=== PATIENT | male | born 1970 | race Caucasian/White ===

== ENCOUNTER 2018-03-24 13:45 | Inpatient (IN) ==
[2018-03-24] MEDS ORDERED: cefTRIAXone 2,000 MG in 0.9 % Sodium Chloride Mini Bag 100 ML IVPB ONE (14:08)
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
--- NOTE | 2018-03-24 14:20 | Emergency Department Note ---
Disposition Clinical Impression: Hyperkalemia Altered mental status Qualifiers: Altered mental status type: unspecified Qualified Code(s): R41.82 - Altered mental status, unspecified Kidney failure, acute Qualifiers: Acute renal failure type: unspecified Qualified Code(s): N17.9 - Acute kidney failure, unspecified UTI (urinary tract infection) Qualifiers: Urinary tract infection type: site unspecified Hematuria presence: without hematuria Qualified Code(s): N39.0 - Urinary tract infection, site not specified Anemia Qualifiers: Anemia type: due to chronic kidney disease Chronic kidney disease stage: unspecified stage Qualified Code(s): N18.9 - Chronic kidney disease, unspecified ; D63.1 - Anemia in chronic kidney disease Disposition: Admitted As Inpatient Condition: Fair Referrals: Isatu Zaman MD [Primary Care Provider] - Forms: ED Satisfaction Letter General Adult HPI - General Chief complaint: ED Altered Mental Status Stated complaint: Altered Time Seen by Provider: 03/24/18 13:51 Source: EMS Mode of arrival: EMS Limitations: altered mental status, physical limitation Nursing Notes Reviewed: Yes Vital Signs Reviewed: Yes - History of Present Illness HPI Narrative: 47-year-old male with significant past medical history of paraplegia from an unknown trauma presenting to the point of altered mental status. According to EMS patient was brought in by a [facility]. Patient is currently being treated with amoxicillin for urinary tract infection. Patient does not have an indwelling Aguilera catheter. According to EMS [facility] facility stated that patient is normally alert and able to respond to questions. Patient unable to provide any of history of present illness at this time. Patient's caregiver has arrived to the emergency department. She states this weekend he has decreased his oral intake. Now he is not eating or drinking. Denies any fevers at home. Denies any vomiting. Does state he has been constipated for the past 4 days. Has gone to the point where he cannot take his medications at home. She also discloses a fall that occurred on Friday. She states patient fell out of his wheelchair and wanted states. Denies loss of consciousness. Pain Scale: 0 - Related Data Home Medications Medication Instructions Recorded Confirmed Acetaminophen [Tylenol] 1,000 mg PO Q4HR 03/24/18 03/24/18 Baclofen [Lioresal] 10 mg PO BID 03/24/18 03/24/18 Cholecalciferol (D-3) [Vitamin D] 1,000 unit PO DAILY 03/24/18 03/24/18 EPINEPHrine [Epipen] 0.3 mg IM ONCE PRN 03/24/18 03/24/18 Epinastine HCl [Elestat] 1 drop OP BID 03/24/18 03/24/18 Losartan Potassium [Cozaar] 100 mg PO DAILY 03/24/18 03/24/18 Mirtazapine [Remeron] 15 mg PO HS 03/24/18 03/24/18 NIFEdipine [Nifedipine ER] 30 mg PO DAILY 03/24/18 03/24/18 Ranitidine HCl [Acid Patient Advocate] 150 mg PO BID 03/24/18 03/24/18 Sertraline [Zoloft] 200 mg PO DAILY 03/24/18 03/24/18 Tamsulosin [Flomax] 0.4 mg PO DAILY 03/24/18 03/24/18 Travoprost [Travatan Z] 1 drop OP QPM 03/24/18 03/24/18 traZODone [TraZODone] 50 mg PO HS 03/24/18 03/24/18 Allergies Allergy/AdvReac Type Severity Reaction Status Date / Time No Known Allergies Allergy Verified 03/24/18 15:33 Limitations: ROS unobtainable due to patients medical condition Past Medical History - Past Medical History Source: old records reviewed Medical history: Reports: other Psychiatric history: Reports: no psych history - Social History Smoking Status: Unknown if ever smoked Smokeless Tobacco Status: No Alcohol use: Reports: none Drug use: Reports: none Physical Exam - General Limitations: altered mental status, physical limitation General appearance: cachectic - Head Head exam: atraumatic - Eye Eye exam: Absent: scleral icterus, conjunctival injection - ENT ENT exam: mucous membranes dry - Neck Neck exam: Present: normal inspection - Chest Chest inspection: Absent: tenderness, rash - Respiratory Respiratory exam: Present: other (Decreased breath sounds bilaterally) - Cardiovascular Cardiovascular exam: Present: regular rate, normal rhythm, normal heart sounds - Abdominal Exam Abdominal exam: Present: soft. Absent: guarding, rebound - Extremities Exam Extremities exam: Present: normal capillary refill - Skin Skin exam: Present: warm Course Course Narrative: 47-year-old male presenting for altered mental status. Caregiver at bedside. States the past few days he has not been acting like himself at home. Unable to take his medications. Has stopped eating and drinking. Denies fevers at home. On exam patient has dry mucous membranes. Patient unable to provide any history. Coarse breath sounds throughout. Patient's vital signs stable. Patient currently being treated with amoxicillin urinary tract infection. Sepsis at this time. We will perform sepsis workup including blood cultures, basic laboratory analysis, chest x-ray, CT of the head and a urine analysis. Disposition pending results. - Reevaluation(s) Reevaluation #1: Patient's initial laboratory analysis shows elevated potassium of 6.0 and creatinine of 7.28. We will provide the patient with calcium, albuterol, insulin and glucose. I spoke with the car and yard supervisor on-call Dr. Courtney who agrees the patient needs to be admitted and have dialysis performed. Awaiting CT of the abdomen and pelvis along with CT of the head. Also awaiting remainder of the labs. Due to patient's anemia we will order 2 units of packed red blood cells as well. Patient remains hemodynamically stable at this time. Reevaluation #2: Patient's urine analysis shows urinary tract infection. Patient given 1 dose of Rocephin. Patient's CT of abdomen and pelvis shows worsening right renal cystic changes but no acute findings otherwise. CT of the head within normal limits. At this time will plan to admit the patient for further evaluation and dialysis. I spoke with the hospitalist gem stone cutter Dr. Ewing who agrees to accept the patient at this time. Patient remains hemodynamically stable in the room. Vital Signs Temperature 97.1 F L 03/24/18 13:52 Pulse Rate 97 03/24/18 13:52 Respiratory Rate 20 03/24/18 13:52 Blood Pressure 100/61 03/24/18 13:52 O2 Sat by Pulse Oximetry 100 03/24/18 13:52 Temperature 97.1 F L 03/24/18 13:52 Pulse Rate 97 03/24/18 13:52 Respiratory Rate 20 03/24/18 15:25 Blood Pressure 100/61 03/24/18 13:52 O2 Sat by Pulse Oximetry 100 03/24/18 15:25 Oxygen Delivery Oxygen Delivery Room Air Medical Decision Making - Lab Data Result diagrams: 03/24/18 14:20 03/24/18 14:20 Lab Results 03/24/18 03/24/18 03/24/18 Range/Units 14:10 14:20 14:20 WBC 10.6 (4.3-11.1) K/mcL RBC 2.42 L (4.19-5.50) M/mcL Hgb 7.1 L (12.9-16.9) g/dL Hct 23.3 L (37.5-50.1) % MCV 96.3 (83.0-100.0) fL MCH 29.3 (28.0-33.3) pg MCHC 30.5 L (31.6-35.5) g/dL RDW 15.0 H (11.5-14.5) % Plt Count 417 H (140-400) K/mcL MPV 8.2 L (9.4-12.4) fL Immature Gran % 0.7 (0-4) % Seg Neutrophils % 91.0 % Lymphocytes % 4.4 % Monocytes % 3.9 % Eosinophils % 0.0 % Basophils % 0.0 % Neutrophils # 9.6 H (1.6-8.9) K/mcL Lymphocytes # 0.5 L (0.6-4.6) K/mcL Monocytes # 0.4 (0.0-1.3) K/mcL Eosinophils # 0.0 (0.0-0.6) K/mcL Basophils # 0.0 (0.0-0.2) K/mcL PT 13.4 H (9.4-12.1) Seconds INR 1.2 APTT 28.8 (26.0-36.0) Seconds Sodium (136-145) mEq/L Potassium (3.5-5.1) mEq/L Chloride (98-107) mEq/L Carbon Dioxide (23-29) mEq/L BUN (6-20) mg/dL Creatinine (0.70-1.30) mg/dL Est GFR ( Amer) (> 60) Est GFR (Non-Af Amer) (> 60) BUN/Creatinine Ratio (6-26) Glucose (70-105) mg/dL Calculated Osmolality (280-300) Lactic Acid (0.5-2.2) mmol/L Calcium (8.6-10.3) mg/dL Magnesium (1.6-2.6) mg/dL Total Bilirubin (0.3-1.0) mg/dL Direct Bilirubin (0.0-0.2) mg/dL Indirect Bilirubin (0.0-1.2) mg/dL AST (13-39) Units/L ALT (7-52) Units/L Alkaline Phosphatase (34-104) Units/L Troponin I (< 0.04) ng/mL Serum Total Protein (6.4-8.9) g/dL Albumin (3.5-5.7) g/dL Globulin (2.4-3.5) g/dL Albumin/Globulin Ratio (1.1-2.2) Urine Color (Yellow) Urine Clarity (Clear) Urine pH (5.0-8.0) pH Units Ur Specific [place] (1.010-1.025) Urine Protein (Neg-Trace) mg/dL Urine Glucose (UA) (Normal) mg/dL Urine Ketones (Negative) mg/dL Urine Blood (Negative) Urine Nitrite (Negative) Urine Bilirubin (Negative) Urine Urobilinogen (Normal) mg/dL Ur Leukocyte Esterase (Negative) Urine Microscopic RBC (0-3) per hpf Urine Microscopic WBC (0-3) per hpf Ur Squamous Epith Cells (None-Few) per lpf Urine Bacteria (None-Few) per hpf Hyaline Casts (None-Few) per lpf Ur Culture Indicated? (NO) Urine Creatinine mg/dL Protein/Creatinin Ratio (0.00-0.20) mg/mg Urine Sodium mEq/L Urine Total Protein (1-14) mg/dL Urine Opiates Screen (Xrvaph=431) ng/mL Ur Barbiturates Screen (Nhyppg=965) ng/mL Ur Phencyclidine Scrn (Cutoff=25) ng/mL Ur Amphetamines Screen (Phraxl=9383) ng/mL U Benzodiazepines Scrn (Imzslp=657) ng/mL Urine Cocaine Screen (Cutoff= 300) ng/mL U Marijuana (THC) Screen (Cutoff = 50) ng/mL Ur Drug Screen Interp Hepatitis A IgM Ab Nonreactive (Nonreactive) Hep Bs Antigen Nonreactive (Nonreactive) Hep B Core IgM Ab Nonreactive (Nonreactive) Hepatitis C Ab Screen Nonreactive (Nonreactive) HIV Ag/Ab Combo Qual Nonreactive (Nonreactive) Blood Type Antibody Screen Crossmatch 03/24/18 03/24/18 03/24/18 Range/Units 14:20 14:20 15:26 WBC (4.3-11.1) K/mcL RBC (4.19-5.50) M/mcL Hgb (12.9-16.9) g/dL Hct (37.5-50.1) % MCV (83.0-100.0) fL MCH (28.0-33.3) pg MCHC (31.6-35.5) g/dL RDW (11.5-14.5) % Plt Count (140-400) K/mcL MPV (9.4-12.4) fL Immature Gran % (0-4) % Seg Neutrophils % % Lymphocytes % % Monocytes % % Eosinophils % % Basophils % % Neutrophils # (1.6-8.9) K/mcL Lymphocytes # (0.6-4.6) K/mcL Monocytes # (0.0-1.3) K/mcL Eosinophils # (0.0-0.6) K/mcL Basophils # (0.0-0.2) K/mcL PT (9.4-12.1) Seconds INR APTT (26.0-36.0) Seconds Sodium 141 (136-145) mEq/L Potassium 6.0 H (3.5-5.1) mEq/L Chloride 112 H (98-107) mEq/L Carbon Dioxide 15 L (23-29) mEq/L BUN 125 H (6-20) mg/dL Creatinine 7.28 H (0.70-1.30) mg/dL Est GFR ( Amer) 10 L (> 60) Est GFR (Non-Af Amer) 8 L (> 60) BUN/Creatinine Ratio 17 (6-26) Glucose 85 (70-105) mg/dL Calculated Osmolality 331 H (280-300) Lactic Acid 0.6 (0.5-2.2) mmol/L Calcium 9.2 (8.6-10.3) mg/dL Magnesium 2.4 (1.6-2.6) mg/dL Total Bilirubin 0.3 (0.3-1.0) mg/dL Direct Bilirubin 0.1 (0.0-0.2) mg/dL Indirect Bilirubin 0.2 (0.0-1.2) mg/dL AST 6 L (13-39) Units/L ALT 10 (7-52) Units/L Alkaline Phosphatase 80 (34-104) Units/L Troponin I < 0.03 (< 0.04) ng/mL Serum Total Protein 6.8 (6.4-8.9) g/dL Albumin 2.7 L (3.5-5.7) g/dL Globulin 4.1 H (2.4-3.5) g/dL Albumin/Globulin Ratio 0.7 L (1.1-2.2) Urine Color (Yellow) Urine Clarity (Clear) Urine pH (5.0-8.0) pH Units Ur Specific [place] (1.010-1.025) Urine Protein (Neg-Trace) mg/dL Urine Glucose (UA) (Normal) mg/dL Urine Ketones (Negative) mg/dL Urine Blood (Negative) Urine Nitrite (Negative) Urine Bilirubin (Negative) Urine Urobilinogen (Normal) mg/dL Ur Leukocyte Esterase (Negative) Urine Microscopic RBC (0-3) per hpf Urine Microscopic WBC (0-3) per hpf Ur Squamous Epith Cells (None-Few) per lpf Urine Bacteria (None-Few) per hpf Hyaline Casts (None-Few) per lpf Ur Culture Indicated? (NO) Urine Creatinine mg/dL Protein/Creatinin Ratio (0.00-0.20) mg/mg Urine Sodium mEq/L Urine Total Protein (1-14) mg/dL Urine Opiates Screen (Xauaay=334) ng/mL Ur Barbiturates Screen (Xgtvkb=209) ng/mL Ur Phencyclidine Scrn (Cutoff=25) ng/mL Ur Amphetamines Screen (Sshocv=5840) ng/mL U Benzodiazepines Scrn (Abqany=803) ng/mL Urine Cocaine Screen (Cutoff= 300) ng/mL U Marijuana (THC) Screen (Cutoff = 50) ng/mL Ur Drug Screen Interp Hepatitis A IgM Ab (Nonreactive) Hep Bs Antigen (Nonreactive) Hep B Core IgM Ab (Nonreactive) Hepatitis C Ab Screen (Nonreactive) HIV Ag/Ab Combo Qual (Nonreactive) Blood Type A POSITIVE Antibody Screen NEGATIVE Crossmatch See Detail 03/24/18 03/24/18 03/24/18 Range/Units 16:19 16:19 16:19 WBC (4.3-11.1) K/mcL RBC (4.19-5.50) M/mcL Hgb (12.9-16.9) g/dL Hct (37.5-50.1) % MCV (83.0-100.0) fL MCH (28.0-33.3) pg MCHC (31.6-35.5) g/dL RDW (11.5-14.5) % Plt Count (140-400) K/mcL MPV (9.4-12.4) fL Immature Gran % (0-4) % Seg Neutrophils % % Lymphocytes % % Monocytes % % Eosinophils % % Basophils % % Neutrophils # (1.6-8.9) K/mcL Lymphocytes # (0.6-4.6) K/mcL Monocytes # (0.0-1.3) K/mcL Eosinophils # (0.0-0.6) K/mcL Basophils # (0.0-0.2) K/mcL PT (9.4-12.1) Seconds INR APTT (26.0-36.0) Seconds Sodium (136-145) mEq/L Potassium (3.5-5.1) mEq/L Chloride (98-107) mEq/L Carbon Dioxide (23-29) mEq/L BUN (6-20) mg/dL Creatinine (0.70-1.30) mg/dL Est GFR ( Amer) (> 60) Est GFR (Non-Af Amer) (> 60) BUN/Creatinine Ratio (6-26) Glucose (70-105) mg/dL Calculated Osmolality (280-300) Lactic Acid (0.5-2.2) mmol/L Calcium (8.6-10.3) mg/dL Magnesium (1.6-2.6) mg/dL Total Bilirubin (0.3-1.0) mg/dL Direct Bilirubin (0.0-0.2) mg/dL Indirect Bilirubin (0.0-1.2) mg/dL AST (13-39) Units/L ALT (7-52) Units/L Alkaline Phosphatase (34-104) Units/L Troponin I (< 0.04) ng/mL Serum Total Protein (6.4-8.9) g/dL Albumin (3.5-5.7) g/dL Globulin (2.4-3.5) g/dL Albumin/Globulin Ratio (1.1-2.2) Urine Color Yellow (Yellow) Urine Clarity Turbid A (Clear) Urine pH 5.5 (5.0-8.0) pH Units Ur Specific [place] 1.021 (1.010-1.025) Urine Protein 100 H (Neg-Trace) mg/dL Urine Glucose (UA) Normal (Normal) mg/dL Urine Ketones Trace H (Negative) mg/dL Urine Blood Large H (Negative) Urine Nitrite Negative (Negative) Urine Bilirubin Negative (Negative) Urine Urobilinogen Normal (Normal) mg/dL Ur Leukocyte Esterase Large H (Negative) Urine Microscopic RBC 5-15 H (0-3) per hpf Urine Microscopic WBC TNTC H (0-3) per hpf Ur Squamous Epith Cells None Seen (None-Few) per lpf Urine Bacteria Many H (None-Few) per hpf Hyaline Casts None Seen (None-Few) per lpf Ur Culture Indicated? YES A (NO) Urine Creatinine 59 mg/dL Protein/Creatinin Ratio 3.78 H (0.00-0.20) mg/mg Urine Sodium 46.0 mEq/L Urine Total Protein 223 H (1-14) mg/dL Urine Opiates Screen Negative (Nlrvsz=937) ng/mL Ur Barbiturates Screen Negative (Sraxsf=165) ng/mL Ur Phencyclidine Scrn Negative (Cutoff=25) ng/mL Ur Amphetamines Screen Negative (Plcicp=4789) ng/mL U Benzodiazepines Scrn Negative (Ymppnw=164) ng/mL Urine Cocaine Screen Negative (Cutoff= 300) ng/mL U Marijuana (THC) Screen Negative (Cutoff = 50) ng/mL Ur Drug Screen Interp See Below Hepatitis A IgM Ab (Nonreactive) Hep Bs Antigen (Nonreactive) Hep B Core IgM Ab (Nonreactive) Hepatitis C Ab Screen (Nonreactive) HIV Ag/Ab Combo Qual (Nonreactive) Blood Type Antibody Screen Crossmatch - EKG Data EKG #1 EKG attestation: Yes I reviewed and interpreted this EKG. EKG results narrative: Sinus rhythm. 96 bpm. DE interval 125, QRS 99, QTC 454. Peaked T waves noted in V3, V4, V5. Compared to previous EKG completed on 12/18/2013 no significant changes noted Attestation Statement - Attestation Attestation: I, Dewey Gonsalez DO, examined this patient [id number] and my medical decision-making was reviewed with Dr. Francoise Parra, Resident Physician. I agree with the documented findings, disposition and treatment plan as described except to the extent set forth below. Please see my progress notes for details.
[2018-03-24] MEDS ORDERED: Hydrocortisone Sodium Succ 100 MG/2 ML VIAL IVP ONE (14:26)
[2018-03-24] MEDS ORDERED: 0.9 % Sodium Chloride 1,000 ML IVC ONE ×2 (14:26→15:08)
[2018-03-24 14:38] LABS: Hematocrit 23.3 % (37.5-50.1); Hemoglobin 7.1 g/dL (12.9-16.9); Immature Granulocytes % 0.7 % (0-4); Lymphocytes # 0.5 K/mcL (0.6-4.6); Lymphocytes % 4.4 %; Mean Corpuscular HGB Conc 30.5 g/dL (31.6-35.5); Mean Corpuscular Hemoglobin 29.3 pg (28.0-33.3); Mean Corpuscular Volume 96.3 fL (83.0-100.0); Mean Platelet Volume 8.2 fL (9.4-12.4); Monocytes # 0.4 K/mcL (0.0-1.3); Monocytes % 3.9 %; Neutrophils # 9.6 K/mcL (1.6-8.9); Platelet Count 417 K/mcL (140-400); Red Blood Count 2.42 M/mcL (4.19-5.50)
[2018-03-24 14:47] LABS: INR 1.2; Prothrombin Time 13.4 Seconds (9.4-12.1)
[2018-03-24 14:50] LABS: Activated Partial Thrombo Time 28.8 Seconds (26.0-36.0)
[2018-03-24 15:01] LABS: Troponin I < 0.03 ng/mL (< 0.04)
[2018-03-24 15:02] LABS: Alanine Aminotransferase 10 Units/L (7-52); Albumin 2.7 g/dL (3.5-5.7); Albumin/Globulin Ratio 0.7 (1.1-2.2); Alkaline Phosphatase 80 Units/L (34-104); Aspartate Amino Transferase 6 Units/L (13-39); BUN/Creatinine Ratio 17 (6-26); Bilirubin,Direct 0.1 mg/dL (0.0-0.2); Bilirubin,Indirect 0.2 mg/dL (0.0-1.2); Bilirubin,Total 0.3 mg/dL (0.3-1.0); Blood Urea Nitrogen 125 mg/dL (6-20); Calcium 9.2 mg/dL (8.6-10.3); Carbon Dioxide 15 mEq/L (23-29); Chloride 112 mEq/L (98-107); Globulin 4.1 g/dL (2.4-3.5); Glucose 85 mg/dL (70-105); Magnesium 2.4 mg/dL (1.6-2.6); Osmolality,Calculated 331 (280-300); Sodium 141 mEq/L (136-145); Total Protein 6.8 g/dL (6.4-8.9); eGFR For Non-African Americans 8 (> 60)
[2018-03-24] MEDS ORDERED: *HR* Dextrose 50 % in Water (Syg) 50 ML SYRINGE IVP ONE (15:04)
[2018-03-24] MEDS ORDERED: Insulin Human Regular 10 UNIT in 0.9 % Sodium Chloride 10 ML IV ONE (15:04)
[2018-03-24] MEDS ORDERED: Albuterol 2.5 MG/3 ML NEBULIZER IH ONE (15:05)
--- NOTE | 2018-03-24 15:54 | Nephrology Consult Note ---
Date of Encounter: 03/24/18 Time of Encounter: 15:46 Assessment and Plan (1) Acute kidney injury superimposed on chronic kidney disease Current Visit: Yes Status: Acute Acute kidney injury on chronic kidney disease stage IV, GFR typically in the 20s Patient presents with a serum creatinine 7.28, and it was apparently elevated earlier in the week at PCP as well In addition of this, the patient does present with hyperkalemia (K+ 6.0) and a BUN of 125 Etiology is unknown at this time, however may be multifactorial. He has been on antibiotic and takes losartan Additionally the patient has had issues with BPH in the past as well as prostate enlargement Finally the patient has known polycystic kidney disease with ruptured cysts in the past Plan -Patient is biochemically unstable at this time and will require acute hemodialysis -Suspect that this may be reversible at this time, consult IR for temporary hemodialysis catheter -Plan for hemodialysis tonight or in the morning -Withhold nephrotoxic agents including losartan -Recommend IV fluids for hydration purposes -I will check urine sodium, creatinine, CT of the abdomen and pelvis for potential obstructive uropathy -Insert Aguilera catheter -Monitor strict I's and O's (2) Hyperkalemia Current Visit: Yes Status: Acute Hyperkalemia secondary to acute kidney injury Patient will require hemodialysis for potassum regulation, however this cannot be done tonight recommend Kayexalate (3) Encephalopathy Current Visit: Yes Status: Acute Encephalopathy, likely secondary to uremia Metabolic in nature, however head CT pending Patient to start hemodialysis tonight or in the morning (4) Cerebral palsy Current Visit: Yes Status: Acute Chronic Qualifiers: Cerebral palsy type: unspecified type Qualified Code(s): G80.9 - Cerebral palsy, unspecified History of Present Illness - Reason for Consult Consult date: 03/24/18 Acute Kidney Injury Requesting physician: Francoise Parra - Chief Complaint Altered mental status - History of Present Illness Mr. Pierce is a 47-year-old gentleman with past surgical history of cerebral palsy, polycystic kidney disease with C daily stage IV, baseline GFR in the 20s who presented to the ED with altered mental status alongside an aide who takes care of him. The patient is apparently functionally paraplegic at baseline, however he is able to get around relatively independently at baseline. Apparently the patient had a urinary tract infection approximately 2 half weeks ago which she was treated with oral antibiotics for. In addition this the patient was started on an SSRI approximately a week before that but his rubber press operator says that he became lethargic on this medication so was stopped approximately a week after starting. Combination of the antibiotic as well as the cessation of the new anti-depressant, the patient was apparently getting better, however approximately 3-4 days ago the patient started to get worse. She says that he started to get more and more altered, became weaker and stopped making urine. She says that he has only been urinating approximately once per day over the past week. Additionally, he has not been able to have a bowel movement over the past 4-5 days, and he has been increasingly more confused. She says that up until today he seems to have had difficulty remembering his name or evidence going on around him, and then today he did not seem to be able to talk or really interact with her at all. This is new in comparison to previous. She denies any fevers, chills, sweats, however does mention that there is no significant blood in the urine over the past couple of weeks which she associates with a rupture of a kidney cyst. In addition of this he is apparently had some cough for the past 1-2 days and she describes a rattle in his chest when he breathes. Finally he has had some constipation and fecal and urinary incontinence in the past week. He does follow with nephrology and sees Dr. Harris as an outpatient. Past Med Surg Social Fam HX - Past Medical History Medical history: other Additional medical history: parapalegic Psychiatric history: no psych history - Past Surgical History Additional surgical history: unknown - Social History Smoking Status: Unknown if ever smoked Smokeless Tobacco Status: No Alcohol use: none Drug use: none Medications and Allergies Acetaminophen [Tylenol] 1,000 mg PO Q4HR 03/24/18 [History] Baclofen [Lioresal] 10 mg PO BID 03/24/18 [History] Cholecalciferol (D-3) [Vitamin D] 1,000 unit PO DAILY 03/24/18 [History] EPINEPHrine [Epipen] 0.3 mg IM ONCE PRN 03/24/18 [History] Epinastine HCl [Elestat] 1 drop OP BID 03/24/18 [History] Losartan Potassium [Cozaar] 100 mg PO DAILY 03/24/18 [History] Mirtazapine [Remeron] 15 mg PO HS 03/24/18 [History] NIFEdipine [Nifedipine ER] 30 mg PO DAILY 03/24/18 [History] Ranitidine HCl [Acid Commercial Green Retrofit Architect] 150 mg PO BID 03/24/18 [History] Sertraline [Zoloft] 200 mg PO DAILY 03/24/18 [History] Tamsulosin [Flomax] 0.4 mg PO DAILY 03/24/18 [History] Travoprost [Travatan Z] 1 drop OP QPM 03/24/18 [History] traZODone [TraZODone] 50 mg PO HS 03/24/18 [History] 3 Allergy/AdvReac Type Severity Reaction Status Date / Time No Known Allergies Allergy Verified 03/24/18 15:33 Review of Systems ROS unobtainable: due to mental status Exam - Vital Signs Vital signs: Initial Vital Signs Temp Pulse Resp BP Pulse Ox 97.1 F L 97 20 100/61 100 03/24/18 13:52 03/24/18 13:52 03/24/18 13:52 03/24/18 13:52 03/24/18 13:52 Vital Signs - Last 8 Hours Temp Pulse Resp BP Pulse Ox 03/24/18 15:25 20 100 03/24/18 13:52 97.1 F L 97 20 100/61 100 Intake and Output 03/23/18 03/24/18 03/24/18 23:59 07:59 15:59 Other: Weight 55.792 kg Blood Glucose* 89 Patient Weight 03/24/18 23:59 Weight 55.792 kg - General Appearance Exam: Gen: Vitals noted. Patient appears catatonic in nature, does not interact or follow commands. He does track with eyes. HEENT: Normocephalic, atraumatic Neck: Supple. No adenopathy. Cardiac: RRR, no murmur, +S1/S2 Pulmonary: There are some rales on auscultation anteriorly, primarily at the apices of the lungs which are not present in the bases. No wheezes. Abdomen: soft, nontender, no guarding MSK: Muscle wasting is noted in the lower extremities, patient does not lift his legs. Extremities: no BLE edema, nontender calf, no cyanosis or clubbing Neuro: Patient does withdraw to pain, otherwise does not respond to commands Psych: Patient is catatonic Results - Lab Results 03/24/18 14:20 03/24/18 14:20 Most recent lab results Calcium 9.2 mg/dL (8.6-10.3) 03/24/18 14:20 Magnesium 2.4 mg/dL (1.6-2.6) 03/24/18 14:20 Consult Discharge Plan - Plan Referrals: Isatu Zaman MD [Primary Care Provider] -
[2018-03-24] MEDS ORDERED: 0.9 % Sodium Chloride 1,000 ML IVC SCH (16:00)
[2018-03-24 16:41] LABS: Bilirubin,Urine Negative (Negative); Blood,Urine Large (Negative); Clarity,Urine Turbid (Clear); Color,Urine Yellow (Yellow); Glucose,Urine (UA) Normal (Normal); Ketones,Urine Trace mg/dL (Negative); Leukocyte Esterase,Urine Large (Negative); Nitrite,Urine Negative (Negative); PH,Urine 5.5 pH Units (5.0-8.0); Protein,Urine 100 mg/dL (Neg-Trace); Specific Gravity,Urine 1.021 (1.010-1.025); Urobilinogen,Urine Normal (Normal)
[2018-03-24 16:44] LABS: Hyaline Casts,Urine None Seen per lpf (None-Few); Squamous Epithelial Cell,Urine None Seen per lpf (None-Few); WBC,Urine TNTC per hpf (0-3)
[2018-03-24 16:53] LABS: HIV-1&2 Antibody & p24 Ag Nonreactive (Nonreactive); Hepatitis A Antibody IgM Nonreactive (Nonreactive); Hepatitis B Core IgM Nonreactive (Nonreactive); Hepatitis B Surface Antigen Nonreactive (Nonreactive); Hepatitis C Virus Antibody Nonreactive (Nonreactive)
[2018-03-24 16:54] LABS: Amphetamine Screen,Urine Negative ng/mL (Cutoff=1000); Barbiturate Screen,Urine Negative ng/mL (Cutoff=200); Benzodiazepines Screen,Urine Negative ng/mL (Cutoff=200); Cannabinoid Screen,Urine Negative ng/mL (Cutoff = 50); Cocaine Screen,Urine Negative ng/mL (Cutoff= 300); Opiate Screen,Urine Negative ng/mL (Cutoff=300); Phencyclidine Screen,Urine Negative ng/mL (Cutoff=25)
[2018-03-24 16:59] LABS: Bacteria,Urine Many per hpf (None-Few)
[2018-03-24 17:19] LABS: Protein/Creatinine Ratio,Urine 3.78 mg/mg (0.00-0.20)
--- NOTE | 2018-03-24 18:01 | Internal Med History&Physical ---
Date of Encounter: 03/24/18 Time of Encounter: 18:00 Internal Medicine - H&P: HPI Chief complaint: altered mental status History of present illness: Mr. Watters is a 47 year old male who resented with altered mentation. Patient is chronically disabled secondary traumatic injury. He was diagnosed with urinary tract infection earlier this week. In last day progressive confusion to now point of being lethargic and unresponsive. On arrival had stable vital signs and a normal Accu-Chek. He responds to pain but he is nonverbal. ED course with labs revealed potassium is 6.0. Creatinine is 7.28. GFR is 8. Patient has a significantly elevated BUNs concerning for uremia. EKG reviewed aand hyperacute T wavesappear to be chronic based on an EKG from 2014. Symptoms and presentation are most consistent with uremic-like presentation. Nephrology was consult and they will set the patient up for dialysis either tonight or in am. ED treatment with IV calcium, dextrose and insulin, albuterol, Kayexalate. CT imaging of the abdomen was added to rule out any obstructive related pathology and a Fowler catheter was placed with little urine output. Patient has known polycystic kidney disease and visualized on CT a/p with increased cystic lesions of the right kidney, areas of hyperdensity that could represent complex contents vs hemorrhage, malignancy not excluded. Antibiotic started in ED. PRBC in ED will be provided secondary to what appears to be hemoconcentration with a hemoglobin of 7.1. No blood is noted in the patient's stool. He has had no hematochezia. No hematemesis. CT head stable with no acute findings no further hpi or ros given pt mentation care transitions manager at bedside notes baseline mentation is AAOx3, joking and pleasant. Has not been communicative all day Nephro at bedside. Pt is [facility] of the [facility]. d/w care transitions manager and nephro. Pt full code, no contact number at this time for legal guardian. Will attempt to confirm. Past Med Surg Social Fam HX - Past Medical History Medical history: other Additional medical history: parapalegic Psychiatric history: no psych history - Past Surgical History Additional surgical history: unknown - Social History Smoking Status: Unknown if ever smoked Smokeless Tobacco Status: No Alcohol use: none Drug use: none Internal Medicine - H&P: Meds Acetaminophen [Tylenol] 1,000 mg PO Q4HR 09/18/18 [History] Baclofen [Lioresal] 10 mg PO BID 03/24/18 [History] Cholecalciferol (D-3) [Vitamin D] 1,000 unit PO DAILY 03/24/18 [History] EPINEPHrine [Epipen] 0.3 mg IM ONCE PRN 03/24/18 [History] Epinastine HCl [Elestat] 1 drop OP BID 03/24/18 [History] Losartan Potassium [Cozaar] 100 mg PO DAILY 03/24/18 [History] Mirtazapine [Remeron] 15 mg PO HS 03/24/18 [History] NIFEdipine [Nifedipine ER] 30 mg PO DAILY 03/24/18 [History] Ranitidine HCl [[employer]] 150 mg PO BID 03/24/18 [History] Sertraline [Zoloft] 200 mg PO DAILY 03/24/18 [History] Tamsulosin [Flomax] 0.4 mg PO DAILY 03/24/18 [History] Travoprost [Travatan Z] 1 drop OP QPM 03/24/18 [History] traZODone [TraZODone] 50 mg PO HS 03/24/18 [History] 3 Allergy/AdvReac Type Severity Reaction Status Date / Time No Known Allergies Allergy Verified 03/24/18 15:33 ROS unobtainable: due to mental status All Systems PM: A 10-system review of systems was performed and is negative for pertinent findings except as documented above in the HPI. - Constitutional Vitals: Temp Pulse Resp BP Pulse Ox 97.1 F L 97 20 100/61 100 03/24/18 13:52 03/24/18 13:52 03/24/18 15:25 03/24/18 13:52 03/24/18 15:25 Exam: General: awake, alert with eyes open, non verbal,appears stated age HEENT:EOM appear intact, pupils equal, round, moist mucus membranes Neck: supple, trachea midline Cardiovascular:regular rate and rhythm, normal S1 & S2, no rubs, murmurs or gallops. No JVD. radial pulses 2+, no lower extremity edema Lungs:Normal breath sounds, no wheezes, or crackles. Normal respiratory effort on RA Abdomen:Soft, no apparent tenderness, no guarding, non-distended, no rigidity, + bowel sounds Extremities:decreased tone throughout extremities, bed bound at baseline, does not follow commands to assess rom Neurological: eyes open, alert, makes eye contact but non verbal and follows no commands, CN appear grossly intact, no facial assymetry, no focal deficits can be appreciated, limited exam due to mental status Skin:Normal color, no rash, + pallor MSK: no apparent cva tenderness : fowler cath with cloudy yellow turbid urine Internal Med - H&P Results - Labs CBC & Chem 7: 03/24/18 14:20 03/24/18 14:20 Labs: Short CBC 03/24/18 Range/Units 14:20 WBC 10.6 (4.3-11.1) K/mcL Hgb 7.1 L (12.9-16.9) g/dL Hct 23.3 L (37.5-50.1) % Plt Count 417 H (140-400) K/mcL Neutrophils # 9.6 H (1.6-8.9) K/mcL BMP 03/24/18 14:20 Sodium 141 Potassium 6.0 H Chloride 112 H Carbon Dioxide 15 L BUN 125 H Creatinine 7.28 H Glucose 85 Calcium 9.2 Cardiac Enzymes 03/24/18 Range/Units 14:20 Troponin I < 0.03 (< 0.04) ng/mL Liver Function 03/24/18 Range/Units 14:20 Total Bilirubin 0.3 (0.3-1.0) mg/dL Direct Bilirubin 0.1 (0.0-0.2) mg/dL AST 6 L (13-39) Units/L ALT 10 (7-52) Units/L Alkaline Phosphatase 80 (34-104) Units/L Albumin 2.7 L (3.5-5.7) g/dL Urine 03/24/18 Range/Units 16:19 Urine Color Yellow (Yellow) Urine Clarity Turbid A (Clear) Urine pH 5.5 (5.0-8.0) pH Units Ur Specific [place] 1.021 (1.010-1.025) Urine Protein 100 H (Neg-Trace) mg/dL Urine Glucose (UA) Normal (Normal) mg/dL - Impressions ITS Impressions Chest X-Ray 03/24/18 13:53 IMPRESSION: No acute cardiopulmonary disease. D/ / Mariann Graham MD / Mariann Graham MD Interpreting Provider: Mariann Graham MD Head CT 03/24/18 13:53 IMPRESSION: Stable CT brain with no acute intracranial abnormality. D/ / Juve Pretty MD / Juve Pretty MD Interpreting Provider: Juve Pretty MD Abdomen/Pelvis CT 03/24/18 15:08 IMPRESSION: Significant increase in the number of cystic lesions involving the right kidney and within the size of the right kidney. Multiple lesions demonstrate areas of hyperdensity which could represent complex contents versus hemorrhage. Malignant transformation is not excluded. Additional postcontrast imaging with CT or MRI would be helpful for further characterization. No small bowel obstruction. Large amount of stool within the rectosigmoid region may be causing mild partial fecal impaction. D/ / 03/24/2018 17:16:34 Lamberto Gagnon MD / omero Interpreting Provider: Lamberto Gagnon MD - Assessment and plan (1) Acute kidney injury superimposed on chronic kidney disease Current Visit: Yes Status: Acute Assessment and plan: Acute kidney injury on chronic kidney disease stage IV, GFR typically in the 20s Patient presents with a serum creatinine 7.28, hyperkalemia (K+ 6.0) and a BUN of 125 Etiology is unknown at this time, however may be multifactorial. He has been on antibiotic and takes losartan Additionally the patient has had issues with BPH in the past as well as prostate enlargement known polycystic kidney disease with ruptured cysts in the past and worsening cystic disease on CT in ED -seen by nephro in ED and at bedside at time of my exam--plan for HD in AM, Temp dialysis line by IR in am per d/w with Nephro--if repeat K+ tonight is higher and he needs emergent HD tonight, nephro attending will come in and place line overnight -Withhold nephrotoxic agents including losartan -Recommend IV fluids for hydration purposes- NS 125 cc/hr -urine sodium, creatinine -CT of the abdomen and pelvis no potential obstructive uropathy but + worsened right polycystic kidney disease with possible complex cysts vs hemaorrhagic cysts, cannot rule out malignancy -Fowler catheter -Monitor strict I's and O's -suspected UTI, ucx, bl cx pending, cont IV rocephin (2) Anemia Current Visit: Yes Status: Acute Assessment and plan: hgb 7.1, chronic component given CKD, monitor for cahanges given concern for hemorrhage on CT as farideh -receiving prbcs in ED, hgb check one hour after transfusion -tele -given transfusing tonight with prbc--hold pharm vte ppx--place scds, hold pharm vte ppx also in setting of temp dialysis cath to be placed, coags and cbc in am as well Qualifiers: Anemia type: due to chronic kidney disease Chronic kidney disease stage: stage 4 (severe) Qualified Code(s): N18.4 - Chronic kidney disease, stage 4 ( severe); D63.1 - Anemia in chronic kidney disease (3) Cerebral palsy Current Visit: Yes Status: Acute Assessment and plan: has state appointed legal guardian -SW consult to confirm and obtain contact info as will need to have available for procedures and to confirm code status Qualifiers: Cerebral palsy type: unspecified type Qualified Code(s): G80.9 - Cerebral palsy, unspecified (4) Dehydration Current Visit: Yes Status: Acute Assessment and plan: ivf as above keep npo otherwise given mentation (5) Encephalopathy Current Visit: Yes Status: Acute Assessment and plan: likely 2/2 Uremia and suspected UTI CT head no acute findings -HD as above -cont to monitor -neuro checks -ruling out other sources of infection (6) Hyperkalemia Current Visit: Yes Status: Acute Assessment and plan: K+ 6.0 -s/p albuterol, ca gluconate, dextrose + insulin and kayexalate in ED -repeat K level 9pm--if increases contact Nephro as will need emergent overnight dialysis -tele, trend trops -ekg in AM -EKG T wave changes in ED appear to be old and stable - Time Spent With Patient Total time spent is greater than 50% in coordination of care (as documented) at patient's floor/unit and/or counseling patient: 25 - 35 minutes
[2018-03-24] MEDS ORDERED: Naloxone 0.4 MG/ML INJ IVP PRN (18:13)
[2018-03-24] MEDS ORDERED: 0.9 % Sodium Chloride 250 ML ONE (23:32)
[2018-03-24] MEDS: 0.9 % Sodium Chloride 1,000 ML IVC SCH (23:45)
[2018-03-25 03:56] LABS: Basophils % 0.1 %; Hematocrit 25.9 % (37.5-50.1); Hemoglobin 8.1 g/dL (12.9-16.9); Immature Granulocytes % 0.5 % (0-4); Mean Corpuscular HGB Conc 31.3 g/dL (31.6-35.5); Mean Corpuscular Hemoglobin 28.5 pg (28.0-33.3); Mean Corpuscular Volume 91.2 fL (83.0-100.0); Mean Platelet Volume 8.2 fL (9.4-12.4); Monocytes # 0.5 K/mcL (0.0-1.3); Monocytes % 5.4 %; Neutrophils # 7.7 K/mcL (1.6-8.9); Platelet Count 371 K/mcL (140-400); Red Blood Count 2.84 M/mcL (4.19-5.50); Red Cell Distribution Width 16.1 % (11.5-14.5)
[2018-03-25 04:02] LABS: INR 1.1; Prothrombin Time 12.4 Seconds (9.4-12.1)
[2018-03-25 04:28] LABS: Calcium 8.6 mg/dL (8.6-10.3); Potassium 5.7 mEq/L (3.5-5.1)
[2018-03-25] MEDS ORDERED: Ringers Solution, Lactated 1,000 ML IVC SCH (04:45)
[2018-03-25] MEDS: 0.9 % Sodium Chloride 1,000 ML IVC SCH (07:26)
--- NOTE | 2018-03-25 07:35 | Internal Med Progress Note ---
Hospitalist Progress Note - Encounter Date of Encounter: 03/25/18 Time of Encounter: 09:00 - Subjective Interval History: awake, alert but non verbal. no family present. follows simple commands. hpi and ros limited by mentation - Exam Vitals: Temp Pulse Resp BP Pulse Ox 97.9 F 96 16 124/76 98 03/25/18 04:34 03/25/18 04:34 03/25/18 04:34 03/25/18 04:34 03/25/18 04:34 Exam: General: awake, alert with eyes open, non verbal,appears stated age HEENT:EOM appear intact, pupils equal, round, moist mucus membranes Cardiovascular:regular rate and rhythm, normal S1 & S2, no rubs, murmurs or gallops. No JVD. radial pulses 2+, no lower extremity edema Lungs:Normal breath sounds, no wheezes, or crackles. Normal respiratory effort on RA Abdomen:Soft, no apparent tenderness, no guarding, non-distended, no rigidity, + bowel sounds Neurological: eyes open, alert, makes eye contact but non verbal, follows command to blink, CN appear grossly intact, no facial assymetry, no focal deficits can be appreciated, limited exam due to mental status Skin:Normal color, no rash, + pallor : fowler cath with cloudy yellow turbid urine - Assessment and Plan (1) Acute kidney injury superimposed on chronic kidney disease Current Visit: Yes Status: Acute Assessment and Plan: Acute kidney injury on chronic kidney disease stage IV, GFR typically in the 20s Anion Gap Metabolic Acidosis Patient presents with a serum creatinine 7.28, hyperkalemia (K+ 6.0) and a BUN of 125, Bicarb 15 Etiology is unknown at this time, however may be multifactorial. He has been on antibiotic and takes losartan Additionally the patient has had issues with BPH in the past as well as prostate enlargement known polycystic kidney disease with ruptured cysts in the past and worsening cystic disease on CT in ED -seen by nephro in ED --plan for HD in AM, Temp dialysis line by IR in am per d/ w with Nephro -Withhold nephrotoxic agents including losartan -IV fluids for hydration purposes- NS 125 cc/hr -CT of the abdomen and pelvis no potential obstructive uropathy but + worsened right polycystic kidney disease with possible complex cysts vs hemaorrhagic cysts, cannot rule out malignancy -Fowler catheter -Monitor strict I's and O's -suspected UTI, ucx, bl cx pending, cont IV rocephin -fu nephro recs with HD and further treatment AGMA (2) Anemia Current Visit: Yes Status: Acute Assessment and Plan: hgb 7.1, chronic component given CKD, monitor for cahanges given concern for hemorrhage on CT as above -receiving prbcs in ED, hgb recheck now 8.1 -tele -given transfusing with prbc--hold pharm vte ppx--place scds, hold pharm vte ppx also in setting of temp dialysis cath to be placed 03/25 -cont to monitor (3) Cerebral palsy Current Visit: Yes Status: Acute Assessment and Plan: has state appointed legal guardian -SW consult to confirm and obtain contact info as will need to have available for procedures and to confirm code status (4) Dehydration Current Visit: Yes Status: Acute Assessment and Plan: ivf as above keep npo otherwise given mentation (5) Encephalopathy Current Visit: Yes Status: Acute Assessment and Plan: likely 2/2 Uremia and suspected UTI CT head no acute findings -HD as above -cont to monitor -neuro checks -ruling out other sources of infection--no fever, leukocytosis, bl cxs pending, ucx pending, CXR no acute disease (6) Hyperkalemia Current Visit: Yes Status: Acute Assessment and Plan: K+ 6.0, now down trending -s/p albuterol, ca gluconate, dextrose + insulin and kayexalate in ED -repeat K level this morning 5.7 -tele -EKG T wave changes in ED appear to be old and stable, EKG monitoring -trops negative -03/25 now mild hyperkalemia, addl Kayexalate and ca gluconateordered, HD today DVT Prophylaxis: scds awaiting IR CVC placement and with anemia requiring transfusion - Time Spent with Patient Total time spent is greater than 50% in coordination of care (as documented) at patient's floor/unit and/or counseling patient: 25 - 35 minutes Internal Medicine: Result - Labs CBC & Chem 7: 03/25/18 03:19 03/25/18 03:19 Labs: Short CBC 03/25/18 Range/Units 03:19 WBC 9.3 (4.3-11.1) K/mcL Hgb 8.1 L (12.9-16.9) g/dL Hct 25.9 L (37.5-50.1) % Plt Count 371 (140-400) K/mcL Neutrophils # 7.7 (1.6-8.9) K/mcL BMP 03/24/18 03/25/18 21:35 03:19 Sodium 143 Potassium 5.9 H 5.7 H Chloride 118 H Carbon Dioxide 10 L* BUN 115 H Creatinine 6.56 H Glucose 76 Calcium 8.6 Cardiac Enzymes 03/24/18 03/25/18 Range/Units 21:35 03:19 Troponin I < 0.03 < 0.03 (< 0.04) ng/mL - ABG Interpretation ABG results: PT/INR, D-dimer PT 12.4 Seconds (9.4-12.1) H 03/25/18 03:19 Consult Discharge Plan - Plan Referrals: Isatu Zaman MD [Primary Care Provider] - (2) Anemia Qualifiers: Qualified Code(s): N18.4 - Chronic kidney disease, stage 4 (severe); D63.1 - Anemia in chronic kidney disease (3) Cerebral palsy Qualifiers: Qualified Code(s): G80.9 - Cerebral palsy, unspecified
[2018-03-25] MEDS ORDERED: 0.9 % Sodium Chloride 250 ML IVC PRN (07:52)
[2018-03-25] MEDS ORDERED: *HR* Heparin 5,000 UNIT/ML VIAL ONE (11:28)
--- NOTE | 2018-03-25 11:39 | IR Procedure Note ---
Date of procedure: 03/25/18 Consent Obtained: Verbal consent, Written consent Timeout: Correct patient and procedure verified, Correct site verified, Time out performed, Skin prep completed Local anesthetic: Lidocaine 1% Indications: dialysis Procedure Performed: right IJ tempcath Was there an contract assistant present: No Site/Technique: right IJ Results/Findings: patent vein Estimated blood loss (cc): 0 Complications: None; Tolerated procedure well Post Procedure Treatment Plan: catheter ok to use Specimen: NA
--- NOTE | 2018-03-25 13:29 | Nephrology Progress Note ---
Date of Encounter: 03/25/18 Time of Encounter: 09:00 - Assessment and Plan (1) Acute kidney injury superimposed on chronic kidney disease Current Visit: Yes Status: Acute Acute kidney injury on chronic kidney disease stage IV, GFR typically in the 20s Serum creatinine has improved some today with fluids, down to 6.59. Potassium has also improved and is down to 5.7. This is also true nightly which is down to 115 Along with his labs, the patient's mental status seems to have improved somewhat. Retroperitoneal ultrasound did demonstrate significant growth of cyst in the right kidney which could represent malignant transformation Additionally was noted that the patient has a protein creatinine ratio of 3.78 suggesting nephrotic range proteinuria The patient is scheduled for placement of temporary hemodialysis catheter by IR today followed by hemodialysis Plan -Hemodialysis today following temp catheter placement -24 hour urine protein collection -Patient will require follow-up CT with contrast to evaluate for cystic changes in the right kidney -Continue to monitor I's and O's -Continue to withhold nephrotoxic agents as possible (2) Hyperkalemia Current Visit: Yes Status: Acute Hyperkalemia secondary to acute kidney injury Improved compared to yesterday, will improve with acute dialysis as well Continue to monitor (3) Encephalopathy Current Visit: Yes Status: Acute Encephalopathy, likely secondary to uremia Metabolic in nature, head CT is negative Patient to start hemodialysis today (4) Cerebral palsy Current Visit: Yes Status: Acute Chronic and unchanged Qualifiers: Cerebral palsy type: unspecified type Qualified Code(s): G80.9 - Cerebral palsy, unspecified (5) Anemia Current Visit: Yes Status: Chronic Anemia, appears to be chronic The patient has had issues with gross hematuria following cystic rupture We will continue to monitor, transfusion parameters per primary team Qualifiers: Anemia type: due to chronic kidney disease Chronic kidney disease stage: stage 4 (severe) Qualified Code(s): N18.4 - Chronic kidney disease, stage 4 ( severe); D63.1 - Anemia in chronic kidney disease Subjective Principal diagnosis: KAMARI Interval history: The patient is resting in bed. He does not appear to be significantly improved compared to yesterday, however he does appear to have increased cognition in comparison. He is scheduled for temporary hemodialysis catheter today. Plan for hemodialysis after. Objective - Vital Signs Vital signs: Vital Signs Temp Pulse Resp BP Pulse Ox 03/25/18 12:35 98.1 F 105 18 102/63 95 03/25/18 09:02 97 F L 98 18 115/67 97 03/25/18 04:34 97.9 F 96 16 124/76 98 03/25/18 01:54 97.5 F L 87 14 95/50 03/25/18 00:31 97.9 F 88 17 97/53 97 03/24/18 23:39 97.4 F L 87 15 96/52 97 03/24/18 23:27 97.4 F L 87 15 96/52 97 03/24/18 21:45 97.6 F 90 17 92/51 96 03/24/18 20:11 97.5 F L 97 20 101/62 100 03/24/18 19:56 97.6 F 98 20 112/61 98 03/24/18 19:54 97.6 F 98 15 114/71 Intake and Output 03/24/18 03/25/18 03/25/18 23:59 07:59 15:59 Intake Total 700 / 2920.1 1350 / 1350 0 / 0 Output Total 1200 / 1200 Balance 700 / 2920.1 150 / 150 0 / 0 Intake: IV Fluids 1000 / 1000 0.9 % Sodium Chloride 1,000 ML 1000 / 1000 @ 125 mls/hr IVC .Q8H [facility] Rx#: [id number] Oral 0 / 0 0 / 0 Blood Product 700 / 700 350 / 350 Rbcs Leuko Poor As-1 Unit 350 / 350 [id number] Rbcs Leuko Poor As-1 Unit 350 / 350 350 / 350 [id number] Output: Catheter 1200 / 1200 Other: Weight 53.5 kg - General Appearance Exam: Gen: Vitals noted. Patient appears to be more responsive but he has been previously follows some commands. Tracks with his eyes. HEENT: Normocephalic, atraumatic Neck: Supple. No adenopathy. Cardiac: RRR, no murmur, +S1/S2 Pulmonary: Clear to auscultation bilaterally Abdomen: soft, nontender, no guarding MSK: Muscle wasting is noted in the lower extremities, patient does not lift his legs. Extremities: no BLE edema, nontender calf, no cyanosis or clubbing Neuro: Patient does withdraw to pain, otherwise does not respond to commands Psych: Patient is minimally more responsive than he has been previously - Lab 03/25/18 03:19 03/25/18 03:19 Most recent lab results Calcium 8.6 mg/dL (8.6-10.3) 03/25/18 03:19 Magnesium 2.2 mg/dL (1.6-2.6) 03/25/18 03:19 Urine Creatinine 59 mg/dL 03/24/18 16:19 Urine Sodium 46.0 mEq/L 03/24/18 16:19 Urine Total Protein 223 mg/dL (1-14) H 03/24/18 16:19 Consult Discharge Plan - Plan Referrals: Isatu Zaman MD [Primary Care Provider] -
[2018-03-25] MEDS ORDERED: *HR* Heparin 10,000 UNIT/10 ML VIAL IV PRN (13:45)
[2018-03-25] MEDS ORDERED: 0.9 % Sodium Chloride 1,000 ML PRIME SCH (13:45)
[2018-03-25] MEDS: cefTRIAXone 2,000 MG in Water for inj. (sterile) 20 ML 20 ML IVP SCH (16:13)
--- NOTE | 2018-03-25 17:47 | Electrocardiograph Report ---
[place] [id number] Test Date: 2018-03-24 Pat Name: Adrian Watters Department: [id number] Room: 2A Gender: M Warp Placer: : 1970 Requested By: Francoise Parra Order Number: [id number] Reading MD: Kenny Harris Measurements Intervals [place] Rate: 96 P: 82 TX: 125 QRS: 89 QRSD: 99 T: 59 QT: 359 QTc: 454 Interpretive Statements Sinus rhythm ST changes consistent with early repolarization Electronically Signed On 03-25-2018 17:45:41 EDT by Kenny Harris
[2018-03-25] MEDS ORDERED: cefTRIAXone 2,000 MG in Water for inj. (sterile) 20 ML 20 ML IVP SCH (19:00)
[2018-03-25] MEDS ORDERED: 0.9 % Sodium Chloride 500 ML IVC ONE (20:56)
[2018-03-26] MEDS: 0.9 % Sodium Chloride 1,000 ML IVC SCH ×3 (00:21→11:54)
[2018-03-26 05:31] LABS: Basophils % 0.1 %; Hematocrit 26.9 % (37.5-50.1); Hemoglobin 8.5 g/dL (12.9-16.9); Immature Granulocytes % 1.2 % (0-4); Lymphocytes # 0.4 K/mcL (0.6-4.6); Mean Corpuscular HGB Conc 31.6 g/dL (31.6-35.5); Mean Corpuscular Volume 91.8 fL (83.0-100.0); Mean Platelet Volume 8.4 fL (9.4-12.4); Monocytes # 0.4 K/mcL (0.0-1.3); Monocytes % 3.7 %; Neutrophils # 10.1 K/mcL (1.6-8.9); Platelet Count 388 K/mcL (140-400); Red Blood Count 2.93 M/mcL (4.19-5.50); Red Cell Distribution Width 16.1 % (11.5-14.5)
[2018-03-26 05:54] LABS: Calcium 8.2 mg/dL (8.6-10.3); Potassium 4.7 mEq/L (3.5-5.1)
[2018-03-26] MEDS ORDERED: *HR* Heparin 10,000 UNIT/10 ML VIAL IV PRN (07:21)
[2018-03-26] MEDS ORDERED: 0.9 % Sodium Chloride 250 ML IVC PRN (07:21)
[2018-03-26] MEDS ORDERED: 0.9 % Sodium Chloride 1,000 ML PRIME SCH (07:30)
--- NOTE | 2018-03-26 08:11 | Internal Med Progress Note ---
Hospitalist Progress Note - Encounter Date of Encounter: 03/26/18 Time of Encounter: 13:00 - Subjective Interval History: pt seen after hd. awake, alert but remains non verbal. not in distress. comfortable on room air. no family/plant health care technician present. hpi and ros limited by mentation - Exam Vitals: Temp Pulse Resp BP Pulse Ox 99.8 F H 101 16 186/64 96 03/26/18 07:35 03/26/18 07:35 03/26/18 07:35 03/26/18 07:35 03/26/18 07:35 Exam: General: awake, alert with eyes open, non verbal,appears stated age HEENT:EOM appear intact, pupils equal, round, dry mucus membranes Cardiovascular:regular rate and rhythm, normal S1 & S2, no murmurs . No JVD. radial pulses 2+, no lower extremity edema Lungs:Normal breath sounds, no wheezes, or crackles. Normal respiratory effort on RA Abdomen:Soft, no apparent tenderness, no guarding, non-distended, no rigidity, + bowel sounds Neurological: eyes open, alert, makes eye contact but non verbal, attempts to speak but weakly, CN appear grossly intact, no facial asymmetry, no focal deficits from his baseline paraplegia can be identified, limited exam due to mental status Skin:Normal color, no rash, no pallor : fowler cath - Assessment and Plan (1) Acute kidney injury superimposed on chronic kidney disease Current Visit: Yes Status: Acute Assessment and Plan: Acute kidney injury on chronic kidney disease stage IV, GFR typically in the 20s Anion Gap Metabolic Acidosis Patient presents with a serum creatinine 7.28, hyperkalemia (K+ 6.0) and a BUN of 125, Bicarb 15 Etiology is unknown at this time, however may be multifactorial. He has been on antibiotic and takes losartan Additionally the patient has had issues with BPH in the past as well as prostate enlargement known polycystic kidney disease with ruptured cysts in the past and worsening cystic disease on CT in ED -CT of the abdomen and pelvis no potential obstructive uropathy but + worsened right polycystic kidney disease with possible complex cysts vs hemaorrhagic cysts, cannot rule out malignancy -Nephro actively following -IR temp vasc cath 03/25 -HD 03/25 -Withhold nephrotoxic agents including losartan -IV fluids for hydration purposes- NS 125 cc/hr -Fowler catheter -Monitor strict I's and O's, making very little urine -suspected UTI, ucx no sig growth, bl cx ngtd, cont IV rocephin at this time -creat slowly improving, AGMA slowly improving -nephro assessing 24 h urine protein -Patient will require follow-up CT with contrast to evaluate for cystic changes in the right kidney, pending (2) Anemia Current Visit: Yes Status: Chronic Assessment and Plan: hgb 7.1, chronic component given CKD, monitor for changes given concern for hemorrhage on CT as above -received prbcs in ED, hgb now uptrending -given transfused with prbc and the patient has had issues with gross hematuria following cystic rupture--holding pharm vte ppx -cont to monitor (3) Cerebral palsy Current Visit: Yes Status: Chronic Assessment and Plan: has state appointed legal guardian -Sanjuanita Wylie [phone] (received from 03/26) message left to confirm code status, awaiting call back 03/26 (4) Dehydration Current Visit: Yes Status: Acute Assessment and Plan: ivf as above keep npo otherwise given mentation, will advance diet with improved mentation ur coordinator eval ordered (5) Encephalopathy Current Visit: Yes Status: Acute Assessment and Plan: likely 2/2 Uremia and suspected UTI CT head no acute findings -HD as above -cont to monitor -neuro checks -ruling out other sources of infection--no fever, leukocytosis, bl cxs, ucx as above, CXR no acute disease (6) Hyperkalemia Current Visit: Yes Status: Resolved Assessment and Plan: K+ 6.0, now resolved with kayexalate and HD -EKG T wave changes in ED appear to be old and stable -trops negative -s/p albuterol, ca gluconate, dextrose + insulin and kayexalate in ED -tele monitoring -03/26 now resolved with HD, cont to monitor DVT Prophylaxis: scds - Time Spent with Patient Total time spent is greater than 50% in coordination of care (as documented) at patient's floor/unit and/or counseling patient: 25 - 35 minutes Plan of Care Discussed with: patient Internal Medicine: Result - Labs CBC & Chem 7: 03/26/18 04:57 03/26/18 04:57 Labs: Short CBC 03/26/18 Range/Units 04:57 WBC 11.1 (4.3-11.1) K/mcL Hgb 8.5 L (12.9-16.9) g/dL Hct 26.9 L (37.5-50.1) % Plt Count 388 (140-400) K/mcL Neutrophils # 10.1 H (1.6-8.9) K/mcL BMP 03/26/18 04:57 Sodium 142 Potassium 4.7 Chloride 112 H Carbon Dioxide 14 L BUN 72 H Creatinine 4.53 H Glucose 75 Calcium 8.2 L Cardiac Enzymes 03/25/18 Range/Units 08:41 Troponin I < 0.03 (< 0.04) ng/mL - ABG Interpretation ABG results: PT/INR, D-dimer PT 12.4 Seconds (9.4-12.1) H 03/25/18 03:19 - Impressions Impressions Guidance Ultrasound 03/25/18 00:00 IMPRESSION: Successful ultrasound guided non tunneled dialysis catheter placement. Postprocedure chest x-ray will be ordered to confirm adequate positioning of the catheter tip. D/ / Jamshid Romero / Jamshid Romero Interpreting Provider: Jamshid Romero Insertion Non-Tunneled Catheter 03/25/18 00:00 IMPRESSION: Successful ultrasound guided non tunneled dialysis catheter placement. Postprocedure chest x-ray will be ordered to confirm adequate positioning of the catheter tip. D/ / Jamshid Romero / Jamshid Romero Interpreting Provider: Jamshid Romero Chest X-Ray 03/25/18 11:38 IMPRESSION: No acute process. New right IJ catheter with the tip in the right atrium. No pneumothorax is evident. D/ / Marcel Cross MD / Marcel Cross MD Interpreting Provider: Marcel Cross MD Consult Discharge Plan - Plan Referrals: Isatu Zaman MD [Primary Care Provider] - (2) Anemia Qualifiers: Anemia type: due to chronic kidney disease Chronic kidney disease stage: stage 4 (severe) Qualified Code(s): N18.4 - Chronic kidney disease, stage 4 ( severe); D63.1 - Anemia in chronic kidney disease (3) Cerebral palsy Qualifiers: Cerebral palsy type: unspecified type Qualified Code(s): G80.9 - Cerebral palsy, unspecified
--- NOTE | 2018-03-26 14:28 | Nephrology Progress Note ---
Date of Encounter: 03/26/18 Time of Encounter: 08:45 - Assessment and Plan (1) Acute kidney injury superimposed on chronic kidney disease Current Visit: Yes Status: Acute Acute kidney injury on chronic kidney disease stage IV, GFR typically in the 20s Serum creatinine has improved some today following acute hemodialysis yesterday , serum creatinine 4.53. There is also been improvement in potassium 4.7, bicarbonate 14, BUN 72. Continues to have good urine output Retroperitoneal ultrasound did demonstrate significant growth of cyst in the right kidney which could represent malignant transformation The patient did have nephrotic range proteinuria on spot urine protein yesterday , 24-hour urine protein pending Patient hemodialysis yesterday, will have hemodialysis today as well Plan -Hemodialysis today -24 hour urine protein collection -Patient will require follow-up CT with contrast to evaluate for cystic changes in the right kidney -Continue to monitor I's and O's -Continue to withhold nephrotoxic agents as possible (2) Hyperkalemia Current Visit: Yes Status: Resolved Resolved with acute hemodialysis (3) Encephalopathy Current Visit: Yes Status: Acute Encephalopathy, likely secondary to uremia. Baseline encephalopathy as well Metabolic in nature, head CT is negative Patient to start hemodialysis today (4) Cerebral palsy Current Visit: Yes Status: Chronic Chronic and unchanged Qualifiers: Cerebral palsy type: unspecified type Qualified Code(s): G80.9 - Cerebral palsy, unspecified (5) Anemia Current Visit: Yes Status: Chronic Anemia, appears to be chronic The patient has had issues with gross hematuria following cystic rupture We will continue to monitor, transfusion parameters per primary team Qualifiers: Anemia type: due to chronic kidney disease Chronic kidney disease stage: stage 4 (severe) Qualified Code(s): N18.4 - Chronic kidney disease, stage 4 ( severe); D63.1 - Anemia in chronic kidney disease Subjective Principal diagnosis: KAMARI Interval history: The patient is seen and examined at hemodialysis at time of examination. He appears uncomfortable, and he has hot to the touch. He apparently did have issues with encephalopathy overnight. Objective - Vital Signs Vital signs: Vital Signs Temp Pulse Resp BP Pulse Ox 03/26/18 11:52 98.6 F 100 18 155/91 96 03/26/18 11:31 99.4 F 16 148/89 03/26/18 11:20 126/87 03/26/18 11:15 96 09/20/18 11:05 132/83 03/26/18 10:50 134/83 03/26/18 10:35 132/89 03/26/18 10:20 130/86 03/26/18 10:05 144/89 03/26/18 09:50 143/96 03/26/18 09:35 149/99 03/26/18 09:20 147/98 03/26/18 09:05 155/98 03/26/18 08:50 98.9 F 16 153/98 03/26/18 07:35 99.8 F H 101 16 186/64 96 03/26/18 03:55 99.2 F 120 18 162/95 95 03/25/18 23:39 98.1 F 104 17 123/70 97 03/25/18 21:45 97 03/25/18 21:43 98.4 F 111 11 119/77 96 03/25/18 20:02 99.1 F 122 18 130/75 96 03/25/18 17:38 97.6 F 111 18 115/70 97 03/25/18 15:45 98.5 F 18 139/78 03/25/18 15:30 133/77 03/25/18 15:15 133/82 03/25/18 15:00 134/78 03/25/18 14:45 132/80 03/25/18 14:30 135/80 Intake and Output 03/25/18 03/26/18 03/26/18 23:59 07:59 15:59 Intake Total 2100 / 2100 Output Total 400 / 400 600 / 600 Balance -380 / -380 1500 / 1500 Intake: IV Fluids 1500 / 1500 0.9 % Sodium Chloride 1,000 ML 1000 / 1000 @ 125 mls/hr IVC .Q8H [facility] Rx#: [id number] Rocephin 2,000 MG In Water for inj. (sterile) 20 ML @ 600 mls/ hr IVP Q24H [facility] Rx#:[id number] Intake, Rinseback and Flushes 600 / 600 Output: Urine 400 / 400 Total Dialysis (HD) Output 600 / 600 Other: Stool Size Moderate Stool Consistency soft Stool Characteristics Normal for Patient Stool Color Brown # Bowel Movement Diapers 1 Hemodialysis Net Fluid Removed 600 (mL) - General Appearance Exam: Gen: Vitals noted. Tracks with his eyes. Patient is warm to the touch HEENT: Normocephalic, atraumatic Neck: Supple. No adenopathy. Cardiac: RRR and tachycardic, no murmur, +S1/S2 Pulmonary: Clear to auscultation bilaterally Abdomen: soft, nontender, no guarding MSK: Muscle wasting is noted in the lower extremities, patient does not lift his legs. Extremities: no BLE edema, nontender calf, no cyanosis or clubbing Neuro: Patient does withdraw to pain, otherwise does not respond to commands Psych: Patient is minimally more responsive than he has been previously - Lab 03/26/18 04:57 03/26/18 04:57 Most recent lab results Calcium 8.2 mg/dL (8.6-10.3) L 03/26/18 04:57 Magnesium 2.0 mg/dL (1.6-2.6) 03/26/18 04:57 Urine Creatinine 59 mg/dL 03/24/18 16:19 Urine Sodium 46.0 mEq/L 03/24/18 16:19 Urine Total Protein 223 mg/dL (1-14) H 03/24/18 16:19 Consult Discharge Plan - Plan Referrals: Isatu Zaman MD [Primary Care Provider] -
[2018-03-26] MEDS ORDERED: Isovue-370 500 ML INFUS..BTL IV ONE (15:28)
[2018-03-26] MEDS: cefTRIAXone 2,000 MG in Water for inj. (sterile) 20 ML 20 ML IVP SCH (15:47)
[2018-03-26] MEDS: Latanoprost 2.5 ML BOTTLE BOTH EYES SCH ×2 (18:01→19:47)
[2018-03-26] MEDS: Pantoprazole 40 MG VIAL IVP SCH (18:07)
[2018-03-26] MEDS: EPINASTINE HCL OP SCH (19:48)
[2018-03-27] MEDS: 0.9 % Sodium Chloride 1,000 ML IVC SCH (02:11)
[2018-03-27 05:44] LABS: Hemoglobin 8.4 g/dL (12.9-16.9); Immature Granulocytes % 0.5 % (0-4); Lymphocytes # 0.6 K/mcL (0.6-4.6); Lymphocytes % 5.7 %; Mean Corpuscular HGB Conc 32.3 g/dL (31.6-35.5); Mean Corpuscular Hemoglobin 29.2 pg (28.0-33.3); Mean Corpuscular Volume 90.3 fL (83.0-100.0); Mean Platelet Volume 8.2 fL (9.4-12.4); Monocytes # 0.5 K/mcL (0.0-1.3); Monocytes % 4.3 %; Neutrophils # 9.8 K/mcL (1.6-8.9); Platelet Count 324 K/mcL (140-400); Red Blood Count 2.88 M/mcL (4.19-5.50); Red Cell Distribution Width 15.5 % (11.5-14.5); Segmented Neutrophils % 89.5 %
[2018-03-27 06:45] LABS: Calcium 8.2 mg/dL (8.6-10.3); Magnesium 2.1 mg/dL (1.6-2.6)
[2018-03-27] MEDS ORDERED: 0.9 % Sodium Chloride 250 ML IVC PRN (08:08)
[2018-03-27] MEDS ORDERED: 0.9 % Sodium Chloride 1,000 ML ONE (08:22)
--- NOTE | 2018-03-27 08:43 | Internal Med Progress Note ---
Hospitalist Progress Note - Encounter Date of Encounter: 03/27/18 Time of Encounter: 01:20 - Subjective Interval History: back from HD. RN at bedside. No events in HD. He is alert, awake, follows commands to turn his head and look at this physician, shakes head no when asked if any pain. Comfortable appearing. remains non verbal but more interactive today phone conversation with his guardian today and pt is full code and baseline mentation and physical acitivty discussed. Recent worsening of depression with of a caregiver with whom he was close. In weeks prior to admit had depression meds adjusted due to becoming withdrawn - Exam Vitals: Temp Pulse Resp BP Pulse Ox 100.1 F H 98 18 174/102 94 03/27/18 07:07 03/27/18 07:07 03/27/18 07:07 03/27/18 07:07 03/27/18 07:07 Exam: General: awake, alert with eyes open, non verbal,appears stated age HEENT:EOM appear intact, pupils equal, round, moist mucus membranes Cardiovascular:regular rate and rhythm, normal S1 & S2, no murmurs . radial pulses 2+, no lower extremity edema Lungs:Normal breath sounds, no wheezes, or crackles. Normal respiratory effort on RA Abdomen:Soft, no apparent tenderness, no guarding, non-distended, no rigidity, + bowel sounds, very soft brown stool in depends Neurological: eyes open, alert, makes eye contact but non verbal, shakes head no when asked about pain, follows command to turn head and look at this physician, CN appear grossly intact, no facial asymmetry, no le movement at baseline, no spontaneous movement of BL UE, limited exam due to mental status Skin:Normal color, no rash, no pallor, no open wounds : fowler cath , no skin changes in the groin region - Assessment and Plan (1) Acute kidney injury superimposed on chronic kidney disease Current Visit: Yes Status: Acute Assessment and Plan: Acute kidney injury on chronic kidney disease stage IV, GFR typically in the 20s Anion Gap Metabolic Acidosis Patient presents with a serum creatinine 7.28, hyperkalemia (K+ 6.0) and a BUN of 125, Bicarb 15 Etiology is unknown at this time, however may be multifactorial. He has been on antibiotic and takes losartan Additionally the patient has had issues with BPH in the past as well as prostate enlargement known polycystic kidney disease with ruptured cysts in the past and worsening cystic disease on CT in ED -CT of the abdomen and pelvis no potential obstructive uropathy but + worsened right polycystic kidney disease with possible complex cysts vs hemaorrhagic cysts, cannot rule out malignancy -Nephro actively following -IR temp vasc cath 03/25 -HD 03/25 -Withhold nephrotoxic agents including losartan -IV fluids for hydration purposes- NS 125 cc/hr -Fowler catheter -Monitor strict I's and O's, making very little urine -suspected UTI, ucx no sig growth, bl cx ngtd, cont IV rocephin at this time -creat slowly improving, AGMA slowly improving -nephro assessing 24 h urine protein -follow-up CT 03/26 with multiple hemorrhagic and complex cysts, incidental findings a 15 mm right adrenal nodule. Follow-up CT or MRI recommended in 1 year. (2) Anemia Current Visit: Yes Status: Chronic Assessment and Plan: hgb 7.1, chronic component given CKD, monitor for changes given concern for hemorrhage on CT as above, has remained stable in 8s -received prbcs in ED -given transfused with prbc and the patient has had issues with gross hematuria following cystic rupture--holding pharm vte ppx -cont to monitor (3) Cerebral palsy Current Visit: Yes Status: Chronic Assessment and Plan: has state appointed legal guardian -Sanjuanita Wylie [phone] (received from 03/26) message left to confirm code status 03/26 -03/27 received call back from guardian- confirmed full code status, baseline mental status is AAOx3, likes to joke and laugh, has full use of UE and can assist in transferring from wheelchair, no use of LE at baseline (4) Dehydration Current Visit: Yes Status: Acute Assessment and Plan: ivf as above keep npo otherwise given mentation, will advance diet with improved mentation side puller eval ordered, pending eval when mentation improves (5) Encephalopathy Current Visit: Yes Status: Acute Assessment and Plan: likely 2/2 Uremia and suspected UTI CT head no acute findings -HD as above -cont to monitor -neuro checks -ruling out other sources of infection--fever as above, no leukocytosis, work up as above (6) Fever Current Visit: Yes Status: Acute Assessment and Plan: 03/27 Febrile to 100.4 no tachycardia or hypotension --admit 03/24 bl cxs and ucx ngtd -given fever repeat cxr : neg, ua and bl cxs: pending, no diarrhea and cT a/p preformed last night to assess kidenys without acute changes/infectious changes , skin exam preformed and no wounds/cellulitis identified, lactate 0.5 -on rocephin, will broaden abx with renal dosing to rocpehin + clinda (7) Hyperkalemia Current Visit: Yes Status: Resolved Assessment and Plan: K+ 6.0, now resolved with kayexalate and HD -EKG T wave changes in ED appear to be old and stable -s/p albuterol, ca gluconate, dextrose + insulin and kayexalate in ED -trops negative -tele monitoring (8) Hypertension Current Visit: Yes Status: Acute Assessment and Plan: History of HTN on multiple meds Have been held bc cannot take oral right now with mentation New 03/27 Bp elevating, up to 174/102, 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 -home meds include losartan 100 mg daily, nifedipine 30 mg daily -begin IV scheduled lopressor (9) Depression Current Visit: No Status: Chronic Assessment and Plan: New information 03/27 from guardian- Hx depression with recent depressive episode with withdrawn behavior after of care program director in recent weeks -had recently been tried on remeron and made him lethargic, med discontinued one week ago -started on wellbutrin one week ago and continued on long standing zoloft -meds currently held as not yet cleared for pills -cont to monitor DVT Prophylaxis: scd - Time Spent with Patient Total time spent is greater than 50% in coordination of care (as documented) at patient's floor/unit and/or counseling patient: 25 - 35 minutes Plan of Care Discussed with: patient Internal Medicine: Result - Labs CBC & Chem 7: 03/27/18 05:30 03/27/18 05:30 Labs: Short CBC 03/27/18 Range/Units 05:30 WBC 11.0 (4.3-11.1) K/mcL Hgb 8.4 L (12.9-16.9) g/dL Hct 26.0 L (37.5-50.1) % Plt Count 324 (140-400) K/mcL Neutrophils # 9.8 H (1.6-8.9) K/mcL BMP 03/27/18 05:30 Sodium 143 Potassium 4.0 Chloride 108 H Carbon Dioxide 19 L BUN 45 H Creatinine 3.20 H Glucose 92 Calcium 8.2 L - ABG Interpretation ABG results: PT/INR, D-dimer PT 12.4 Seconds (9.4-12.1) H 03/25/18 03:19 - Impressions Impressions Abdomen/Pelvis CT 03/26/18 15:28 IMPRESSION: Polycystic kidney disease with multiple hemorrhagic and complex cysts. Other incidental findings as noted above including a 15 mm right adrenal nodule. Follow-up CT or MRI recommended in 1 year. D/ / Hosea Zheng MD / Hosea Zheng MD Interpreting Provider: Hosea Zheng MD Consult Discharge Plan - Plan Referrals: Isatu Zaman MD [Primary Care Provider] - (2) Anemia Qualifiers: Anemia type: due to chronic kidney disease Chronic kidney disease stage: stage 4 (severe) Qualified Code(s): N18.4 - Chronic kidney disease, stage 4 ( severe); D63.1 - Anemia in chronic kidney disease (3) Cerebral palsy Qualifiers: Cerebral palsy type: unspecified type Qualified Code(s): G80.9 - Cerebral palsy, unspecified (6) Fever Qualifiers: Fever type: unspecified Qualified Code(s): R50.9 - Fever, unspecified
[2018-03-27] MEDS ORDERED: *HR* Heparin 10,000 UNIT/10 ML VIAL IV PRN (09:55)
[2018-03-27 12:27] LABS: Total Volume 24 Hour,Urine 0.77 Liters (0.80-1.80)
[2018-03-27] MEDS: Clindamycin 600 MG/50 ML 600 MG/50 ML IV.SOLN IVPB SCH ×2 (13:40→18:07)
[2018-03-27] MEDS: *HR* Metoprolol 5 MG/5 ML VIAL IVP SCH ×3 (13:46→17:42)
[2018-03-27] MEDS: Pantoprazole 40 MG VIAL IVP SCH (14:03)
--- NOTE | 2018-03-27 15:37 | Nephrology Progress Note ---
Date of Encounter: 03/27/18 Time of Encounter: 08:45 - Assessment and Plan (1) Acute kidney injury superimposed on chronic kidney disease Current Visit: Yes Status: Acute Acute kidney injury on chronic kidney disease stage IV, GFR typically in the 20s Serum creatinine has improved some today following acute hemodialysis yesterday , serum creatinine 3.20. Clinically, the patient has seen significant improvement today. His potassium is 4.0, bicarbonate 19, and BUN 45 Transformation was not described on the reading of CT abdomen, however right adrenal nodule was found in 20 24-hour rate urine protein 2.4 g and total, sub-nephrotic range Patient hemodialysis yesterday, will have hemodialysis today as well Plan -Hemodialysis today, plan for no fluid removal today -We will stop IV fluids today -Continue to monitor I's and O's -Continue to withhold nephrotoxic agents as possible (2) Hypertension Current Visit: Yes Status: Acute Severe hypertension, likely secondary to polycystic kidney disease There is some concern that there could be adrenal involvement as well secondary to adrenal nodule Preferably the patient will be restarted on nifedipine, however he cannot take by mouth meds He was started on IV Lopressor by his primary team This is acceptable for now, however he may be changed to IV hydralazine later if needed Qualifiers: Hypertension type: secondary to other renal disorders Qualified Code(s): I15.1 - Hypertension secondary to other renal disorders; N28.89 - Other specified disorders of kidney and ureter (3) Encephalopathy Current Visit: Yes Status: Acute Encephalopathy, likely secondary to uremia. Baseline encephalopathy as well Metabolic in nature, head CT is negative Patient to start hemodialysis today (4) Cerebral palsy Current Visit: Yes Status: Chronic Chronic and unchanged Qualifiers: Cerebral palsy type: unspecified type Qualified Code(s): G80.9 - Cerebral palsy, unspecified (5) Adrenal nodule Current Visit: Yes Status: Acute Incidental right adrenal nodule, 15 mm Although more likely the patient's hypertension is a result of PCKD, consider adrenal causes as well We will check aldosterone, renin, plasma metanephrines Repeat imaging in 6-12 months (6) Anemia Current Visit: Yes Status: Chronic Anemia, appears to be chronic The patient has had issues with gross hematuria following cystic rupture We will continue to monitor, transfusion parameters per primary team Qualifiers: Anemia type: due to chronic kidney disease Chronic kidney disease stage: stage 4 (severe) Qualified Code(s): N18.4 - Chronic kidney disease, stage 4 ( severe); D63.1 - Anemia in chronic kidney disease Subjective Principal diagnosis: KAAMRI Interval history: The patient is seen and examined at bedside. She has no acute changes in clinical status this morning. Objective - Vital Signs Vital signs: Vital Signs Temp Pulse Resp BP Pulse Ox 03/27/18 13:11 98.2 F 18 161/90 03/27/18 13:00 148/94 03/27/18 12:45 158/74 03/27/18 12:30 170/75 03/27/18 12:15 176/75 03/27/18 12:00 163/100 03/27/18 11:45 155/95 03/27/18 11:30 160/93 03/27/18 11:15 151/101 03/27/18 11:00 158/99 03/27/18 10:45 163/95 03/27/18 10:30 167/95 03/27/18 10:15 157/95 03/27/18 10:14 163/97 03/27/18 10:00 98.9 F 20 163/97 03/27/18 07:07 100.1 F H 98 18 174/102 94 03/27/18 05:46 97.8 F 03/27/18 05:30 100.4 F H 98 16 169/92 95 03/27/18 01:44 99 F 91 16 167/99 95 03/26/18 19:49 96 03/26/18 16:26 99.0 F 99 16 142/87 96 Intake and Output 03/26/18 03/27/18 03/27/18 23:59 07:59 15:59 Intake Total 1000 / 1000 600 / 600 Output Total 250 / 250 600 / 600 Balance 750 / 750 0 / 0 Intake: IV Fluids 1000 / 1000 0.9 % Sodium Chloride 1,000 ML 1000 / 1000 @ 75 mls/hr IVC .[id number] [facility] Rx #:[id number] Oral 0 / 0 Intake, Rinseback and Flushes 600 / 600 Output: Urine 0 / 0 Total Dialysis (HD) Output 600 / 600 Catheter 250 / 250 Other: Stool Size Moderate Large Large Stool Consistency soft soft soft Stool Characteristics Normal for Patient Seedy Stool Color Brown Brown Brown # Bowel Movement Diapers 1 1 1 Weight 55.8 kg Hemodialysis Net Fluid Removed 0 (mL) Patient Weight 03/27/18 23:59 Weight 55.8 kg - General Appearance Exam: Gen: Vitals noted. Tracks with his eyes. HEENT: Normocephalic, atraumatic Neck: Supple. No adenopathy. Cardiac: RRR and tachycardic, no murmur, +S1/S2 Pulmonary: Clear to auscultation bilaterally Abdomen: soft, nontender, no guarding MSK: Muscle wasting is noted in the lower extremities, patient does not lift his legs. Extremities: no BLE edema, nontender calf, no cyanosis or clubbing Neuro: Patient is significantly more responsive today than it was previously, follows some commands - Lab 03/27/18 05:30 03/27/18 05:30 Most recent lab results Calcium 8.2 mg/dL (8.6-10.3) L 03/27/18 05:30 Magnesium 2.1 mg/dL (1.6-2.6) 03/27/18 05:30 Urine Creatinine 62 mg/dL 03/26/18 16:43 Ur Total Protein 24 Hr 2164 mg/day (50-80) H 03/26/18 16:43 Urine Sodium 46.0 mEq/L 03/24/18 16:19 Urine Total Protein 281 mg/dL (1-14) H 03/26/18 16:43 Consult Discharge Plan - Plan Referrals: Isatu Zaman MD [Primary Care Provider] -
[2018-03-27] MEDS: NIFEdipine XL (24 HR) 30 MG TAB.ER.24 PO SCH (17:35)
[2018-03-27] MEDS: cefTRIAXone 2,000 MG in Water for inj. (sterile) 20 ML 20 ML IVP SCH (17:43)
[2018-03-28] MEDS: Latanoprost 2.5 ML BOTTLE BOTH EYES SCH ×2 (00:51→20:13)
[2018-03-28] MEDS: Clindamycin 600 MG/50 ML 600 MG/50 ML IV.SOLN IVPB SCH ×3 (01:23→18:32)
[2018-03-28] MEDS: *HR* Metoprolol 5 MG/5 ML VIAL IVP SCH ×4 (01:23→18:32)
[2018-03-28 05:09] LABS: Basophils % 0.1 %; Eosinophils % 0.1 %; Hematocrit 26.8 % (37.5-50.1); Hemoglobin 8.5 g/dL (12.9-16.9); Immature Granulocytes % 0.6 % (0-4); Lymphocytes % 7.6 %; Mean Corpuscular HGB Conc 31.7 g/dL (31.6-35.5); Mean Corpuscular Hemoglobin 28.7 pg (28.0-33.3); Mean Corpuscular Volume 90.5 fL (83.0-100.0); Mean Platelet Volume 8.6 fL (9.4-12.4); Monocytes # 0.8 K/mcL (0.0-1.3); Monocytes % 6.5 %; Neutrophils # 10.7 K/mcL (1.6-8.9); Platelet Count 305 K/mcL (140-400); Red Blood Count 2.96 M/mcL (4.19-5.50); Red Cell Distribution Width 15.1 % (11.5-14.5); Segmented Neutrophils % 85.1 %
[2018-03-28 05:30] LABS: Albumin 2.4 g/dL (3.5-5.7); Albumin/Globulin Ratio 0.7 (1.1-2.2); Bilirubin,Total 0.3 mg/dL (0.3-1.0); Calcium 8.4 mg/dL (8.6-10.3); Globulin 3.5 g/dL (2.4-3.5); Potassium 3.5 mEq/L (3.5-5.1); Total Protein 5.9 g/dL (6.4-8.9)
[2018-03-28] MEDS: Pantoprazole 40 MG VIAL IVP SCH (08:50)
[2018-03-28] MEDS: NIFEdipine XL (24 HR) 30 MG TAB.ER.24 PO SCH (08:51)
--- NOTE | 2018-03-28 09:23 | Internal Med Progress Note ---
Hospitalist Progress Note - Encounter Date of Encounter: 03/28/18 Time of Encounter: 09:50 - Subjective Interval History: awake, more alert, attempts to start to talk to answer questions then stopped. shakes head yes to pain but when asked where pain, gave no answer and on review of body systems for pain shakes head yes to everything. He is comfortable appearing. He follows commands to lift his arms today. RN report of loose bms this morning. - Exam Vitals: Temp Pulse Resp BP Pulse Ox 97.9 F 67 16 166/106 95 03/28/18 07:03 03/28/18 07:03 03/28/18 07:03 03/28/18 07:03 03/28/18 07:03 Exam: General: awake, alert with eyes open, non verbal,appears stated age HEENT:EOM intact, pupils equal, round, moist mucus membranes, clear oropharynx Cardiovascular:regular rate and rhythm, normal S1 & S2, no murmurs . radial pulses 2+, no lower extremity edema Lungs:Normal breath sounds, no wheezes, or crackles. Normal respiratory effort on RA Abdomen:Soft, no apparent tenderness, no guarding, non-distended, + bowel sounds Neurological: eyes open, alert, makes eye contact but non verbal, follows command to raise arms, test vp securities strength and stick out tongue. CN appear grossly intact, no facial asymmetry, no le movement at baseline, BL UE strength intact and equal Skin:Normal color, no rash, no pallor : fowler cath with muddy brown urine - Assessment and Plan (1) Acute kidney injury superimposed on chronic kidney disease Current Visit: Yes Status: Acute Assessment and Plan: Acute kidney injury on chronic kidney disease stage IV, GFR typically in the 20s Anion Gap Metabolic Acidosis Patient presents with a serum creatinine 7.28, hyperkalemia (K+ 6.0) and a BUN of 125, Bicarb 15 Etiology is unknown at this time, however may be multifactorial. He has been on antibiotic and takes losartan Additionally the patient has had issues with BPH in the past as well as prostate enlargement known polycystic kidney disease with ruptured cysts in the past and worsening cystic disease on CT in ED -CT of the abdomen and pelvis no potential obstructive uropathy but + worsened right polycystic kidney disease with possible complex cysts vs hemaorrhagic cysts, cannot rule out malignancy -Nephro actively following -IR temp vasc cath 03/25 -HD 03/25 -Withhold nephrotoxic agents including losartan -IV fluids for hydration purposes- NS 125 cc/hr -Fowler catheter -Monitor strict I's and O's, making very little urine -suspected UTI, ucx no sig growth, bl cx ngtd, cont IV rocephin at this time -creat slowly improving, AGMA slowly improving -nephro assessing 24 h urine protein -follow-up CT 03/26 with multiple hemorrhagic and complex cysts, incidental findings a 15 mm right adrenal nodule. Follow-up CT or MRI recommended in 1 year. (2) Anemia Current Visit: Yes Status: Chronic Assessment and Plan: hgb 7.1, chronic component given CKD, monitor for changes given concern for hemorrhage on CT as above, has remained stable in 8s -received prbcs in ED -given transfused with prbc and the patient has had issues with gross hematuria following cystic rupture--holding pharm vte ppx -cont to monitor (3) Cerebral palsy Current Visit: Yes Status: Chronic Assessment and Plan: has state appointed legal guardian -Sanjuanita Wylie [id number] (received from 03/26) message left to confirm code status 03/26 -03/27 received call back from guardian- confirmed full code status, baseline mental status is AAOx3, likes to joke and laugh, has full use of UE and can assist in transferring from wheelchair, no use of LE at baseline (4) Dehydration Current Visit: Yes Status: Acute Assessment and Plan: ivf as above keep npo otherwise given mentation, will advance diet with improved mentation coin counter and wrapper eval and cleared for full liquid diet at this time, will cont to follow (5) Encephalopathy Current Visit: Yes Status: Acute Assessment and Plan: likely 2/2 Uremia and suspected UTI, improving slowly CT head no acute findings -HD as above -cont to monitor -neuro checks -ruling out other sources of infection--fever as above, work up as above (6) Fever Current Visit: Yes Status: Acute Assessment and Plan: 03/27 Febrile to 100.4, single incident no tachycardia or hypotension --admit 03/24 bl cxs and ucx ngtd -given fever repeat cxr : neg, and bl cxs ngtd, ua ordered and not yet sent, no diarrhea and cT a/p preformed last night to assess kidneys without acute changes/infectious changes, skin exam preformed stage 1 ulcer on buttock/sacrum identified with wound care consult placed, lactate 0.5 -on rocephin, will broaden abx with renal dosing to rocpehin + clinda to cover anearobes and any potential skin involvement -03/28 given loose bms check cdiff (7) Hyperkalemia Current Visit: Yes Status: Resolved Assessment and Plan: K+ 6.0, now resolved with kayexalate and HD -EKG T wave changes in ED appear to be old and stable -s/p albuterol, ca gluconate, dextrose + insulin and kayexalate in ED -trops negative -tele monitoring (8) Hypertension Current Visit: Yes Status: Acute Assessment and Plan: History of HTN on multiple meds Have been held bc cannot take oral right now with mentation Severe hypertension, likely secondary to polycystic kidney disease There is some concern that there could be adrenal involvement as well secondary to adrenal nodule Preferably the patient will be restarted on nifedipine, however he cannot take by mouth meds New 03/27 Bp elevating, up to 174/102, slow uptrend in eyeglass frame truer hours -home meds include losartan 100 mg daily, nifedipine 30 mg daily -begin IV scheduled lopressor, prn IV hydralazine (9) Depression Current Visit: No Status: Chronic Assessment and Plan: New information 03/27 from guardian- Hx depression with recent depressive episode with withdrawn behavior after of janitor caretaker in recent weeks -had recently been tried on remeron and made him lethargic, med discontinued one week ago -started on wellbutrin one week ago and continued on long standing zoloft -meds currently held as not yet cleared for pills -cont to monitor DVT Prophylaxis: scd - Time Spent with Patient Total time spent is greater than 50% in coordination of care (as documented) at patient's floor/unit and/or counseling patient: Internal Medicine: Result - Labs CBC & Chem 7: 03/28/18 04:55 03/28/18 04:55 Labs: Short CBC 03/28/18 Range/Units 04:55 WBC 12.5 H (4.3-11.1) K/mcL Hgb 8.5 L (12.9-16.9) g/dL Hct 26.8 L (37.5-50.1) % Plt Count 305 (140-400) K/mcL Neutrophils # 10.7 H (1.6-8.9) K/mcL BMP 03/28/18 04:55 Sodium 141 Potassium 3.5 Chloride 102 Carbon Dioxide 25 BUN 32 H Creatinine 2.64 H Glucose 90 Calcium 8.4 L Liver Function 03/28/18 Range/Units 04:55 Total Bilirubin 0.3 (0.3-1.0) mg/dL AST 11 L (13-39) Units/L ALT 8 (7-52) Units/L Alkaline Phosphatase 62 (34-104) Units/L Albumin 2.4 L (3.5-5.7) g/dL - ABG Interpretation ABG results: PT/INR, D-dimer PT 12.4 Seconds (9.4-12.1) H 03/25/18 03:19 Consult Discharge Plan - Plan Referrals: Isatu Zaman MD [Primary Care Provider] - (2) Anemia Qualifiers: Anemia type: due to chronic kidney disease Chronic kidney disease stage: stage 4 (severe) Qualified Code(s): N18.4 - Chronic kidney disease, stage 4 ( severe); D63.1 - Anemia in chronic kidney disease (3) Cerebral palsy Qualifiers: Cerebral palsy type: unspecified type Qualified Code(s): G80.9 - Cerebral palsy, unspecified (6) Fever Qualifiers: Fever type: unspecified Qualified Code(s): R50.9 - Fever, unspecified (8) Hypertension Qualifiers: Hypertension type: secondary to other renal disorders Qualified Code(s): I15.1 - Hypertension secondary to other renal disorders; N28.89 - Other specified disorders of kidney and ureter
--- NOTE | 2018-03-28 11:45 | Nephrology Progress Note ---
Date of Encounter: 03/28/18 Time of Encounter: 10:00 - Assessment and Plan (1) Acute kidney injury superimposed on chronic kidney disease Current Visit: Yes Status: Acute s/p HD x3 and will hold on dialysis today. More alert/less uremic and hyperkalemia has resolved. (2) Uremia Current Visit: Yes Status: Acute Improved with dialysis. Though he has been non-verbal, he appears closer to his baseline as I recall and as compared to when I've seen him during prior office visits with me in my Nephrology clinic. (3) PKD (polycystic kidney disease) Current Visit: Yes Status: Chronic Hx of CKD from PKD. (4) Adrenal nodule Current Visit: Yes Status: Acute (5) Encephalopathy Current Visit: Yes Status: Acute Improving and likely multifactorial but at least was in part from uremia. (6) Hypertension Current Visit: Yes Status: Chronic Holding CARLYLE or ARB d/t KAMARI on CKD 4 Qualifiers: Hypertension type: secondary to other renal disorders Qualified Code(s): I15.1 - Hypertension secondary to other renal disorders; N28.89 - Other specified disorders of kidney and ureter (7) Cerebral palsy Current Visit: Yes Status: Chronic Chronic/congenital Qualifiers: Cerebral palsy type: unspecified type Qualified Code(s): G80.9 - Cerebral palsy, unspecified (8) Hyperkalemia Current Visit: Yes Status: Resolved Improved with dialysis. Subjective Principal diagnosis: KAMARI Interval history: Pt was s/e. He was by himself in the 2A room, and was nonverbal (thus limiting the subjective history). Objective - Vital Signs Vital signs: Vital Signs Temp Pulse Resp BP Pulse Ox 03/28/18 10:28 98.7 F 78 16 150/85 95 03/28/18 07:03 97.9 F 67 16 166/106 95 03/28/18 04:09 98.7 F 79 17 145/88 94 03/27/18 23:36 98.9 F 83 16 162/80 96 03/27/18 19:06 98.5 F 86 17 167/88 95 03/27/18 16:15 99.2 F 81 20 163/91 94 03/27/18 13:11 98.2 F 18 161/90 03/27/18 13:00 148/94 03/27/18 12:45 158/74 03/27/18 12:30 170/75 03/27/18 12:15 176/75 03/27/18 12:00 163/100 03/27/18 11:45 155/95 Intake and Output 03/27/18 03/28/18 03/28/18 23:59 07:59 15:59 Intake Total 120 / 120 50 / 50 Output Total 400 / 400 Balance 120 / 120 -350 / -350 Intake: IV Fluids 120 / 120 50 / 50 Rocephin 2,000 MG In Water for inj. (sterile) 20 ML @ 600 mls/ hr IVP Q24H [facility] Rx#:[id number] Cleocin Premix 600 MG/50 ML 600 100 / 100 50 / 50 mg In 50 ml @ 50 mls/hr IVPB Q8H [facility] Rx#:[id number] Output: Catheter 400 / 400 Other: Meal NPO Stool Size Copious Stool Consistency liquid Stool Characteristics Normal for Patient Stool Color Brown # Bowel Movements 1 # Bowel Movement Diapers 1 Weight 54.6 kg Blood Glucose* 81 - General Appearance General appearance: Present: well-developed, well-nourished, appears started age , chronically ill, frail EENT: Present: ATNC, mucous membranes moist Neck: Present: supple Respiratory: Present: clear Cardiology: Present: edema (only trace pedal dependent edema in his atrophic feet b/l), regular rate, normal S1, normal S2 Dialysis Vascular Access: Venous Catheter (temporary HD catheter was C/D/I) Gastrointestinal: Present: normoactive bowel sounds, no tenderness, no guarding Integumentary: Present: no rash, warm and dry Neurologic: Present: no focal deficit, no asterixis Musculoskeletal: Present: no erythema, no cyanosis, clubbing Psychiatric: Present: cooperative - Lab 03/31/18 04:00 03/31/18 04:00 Most recent lab results Calcium 8.4 mg/dL (8.6-10.3) L 03/28/18 04:55 Magnesium 2.0 mg/dL (1.6-2.6) 03/28/18 04:55 Urine Creatinine 62 mg/dL 03/26/18 16:43 Ur Total Protein 24 Hr 2164 mg/day (50-80) H 03/26/18 16:43 Urine Sodium 46.0 mEq/L 03/24/18 16:19 Urine Total Protein 281 mg/dL (1-14) H 03/26/18 16:43 - Imaging Kidney/bladder ultrasound: report reviewed Consult Discharge Plan - Plan Referrals: Isatu Zaman MD [Primary Care Provider] -
[2018-03-28 12:48] LABS: Color,Urine Red (Yellow)
[2018-03-28 12:49] LABS: Bilirubin,Urine Large (Negative); Blood,Urine Large (Negative); Clarity,Urine Turbid (Clear); Glucose,Urine (UA) Normal (Normal); Ketones,Urine 40 mg/dL (Negative); Specific Gravity,Urine 1.014 (1.010-1.025)
[2018-03-28 12:50] LABS: Leukocyte Esterase,Urine Large (Negative); Nitrite,Urine Positive (Negative); Protein,Urine >=300 mg/dL (Neg-Trace); Urobilinogen,Urine Normal (Normal)
[2018-03-28] MEDS: cefTRIAXone 2,000 MG in Water for inj. (sterile) 20 ML 20 ML IVP SCH (15:28)
[2018-03-29] MEDS: *HR* Metoprolol 5 MG/5 ML VIAL IVP SCH ×4 (00:31→18:21)
[2018-03-29] MEDS: Clindamycin 600 MG/50 ML 600 MG/50 ML IV.SOLN IVPB SCH ×3 (01:36→18:20)
[2018-03-29 03:27] LABS: Basophils % 0.1 %; Eosinophils # 0.1 K/mcL (0.0-0.6); Eosinophils % 0.4 %; Hematocrit 26.5 % (37.5-50.1); Hemoglobin 8.6 g/dL (12.9-16.9); Immature Granulocytes % 0.5 % (0-4); Immature Platelets 1.2 % (1.1-6.1); Lymphocytes # 0.8 K/mcL (0.6-4.6); Mean Corpuscular HGB Conc 32.5 g/dL (31.6-35.5); Mean Corpuscular Hemoglobin 29.5 pg (28.0-33.3); Mean Corpuscular Volume 90.8 fL (83.0-100.0); Mean Platelet Volume 8.5 fL (9.4-12.4); Monocytes # 0.8 K/mcL (0.0-1.3); Monocytes % 6.5 %; Neutrophils # 11.2 K/mcL (1.6-8.9); Platelet Count 326 K/mcL (140-400); Red Blood Count 2.92 M/mcL (4.19-5.50); Red Cell Distribution Width 14.9 % (11.5-14.5); Segmented Neutrophils % 86.5 %
[2018-03-29 03:47] LABS: Calcium 8.4 mg/dL (8.6-10.3); Potassium 3.2 mEq/L (3.5-5.1)
[2018-03-29] MEDS ORDERED: Potassium Chloride Elixir 20 MEQ/15 ML UDC PO ONE (07:19)
--- NOTE | 2018-03-29 07:22 | Internal Med Progress Note ---
Hospitalist Progress Note - Encounter Date of Encounter: 03/29/18 Time of Encounter: 09:20 - Subjective Interval History: awake, more alert, remains non verbal but follows commands. comfortable and non toxic appearing, no family present. ros and hpi limited by non verbal status - Exam Vitals: Temp Pulse Resp BP Pulse Ox 98.7 F 79 15 154/86 95 03/29/18 04:12 03/29/18 04:12 03/29/18 04:12 03/29/18 04:12 03/29/18 04:12 Exam: General: awake, alert with eyes open, non verbal,appears stated age HEENT:EOM intact, pupils equal, round, moist mucus membranes, clear oropharynx Cardiovascular:regular rate and rhythm, normal S1 & S2, no murmurs . no lower extremity edema Lungs:Normal breath sounds, no wheezes, or crackles. Normal respiratory effort on RA Abdomen:Soft, no apparent tenderness, no guarding, non-distended, + bowel sounds Neurological: eyes open, alert, makes eye contact but non verbal, follows command to raise arms, test metal turner strength and stick out tongue. CN appear grossly intact, no facial asymmetry, no le movement at baseline, BL UE strength intact and equal Skin:Normal color, no rash, no pallor : fowler cath with clear yellow urine now - Assessment and Plan (1) Acute kidney injury superimposed on chronic kidney disease Current Visit: Yes Status: Acute Assessment and Plan: Acute kidney injury on chronic kidney disease stage IV, GFR typically in the 20s Anion Gap Metabolic Acidosis Patient presents with a serum creatinine 7.28, hyperkalemia (K+ 6.0) and a BUN of 125, Bicarb 15 Etiology is unknown at this time, however may be multifactorial. He has been on antibiotic and takes losartan Additionally the patient has had issues with BPH in the past as well as prostate enlargement known polycystic kidney disease with ruptured cysts in the past and worsening cystic disease on CT in ED -CT of the abdomen and pelvis no potential obstructive uropathy but + worsened right polycystic kidney disease with possible complex cysts vs hemaorrhagic cysts, cannot rule out malignancy -Nephro actively following -IR temp vasc cath 03/25 -HD 03/25 -Withhold nephrotoxic agents including losartan -IV fluids for hydration purposes- NS 125 cc/hr -Fowler catheter -Monitor strict I's and O's, making very little urine -suspected UTI, ucx no sig growth, bl cx ngtd, cont IV rocephin at this time -creat slowly improving, AGMA slowly improving -nephro assessing 24 h urine protein -follow-up CT 03/26 with multiple hemorrhagic and complex cysts, incidental findings a 15 mm right adrenal nodule. Follow-up CT or MRI recommended in 1 year. 03/28 UA with large blood as had anticipated No HD over weekned, creat rising and likely will need friday -if this is the case and HD friday likely permanent dialysis needed and he would need perm cath for HD Friday (2) Anemia Current Visit: Yes Status: Chronic Assessment and Plan: hgb 7.1, chronic component given CKD, monitor for changes given concern for hemorrhage on CT as above, has remained stable in 8s -received prbcs in ED -given transfused with prbc and the patient has had issues with gross hematuria following cystic rupture-03/28 urine now with blood -cont holding pharm vte ppx -cont to monitor -hgb has remained stable (3) Cerebral palsy Current Visit: Yes Status: Chronic Assessment and Plan: has state appointed legal guardian -Sanjuanita Wylie [phone] (received from 03/26) message left to confirm code status 03/26 -03/27 received call back from guardian- confirmed full code status, baseline mental status is AAOx3, likes to joke and laugh, has full use of UE and can assist in transferring from wheelchair, no use of LE at baseline (4) Dehydration Current Visit: Yes Status: Acute Assessment and Plan: ivf as above keep npo otherwise given mentation, will advance diet with improved mentation laboratory equipment installer eval and cleared for full liquid diet at this time, will cont to follow (5) Encephalopathy Current Visit: Yes Status: Acute Assessment and Plan: likely 2/2 Uremia and suspected UTI, improving slowly CT head no acute findings neuro exam has not demonstrated any focal deficits to suggest CVA and given significant uremia on presentation, concern for UTI/infectious process, at this time these are more likely etiology of mental status changes -HD as above -cont to monitor -neuro checks -broad abx and infectious work up as noted -if after completion of treatment mental status has still not improved will have to investigate neurologic etiology further, as well as component of what guardian is reporting to be recent significant depression (6) Fever Current Visit: Yes Status: Acute Assessment and Plan: 03/27 Febrile to 100.4, single incident no tachycardia or hypotension --admit 03/24 bl cxs and ucx ngtd -given fever repeat cxr : neg, and bl cxs ngtd, ua ordered and not yet sent, no diarrhea and cT a/p preformed last night to assess kidneys without acute changes/infectious changes, skin exam preformed stage 1 ulcer on buttock/sacrum identified with wound care consult placed, lactate 0.5 -on rocephin, will broaden abx with renal dosing to rocpehin + clinda to cover anearobes and any potential skin involvement -03/28 given loose bms check cdiff--pending collection of stool -03/28 UA + for blood and infection, Ucx pending, bl cxs remain ngtd (7) Hyperkalemia Current Visit: Yes Status: Resolved Assessment and Plan: K+ 6.0, now resolved with kayexalate and HD -EKG T wave changes in ED appear to be old and stable -s/p albuterol, ca gluconate, dextrose + insulin and kayexalate in ED -trops negative -tele monitoring (8) Hypertension Current Visit: Yes Status: Acute Assessment and Plan: History of HTN on multiple meds Have been held bc cannot take oral right now with mentation Severe hypertension, likely secondary to polycystic kidney disease There is some concern that there could be adrenal involvement as well secondary to adrenal nodule Preferably the patient will be restarted on nifedipine, however he cannot take by mouth meds New 03/27 Bp elevating, up to 174/102, slow uptrend in magnetic resonance imaging director hours -home meds include losartan 100 mg daily, nifedipine 30 mg daily -begin IV scheduled lopressor, prn IV hydralazine (9) Depression Current Visit: No Status: Chronic Assessment and Plan: New information 03/27 from guardian- Hx depression with recent depressive episode with withdrawn behavior after of medical care manager in recent weeks -had recently been tried on remeron and made him lethargic, med discontinued one week ago -started on wellbutrin one week ago and continued on long standing zoloft -meds currently held as not yet cleared for pills -cont to monitor DVT Prophylaxis: scd - Time Spent with Patient Total time spent is greater than 50% in coordination of care (as documented) at patient's floor/unit and/or counseling patient: 25 - 35 minutes Plan of Care Discussed with: patient Internal Medicine: Result - Labs CBC & Chem 7: 03/29/18 03:16 03/29/18 03:16 Labs: Short CBC 03/29/18 Range/Units 03:16 WBC 13.0 H (4.3-11.1) K/mcL Hgb 8.6 L (12.9-16.9) g/dL Hct 26.5 L (37.5-50.1) % Plt Count 326 (140-400) K/mcL Neutrophils # 11.2 H (1.6-8.9) K/mcL BMP 03/29/18 03:16 Sodium 141 Potassium 3.2 L Chloride 102 Carbon Dioxide 24 BUN 44 H Creatinine 3.56 H Glucose 104 Calcium 8.4 L Urine 03/28/18 Range/Units 12:15 Urine Color Red A (Yellow) Urine Clarity Turbid A (Clear) Urine pH 6.0 (5.0-8.0) pH Units Ur Specific [place] 1.014 (1.010-1.025) Urine Protein >=300 H (Neg-Trace) mg/dL Urine Glucose (UA) Normal (Normal) mg/dL - ABG Interpretation ABG results: PT/INR, D-dimer PT 12.4 Seconds (9.4-12.1) H 03/25/18 03:19 Consult Discharge Plan - Plan Referrals: Isatu Zaman MD [Primary Care Provider] - (2) Anemia Qualifiers: Anemia type: due to chronic kidney disease Chronic kidney disease stage: stage 4 (severe) Qualified Code(s): N18.4 - Chronic kidney disease, stage 4 ( severe); D63.1 - Anemia in chronic kidney disease (3) Cerebral palsy Qualifiers: Cerebral palsy type: unspecified type Qualified Code(s): G80.9 - Cerebral palsy, unspecified (6) Fever Qualifiers: Fever type: unspecified Qualified Code(s): R50.9 - Fever, unspecified (8) Hypertension Qualifiers: Hypertension type: secondary to other renal disorders Qualified Code(s): I15.1 - Hypertension secondary to other renal disorders; N28.89 - Other specified disorders of kidney and ureter
[2018-03-29] MEDS: NIFEdipine XL (24 HR) 30 MG TAB.ER.24 PO SCH (10:07)
--- NOTE | 2018-03-29 10:18 | Nephrology Progress Note ---
Date of Encounter: 03/29/18 Time of Encounter: 10:48 - Assessment and Plan (1) Acute kidney injury superimposed on chronic kidney disease Current Visit: Yes Status: Acute Holding on dialysis today (Friday), but with his SCr rising, I suspect he may need dialysis on Friday, and if so then he may be dialysis dependent and should have a Permacath arranged on Friday without outpt HD chair arrangements. My colleague Dr. Ness will start covering the inpt service on Friday. (2) Uremia Current Visit: Yes Status: Acute Improved with dialysis. Though he has been non-verbal, he appears closer to his baseline as I recall and as compared to when I've seen him during prior office visits with me in my Nephrology clinic. (3) PKD (polycystic kidney disease) Current Visit: Yes Status: Chronic Hx of CKD from PKD. (4) Adrenal nodule Current Visit: Yes Status: Acute Noted on imaging and I recommend outpt serial imaging. I've ordered Bennett and Renin. (5) Encephalopathy Current Visit: Yes Status: Acute Improving and likely multifactorial but at least was in part from uremia. (6) Hypertension Current Visit: Yes Status: Chronic Holding CARLYLE or ARB d/t KAMARI on CKD 4 Qualifiers: Hypertension type: secondary to other renal disorders Qualified Code(s): I15.1 - Hypertension secondary to other renal disorders; N28.89 - Other specified disorders of kidney and ureter (7) Cerebral palsy Current Visit: Yes Status: Chronic Chronic/congenital Qualifiers: Cerebral palsy type: unspecified type Qualified Code(s): G80.9 - Cerebral palsy, unspecified (8) Hyperkalemia Current Visit: Yes Status: Resolved Improved with dialysis. Subjective Principal diagnosis: KAMARI Interval history: Pt was seen/examined and he did not verbalize any new complaints, but with his hx of CP, he generally does not talk much. He was by himself during my interview /examine in his 2A room. Objective - Vital Signs Vital signs: Vital Signs Temp Pulse Resp BP Pulse Ox 03/29/18 08:41 99.7 F H 80 16 161/87 96 03/29/18 04:12 98.7 F 79 15 154/86 95 03/28/18 23:20 97.4 F L 77 16 153/89 95 03/28/18 19:07 97.7 F 73 15 159/91 96 09/22/18 15:18 97.3 F L 83 16 149/88 95 03/28/18 10:28 98.7 F 78 16 150/85 95 Intake and Output 03/28/18 03/29/18 03/29/18 23:59 07:59 15:59 Intake Total 50 / 50 100 / 100 Output Total 250 / 250 150 / 150 Balance -200 / -200 -50 / -50 Intake: IV Fluids 50 / 50 Cleocin Premix 600 MG/50 ML 600 50 / 50 mg In 50 ml @ 50 mls/hr IVPB Q8H [facility] Rx#:[id number] Oral 0 / 0 100 / 100 Output: Catheter 250 / 250 150 / 150 Other: Stool Size Moderate Small Stool Consistency liquid loose soft Stool Characteristics Tarry Stool Color Brown Brown Green # Bowel Movement Diapers 1 1 Weight 54.7 kg Patient Weight 03/29/18 23:59 Weight 54.7 kg - General Appearance Exam: General appearance: Present: well-developed, well-nourished, appears started age , chronically ill, frail EENT: Present: ATNC, mucous membranes moist Neck: Present: supple Respiratory: Present: clear Cardiology: Present: edema (only trace pedal dependent edema in his atrophic feet b/l), regular rate, normal S1, normal S2 Dialysis Vascular Access: Venous Catheter (temporary HD catheter was C/D/I) Gastrointestinal: Present: normoactive bowel sounds, no tenderness, no guarding Integumentary: Present: no rash, warm and dry Neurologic: Present: no focal deficit, no asterixis Musculoskeletal: Present: no erythema, no cyanosis, clubbing Psychiatric: Present: cooperative - Lab 03/31/18 04:00 03/31/18 04:00 Most recent lab results Calcium 8.4 mg/dL (8.6-10.3) L 03/29/18 03:16 Magnesium 2.0 mg/dL (1.6-2.6) 03/28/18 04:55 Urine Creatinine 62 mg/dL 03/26/18 16:43 Ur Total Protein 24 Hr 2164 mg/day (50-80) H 03/26/18 16:43 Urine Sodium 46.0 mEq/L 03/24/18 16:19 Urine Total Protein 281 mg/dL (1-14) H 03/26/18 16:43 Consult Discharge Plan - Plan Referrals: Isatu Zaman MD [Primary Care Provider] -
[2018-03-29] MEDS: Pantoprazole 40 MG VIAL IVP SCH (10:19)
[2018-03-29] MEDS: EPINASTINE HCL OP SCH (13:40)
[2018-03-29] MEDS: cefTRIAXone 2,000 MG in Water for inj. (sterile) 20 ML 20 ML IVP SCH (16:55)
[2018-03-29] MEDS: Latanoprost 2.5 ML BOTTLE BOTH EYES SCH (20:12)
[2018-03-30] MEDS: *HR* Metoprolol 5 MG/5 ML VIAL IVP SCH ×3 (01:06→11:48)
[2018-03-30] MEDS: Clindamycin 600 MG/50 ML 600 MG/50 ML IV.SOLN IVPB SCH ×3 (01:07→16:56)
[2018-03-30 04:45] LABS: Basophils % 0.2 %; Eosinophils # 0.1 K/mcL (0.0-0.6); Eosinophils % 0.5 %; Hemoglobin 8.6 g/dL (12.9-16.9); Immature Granulocytes % 0.5 % (0-4); Lymphocytes # 0.9 K/mcL (0.6-4.6); Lymphocytes % 7.1 %; Mean Corpuscular HGB Conc 31.9 g/dL (31.6-35.5); Mean Corpuscular Hemoglobin 28.9 pg (28.0-33.3); Mean Corpuscular Volume 90.6 fL (83.0-100.0); Mean Platelet Volume 9.3 fL (9.4-12.4); Monocytes # 0.9 K/mcL (0.0-1.3); Neutrophils # 10.3 K/mcL (1.6-8.9); Platelet Count 245 K/mcL (140-400); Red Blood Count 2.98 M/mcL (4.19-5.50); Red Cell Distribution Width 15.1 % (11.5-14.5); Segmented Neutrophils % 84.7 %
[2018-03-30 04:58] LABS: Potassium 3.5 mEq/L (3.5-5.1)
--- NOTE | 2018-03-30 08:06 | Internal Med Progress Note ---
Hospitalist Progress Note - Encounter Date of Encounter: 03/30/18 Time of Encounter: 07:20 - Subjective Interval History: awake, alert, more interactive. Follows commands. Spoke today asking when he was going home. Some mumbling speech that is incomprehensible. Denies pain. States he is hungry. Further ros and hpi limited by mentation no family present - Exam Vitals: Temp Pulse Resp BP Pulse Ox 98.8 F 83 18 172/98 94 03/30/18 07:43 03/30/18 07:43 03/30/18 07:43 03/30/18 07:43 03/30/18 07:43 Exam: General: awake, alert with eyes open, spoke today,appears stated age, comofrtable appearing HEENT:EOM intact, pupils equal, round, moist mucus membranes, clear oropharynx Cardiovascular:regular rate and rhythm, normal S1 & S2, no murmurs . no lower extremity edema Lungs:Normal breath sounds, no wheezes, or crackles. Normal respiratory effort on RA Abdomen:Soft, no apparent tenderness, no guarding, non-distended, + bowel sounds Neurological: eyes open, alert, makes eye contact, asked when he is going home today, then mumbling incomprehensible speech, follows command to raise arms, test career resource specialist strength and stick out tongue. CN appear grossly intact, no facial asymmetry, no le movement at baseline, BL UE strength intact and equal, difficult to assess is speech clarity Skin:Normal color, no rash, no pallor : fowler cath - Assessment and Plan (1) Acute kidney injury superimposed on chronic kidney disease Current Visit: Yes Status: Acute Assessment and Plan: Acute kidney injury on chronic kidney disease stage IV, GFR typically in the 20s Anion Gap Metabolic Acidosis Patient presents with a serum creatinine 7.28, hyperkalemia (K+ 6.0) and a BUN of 125, Bicarb 15 Etiology is unknown at this time, however may be multifactorial. He has been on antibiotic and takes losartan Additionally the patient has had issues with BPH in the past as well as prostate enlargement known polycystic kidney disease with ruptured cysts in the past and worsening cystic disease on CT in ED -CT of the abdomen and pelvis no potential obstructive uropathy but + worsened right polycystic kidney disease with possible complex cysts vs hemaorrhagic cysts, cannot rule out malignancy -Nephro actively following -IR temp vasc cath 03/25 -HD 03/25 -Withhold nephrotoxic agents including losartan -IV fluids for hydration purposes- NS 125 cc/hr -Fowler catheter -Monitor strict I's and O's, making very little urine -suspected UTI, ucx no sig growth, bl cx ngtd, cont IV rocephin at this time -creat slowly improving, AGMA slowly improving -nephro assessing 24 h urine protein -follow-up CT 03/26 with multiple hemorrhagic and complex cysts, incidental findings a 15 mm right adrenal nodule. Follow-up CT or MRI recommended in 1 year. 03/28 UA with large blood as had anticipated No HD over , creat rising and likely will need friday-awaitng nephro recs -if this is the case and HD friday likely permanent dialysis needed and he would need perm cath for HD Friday (2) Anemia Current Visit: Yes Status: Chronic Assessment and Plan: hgb 7.1, chronic component given CKD, monitor for changes given concern for hemorrhage on CT as above, has remained stable in 8s -received prbcs in ED -given transfused with prbc and the patient has had issues with gross hematuria following cystic rupture-03/28 urine now with blood -cont holding pharm vte ppx -cont to monitor -hgb has remained stable (3) Cerebral palsy Current Visit: Yes Status: Chronic Assessment and Plan: has state appointed legal guardian -Sanjuanita Wylie [phone] (received from 03/26) message left to confirm code status 03/26 -03/27 received call back from guardian- confirmed full code status, baseline mental status is AAOx3, likes to joke and laugh, has full use of UE and can assist in transferring from wheelchair, no use of LE at baseline (4) Dehydration Current Visit: Yes Status: Acute Assessment and Plan: ivf as above per nephro able to advance diet with improved mentation per TELEVISION HOST to liquids thus far they will cont to follow (5) Encephalopathy Current Visit: Yes Status: Acute Assessment and Plan: likely 2/2 Uremia and suspected UTI, improving very slowly CT head no acute findings neuro exam has not demonstrated any focal deficits to suggest CVA and given significant uremia on presentation, concern for UTI/infectious process, at this time these are more likely etiology of mental status changes -HD as above -cont to monitor -neuro checks -broad abx and infectious work up as noted has been negative to date -if after completion of treatment mental status has still not improved will have to investigate neurologic etiology further, as well as component of what guardian is reporting to be recent significant depression -03/30 given he spoke for the first time today and speech is mumbling and incomprehensible at times but not always, will check MRI head wo contrast, his neuro exam remains without any new focal deficits besides speech which first became evident today, overall improved to date--if MRI shows CVA will need to begin complete stroke work up, remains unable to take po meds at this time (6) Fever Current Visit: Yes Status: Acute Assessment and Plan: 03/27 Febrile to 100.4, single incident, leukocytosis 11-13 no tachycardia or hypotension --admit 03/24 bl cxs and ucx ngtd -given fever repeat cxr : neg, and bl cxs ngtd, ua ordered and not yet sent, no diarrhea and cT a/p preformed last night to assess kidneys without acute changes/infectious changes, skin exam preformed stage 1 ulcer on buttock/sacrum identified with wound care consult placed, lactate 0.5 -on rocephin, will broaden abx with renal dosing to rocpehin + clinda to cover anearobes and any potential skin involvement -03/28 given loose bms check cdiff-neg -03/28 UA + for blood and infection, Ucx neg, bl cxs remain ngtd (7) Hyperkalemia Current Visit: Yes Status: Resolved Assessment and Plan: K+ 6.0, now resolved with kayexalate and HD -EKG T wave changes in ED appear to be old and stable -s/p albuterol, ca gluconate, dextrose + insulin and kayexalate in ED -trops negative -tele monitoring (8) Hypertension Current Visit: Yes Status: Acute Assessment and Plan: History of HTN on multiple meds Have been held bc cannot take oral right now with mentation Severe hypertension, likely secondary to polycystic kidney disease There is some concern that there could be adrenal involvement as well secondary to adrenal nodule Preferably the patient will be restarted on nifedipine, however he cannot take by mouth meds New 03/27 Bp elevating, up to 174/102 -home meds include losartan 100 mg daily, nifedipine 30 mg daily -begin IV scheduled lopressor, prn IV hydralazine (9) Depression Current Visit: No Status: Chronic Assessment and Plan: New information 03/27 from guardian- Hx depression with recent depressive episode with withdrawn behavior after of [facility] in recent weeks -had recently been tried on remeron and made him lethargic, med discontinued one week ago -started on wellbutrin one week ago and continued on long standing zoloft -meds currently held as not yet cleared for pills -cont to monitor DVT Prophylaxis: scd - Time Spent with Patient Total time spent is greater than 50% in coordination of care (as documented) at patient's floor/unit and/or counseling patient: 25 - 35 minutes Plan of Care Discussed with: patient Internal Medicine: Result - Labs CBC & Chem 7: 03/30/18 04:20 03/30/18 04:20 Labs: Short CBC 03/30/18 Range/Units 04:20 WBC 12.2 H (4.3-11.1) K/mcL Hgb 8.6 L (12.9-16.9) g/dL Hct 27.0 L (37.5-50.1) % Plt Count 245 (140-400) K/mcL Neutrophils # 10.3 H (1.6-8.9) K/mcL BMP 03/30/18 04:20 Sodium 141 Potassium 3.5 Chloride 102 Carbon Dioxide 24 BUN 47 H Creatinine 4.02 H Glucose 86 Calcium 8.0 L - ABG Interpretation ABG results: PT/INR, D-dimer PT 12.4 Seconds (9.4-12.1) H 03/25/18 03:19 Consult Discharge Plan - Plan Referrals: Isatu Zaman MD [Primary Care Provider] - (2) Anemia Qualifiers: Anemia type: due to chronic kidney disease Chronic kidney disease stage: stage 4 (severe) Qualified Code(s): N18.4 - Chronic kidney disease, stage 4 ( severe); D63.1 - Anemia in chronic kidney disease (3) Cerebral palsy Qualifiers: Cerebral palsy type: unspecified type Qualified Code(s): G80.9 - Cerebral palsy, unspecified (6) Fever Qualifiers: Fever type: unspecified Qualified Code(s): R50.9 - Fever, unspecified (8) Hypertension Qualifiers: Hypertension type: secondary to other renal disorders Qualified Code(s): I15.1 - Hypertension secondary to other renal disorders; N28.89 - Other specified disorders of kidney and ureter
[2018-03-30] MEDS: NIFEdipine XL (24 HR) 30 MG TAB.ER.24 PO SCH ×2 (09:49→09:57)
[2018-03-30] MEDS: Pantoprazole 40 MG VIAL IVP SCH (09:49)
[2018-03-30] MEDS ORDERED: NON-FORMULARY MEDICATION 1 EACH EACH (Nifedipine [Nifedipine Er] 30 MG) PO SCH (14:15)
[2018-03-30] MEDS: cefTRIAXone 2,000 MG in Water for inj. (sterile) 20 ML 20 ML IVP SCH (16:56)
--- NOTE | 2018-03-30 17:07 | Nephrology Progress Note ---
Date of Encounter: 03/30/18 Time of Encounter: 12:00 - Assessment and Plan (1) Acute kidney injury superimposed on chronic kidney disease Status: Acute SCr noted worse at 4.02, no HD today but might need tomorrow. Will reassess in am UOP yesterday at 300cc in the past 24hrs and 800cc today so far Continue to avoid nephrotxins if possible (2) Encephalopathy Status: Resolved Likely related to uremia but not clear, will reassess daily with HD prn (3) Cerebral palsy Status: Chronic Chronic/congenital Qualifiers: Cerebral palsy type: unspecified type Qualified Code(s): G80.9 - Cerebral palsy, unspecified (4) Hyperkalemia Status: Resolved (5) Uremia Status: Acute (6) Hypertension Status: Chronic Qualifiers: Hypertension type: secondary to other renal disorders Qualified Code(s): I15.1 - Hypertension secondary to other renal disorders; N28.89 - Other specified disorders of kidney and ureter (7) Adrenal nodule Status: Acute (8) PKD (polycystic kidney disease) Status: Chronic Hx of CKD from PKD. Subjective Principal diagnosis: KAMARI Interval history: Pt seen and examined mostly non verbal. Interim events noted. No family or guardian at bedside Objective - Vital Signs Vital signs: Vital Signs Temp Pulse Resp BP Pulse Ox 03/30/18 16:19 100.4 F H 116 16 187/100 89 03/30/18 11:48 98.3 F 85 16 166/92 97 03/30/18 07:43 98.8 F 83 18 172/98 94 03/30/18 03:58 98.3 F 86 16 164/94 95 03/29/18 23:42 98.4 F 82 16 169/97 95 03/29/18 19:52 98.8 F 85 17 160/87 96 03/29/18 17:39 98.3 F 82 16 163/84 97 Intake and Output 03/30/18 03/30/18 03/30/18 07:59 15:59 23:59 Intake Total 50 / 50 50 / 50 Output Total 800 / 800 Balance -750 / -750 50 / 50 Intake: IV Fluids 50 / 50 50 / 50 Cleocin Premix 600 MG/50 ML 600 50 / 50 50 / 50 mg In 50 ml @ 50 mls/hr IVPB Q8H [facility] Rx#:[id number] Output: Catheter 800 / 800 Other: Blood Glucose* 107 - General Appearance General appearance: Present: chronically ill EENT: Present: ATNC, mucous membranes dry Neck: Present: no JVD, supple Respiratory: Present: course breath sounds Cardiology: Present: no edema, normal S1, normal S2 Dialysis Vascular Access: Venous Catheter (temp HD catheter) Gastrointestinal: Present: no tenderness, no guarding Integumentary: Present: warm and dry Neurologic: Present: disoriented Additional Comments: nonverbal Musculoskeletal: Present: deformities (contracted LE bilat) Psychiatric: Present: cooperative - Lab 04/15/18 04:38 04/17/18 04:49 Most recent lab results Calcium 8.0 mg/dL (8.6-10.3) L 03/30/18 04:20 Magnesium 2.0 mg/dL (1.6-2.6) 03/28/18 04:55 Urine Creatinine 62 mg/dL 03/26/18 16:43 Ur Total Protein 24 Hr 2164 mg/day (50-80) H 03/26/18 16:43 Urine Sodium 46.0 mEq/L 03/24/18 16:19 Urine Total Protein 281 mg/dL (1-14) H 03/26/18 16:43 Consult Discharge Plan - Plan Instructions: Acute Kidney Injury (DC), Urinary Tract Infection in Men (DC), Depression (DC), Chronic Hypertension (DC), Anemia (GEN) Additional Instructions: HEMODIALYSIS -- 3 TIMES A WEEK.. Referrals: Isatu Zaman MD [Primary Care Provider] -
[2018-03-30] MEDS: Acetaminophen 325 MG TABLET PO PRN (18:56)
[2018-03-30 19:24] LABS: Bilirubin,Urine Negative (Negative); Blood,Urine Large (Negative); Clarity,Urine Turbid (Clear); Color,Urine Red (Yellow); Glucose,Urine (UA) Normal (Normal); Ketones,Urine Trace mg/dL (Negative); Leukocyte Esterase,Urine Large (Negative); Nitrite,Urine Negative (Negative); Protein,Urine >=300 mg/dL (Neg-Trace); Specific Gravity,Urine 1.009 (1.010-1.025); Urobilinogen,Urine Normal (Normal)
[2018-03-30] MEDS: Silvasorb 44.4 ML TUBE TP SCH (20:14)
[2018-03-30] MEDS: Baclofen 10 MG TABLET PO SCH (22:26)
[2018-03-30] MEDS: Latanoprost 2.5 ML BOTTLE BOTH EYES SCH (22:27)
[2018-03-31] MEDS: Clindamycin 600 MG/50 ML 600 MG/50 ML IV.SOLN IVPB SCH ×2 (01:16→14:00)
[2018-03-31 04:30] LABS: Hematocrit 26.6 % (37.5-50.1); Hemoglobin 8.4 g/dL (12.9-16.9); Mean Corpuscular HGB Conc 31.6 g/dL (31.6-35.5); Mean Corpuscular Volume 88.7 fL (83.0-100.0); Mean Platelet Volume 9.3 fL (9.4-12.4); Platelet Count 258 K/mcL (140-400); Red Cell Distribution Width 15.1 % (11.5-14.5)
[2018-03-31 04:36] LABS: INR 1.3; Prothrombin Time 14.3 Seconds (9.4-12.1)
[2018-03-31 04:53] LABS: Albumin 2.4 g/dL (3.5-5.7); Albumin/Globulin Ratio 0.7 (1.1-2.2); Bilirubin,Total 0.2 mg/dL (0.3-1.0); Calcium 7.9 mg/dL (8.6-10.3); Globulin 3.3 g/dL (2.4-3.5); Potassium 3.3 mEq/L (3.5-5.1); Total Protein 5.7 g/dL (6.4-8.9)
[2018-03-31] MEDS ORDERED: *HR* Heparin 10,000 UNIT/10 ML VIAL IV PRN (07:36)
[2018-03-31] MEDS ORDERED: 0.9 % Sodium Chloride 250 ML IVC PRN (07:36)
[2018-03-31] MEDS ORDERED: 0.9 % Sodium Chloride 1,000 ML PRIME SCH (07:45)
[2018-03-31] MEDS ORDERED: BuPROPion SR (12 HR) 150 MG TABLET PO SCH (09:00)
[2018-03-31] MEDS: Baclofen 10 MG TABLET PO SCH ×3 (12:00→21:00)
[2018-03-31] MEDS: NIFEdipine XL (24 HR) 60 MG TAB.ER.24 PO SCH ×2 (12:00→12:46)
[2018-03-31] MEDS ORDERED: Pantoprazole 40 MG VIAL IVP ONE (12:45)
[2018-03-31] MEDS: Cefepime HCl 1,000 MG in Water for inj. (sterile) 20 ML 10 ML IVP SCH ×2 (12:46→18:12)
[2018-03-31] MEDS: Pantoprazole 40 MG VIAL IVP SCH (12:49)
[2018-03-31] MEDS: Silvasorb 44.4 ML TUBE TP SCH (12:51)
[2018-03-31] MEDS: *HR* Metoprolol 5 MG/5 ML VIAL IVP SCH ×2 (13:49→18:13)
[2018-03-31] MEDS ORDERED: Potassium Chloride 20 MEQ, Lidocaine 1% 2 ML in D5% in Water 250 ML IVPB ONE (14:10)
--- NOTE | 2018-03-31 14:14 | Internal Med Progress Note ---
Hospitalist Progress Note - Encounter Date of Encounter: 03/31/18 Time of Encounter: 12:00 - Subjective Interval History: Patient seen postdialysis. Nonverbal but able to track with eyes. Appears to be comfortable. - Exam Vitals: Temp Pulse Resp BP Pulse Ox 99.1 F 88 18 151/98 94 03/31/18 11:50 03/31/18 06:18 03/31/18 11:50 03/31/18 11:50 03/31/18 06:18 Exam: General: awake, alert with eyes open and tracks with eyes. Appears comfortable HEENT: clear oropharynx Cardiovascular: Tachycardic but normal rhythm, normal S1 & S2, no murmurs Lungs:Normal breath sounds, no wheezes, or crackles. Abdomen:Soft, no apparent tenderness, no guarding, non-distended, + bowel sounds Neurological: eyes open, alert, makes eye contact, no verbal output today. No obvious facial asymmetry, no LE movement at baseline. Difficult to assess speech or upper extremity strength. Skin:Normal color, no rash, no pallor. : fowler cath in situ - Assessment and Plan (1) Acute kidney injury superimposed on chronic kidney disease Current Visit: Yes Status: Acute Assessment and Plan: Acute kidney injury on chronic kidney disease stage IV, GFR typically in the 20s Patient presents with a serum creatinine 7.28, hyperkalemia (K+ 6.0) and a BUN of 125, Bicarb 15 Etiology is unknown at this time, however may be multifactorial. Known polycystic kidney disease with ruptured cysts in the past and worsening cystic disease on CT in ED He has been on antibiotic and takes losartan. Additionally the patient has had issues with BPH -CT of the abdomen and pelvis no potential obstructive uropathy but + worsened right polycystic kidney disease with possible complex cysts vs hemaorrhagic cysts, cannot rule out malignancy -Nephro actively following -IR temp vasc cath 03/25 and started HD -Withhold nephrotoxic agents including losartan -Fowler catheter, ~900ml UOP -suspected UTI and had been on IV rocephine and clindamycin (D7 and D10 respectively). Urine culture no sig growth x 2, bl cx ngtd. -follow-up CT 03/26 with multiple hemorrhagic and complex cysts, incidental findings a 15 mm right adrenal nodule. Follow-up CT or MRI recommended in 1 year. - HD per nephro, need for tunneled HD catheter to be determined by nephro (2) Encephalopathy Current Visit: Yes Status: Acute Assessment and Plan: likely 2/2 Uremia and suspected septic encephalopathy from UTI CT head no acute findings MRI no acute ischemia HD as above had been on prolonged course of abx but spiked temp of 101 at 630 pm yesterday with slightly increasing WBC repeat blood culture taken yesterday, unsure whether both sets were from peripheral will get another set from temp HD catheter repeat CXR given his encephalopathy, may consider LP (3) Cerebral palsy Current Visit: Yes Status: Chronic Assessment and Plan: has state appointed legal guardian, Sanjuanita Wylie baseline mental status is AAOx3, likes to joke and laugh, has full use of UE and can assist in transferring from wheelchair, no use of LE at baseline (4) Anemia Current Visit: Yes Status: Chronic Assessment and Plan: hgb 7.1, chronic component given CKD, monitor for changes given concern for hemorrhage on CT as above, has remained stable in 8s (5) Fever Current Visit: Yes Status: Acute Assessment and Plan: 03/27 Febrile to 100.4, leukocytosis 11-13 Another episode of 101 last night with slightly increasing WBC and intermittent tachycardia --admit 03/24 bl cxs and ucx ngtd -was on rocephin and abx broadened with renal dosing to rocephin + clinda to cover anearobes and any potential skin involvement -03/28 given loose bms check cdiff-neg -03/28 UA + for blood and infection, Ucx neg, bl cxs remain ngtd - blood cultures from HD catheter as above - broaden abx coverage to cefepime and 1 time dose of vanc - repeat CXR (6) Hypertension Current Visit: Yes Status: Chronic Assessment and Plan: History of HTN on losartan and nifedipine Resume all meds when clear for oral intake by speech, increase nifedipine to 60mg QD IA Lopressor and labetalol for tachycardia and severe hypertension respectively (7) Depression Current Visit: No Status: Chronic Assessment and Plan: Resume Wellbutrin and Zoloft DVT Prophylaxis: SCD - Time Spent with Patient Total time spent is greater than 50% in coordination of care (as documented) at patient's floor/unit and/or counseling patient: Plan of Care Discussed with: nurse Internal Medicine: Result - Labs CBC & Chem 7: 03/31/18 04:00 03/31/18 04:00 Labs: Short CBC 03/31/18 Range/Units 04:00 WBC 13.8 H (4.3-11.1) K/mcL Hgb 8.4 L (12.9-16.9) g/dL Hct 26.6 L (37.5-50.1) % Plt Count 258 (140-400) K/mcL BMP 03/31/18 04:00 Sodium 136 Potassium 3.3 L Chloride 101 Carbon Dioxide 23 BUN 50 H Creatinine 4.16 H Glucose 112 H Calcium 7.9 L Liver Function 03/31/18 Range/Units 04:00 Total Bilirubin 0.2 L (0.3-1.0) mg/dL AST 7 L (13-39) Units/L ALT 6 L (7-52) Units/L Alkaline Phosphatase 67 (34-104) Units/L Albumin 2.4 L (3.5-5.7) g/dL Urine 03/30/18 Range/Units 18:30 Urine Color Red A (Yellow) Urine Clarity Turbid A (Clear) Urine pH 6.0 (5.0-8.0) pH Units Ur Specific [place] 1.009 L (1.010-1.025) Urine Protein >=300 H (Neg-Trace) mg/dL Urine Glucose (UA) Normal (Normal) mg/dL - ABG Interpretation ABG results: PT/INR, D-dimer PT 14.3 Seconds (9.4-12.1) H 03/31/18 04:00 - Impressions Impressions Brain MRI 03/30/18 08:11 IMPRESSION: No evidence acute ischemia. Moderate cerebral atrophy with associated mild diffuse chronic small vessel ischemic disease within the periventricular white matter. D/ / Marcel Cross MD / Marcel Cross MD Interpreting Provider: Marcel Cross MD Consult Discharge Plan - Plan Referrals: Isatu Zaman MD [Primary Care Provider] - (3) Cerebral palsy Qualifiers: Cerebral palsy type: unspecified type Qualified Code(s): G80.9 - Cerebral palsy, unspecified (4) Anemia Qualifiers: Anemia type: due to chronic kidney disease Chronic kidney disease stage: stage 4 (severe) Qualified Code(s): N18.4 - Chronic kidney disease, stage 4 ( severe); D63.1 - Anemia in chronic kidney disease (5) Fever Qualifiers: Fever type: unspecified Qualified Code(s): R50.9 - Fever, unspecified (6) Hypertension Qualifiers: Hypertension type: secondary to other renal disorders Qualified Code(s): I15.1 - Hypertension secondary to other renal disorders; N28.89 - Other specified disorders of kidney and ureter
[2018-03-31] MEDS ORDERED: *HR* Labetalol 20 MG/4 ML SYRINGE IVP PRN (14:24)
--- NOTE | 2018-03-31 14:49 | Nephrology Progress Note ---
Date of Encounter: 03/31/18 Time of Encounter: 12:00 - Assessment and Plan (1) Acute kidney injury superimposed on chronic kidney disease Status: Acute Continue dialysis with minimal UF, will assess need daily UOP noted at 800cc in the past 24hrs Continue to avoid nephrotoxins if possible Will need to discuss goals of care with guardian if no renal recovery soon (2) Encephalopathy Status: Resolved Likely related to uremia but not clear, will reassess daily with HD prn (3) Cerebral palsy Status: Chronic Chronic/congenital Qualifiers: Cerebral palsy type: unspecified type Qualified Code(s): G80.9 - Cerebral palsy, unspecified (4) Hyperkalemia Status: Resolved Resolved, continue renal diet (5) Uremia Status: Acute (6) Hypertension Status: Chronic Qualifiers: Hypertension type: secondary to other renal disorders Qualified Code(s): I15.1 - Hypertension secondary to other renal disorders; N28.89 - Other specified disorders of kidney and ureter (7) Adrenal nodule Status: Acute (8) PKD (polycystic kidney disease) Status: Chronic Hx of CKD from PKD. Subjective Principal diagnosis: KAMARI Interval history: Pt seen and examined on HD and remains mostly non verbal. No overnight issues per nurse. Objective - Vital Signs Vital signs: Vital Signs Temp Pulse Resp BP Pulse Ox 03/31/18 11:50 99.1 F 18 151/98 03/31/18 11:35 137/102 03/31/18 11:20 143/107 03/31/18 11:05 157/107 03/31/18 10:50 162/109 03/31/18 10:35 151/106 03/31/18 10:20 169/89 03/31/18 10:05 153/105 03/31/18 09:50 148/95 03/31/18 09:35 156/107 03/31/18 09:20 153/106 03/31/18 09:05 155/99 03/31/18 08:50 153/101 03/31/18 08:35 98.6 F 18 159/90 03/31/18 06:18 98.8 F 88 16 163/98 94 03/31/18 03:22 97.7 F 98 17 167/93 95 03/31/18 00:06 98.5 F 99 17 166/86 95 03/30/18 18:58 98.5 F 130 17 135/88 95 03/30/18 18:24 101.0 F H 134 20 141/81 95 03/30/18 16:19 100.4 F H 116 16 187/100 89 Intake and Output 03/30/18 03/31/18 03/31/18 23:59 07:59 15:59 Intake Total 50 / 50 920 / 920 Output Total 900 / 900 1150 / 1150 Balance -850 / -850 -230 / -230 Intake: IV Fluids 50 / 50 80 / 80 Maxipime 1,000 MG In Water for inj. (sterile) 10 ML @ 300 mls/ hr IVP Q8H [facility] Rx#:[id number] Rocephin 2,000 MG In Water for inj. (sterile) 20 ML @ 600 mls/ hr IVP Q24H [facility] Rx#:[id number] Cleocin Premix 600 MG/50 ML 600 50 / 50 50 / 50 mg In 50 ml @ 50 mls/hr IVPB Q8H [facility] Rx#:[id number] Oral 240 / 240 Intake, Rinseback and Flushes 600 / 600 Output: Total Dialysis (HD) Output 1150 / 1150 Catheter 900 / 900 Other: Meal Breakfast Percent of Meal Consumed 40% Stool Size Large Stool Consistency loose Stool Characteristics Mucoid Stool Color Green Weight 56 kg Blood Glucose* 145 113 121 Hemodialysis Net Fluid Removed 550 (mL) Patient Weight 03/31/18 23:59 Weight 56 kg - General Appearance General appearance: Present: chronically ill EENT: Present: ATNC, mucous membranes dry Neck: Present: no JVD, supple Respiratory: Present: clear Cardiology: Present: no edema, normal S1, normal S2 Dialysis Vascular Access: Venous Catheter ([facility] HD cathter) Gastrointestinal: Present: no tenderness, no guarding Integumentary: Present: warm and dry Neurologic: Present: disoriented Musculoskeletal: Present: deformities (contracted LE bilat) Psychiatric: Present: cooperative - Lab 04/15/18 04:38 04/17/18 04:49 Most recent lab results Calcium 7.9 mg/dL (8.6-10.3) L 03/31/18 04:00 Magnesium 2.0 mg/dL (1.6-2.6) 03/28/18 04:55 Urine Creatinine 62 mg/dL 03/26/18 16:43 Ur Total Protein 24 Hr 2164 mg/day (50-80) H 03/26/18 16:43 Urine Sodium 46.0 mEq/L 03/24/18 16:19 Urine Total Protein 281 mg/dL (1-14) H 03/26/18 16:43 Consult Discharge Plan - Plan Instructions: Acute Kidney Injury (DC), Urinary Tract Infection in Men (DC), Depression (DC), Chronic Hypertension (DC), Anemia (GEN) Additional Instructions: HEMODIALYSIS -- 3 TIMES A WEEK.. Referrals: Isatu Zaman MD [Primary Care Provider] -
[2018-03-31] MEDS: Latanoprost 2.5 ML BOTTLE BOTH EYES SCH (20:56)
[2018-04-01] MEDS: *HR* Metoprolol 5 MG/5 ML VIAL IVP SCH ×5 (00:11→23:14)
[2018-04-01] MEDS: Cefepime HCl 1,000 MG in Water for inj. (sterile) 20 ML 10 ML IVP SCH ×3 (02:00→20:20)
[2018-04-01 02:28] LABS: Hematocrit 25.6 % (37.5-50.1); Hemoglobin 7.9 g/dL (12.9-16.9); Mean Corpuscular HGB Conc 30.9 g/dL (31.6-35.5); Mean Corpuscular Hemoglobin 27.9 pg (28.0-33.3); Mean Corpuscular Volume 90.5 fL (83.0-100.0); Mean Platelet Volume 9.5 fL (9.4-12.4); Platelet Count 283 K/mcL (140-400); Red Blood Count 2.83 M/mcL (4.19-5.50); Red Cell Distribution Width 15.1 % (11.5-14.5)
[2018-04-01 02:41] LABS: Calcium 7.8 mg/dL (8.6-10.3); Potassium 3.8 mEq/L (3.5-5.1)
[2018-04-01] MEDS: Baclofen 10 MG TABLET PO SCH ×2 (07:55→20:22)
[2018-04-01] MEDS: NIFEdipine XL (24 HR) 60 MG TAB.ER.24 PO SCH (08:05)
--- NOTE | 2018-04-01 10:54 | Internal Med Progress Note ---
Hospitalist Progress Note - Encounter Date of Encounter: 04/01/18 Time of Encounter: 09:10 - Subjective Interval History: Patient seen postdialysis. Nonverbal but able to track with eyes. Appears to be comfortable. - Exam Vitals: Temp Pulse Resp BP Pulse Ox 98.2 F 92 19 155/95 96 04/01/18 08:23 04/01/18 08:23 04/01/18 08:23 04/01/18 08:23 04/01/18 08:23 Exam: General: awake, alert with eyes open and tracks with eyes. More verbal output today but incomprehensible. Appears comfortable HEENT: clear oropharynx Cardiovascular: normal rate and rhythm, normal S1 & S2, no murmurs Lungs:Normal breath sounds, no wheezes, or crackles. Abdomen:Soft, no apparent tenderness, no guarding, non-distended, + bowel sounds Neurological: eyes open, alert, makes eye contact, slightly more verbal output today. Follows commands appropriately. No obvious facial asymmetry, no LE movement at baseline. Skin:Normal color, no rash, no pallor. : fowler cath in situ - Assessment and Plan (1) Acute kidney injury superimposed on chronic kidney disease Current Visit: Yes Status: Acute Assessment and Plan: Acute kidney injury on chronic kidney disease stage IV, GFR typically in the 20s Patient presents with a serum creatinine 7.28, hyperkalemia (K+ 6.0) and a BUN of 125, Bicarb 15 Etiology is unknown at this time, however may be multifactorial. Known polycystic kidney disease with ruptured cysts in the past and worsening cystic disease on CT in ED He has been on antibiotic and takes losartan. Additionally the patient has had issues with BPH -CT of the abdomen and pelvis no potential obstructive uropathy but + worsened right polycystic kidney disease with possible complex cysts vs hemaorrhagic cysts, cannot rule out malignancy -Nephro actively following -IR temp vasc cath 03/25 and started HD -Withhold nephrotoxic agents including losartan -Fowler catheter, ~300ml UOP -suspected UTI and had been on IV rocephine and clindamycin (D7 and D10 respectively). Urine culture no sig growth x 2, bl cx ngtd. -> switched to cefepime given intermittent fever, tachycardia, and persistent leukocytosis -follow-up CT 03/26 with multiple hemorrhagic and complex cysts, incidental findings a 15 mm right adrenal nodule. Follow-up CT or MRI recommended in 1 year. - HD per nephro, need for tunneled HD catheter to be determined by nephro (2) Encephalopathy Current Visit: Yes Status: Acute Assessment and Plan: likely 2/2 Uremia and suspected septic encephalopathy from UTI CT head no acute findings MRI no acute ischemia HD as above had been on prolonged course of abx but spiked temp of 101 on 03/30 with slightly increasing WBC repeat blood cultures from peripheral and HD catheter 03/30 and 03/31 pending repeat CXR 03/31 WNL fluctuating mental status, slightly more interactive with increasing verbal output today after abx upgraded to cefepime and vanc, will continue if pt has another spike of fever or significant worsening mental status, may have to consider LP (3) Cerebral palsy Current Visit: Yes Status: Chronic Assessment and Plan: has state appointed legal guardian, Sanjuanita Wylie baseline mental status is AAOx3, likes to joke and laugh, has full use of UE and can assist in transferring from wheelchair, no use of LE at baseline (4) Anemia Current Visit: Yes Status: Chronic Assessment and Plan: chronic component given CKD, monitor for changes given concern for hemorrhage on CT as above, has remained stable in 8s (5) Fever Current Visit: Yes Status: Acute Assessment and Plan: 03/27 Febrile to 100.4, leukocytosis 11-13 03/30 Another episode of 101 with slightly increasing WBC and intermittent tachycardia --admit 03/24 bl cxs and ucx ngtd -was on rocephin and abx broadened with renal dosing to rocephin + clinda to cover anearobes and any potential skin involvement -03/28 given loose bms check cdiff-neg -03/28 UA + for blood and infection, Ucx neg, bl cxs remain ngtd -03/30- blood cultures from peripheral and HD catheter as above, CXR unremarkable source remains unclear but clinically improved after broadening abx coverage to cefepime and vanc, will continue for now (6) Hypertension Current Visit: Yes Status: Chronic Assessment and Plan: History of HTN on losartan and nifedipine Resume all meds when clear for oral intake by speech, increase nifedipine to 60mg QD TX Lopressor and labetalol for tachycardia and severe hypertension respectively (7) Depression Current Visit: No Status: Chronic DVT Prophylaxis: since Hb is stable, will start SQ heparin - Time Spent with Patient Total time spent is greater than 50% in coordination of care (as documented) at patient's floor/unit and/or counseling patient: Plan of Care Discussed with: nurse Internal Medicine: Result - Labs CBC & Chem 7: 04/01/18 02:02 04/01/18 02:02 Labs: Short CBC 04/01/18 Range/Units 02:02 WBC 12.9 H (4.3-11.1) K/mcL Hgb 7.9 L (12.9-16.9) g/dL Hct 25.6 L (37.5-50.1) % Plt Count 283 (140-400) K/mcL BMP 04/01/18 02:02 Sodium 137 Potassium 3.8 Chloride 101 Carbon Dioxide 28 BUN 28 H Creatinine 2.80 H Glucose 107 H Calcium 7.8 L - ABG Interpretation ABG results: PT/INR, D-dimer PT 14.3 Seconds (9.4-12.1) H 03/31/18 04:00 - Impressions Impressions Chest X-Ray 03/31/18 07:47 IMPRESSION: No acute cardiopulmonary disease. D/ / Reuben Veloz MD / Reuben Veloz MD Interpreting Provider: Reuben Veloz MD Videofluoroscopic Swallow 03/31/18 10:38 IMPRESSION: Delayed initiation of swallow with no evidence of penetration or aspiration. Please see separate speech pathology report for full discussion of findings and recommendations. D/ / Reuben Veloz MD / Reuben Veloz MD Interpreting Provider: Reuben Veloz MD Consult Discharge Plan - Plan Referrals: Isatu Zaman MD [Primary Care Provider] - (3) Cerebral palsy Qualifiers: Cerebral palsy type: unspecified type Qualified Code(s): G80.9 - Cerebral palsy, unspecified (4) Anemia Qualifiers: Anemia type: due to chronic kidney disease Chronic kidney disease stage: stage 4 (severe) Qualified Code(s): N18.4 - Chronic kidney disease, stage 4 ( severe); D63.1 - Anemia in chronic kidney disease (5) Fever Qualifiers: Fever type: unspecified Qualified Code(s): R50.9 - Fever, unspecified (6) Hypertension Qualifiers: Hypertension type: secondary to other renal disorders Qualified Code(s): I15.1 - Hypertension secondary to other renal disorders; N28.89 - Other specified disorders of kidney and ureter
[2018-04-01] MEDS: Silvasorb 44.4 ML TUBE TP SCH (11:02)
[2018-04-01] MEDS: BuPROPion SR (12 HR) 150 MG TABLET PO SCH (15:49)
[2018-04-01] MEDS: *HR* Heparin 5,000 UNIT/ML VIAL SQ SCH (17:41)
--- NOTE | 2018-04-01 18:05 | Nephrology Progress Note ---
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 on permcath, placement etc (2) Encephalopathy Current Visit: Yes Status: Resolved (3) Cerebral palsy Current Visit: Yes Status: Chronic Qualifiers: Cerebral palsy type: unspecified type Qualified Code(s): G80.9 - Cerebral palsy, unspecified (4) Hyperkalemia Current Visit: Yes Status: Resolved (5) Uremia Current Visit: Yes Status: Acute (6) Hypertension Current Visit: Yes Status: Chronic Qualifiers: Hypertension type: secondary to other renal disorders Qualified Code(s): I15.1 - Hypertension secondary to other renal disorders; N28.89 - Other specified disorders of kidney and ureter (7) Adrenal nodule Current Visit: Yes Status: Acute (8) PKD (polycystic kidney disease) Current Visit: Yes Status: Chronic Subjective Principal diagnosis: KAMARI Interval history: Pt seen and examined more awake and interactive. Per nurse, appetite better. long term director present at bedside, discussed goals of care Objective - Vital Signs Vital signs: Vital Signs Temp Pulse Resp BP Pulse Ox 04/01/18 16:24 98.7 F 123 20 115/75 96 04/01/18 11:43 97.9 F 122 19 115/73 96 04/01/18 08:23 98.2 F 92 19 155/95 96 04/01/18 03:56 98.8 F 92 17 148/84 96 04/01/18 00:12 98.2 F 105 18 134/88 97 03/31/18 19:21 98.6 F 106 18 122/76 96 Intake and Output 04/01/18 04/01/18 04/01/18 07:59 15:59 23:59 Intake Total 730 / 730 240 / 240 Output Total 300 / 300 300 / 300 Balance -290 / -290 730 / 730 -60 / -60 Intake: IV Fluids Maxipime 1,000 MG In Water for inj. (sterile) 10 ML @ 300 mls/ hr IVP Q8H [facility] Rx#:[id number] Oral 720 / 720 240 / 240 Output: Catheter 300 / 300 300 / 300 Other: Meal Lunch Percent of Meal Consumed 85% Stool Size Large Stool Consistency loose soft Stool Color Brown Green # Bowel Movement Diapers 1 Weight 55.9 kg Blood Glucose* 127 137 Patient Weight 04/01/18 23:59 Weight 55.9 kg - General Appearance General appearance: Present: chronically ill, frail EENT: Present: ATNC, mucous membranes moist Neck: Present: no JVD, supple Respiratory: Present: clear (ant bilat) Cardiology: Present: no edema, normal S1, normal S2 Dialysis Vascular Access: Venous Catheter (temp IJ) Gastrointestinal: Present: no tenderness, no guarding Integumentary: Present: warm and dry Additional Comments: interactive Musculoskeletal: Present: deformities (contractures LE) Psychiatric: Present: mood/affect appropriate - Lab 04/03/18 03:10 04/03/18 03:10 Most recent lab results Calcium 7.8 mg/dL (8.6-10.3) L 04/01/18 02:02 Magnesium 2.0 mg/dL (1.6-2.6) 03/28/18 04:55 Urine Creatinine 62 mg/dL 03/26/18 16:43 Ur Total Protein 24 Hr 2164 mg/day (50-80) H 03/26/18 16:43 Urine Sodium 46.0 mEq/L 03/24/18 16:19 Urine Total Protein 281 mg/dL (1-14) H 03/26/18 16:43 Consult Discharge Plan - Plan Referrals: Isatu Zaman MD [Primary Care Provider] -
[2018-04-01] MEDS: Latanoprost 2.5 ML BOTTLE BOTH EYES SCH (20:22)
[2018-04-02] MEDS: Cefepime HCl 1,000 MG in Water for inj. (sterile) 20 ML 10 ML IVP SCH (02:47)
[2018-04-02] MEDS: *HR* Metoprolol 5 MG/5 ML VIAL IVP SCH ×2 (05:00→12:03)
[2018-04-02] MEDS: *HR* Heparin 5,000 UNIT/ML VIAL SQ SCH ×2 (05:00→16:26)
[2018-04-02 05:25] LABS: Hematocrit 23.6 % (37.5-50.1); Hemoglobin 7.4 g/dL (12.9-16.9); Mean Corpuscular HGB Conc 31.4 g/dL (31.6-35.5); Mean Corpuscular Hemoglobin 28.9 pg (28.0-33.3); Mean Corpuscular Volume 92.2 fL (83.0-100.0); Mean Platelet Volume 9.3 fL (9.4-12.4); Platelet Count 304 K/mcL (140-400); Red Blood Count 2.56 M/mcL (4.19-5.50); Red Cell Distribution Width 15.1 % (11.5-14.5)
[2018-04-02 05:44] LABS: Calcium 7.6 mg/dL (8.6-10.3); Potassium 4.5 mEq/L (3.5-5.1)
[2018-04-02] MEDS ORDERED: 0.9 % Sodium Chloride 250 ML IVC PRN (07:31)
[2018-04-02] MEDS ORDERED: *HR* Heparin 10,000 UNIT/10 ML VIAL IV PRN (07:31)
[2018-04-02] MEDS ORDERED: 0.9 % Sodium Chloride 2,000 ML ONE (07:42)
[2018-04-02] MEDS ORDERED: 0.9 % Sodium Chloride 1,000 ML PRIME SCH (07:45)
[2018-04-02] MEDS: NIFEdipine XL (24 HR) 60 MG TAB.ER.24 PO SCH (08:25)
[2018-04-02] MEDS: Baclofen 10 MG TABLET PO SCH ×2 (08:25→20:32)
[2018-04-02] MEDS: BuPROPion SR (12 HR) 150 MG TABLET PO SCH (08:25)
[2018-04-02] MEDS: Silvasorb 44.4 ML TUBE TP SCH (08:26)
--- NOTE | 2018-04-02 11:48 | Internal Med Progress Note ---
Hospitalist Progress Note - Encounter Date of Encounter: 04/02/18 Time of Encounter: 09:40 - Subjective Interval History: Continues to have more verbal interaction although it is not comprehensible. No fever overnight. No new events. - Exam Vitals: Temp Pulse Resp BP Pulse Ox 98.5 F 89 18 107/70 95 04/02/18 11:40 04/02/18 11:40 04/02/18 11:40 04/02/18 11:40 04/02/18 11:40 Exam: General: awake, alert with eyes open and tracks with eyes. More verbal output today but incomprehensible. Appears comfortable HEENT: clear oropharynx Cardiovascular: normal rate and rhythm, normal S1 & S2, no murmurs Lungs:Normal breath sounds, no wheezes, or crackles. Abdomen:Soft, no apparent tenderness, no guarding, non-distended, + bowel sounds Neurological: eyes open, alert, makes eye contact, slightly more verbal output today. Follows commands appropriately. No obvious facial asymmetry, no LE movement at baseline. Skin:Normal color, no rash, no pallor. : fowler cath in situ - Assessment and Plan (1) Acute kidney injury superimposed on chronic kidney disease Current Visit: Yes Status: Acute Assessment and Plan: Acute kidney injury on chronic kidney disease stage IV, GFR typically in the 20s Patient presents with a serum creatinine 7.28, hyperkalemia (K+ 6.0) and a BUN of 125, Bicarb 15 Etiology is unknown at this time, however may be multifactorial. Known polycystic kidney disease with ruptured cysts in the past and worsening cystic disease on CT in ED He has been on antibiotic and takes losartan. Additionally the patient has had issues with BPH -CT of the abdomen and pelvis no potential obstructive uropathy but + worsened right polycystic kidney disease with possible complex cysts vs hemaorrhagic cysts, cannot rule out malignancy -Nephro actively following -IR temp vasc cath 03/25 and started HD -Withhold nephrotoxic agents including losartan -follow-up CT 03/26 with multiple hemorrhagic and complex cysts, incidental findings a 15 mm right adrenal nodule. Follow-up CT or MRI recommended in 1 year. -Fowler catheter, ~600ml UOP -suspected UTI and had been on IV rocephine and clindamycin (D7 and D10 respectively). Urine culture no sig growth x 2, bl cx ngtd - switched to cefepime/vanc (now D3) given intermittent fever, tachycardia, and persistent leukocytosis -> fever and tachycardia had improved since then - HD per nephro, need for tunneled HD catheter to be determined by nephro in the next few days (2) Encephalopathy Current Visit: Yes Status: Acute Assessment and Plan: likely 2/2 Uremia and suspected septic encephalopathy from UTI vs. ?other source CT head no acute findings MRI no acute ischemia HD as above had been on prolonged course of abx but spiked temp of 101 on 03/30 with slightly increasing WBC repeat blood cultures from peripheral and HD catheter 03/30 and 03/31 NGTD repeat CXR 03/31 WNL fluctuating mental status but had been improving for the last 2 days with more interaction and verbal output since the initiation of vanc/cefepime will continue to current abx if pt has another spike of fever or significant worsening mental status, may have to consider LP (3) Fever Current Visit: Yes Status: Acute Assessment and Plan: 03/27 Febrile to 100.4, leukocytosis 11-13, initially attributed to UTI and had been on Buddy/Clinda for 7 and 10 days respectively 03/30 Another episode of 101 with slightly increasing WBC and intermittent tachycardia -03/28 given loose bms check cdiff-neg -03/28 UA + for blood and infection, Ucx neg, bl cxs remain ngtd -03/30- blood cultures from peripheral and HD catheter as above, CXR unremarkable source remains unclear but clinically improved after broadening abx coverage to cefepime and vanc (day 3), will continue for now (4) Cerebral palsy Current Visit: Yes Status: Chronic Assessment and Plan: has state appointed legal guardian, Sanjuanita Wylie baseline mental status is AAOx3, likes to joke and laugh, has full use of UE and can assist in transferring from wheelchair, no use of LE at baseline (5) Anemia Current Visit: Yes Status: Chronic Assessment and Plan: chronic component given CKD, monitor for changes given concern for hemorrhage on CT as above, has remained stable in 8s (6) Hypertension Current Visit: Yes Status: Chronic Assessment and Plan: History of HTN on losartan and nifedipine, resume PRN labetalol (7) Depression Current Visit: No Status: Chronic Assessment and Plan: Resume Wellbutrin and Zoloft DVT Prophylaxis: Sq heparin - Time Spent with Patient Total time spent is greater than 50% in coordination of care (as documented) at patient's floor/unit and/or counseling patient: Plan of Care Discussed with: nurse Internal Medicine: Result - Labs CBC & Chem 7: 04/02/18 05:00 04/02/18 05:00 Labs: Short CBC 04/02/18 Range/Units 05:00 WBC 13.4 H (4.3-11.1) K/mcL Hgb 7.4 L (12.9-16.9) g/dL Hct 23.6 L (37.5-50.1) % Plt Count 304 (140-400) K/mcL BMP 04/02/18 05:00 Sodium 139 Potassium 4.5 Chloride 105 Carbon Dioxide 27 BUN 48 H Creatinine 3.60 H Glucose 129 H Calcium 7.6 L - ABG Interpretation ABG results: PT/INR, D-dimer PT 14.3 Seconds (9.4-12.1) H 03/31/18 04:00 Consult Discharge Plan - Plan Referrals: Isatu Zaman MD [Primary Care Provider] - (3) Fever Qualifiers: Fever type: unspecified Qualified Code(s): R50.9 - Fever, unspecified (4) Cerebral palsy Qualifiers: Cerebral palsy type: unspecified type Qualified Code(s): G80.9 - Cerebral palsy, unspecified (5) Anemia Qualifiers: Anemia type: due to chronic kidney disease Chronic kidney disease stage: stage 4 (severe) Qualified Code(s): N18.4 - Chronic kidney disease, stage 4 ( severe); D63.1 - Anemia in chronic kidney disease (6) Hypertension Qualifiers: Hypertension type: secondary to other renal disorders Qualified Code(s): I15.1 - Hypertension secondary to other renal disorders; N28.89 - Other specified disorders of kidney and ureter
--- NOTE | 2018-04-02 15:41 | Nephrology Progress Note ---
Date of Encounter: 04/02/18 Time of Encounter: 12:00 - Assessment and Plan (1) Acute kidney injury superimposed on chronic kidney disease Current Visit: Yes Status: Acute SCr noted at 3.6 today, will proceed with HD today with minimal UF. No signs of renal recovery, will plan for permcath tomorrow UOP good at 600cc in the past 24hrs Will also plan outside HD placement, will discuss with social service worker (2) Encephalopathy Current Visit: Yes Status: Resolved Improving, not clear his baseline (3) Cerebral palsy Current Visit: Yes Status: Chronic Chronic/congenital Qualifiers: Cerebral palsy type: unspecified type Qualified Code(s): G80.9 - Cerebral palsy, unspecified (4) Hyperkalemia Current Visit: Yes Status: Resolved Resolved, continue renal diet (5) Uremia Current Visit: Yes Status: Acute Back to baseline with HD (6) Adrenal nodule Current Visit: Yes Status: Chronic (7) PKD (polycystic kidney disease) Current Visit: Yes Status: Chronic (8) Anemia Current Visit: Yes Status: Chronic Hgb noted at 7.4, will transfuse a unit pRBCs today with HD Qualifiers: Anemia type: due to chronic kidney disease Chronic kidney disease stage: stage 4 (severe) Qualified Code(s): N18.4 - Chronic kidney disease, stage 4 ( severe); D63.1 - Anemia in chronic kidney disease Subjective Principal diagnosis: KAMARI Interval history: Pt seen and examined on HD still more interactive overall. Objective - Vital Signs Vital signs: Vital Signs Temp Pulse Resp BP Pulse Ox 04/02/18 15:00 107/63 04/02/18 14:45 114/74 04/02/18 14:30 107/71 04/02/18 14:15 103/67 04/02/18 14:05 97.7 F 87 18 04/02/18 14:00 108/69 04/02/18 13:50 98.0 F 89 18 102/66 04/02/18 13:45 106/67 04/02/18 13:35 97 F L 91 18 102/73 04/02/18 13:30 113/70 04/02/18 13:15 116/66 04/02/18 13:00 107/65 04/02/18 12:45 103/66 04/02/18 12:30 97.6 F 16 103/67 04/02/18 11:40 98.5 F 89 18 107/70 95 04/02/18 08:38 96 04/02/18 07:57 97.6 F 90 17 115/74 96 04/02/18 03:53 98.9 F 98 16 115/68 95 04/02/18 00:04 98.9 F 98 16 114/75 96 04/01/18 20:09 98.3 F 108 16 109/68 97 04/01/18 16:24 98.7 F 123 20 115/75 96 Intake and Output 04/01/18 04/02/18 04/02/18 23:59 07:59 15:59 Intake Total 610 / 610 1230 / 1230 Output Total 300 / 300 Balance 310 / 310 1230 / 1230 Intake: IV Fluids Maxipime 1,000 MG In Water for inj. (sterile) 10 ML @ 300 mls/ hr IVP Q8H [facility] Rx#:[id number] Oral 600 / 600 280 / 280 Blood Product 350 / 350 Rbcs Leuko Poor As-1 Unit 350 / 350 [id number] Intake, Rinseback and Flushes 600 / 600 Output: Catheter 300 / 300 Other: Meal Dinner Breakfast Percent of Meal Consumed 100% 100% # Urine Diapers 1 Weight 60.1 kg Blood Glucose* 120 138 Hemodialysis Net Fluid Removed 1630 (mL) Patient Weight 04/02/18 23:59 Weight 60.1 kg - General Appearance General appearance: Present: chronically ill, frail EENT: Present: ATNC, mucous membranes moist Neck: Present: no JVD, supple Respiratory: Present: clear (ant bilat) Cardiology: Present: no edema, normal S1, normal S2 Dialysis Vascular Access: Venous Catheter (temp IJ HD) Gastrointestinal: Present: no tenderness, no guarding Integumentary: Present: warm and dry Additional Comments: Interactive, speaks but not always clear Musculoskeletal: Present: deformities (contractures bilat LE) Psychiatric: Present: mood/affect appropriate - Lab 04/03/18 03:10 04/03/18 03:10 Most recent lab results Calcium 7.6 mg/dL (8.6-10.3) L 04/02/18 05:00 Magnesium 2.0 mg/dL (1.6-2.6) 03/28/18 04:55 Urine Creatinine 62 mg/dL 03/26/18 16:43 Ur Total Protein 24 Hr 2164 mg/day (50-80) H 03/26/18 16:43 Urine Sodium 46.0 mEq/L 03/24/18 16:19 Urine Total Protein 281 mg/dL (1-14) H 03/26/18 16:43 Consult Discharge Plan - Plan Referrals: Isatu Zaman MD [Primary Care Provider] -
[2018-04-02] MEDS: Cefepime HCl 2,000 MG in Water for inj. (sterile) 20 ML 20 ML IVP SCH (16:26)
[2018-04-02] MEDS: Latanoprost 2.5 ML BOTTLE BOTH EYES SCH (20:32)
[2018-04-03 03:24] LABS: Hematocrit 26.4 % (37.5-50.1); Mean Corpuscular HGB Conc 30.3 g/dL (31.6-35.5); Mean Corpuscular Hemoglobin 27.4 pg (28.0-33.3); Mean Corpuscular Volume 90.4 fL (83.0-100.0); Mean Platelet Volume 8.9 fL (9.4-12.4); Platelet Count 313 K/mcL (140-400); Red Blood Count 2.92 M/mcL (4.19-5.50)
[2018-04-03 03:43] LABS: Calcium 7.8 mg/dL (8.6-10.3); Potassium 4.1 mEq/L (3.5-5.1)
[2018-04-03] MEDS: *HR* Heparin 5,000 UNIT/ML VIAL SQ SCH ×2 (05:36→16:16)
--- NOTE | 2018-04-03 10:44 | Internal Med Progress Note ---
Hospitalist Progress Note - Encounter Date of Encounter: 04/03/18 Time of Encounter: 10:44 - Subjective Interval History: 47 year old male with cerebral palsy, paraplegia, polycystic kidney disease, was admitted for encephalopathy and acute on chronic renal failure and UTI. He had already been on prolonged course of abx with Rocephin and Clindamycin but was still having fever, tachycardia, and leukocytosis. All the culture results had been negative till date. Repeat blood cultures 03/30 from peripheral and HD catheter negative till date. Repeat CXR also negative. Prior managing hospitalist had escalated antibiotics of vancomycin and cefepime which due to patient's improvement, patient has been afebrile, mental status is improving and speech is more comprehensible at this morning. Seen and evaluated at the bedside this a.m, requesting for a drink and reporting no pain or discomfort Nephrology is following, patient has had no signs of renal recovery with temporary hemodialysis therefore, plan for permacath placement by nephrology a.m - Exam Vitals: Temp Pulse Resp BP Pulse Ox 97.6 F 102 18 133/85 97 04/03/18 07:58 04/03/18 07:58 04/03/18 07:58 04/03/18 07:58 04/03/18 07:58 Exam: General: awake, alert with eyes open and tracks with eyes. Speech is comprehensible, patient is asking when he will be going home HEENT: clear oropharynx Cardiovascular: normal rate and rhythm, normal S1 & S2, no murmurs Lungs:Normal breath sounds, no wheezes, or crackles. Abdomen:Soft, no apparent tenderness, no guarding, non-distended, + bowel sounds Neurological: awake, alert, speech is comprehensive, he is oriented to place and person but not to time, paraplegic. Follows commands appropriately. No obvious facial asymmetry, no LE movement at baseline. Skin:Normal color, no rash, no pallor. Extremities: Disuse atrophy with bilateral pitting pedal edema : fowler cath in situ with dark urine - Assessment and Plan (1) Acute kidney injury superimposed on chronic kidney disease Current Visit: Yes Status: Acute Assessment and Plan: Acute kidney injury on chronic kidney disease stage IV, GFR typically in the 20s Patient presented with a serum creatinine 7.28, hyperkalemia (K+ 6.0) and a BUN of 125, Bicarb 15 Etiology is unknown at this time, however may be multifactorial. Known polycystic kidney disease with ruptured cysts in the past and worsening cystic disease on CT in ED He has been on antibiotic and takes losartan. Additionally the patient has had issues with BPH CT of the abdomen and pelvis no potential obstructive uropathy but + worsened right polycystic kidney disease with possible complex cysts vs hemaorrhagic cysts, cannot rule out malignancy Nephrology actively following IR temp vasc cath 03/25 and started HD suspected UTI and was on IV rocephine and clindamycin (D7 and D10 respectively) . Urine culture no sig growth x 2, bl cx ngtd switched to cefepime/vanc (now D4) Afebrile now, tachy improving, leukocytosis improving, continue same Plan is for permacath placement SW on board for placement and or return to half-way when medically optimized (2) Encephalopathy Current Visit: Yes Status: Resolved Assessment and Plan: Improving Patient with known cerebral palsy with unknown baseline. Is not admitted with uremia and septic encephalopathy Brain CT and MRI with no acute intracranial findings Patient is alert, oriented to place and person this a.m, speech is comprehensible Continue to monitor (3) Cerebral palsy Current Visit: Yes Status: Chronic Assessment and Plan: has state appointed legal guardian, Sanjuanita Wylie baseline mental status is AAOx3, likes to joke and laugh, has full use of UE and can assist in transferring from wheelchair, no use of LE at baseline (4) Anemia Current Visit: Yes Status: Chronic Assessment and Plan: chronic component given CKD, monitor for changes given concern for hemorrhage on CT as above, has remained stable in 8s (5) Fever Current Visit: Yes Status: Resolved Assessment and Plan: No obvious source CXR , urine and blood cultures negative 2, however patient improved promptly with escalation of antibiotics to vancomycin and cefepime We will recommend continuation for at least a total of 7 days. (6) Hypertension Current Visit: Yes Status: Chronic Assessment and Plan: History of HTN on losartan and nifedipine, resume PRN labetalol (7) Depression Current Visit: Yes Status: Chronic Assessment and Plan: continue home meds - Time Spent with Patient Total time spent is greater than 50% in coordination of care (as documented) at patient's floor/unit and/or counseling patient: Plan of Care Discussed with: patient Internal Medicine: Result - Labs CBC & Chem 7: 04/03/18 03:10 04/03/18 03:10 Labs: Short CBC 04/03/18 Range/Units 03:10 WBC 13.2 H (4.3-11.1) K/mcL Hgb 8.0 L (12.9-16.9) g/dL Hct 26.4 L (37.5-50.1) % Plt Count 313 (140-400) K/mcL BMP 04/03/18 03:10 Sodium 138 Potassium 4.1 Chloride 102 Carbon Dioxide 30 H BUN 30 H Creatinine 2.59 H Glucose 101 Calcium 7.8 L - ABG Interpretation ABG results: PT/INR, D-dimer PT 14.3 Seconds (9.4-12.1) H 03/31/18 04:00 Consult Discharge Plan - Plan Referrals: Isatu Zaman MD [Primary Care Provider] - (3) Cerebral palsy Qualifiers: Cerebral palsy type: unspecified type Qualified Code(s): G80.9 - Cerebral palsy, unspecified (4) Anemia Qualifiers: Anemia type: due to chronic kidney disease Chronic kidney disease stage: stage 4 (severe) Qualified Code(s): N18.4 - Chronic kidney disease, stage 4 ( severe); D63.1 - Anemia in chronic kidney disease (5) Fever Qualifiers: Fever type: unspecified Qualified Code(s): R50.9 - Fever, unspecified (6) Hypertension Qualifiers: Hypertension type: secondary to other renal disorders Qualified Code(s): I15.1 - Hypertension secondary to other renal disorders; N28.89 - Other specified disorders of kidney and ureter
[2018-04-03] MEDS ORDERED: Vancomycin 500 MG in 0.9 % Sodium Chloride Mini Bag 100 ML IVPB ONE (12:00)
[2018-04-03] MEDS: Baclofen 10 MG TABLET PO SCH ×2 (13:09→22:38)
[2018-04-03] MEDS: NIFEdipine XL (24 HR) 60 MG TAB.ER.24 PO SCH (14:10)
[2018-04-03] MEDS: Silvasorb 44.4 ML TUBE TP SCH (14:11)
[2018-04-03] MEDS: BuPROPion SR (12 HR) 150 MG TABLET PO SCH (14:11)
[2018-04-03] MEDS: Cefepime HCl 2,000 MG in Water for inj. (sterile) 20 ML 20 ML IVP SCH (16:16)
--- NOTE | 2018-04-03 16:28 | Nephrology Progress Note ---
Date of Encounter: 04/03/18 Time of Encounter: 12:00 - Assessment and Plan (1) Acute kidney injury superimposed on chronic kidney disease Current Visit: Yes Status: Acute SCr improved after HD yesterday at 2.69, will plan to permcath on friday and in the meantime monitor for any signs of renal recovery over the weekend Continue to avoid nephrotoxins if possible Lytes WNL (2) Encephalopathy Current Visit: Yes Status: Resolved appears resolved (3) Cerebral palsy Current Visit: Yes Status: Chronic Chronic/congenital Qualifiers: Cerebral palsy type: unspecified type Qualified Code(s): G80.9 - Cerebral palsy, unspecified (4) Hyperkalemia Current Visit: Yes Status: Resolved Resolved, continue renal diet (5) Uremia Current Visit: Yes Status: Acute Back to baseline with HD (6) Adrenal nodule Current Visit: Yes Status: Chronic (7) PKD (polycystic kidney disease) Current Visit: Yes Status: Chronic Hx of CKD from PKD. (8) Anemia Current Visit: Yes Status: Chronic Hgb noted at 8.0 s/p transfusion a unit pRBCs yesterday with HD, will monitor Qualifiers: Anemia type: due to chronic kidney disease Chronic kidney disease stage: stage 4 (severe) Qualified Code(s): N18.4 - Chronic kidney disease, stage 4 ( severe); D63.1 - Anemia in chronic kidney disease Subjective Principal diagnosis: KAMARI Interval history: Pt seen and examined answering questions appropriately. was NPO for permcath today but unable to reach guardian this am, discussed with her this pm and she consents to this and outpatient HD placement as well. Objective - Vital Signs Vital signs: Vital Signs Temp Pulse Resp BP Pulse Ox 04/03/18 14:08 98 109/65 04/03/18 11:31 98.4 F 96 18 116/73 96 04/03/18 07:58 97.6 F 102 18 133/85 97 04/03/18 04:39 97.3 F L 87 16 105/67 96 04/03/18 00:39 99.1 F 113 15 97/63 97 04/02/18 21:13 99.2 F 101 15 94/55 97 Intake and Output 04/03/18 04/03/18 04/03/18 07:59 15:59 23:59 Output Total 400 / 400 Balance -400 / -400 Output: Catheter 400 / 400 Other: Meal applesauce Percent of Meal Consumed 100% Stool Size Large Stool Consistency loose liquid Stool Color Brown Yellow # Bowel Movement Diapers 1 Weight 59.8 kg Blood Glucose* 106 93 Patient Weight 04/03/18 23:59 Weight 59.8 kg - General Appearance General appearance: Present: chronically ill, frail EENT: Present: ATNC, mucous membranes dry Neck: Present: no JVD, supple Respiratory: Present: clear (ant bilat) Cardiology: Present: no edema, normal S1, normal S2 Dialysis Vascular Access: Venous Catheter (temp IJ) Gastrointestinal: Present: no tenderness, no guarding Integumentary: Present: warm and dry Additional Comments: Interactive Musculoskeletal: Present: deformities (contractures LE bialt) Psychiatric: Present: mood/affect appropriate, cooperative - Lab 04/03/18 03:10 04/03/18 03:10 Most recent lab results Calcium 7.8 mg/dL (8.6-10.3) L 04/03/18 03:10 Magnesium 2.0 mg/dL (1.6-2.6) 03/28/18 04:55 Urine Creatinine 62 mg/dL 03/26/18 16:43 Ur Total Protein 24 Hr 2164 mg/day (50-80) H 03/26/18 16:43 Urine Sodium 46.0 mEq/L 03/24/18 16:19 Urine Total Protein 281 mg/dL (1-14) H 03/26/18 16:43 Consult Discharge Plan - Plan Referrals: Isatu Zaman MD [Primary Care Provider] -
[2018-04-03 17:36] LABS: Metanephrine, Plasma 0.36 nmol/L (0.00-0.49)
[2018-04-03] MEDS ORDERED: 0.9 % Sodium Chloride 500 ML IVC ONE (22:10)
[2018-04-03] MEDS: Latanoprost 2.5 ML BOTTLE BOTH EYES SCH (22:34)
[2018-04-04 04:56] LABS: Basophils % 0.2 %; Eosinophils # 0.1 K/mcL (0.0-0.6); Eosinophils % 0.7 %; Hematocrit 23.4 % (37.5-50.1); Hemoglobin 7.2 g/dL (12.9-16.9); Immature Granulocytes % 0.4 % (0-4); Lymphocytes # 1.1 K/mcL (0.6-4.6); Mean Corpuscular HGB Conc 30.8 g/dL (31.6-35.5); Mean Corpuscular Volume 91.1 fL (83.0-100.0); Mean Platelet Volume 8.9 fL (9.4-12.4); Monocytes # 1.2 K/mcL (0.0-1.3); Monocytes % 12.3 %; Neutrophils # 7.3 K/mcL (1.6-8.9); Platelet Count 307 K/mcL (140-400); Red Blood Count 2.57 M/mcL (4.19-5.50); Red Cell Distribution Width 15.9 % (11.5-14.5); Segmented Neutrophils % 75.4 %
[2018-04-04 04:57] LABS: Hematocrit 24.2 % (37.5-50.1); Hemoglobin 7.2 g/dL (12.9-16.9); Mean Corpuscular HGB Conc 29.8 g/dL (31.6-35.5); Mean Corpuscular Hemoglobin 27.4 pg (28.0-33.3); Mean Platelet Volume 8.9 fL (9.4-12.4); Platelet Count 311 K/mcL (140-400); Red Blood Count 2.63 M/mcL (4.19-5.50); Red Cell Distribution Width 15.7 % (11.5-14.5)
[2018-04-04 05:16] LABS: Calcium 7.9 mg/dL (8.6-10.3); Potassium 4.4 mEq/L (3.5-5.1)
[2018-04-04] MEDS: *HR* Heparin 5,000 UNIT/ML VIAL SQ SCH ×2 (06:00→16:54)
--- NOTE | 2018-04-04 07:45 | Internal Med Progress Note ---
Hospitalist Progress Note - Encounter Date of Encounter: 04/04/18 Time of Encounter: 09:19 - Subjective Interval History: right ear pain, mild no chest pain, dyspnea, abdominal pain, n, v or other symptoms - Exam Vitals: Temp Pulse Resp BP Pulse Ox 98.7 F 88 18 114/74 97 04/04/18 07:35 04/04/18 07:35 04/04/18 07:35 04/04/18 07:35 04/04/18 07:35 Exam: General: awake, alert with eyes open and tracks with eyes. Speech is comprehensible, states that he is feeling ok HEENT: moist oral mucosa. Right ear with some wax and tympanic membrane partially viewed due to wax,pearly, no discharge. No meningismus. Right neck HD line site without erythema. Cardiovascular: normal rate and rhythm, normal S1 & S2, no murmurs Lungs:Normal breath sounds, no wheezes, or crackles. Abdomen:Soft, no apparent tenderness, no guarding, non-distended Neurological: awake, alert, speech is comprehensive, he is oriented to place and person but not to time, paraplegic. Follows commands appropriately. No obvious facial asymmetry, no LE movement at baseline. Bilateral upper extremity strength 4/5 Skin:Normal color, no rash, no pallor. Extremities: Disuse atrophy with bilateral pitting pedal edema : fowler cath in situ with dark urine - Assessment and Plan (1) Acute kidney injury superimposed on chronic kidney disease Current Visit: Yes Status: Acute (2) Encephalopathy Current Visit: Yes Status: Resolved (3) Cerebral palsy Current Visit: Yes Status: Chronic (4) Fever Current Visit: Yes Status: Resolved (5) Hypertension Current Visit: Yes Status: Chronic (6) PKD (polycystic kidney disease) Current Visit: Yes Status: Chronic - Summary of Assessment and Plan Summary of Assessment and Plan: 47M with cerebral palsy, paraplegia, polycystic kidney disease, was admitted for encephalopathy, acute on chronic renal failure and UTI. He had already been on prolonged course of abx with Rocephin and Clindamycin but was still having fever, tachycardia, and leukocytosis. All the culture results had been negative. Repeat blood cultures 03/30 from peripheral and HD catheter negative till date. Repeat CXR also negative. My colleague had previously escalated antibiotics to vancomycin and cefepime with subsequent improvement in syptoms and mental status; patient has been afebrile, mental status is improving and speech is more comprehensible. # KAMARI with hyperkalemia on CKD4, likely HD dependent from now onwards # PCKD - IR temp vasc cath 03/25 and started HD - Nephrology appreciated: will plan permacath on Friday # Encephalopathy, improved - could be uremic vs septic, infection source is unclear - suspected UTI and was on IV rocephin and clindamycin (D7 and D10 respectively) . Urine culture no sig growth x 2, bl cx ngtd - switched to cefepime/vanc on 03/31 with resolution of fever, tachycardia and leukocytosis - Cont Abx, noted plan for 7 days total # Cerebral palsy, currently oriented to place/person and speaks slowly but comprehensible - state appointed legal guardian, Sanjuanita Wylie - baseline mental status is AAOx3, likes to joke and laugh, has full use of UE and can assist in transferring from wheelchair, no use of LE at baseline # AOCKD, stable # HTN: Cont losartan, nifedipine # VTE prophy: heparin SubQ - Time Spent with Patient Total time spent is greater than 50% in coordination of care (as documented) at patient's floor/unit and/or counseling patient: Internal Medicine: Result - Labs CBC & Chem 7: 04/04/18 04:36 04/04/18 04:36 Labs: Short CBC 04/04/18 04/04/18 Range/Units 04:36 04:36 WBC 9.8 9.6 (4.3-11.1) K/mcL Hgb 7.2 L 7.2 L (12.9-16.9) g/dL Hct 24.2 L 23.4 L (37.5-50.1) % Plt Count 311 307 (140-400) K/mcL Neutrophils # 7.3 (1.6-8.9) K/mcL BMP 04/04/18 04:36 Sodium 140 Potassium 4.4 Chloride 106 Carbon Dioxide 28 BUN 42 H Creatinine 3.80 H Glucose 112 H Calcium 7.9 L - ABG Interpretation ABG results: PT/INR, D-dimer PT 14.3 Seconds (9.4-12.1) H 03/31/18 04:00 Consult Discharge Plan - Plan Referrals: Isatu Zaman MD [Primary Care Provider] - (3) Cerebral palsy Qualifiers: Cerebral palsy type: unspecified type Qualified Code(s): G80.9 - Cerebral palsy, unspecified (4) Fever Qualifiers: Fever type: unspecified Qualified Code(s): R50.9 - Fever, unspecified (5) Hypertension Qualifiers: Hypertension type: secondary to other renal disorders Qualified Code(s): I15.1 - Hypertension secondary to other renal disorders; N28.89 - Other specified disorders of kidney and ureter
[2018-04-04] MEDS: BuPROPion SR (12 HR) 150 MG TABLET PO SCH (08:42)
[2018-04-04] MEDS: NIFEdipine XL (24 HR) 60 MG TAB.ER.24 PO SCH (08:42)
[2018-04-04] MEDS: Baclofen 10 MG TABLET PO SCH ×2 (08:42→21:08)
[2018-04-04] MEDS ORDERED: 0.9 % Sodium Chloride 1,000 ML ONE (09:09)
[2018-04-04] MEDS ORDERED: *HR* Heparin 10,000 UNIT/10 ML VIAL IV PRN (09:33)
[2018-04-04] MEDS ORDERED: 0.9 % Sodium Chloride 250 ML IVC PRN (09:33)
--- NOTE | 2018-04-04 10:40 | Nephrology Progress Note ---
Date of Encounter: 04/04/18 Time of Encounter: 10:35 - Assessment and Plan (1) Acute kidney injury superimposed on chronic kidney disease Status: Acute SCr noted at 3.8, GFR 17 hence still no signs of renal recovery, will continue HD with UF as tolerated UOP noted at 700cc in the past 24hrs Continue to avoid nephrotoxins if possible Will plan for permcath on friday and placement o outside HD unit as well (2) Encephalopathy Status: Resolved Mostly resolved. Likely was related to uremia now resolved with ongoing HD sessions (3) Cerebral palsy Status: Chronic Chronic/congenital Qualifiers: Cerebral palsy type: unspecified type Qualified Code(s): G80.9 - Cerebral palsy, unspecified (4) Hyperkalemia Status: Resolved Resolved, continue renal diet (5) Uremia Status: Acute Back to baseline with HD (6) Hypertension Status: Chronic Qualifiers: Hypertension type: secondary to other renal disorders Qualified Code(s): I15.1 - Hypertension secondary to other renal disorders; N28.89 - Other specified disorders of kidney and ureter (7) Adrenal nodule Status: Acute (8) PKD (polycystic kidney disease) Status: Chronic Hx of CKD from PKD. Subjective Principal diagnosis: KAMARI Interval history: Pt seen and examined on HD with no issues. Continues to be interactive though hard to understand which is baseline Objective - Vital Signs Vital signs: Vital Signs Temp Pulse Resp BP Pulse Ox 04/04/18 07:35 98.7 F 88 18 114/74 97 04/04/18 04:15 97.8 F 90 17 93/64 98 04/04/18 03:00 101/62 04/04/18 01:00 98.3 F 97 16 98/55 96 04/04/18 00:08 97 93/52 04/03/18 23:15 90/50 04/03/18 22:41 90/52 04/03/18 22:13 98.2 F 82/52 04/03/18 22:00 78 04/03/18 21:52 80/50 04/03/18 21:21 96.4 F L 58 18 77/52 97 04/03/18 20:56 99.1 F 106 19 67/37 96 04/03/18 16:22 98.6 F 102 18 97/54 92 04/03/18 14:08 98 109/65 04/03/18 11:31 98.4 F 96 18 116/73 96 Intake and Output 04/03/18 04/04/18 04/04/18 23:59 07:59 15:59 Intake Total 480 / 480 500 / 500 360 / 360 Output Total 300 / 300 200 / 200 Balance 180 / 180 300 / 300 360 / 360 Intake: IV Fluids 500 / 500 0.9 % Sodium Chloride 500 ML @ 500 / 500 200 mls/hr IVC .Q2H30M ONE Rx#: [id number] Oral 480 / 480 360 / 360 Output: Catheter 300 / 300 200 / 200 Other: Meal Dinner Breakfast Percent of Meal Consumed 90% 15% Stool Size Moderate Stool Consistency loose Stool Color Brown # Bowel Movements 2 Blood Glucose* 162 114 - General Appearance General appearance: Present: chronically ill, frail EENT: Present: ATNC, mucous membranes moist Neck: Present: no JVD, supple Respiratory: Present: clear Cardiology: Present: no edema, normal S1, normal S2 Dialysis Vascular Access: Venous Catheter Gastrointestinal: Present: no tenderness, no guarding Integumentary: Present: warm and dry Neurologic: Present: no focal deficit Musculoskeletal: Present: deformities (contracted LE bilat) Psychiatric: Present: mood/affect appropriate, cooperative - Lab 04/15/18 04:38 04/17/18 04:49 Most recent lab results Calcium 7.9 mg/dL (8.6-10.3) L 04/04/18 04:36 Magnesium 2.0 mg/dL (1.6-2.6) 03/28/18 04:55 Urine Creatinine 62 mg/dL 03/26/18 16:43 Ur Total Protein 24 Hr 2164 mg/day (50-80) H 03/26/18 16:43 Urine Sodium 46.0 mEq/L 03/24/18 16:19 Urine Total Protein 281 mg/dL (1-14) H 03/26/18 16:43 Consult Discharge Plan - Plan Instructions: Acute Kidney Injury (DC), Urinary Tract Infection in Men (DC), De pression (DC), Chronic Hypertension (DC), Anemia (GEN) Additional Instructions: HEMODIALYSIS -- 3 TIMES A WEEK.. Referrals: Isatu Zaman MD [Primary Care Provider] -
[2018-04-04] MEDS: Silvasorb 44.4 ML TUBE TP SCH (15:19)
[2018-04-04] MEDS: Cefepime HCl 2,000 MG in Water for inj. (sterile) 20 ML 20 ML IVP SCH (16:54)
[2018-04-04] MEDS: Latanoprost 2.5 ML BOTTLE BOTH EYES SCH (21:08)
[2018-04-05] MEDS: *HR* Heparin 5,000 UNIT/ML VIAL SQ SCH ×2 (05:30→16:48)
[2018-04-05 06:24] LABS: Hematocrit 23.5 % (37.5-50.1); Mean Corpuscular HGB Conc 29.8 g/dL (31.6-35.5); Mean Corpuscular Hemoglobin 27.6 pg (28.0-33.3); Mean Corpuscular Volume 92.5 fL (83.0-100.0); Mean Platelet Volume 8.8 fL (9.4-12.4); Platelet Count 309 K/mcL (140-400); Red Blood Count 2.54 M/mcL (4.19-5.50); Red Cell Distribution Width 15.3 % (11.5-14.5)
[2018-04-05 06:58] LABS: Calcium 7.7 mg/dL (8.6-10.3); Potassium 4.6 mEq/L (3.5-5.1)
[2018-04-05] MEDS: NIFEdipine XL (24 HR) 60 MG TAB.ER.24 PO SCH (08:00)
[2018-04-05] MEDS: BuPROPion SR (12 HR) 150 MG TABLET PO SCH (08:00)
[2018-04-05] MEDS: Baclofen 10 MG TABLET PO SCH ×2 (08:00→20:35)
[2018-04-05] MEDS: Silvasorb 44.4 ML TUBE TP SCH (08:01)
--- NOTE | 2018-04-05 13:18 | Internal Med Progress Note ---
Hospitalist Progress Note - Encounter Date of Encounter: 04/05/18 Time of Encounter: 13:18 - Subjective Interval History: no chest pain, dyspnea, abdominal pain, n, v or other symptoms - Exam Vitals: Temp Pulse Resp BP Pulse Ox 98.0 F 95 18 101/59 97 04/05/18 12:20 04/05/18 12:20 04/05/18 12:20 04/05/18 12:20 04/05/18 12:20 Exam: General: awake, alert with eyes open and tracks with eyes. Speech is comprehensible, states that he is feeling ok HEENT: moist oral mucosa. No meningismus. Right neck HD line site without erythema. Cardiovascular: normal rate and rhythm, normal S1 & S2, no murmurs Lungs:Normal breath sounds, no wheezes, or crackles. Abdomen:Soft, no apparent tenderness, no guarding, non-distended Neurological: awake, alert, speech is comprehensive, he is oriented to place and person but not to time, paraplegic. Follows commands appropriately. No obvious facial asymmetry, no LE movement at baseline. Bilateral upper extremity strength 4/5 Skin:Normal color, no rash, no pallor. Extremities: Disuse atrophy with bilateral pitting pedal edema : fowler cath in situ with dark urine - Assessment and Plan (1) Acute kidney injury superimposed on chronic kidney disease Current Visit: Yes Status: Acute (2) Encephalopathy Current Visit: Yes Status: Resolved (3) Cerebral palsy Current Visit: Yes Status: Chronic (4) Fever Current Visit: Yes Status: Resolved (5) Hypertension Current Visit: Yes Status: Chronic (6) PKD (polycystic kidney disease) Current Visit: Yes Status: Chronic - Summary of Assessment and Plan Summary of Assessment and Plan: 47M with cerebral palsy, paraplegia, polycystic kidney disease, was admitted for encephalopathy, acute on chronic renal failure and UTI. He had already been on prolonged course of abx with Rocephin and Clindamycin but was still having fever, tachycardia, and leukocytosis. All the culture results had been negative. Repeat blood cultures 03/30 from peripheral and HD catheter negative till date. Repeat CXR also negative. My colleague had previously escalated antibiotics to vancomycin and cefepime with subsequent improvement in symptoms and mental status; patient has been afebrile, mental status is improving and speech is more comprehensible. # KAMARI with hyperkalemia on CKD4, likely HD dependent from now onwards # PCKD - IR temp vasc cath 03/25 and started HD - Nephrology appreciated: will plan permacath on Friday # Encephalopathy, improved - could be uremic vs septic, infection source is unclear - suspected UTI and was on IV rocephin and clindamycin (D7 and D10 respectively) . Urine culture no sig growth x 2, bl cx ngtd - switched to cefepime/vanc on 03/31 with resolution of fever, tachycardia and leukocytosis from 13k to 8k - Cont Abx, noted plan for 7 days total (03/31-04/06/18) # Cerebral palsy, currently oriented to place/person and speaks slowly but comprehensible - state appointed legal guardian, Sanjuanita Wylie - baseline mental status is AAOx3, likes to joke and laugh, has full use of UE and can assist in transferring from wheelchair, no use of LE at baseline # AOCKD, stable # HTN: Cont losartan, nifedipine # VTE prophy: heparin SubQ - Time Spent with Patient Total time spent is greater than 50% in coordination of care (as documented) at patient's floor/unit and/or counseling patient: Internal Medicine: Result - Labs CBC & Chem 7: 04/05/18 06:05 04/05/18 06:05 Labs: Short CBC 04/05/18 Range/Units 06:05 WBC 8.9 (4.3-11.1) K/mcL Hgb 7.0 L (12.9-16.9) g/dL Hct 23.5 L (37.5-50.1) % Plt Count 309 (140-400) K/mcL BMP 04/05/18 06:05 Sodium 138 Potassium 4.6 Chloride 104 Carbon Dioxide 30 H BUN 23 H Creatinine 2.68 H Glucose 111 H Calcium 7.7 L - ABG Interpretation ABG results: PT/INR, D-dimer PT 14.3 Seconds (9.4-12.1) H 03/31/18 04:00 Consult Discharge Plan - Plan Referrals: Isatu Zaman MD [Primary Care Provider] - (3) Cerebral palsy Qualifiers: Cerebral palsy type: unspecified type Qualified Code(s): G80.9 - Cerebral palsy, unspecified (4) Fever Qualifiers: Fever type: unspecified Qualified Code(s): R50.9 - Fever, unspecified (5) Hypertension Qualifiers: Hypertension type: secondary to other renal disorders Qualified Code(s): I15.1 - Hypertension secondary to other renal disorders; N28.89 - Other specified disorders of kidney and ureter
--- NOTE | 2018-04-05 16:20 | Nephrology Progress Note ---
Date of Encounter: 04/05/18 Time of Encounter: 13:00 - Assessment and Plan (1) Acute kidney injury superimposed on chronic kidney disease Status: Acute SCr improved after HD yesterday at 2.68, plan to place permcath tomorrow if no signs of renal recovery Continue to avoid nephrotxins if possible UOP noted at 200cc in the past 24hrs (2) Encephalopathy Status: Resolved Mostly resolved. Likely was related to uremia now resolved with ongoing HD sessions (3) Cerebral palsy Status: Chronic Chronic/congenital Qualifiers: Cerebral palsy type: unspecified type Qualified Code(s): G80.9 - Cerebral palsy, unspecified (4) Hyperkalemia Status: Resolved (5) Uremia Status: Acute Back to baseline with HD (6) Hypertension Status: Chronic Qualifiers: Hypertension type: secondary to other renal disorders Qualified Code(s): I15.1 - Hypertension secondary to other renal disorders; N28.89 - Other specified disorders of kidney and ureter (7) Adrenal nodule Status: Acute (8) PKD (polycystic kidney disease) Status: Chronic Hx of CKD from PKD. Subjective Principal diagnosis: KAMARI Interval history: Pt seen and examined still interactive with no new complaints. s/p HD yesterday Objective - Vital Signs Vital signs: Vital Signs Temp Pulse Resp BP Pulse Ox 04/05/18 12:20 98.0 F 95 18 101/59 97 04/05/18 07:40 98.7 F 91 18 118/71 91 04/05/18 04:35 98.9 F 85 18 102/62 90 04/04/18 23:55 99.1 F 97 19 95/58 99 04/04/18 19:18 98 F 99 16 100/58 97 04/04/18 16:43 98.6 F 97 16 102/57 97 Intake and Output 04/05/18 04/05/18 04/05/18 07:59 15:59 23:59 Intake Total 620 / 620 Output Total 580 / 580 450 / 450 Balance -580 / -580 170 / 170 Intake: Oral 620 / 620 Output: Catheter 580 / 580 450 / 450 Other: Meal Lunch Percent of Meal Consumed 100% Stool Size Moderate Moderate Stool Consistency soft soft Stool Characteristics Normal for Patient Stool Color Brown Brown # Bowel Movements 1 Blood Glucose* 116 135 - General Appearance General appearance: Present: chronically ill EENT: Present: ATNC, mucous membranes moist Neck: Present: no JVD, supple Respiratory: Present: clear Cardiology: Present: no edema, normal S1, normal S2 Dialysis Vascular Access: Venous Catheter (temp HD catheter) Gastrointestinal: Present: no tenderness, no guarding Integumentary: Present: warm and dry Neurologic: Present: no focal deficit Musculoskeletal: Present: deformities (contracted LE bilat) Psychiatric: Present: mood/affect appropriate, cooperative - Lab 04/15/18 04:38 04/17/18 04:49 Most recent lab results Calcium 7.7 mg/dL (8.6-10.3) L 04/05/18 06:05 Magnesium 2.0 mg/dL (1.6-2.6) 03/28/18 04:55 Urine Creatinine 62 mg/dL 03/26/18 16:43 Ur Total Protein 24 Hr 2164 mg/day (50-80) H 03/26/18 16:43 Urine Sodium 46.0 mEq/L 03/24/18 16:19 Urine Total Protein 281 mg/dL (1-14) H 03/26/18 16:43 Consult Discharge Plan - Plan Instructions: Acute Kidney Injury (DC), Urinary Tract Infection in Men (DC), Depression (DC), Chronic Hypertension (DC), Anemia (GEN) Additional Instructions: HEMODIALYSIS -- 3 TIMES A WEEK.. Referrals: Isatu Zaman MD [Primary Care Provider] -
[2018-04-05] MEDS: Cefepime HCl 2,000 MG in Water for inj. (sterile) 20 ML 20 ML IVP SCH (16:48)
[2018-04-05] MEDS: Latanoprost 2.5 ML BOTTLE BOTH EYES SCH (20:35)
[2018-04-06] MEDS: *HR* Heparin 5,000 UNIT/ML VIAL SQ SCH ×2 (06:03→16:05)
[2018-04-06 06:43] LABS: Hematocrit 23.2 % (37.5-50.1); Hemoglobin 6.9 g/dL (12.9-16.9); Mean Corpuscular HGB Conc 29.7 g/dL (31.6-35.5); Mean Corpuscular Hemoglobin 27.7 pg (28.0-33.3); Mean Corpuscular Volume 93.2 fL (83.0-100.0); Mean Platelet Volume 8.9 fL (9.4-12.4); Platelet Count 321 K/mcL (140-400); Red Blood Count 2.49 M/mcL (4.19-5.50); Red Cell Distribution Width 15.2 % (11.5-14.5)
[2018-04-06 07:08] LABS: Calcium 7.9 mg/dL (8.6-10.3); Potassium 5.3 mEq/L (3.5-5.1)
[2018-04-06] MEDS: NIFEdipine XL (24 HR) 60 MG TAB.ER.24 PO SCH (08:04)
[2018-04-06] MEDS: Silvasorb 44.4 ML TUBE TP SCH (08:04)
[2018-04-06] MEDS: BuPROPion SR (12 HR) 150 MG TABLET PO SCH (08:04)
[2018-04-06] MEDS: Baclofen 10 MG TABLET PO SCH ×2 (08:04→21:33)
[2018-04-06] MEDS ORDERED: Aminoglycoside Consult 1 EACH MC ONE (12:26)
[2018-04-06] MEDS ORDERED: Heparin 1,000 UNITS/500 mL 500 ML ONE (13:34)
[2018-04-06] MEDS ORDERED: ceFAZolin 2,000 MG in Water for inj. (sterile) 20 ML 10 ML IVP ONE (14:00)
[2018-04-06] MEDS ORDERED: *HR* FentaNYL (PF) 100 MCG/2 ML VIAL IVP ONE (14:00)
[2018-04-06] MEDS ORDERED: *HR* Midazolam HCl 2 MG/2 ML VIAL IVP ONE (14:00)
--- NOTE | 2018-04-06 14:03 | Pre-Sedation Evaluation ---
Pre-sedation evaluation - Pre-sedation checklist Date of procedure: 03/25/18 Procedure: permacath placement Recent Vitals: Last Vital Signs Temp 98.8 F 04/06/18 11:02 Pulse 105 04/06/18 11:02 Resp 16 04/06/18 11:02 BP 110/65 04/06/18 11:02 Pulse Ox 98 04/06/18 11:02 Dietary Status: NPO 6 hours prior to procedure ASA Classification *see protocol: CLASS III-Severe systemic disease Plan of Care: Pt appropriate candidate for procedure/moderate/conscious sedation , Risks/benefits of procedure/sedation discussed w/ patient/family Cardiac Registry (Cardio Only) - Functional Capacity - Clincal Frailty Scale
[2018-04-06] MEDS ORDERED: 0.9 % Sodium Chloride 500 ML ONE (14:09)
[2018-04-06] MEDS ORDERED: *HR* Midazolam HCl 2 MG/2 ML VIAL ONE (14:16)
[2018-04-06] MEDS ORDERED: *HR* FentaNYL (PF) 100 MCG/2 ML VIAL ONE (14:16)
[2018-04-06] MEDS ORDERED: *HR* Heparin 5,000 UNIT/ML VIAL ONE (14:35)
--- NOTE | 2018-04-06 14:37 | IR Procedure Note ---
Date of procedure: 04/06/18 Consent Obtained: Verbal consent Timeout: Correct patient and procedure verified, Time out performed, Skin prep completed Local anesthetic: Lidocaine 1% Indications: CRF Procedure Performed: Tunneled dialysis catheter placement Was there an events and promotions assistant present: No Results/Findings: RIJ 14F 28cm Shamar-Split TDC placement Estimated blood loss (cc): 0 Complications: None; Tolerated procedure well Post Procedure Treatment Plan: Monitor on floor Specimen: None
[2018-04-06] MEDS ORDERED: CeFAZolin Premix DUPLEX 2,000 MG/50 ML BAG IVPB ONE (15:00)
[2018-04-06] MEDS: Cefepime HCl 2,000 MG in Water for inj. (sterile) 20 ML 20 ML IVP SCH (16:05)
--- NOTE | 2018-04-06 17:41 | Internal Med Progress Note ---
Hospitalist Progress Note - Encounter Date of Encounter: 04/06/18 Time of Encounter: 17:35 - Exam Vitals: Temp Pulse Resp BP Pulse Ox 98.5 F 100 14 100/62 98 04/06/18 16:17 04/06/18 16:17 04/06/18 16:17 04/06/18 16:17 04/06/18 16:17 Exam: General: awake, alert with eyes open and tracks with eyes. Speech is comprehensible, states that he is feeling ok HEENT: moist oral mucosa. No meningismus. Right neck HD line site without erythema. Cardiovascular: normal rate and rhythm, normal S1 & S2, no murmurs Lungs:Normal breath sounds, no wheezes, or crackles. Abdomen:Soft, no apparent tenderness, no guarding, non-distended Neurological: awake, alert, speech is comprehensive, he is oriented to place and person but not to time, paraplegic. Follows commands appropriately. No obvious facial asymmetry, no LE movement at baseline. Bilateral upper extremity strength 4/5 Skin:Normal color, no rash, no pallor. Extremities: Disuse atrophy with bilateral pitting pedal edema : fowler cath in situ with dark urine - Assessment and Plan (1) Acute kidney injury superimposed on chronic kidney disease Current Visit: Yes Status: Acute Assessment and Plan: with underlying CKD stage IV. Discussed with Nephrology and will be HD dependent. IR placed temp vasc cath 03/25/2018 and HD strated. Plan is to place perma-cath today. Per nephro will like to use perma cath and make sure it is functioning prior to discharge. (2) Encephalopathy Current Visit: Yes Status: Resolved Assessment and Plan: Improved, likely due to uremia but also suspected to UTI. Suspected UTI treated with Rocephin and clindamnycin. Urine culture no sig growth x 2, bl cx ngtd. switched to cefepime/vanc on 03/31 with resolution of fever, tachycardia and leukocytosis from 13k to 8k. Cont Abx, noted plan for 7 days total (03/31-04/06/18) (3) Cerebral palsy Current Visit: Yes Status: Chronic Assessment and Plan: currently oriented to place/person and speaks slowly but comprehensible. state appointed legal guardian, Sanjuanita Wylie. baseline mental status is AOx3, has full use of UE and can assist in transferring from wheelchair, no use of LE at baseline (4) Fever Current Visit: Yes Status: Resolved Assessment and Plan: Afebrile and WBC 8.3. Antibiotic course completed. Will DC IV antibiotic. (5) Hypertension Current Visit: Yes Status: Chronic Assessment and Plan: PO Cozaar and Nifedipine. PRN Labetalol (6) PKD (polycystic kidney disease) Current Visit: Yes Status: Chronic DVT Prophylaxis: Sq heparin - Summary of Assessment and Plan Summary of Assessment and Plan: 47M with cerebral palsy, paraplegia, polycystic kidney disease, was admitted for encephalopathy, acute on chronic renal failure and UTI. He had already been on prolonged course of abx with Rocephin and Clindamycin but was still having fever, tachycardia, and leukocytosis. All the culture results had been negative. Repeat blood cultures 03/30 from peripheral and HD catheter negative till date. Repeat CXR also negative. My colleague had previously escalated antibiotics to vancomycin and cefepime with subsequent improvement in symptoms and mental status; patient has been afebrile, mental status is improving and speech is more comprehensible. # KAMARI with hyperkalemia on CKD4, likely HD dependent from now onwards # PCKD - IR temp vasc cath 03/25 and started HD - Nephrology appreciated: will plan permacath on Friday # Encephalopathy, improved - could be uremic vs septic, infection source is unclear - suspected UTI and was on IV rocephin and clindamycin (D7 and D10 respectively) . Urine culture no sig growth x 2, bl cx ngtd - switched to cefepime/vanc on 03/31 with resolution of fever, tachycardia and leukocytosis from 13k to 8k - Cont Abx, noted plan for 7 days total (03/31-04/06/18) # Cerebral palsy, currently oriented to place/person and speaks slowly but comprehensible - state appointed legal guardian, Sanjuanita Wylie - baseline mental status is AAOx3, likes to joke and laugh, has full use of UE and can assist in transferring from wheelchair, no use of LE at baseline # AOCKD, stable # HTN: Cont losartan, nifedipine # VTE prophy: heparin SubQ - Time Spent with Patient Total time spent is greater than 50% in coordination of care (as documented) at patient's floor/unit and/or counseling patient: less than 15 minutes Plan of Care Discussed with: patient Internal Medicine: Result - Labs CBC & Chem 7: 04/06/18 06:30 04/06/18 06:30 Labs: Short CBC 04/06/18 Range/Units 06:30 WBC 8.3 (4.3-11.1) K/mcL Hgb 6.9 L (12.9-16.9) g/dL Hct 23.2 L (37.5-50.1) % Plt Count 321 (140-400) K/mcL BMP 04/06/18 06:30 Sodium 136 Potassium 5.3 H Chloride 105 Carbon Dioxide 26 BUN 37 H Creatinine 3.67 H Glucose 100 Calcium 7.9 L - ABG Interpretation ABG results: PT/INR, D-dimer PT 14.3 Seconds (9.4-12.1) H 03/31/18 04:00 - Impressions Impressions Guidance Ultrasound 04/06/18 00:00 IMPRESSION: 1. Right internal jugular vein tunneled dialysis catheter placement as discussed above. D/ / Didier Castellanos MD / Didier Castellanos MD Interpreting Provider: Didier Castellanos MD Insertion Tunneled Catheter 04/06/18 00:00 IMPRESSION: 1. Right internal jugular vein tunneled dialysis catheter placement as discussed above. D/ / Didier Castellanos MD / Didier Castellanos MD Interpreting Provider: Didier Castellanos MD Consult Discharge Plan - Plan Referrals: Isatu Zaman MD [Primary Care Provider] - (3) Cerebral palsy Qualifiers: Cerebral palsy type: unspecified type Qualified Code(s): G80.9 - Cerebral palsy, unspecified (4) Fever Qualifiers: Fever type: unspecified Qualified Code(s): R50.9 - Fever, unspecified (5) Hypertension Qualifiers: Hypertension type: secondary to other renal disorders Qualified Code(s): I15.1 - Hypertension secondary to other renal disorders; N28.89 - Other specified disorders of kidney and ureter
[2018-04-06] MEDS: Latanoprost 2.5 ML BOTTLE BOTH EYES SCH (21:34)
[2018-04-07] MEDS: *HR* Heparin 5,000 UNIT/ML VIAL SQ SCH ×2 (05:31→18:29)
--- NOTE | 2018-04-07 06:34 | Nephrology Progress Note ---
Date of Encounter: 04/06/18 Time of Encounter: 12:00 - Assessment and Plan (1) Acute kidney injury superimposed on chronic kidney disease Status: Acute SCr worse at 3.67, hence no signs of renal recovery and will proceed with permcath today Continue to avoid nephrotxins if possible UOP still decent but not amazing daily Next HD panned tomorrow (2) Encephalopathy Status: Resolved Mostly resolved. Likely was related to uremia now resolved with ongoing HD sessions (3) Cerebral palsy Status: Chronic Chronic/congenital Qualifiers: Cerebral palsy type: unspecified type Qualified Code(s): G80.9 - Cerebral palsy, unspecified (4) Hyperkalemia Status: Resolved (5) Uremia Status: Acute (6) Hypertension Status: Chronic Qualifiers: Hypertension type: secondary to other renal disorders Qualified Code(s): I15.1 - Hypertension secondary to other renal disorders; N28.89 - Other specified disorders of kidney and ureter (7) Adrenal nodule Status: Acute (8) PKD (polycystic kidney disease) Status: Chronic Hx of CKD from PKD. Subjective Principal diagnosis: KAMARI Interval history: Pt seen and examined and apparently ate breakfast with permcath delayed. Spoke with IR, will have done this pm hopefully Objective - Vital Signs Vital signs: Vital Signs Temp Pulse Resp BP Pulse Ox 04/07/18 03:38 97.8 F 88 16 123/78 97 04/06/18 23:49 98.3 F 94 16 119/79 99 04/06/18 19:37 99.0 F 96 16 168/96 98 04/06/18 16:17 98.5 F 100 14 100/62 98 04/06/18 14:30 101 12 106/54 100 04/06/18 14:25 97 15 98/65 100 04/06/18 14:24 94 15 97/60 99 04/06/18 11:02 98.8 F 105 16 110/65 98 04/06/18 07:18 98.9 F 98 16 109/66 98 Intake and Output 04/06/18 04/06/18 04/07/18 15:59 23:59 07:59 Intake Total 480 / 480 Output Total 800 / 800 800 / 800 Balance -320 / -320 -800 / -800 Intake: Oral 480 / 480 Output: Catheter 800 / 800 800 / 800 Other: Meal Breakfast Percent of Meal Consumed 25% Weight 61.1 kg Blood Glucose* 144 121 - General Appearance General appearance: Present: chronically ill EENT: Present: ATNC, mucous membranes moist Neck: Present: no JVD, supple Respiratory: Present: clear Cardiology: Present: no edema, normal S1, normal S2 Dialysis Vascular Access: Venous Catheter (temp HD catheter) Gastrointestinal: Present: no tenderness, no guarding Integumentary: Present: warm and dry Neurologic: Present: no focal deficit Musculoskeletal: Present: deformities (contracted LE bilat) Psychiatric: Present: mood/affect appropriate, cooperative - Lab 04/15/18 04:38 04/17/18 04:49 Most recent lab results Calcium 7.9 mg/dL (8.6-10.3) L 04/06/18 06:30 Phosphorus 2.7 mg/dL (2.7-4.5) 04/06/18 06:30 Magnesium 2.0 mg/dL (1.6-2.6) 03/28/18 04:55 Urine Creatinine 62 mg/dL 03/26/18 16:43 Ur Total Protein 24 Hr 2164 mg/day (50-80) H 03/26/18 16:43 Urine Sodium 46.0 mEq/L 03/24/18 16:19 Urine Total Protein 281 mg/dL (1-14) H 03/26/18 16:43 Consult Discharge Plan - Plan Instructions: Acute Kidney Injury (DC), Urinary Tract Infection in Men (DC), Depression (DC), Chronic Hypertension (DC), Anemia (GEN) Additional Instructions: HEMODIALYSIS -- 3 TIMES A WEEK.. Referrals: Isatu Zaman MD [Primary Care Provider] -
[2018-04-07 07:08] LABS: Hemoglobin 7.2 g/dL (12.9-16.9)
[2018-04-07 07:09] LABS: Hematocrit 23.7 % (37.5-50.1); Mean Corpuscular HGB Conc 30.4 g/dL (31.6-35.5); Mean Corpuscular Volume 92.2 fL (83.0-100.0); Mean Platelet Volume 8.9 fL (9.4-12.4); Platelet Count 308 K/mcL (140-400); Red Blood Count 2.57 M/mcL (4.19-5.50); Red Cell Distribution Width 15.3 % (11.5-14.5)
[2018-04-07 07:25] LABS: Calcium 8.5 mg/dL (8.6-10.3); Potassium 5.5 mEq/L (3.5-5.1)
[2018-04-07] MEDS ORDERED: 0.9 % Sodium Chloride 1,000 ML PRIME SCH (08:15)
[2018-04-07] MEDS ORDERED: *HR* Heparin 10,000 UNIT/10 ML VIAL IV PRN (08:15)
[2018-04-07] MEDS ORDERED: 0.9 % Sodium Chloride 250 ML IVC PRN (08:15)
[2018-04-07] MEDS: BuPROPion SR (12 HR) 150 MG TABLET PO SCH (09:10)
[2018-04-07] MEDS: Baclofen 10 MG TABLET PO SCH ×2 (09:11→21:01)
[2018-04-07] MEDS: NIFEdipine XL (24 HR) 60 MG TAB.ER.24 PO SCH (09:12)
[2018-04-07] MEDS: Silvasorb 44.4 ML TUBE TP SCH (09:14)
--- NOTE | 2018-04-07 15:39 | Internal Med Progress Note ---
Hospitalist Progress Note - Encounter Date of Encounter: 04/07/18 Time of Encounter: 15:35 - Subjective Interval History: Pt without complaint. Afebrile. No SOB. Per nurse no acute changes during the night. - Exam Vitals: Temp Pulse Resp BP Pulse Ox 97.6 F 97 18 96/67 99 04/07/18 13:15 04/07/18 10:56 04/07/18 13:15 04/07/18 14:45 04/07/18 10:56 Exam: General: awake, alert with eyes open and tracks with eyes. Speech is comprehensible, states that he is feeling ok HEENT: moist oral mucosa. No meningismus. Right neck HD line site without erythema. Cardiovascular: normal rate and rhythm, normal S1 & S2, no murmurs Lungs:Normal breath sounds, no wheezes, or crackles. Abdomen:Soft, no apparent tenderness, no guarding, non-distended Neurological: awake, alert, speech is comprehensive, he is oriented to place and person but not to time, paraplegic. Follows commands appropriately. No obvious facial asymmetry, no LE movement at baseline. Bilateral upper extremity strength 4/5 Skin:Normal color, no rash, no pallor. Extremities: Disuse atrophy with bilateral pitting pedal edema : fowler cath in situ with dark urine - Assessment and Plan (1) Acute kidney injury superimposed on chronic kidney disease Current Visit: Yes Status: Acute Assessment and Plan: with underlying CKD stage IV. Discussed with Nephrology and will be HD dependent. IR placed temp vascular cath 03/25/2018 and HD started. Plan is to place perma-cath today. Per nephrology will like to use perma-cath and make sure it is functioning prior to discharge. (2) Encephalopathy Current Visit: Yes Status: Resolved Assessment and Plan: Improved, likely due to uremia but also suspected to be due to UTI. Suspected UTI treated with Rocephin and clindamnycin. Urine culture no sig growth x 2, bl cx ngtd. switched to cefepime/vanc on 03/31 with resolution of fever, tachycardia and leukocytosis from 13k to 8k. Cont Abx, noted plan for 7 days total (03/31-04/06/18). Antibiotics course completed (3) Cerebral palsy Current Visit: Yes Status: Chronic Assessment and Plan: currently oriented to place/person and speaks slowly but comprehensible. state appointed legal guardian, Sanjuanita Wylie. baseline mental status is AOx3, has full use of UE and can assist in transferring from wheelchair, no use of LE at baseline (4) Fever Current Visit: Yes Status: Resolved Assessment and Plan: Afebrile and WBC 8.3. Antibiotic course completed. (5) Hypertension Current Visit: Yes Status: Chronic Assessment and Plan: PO Cozaar and Nifedipine. PRN Labetalol (6) PKD (polycystic kidney disease) Current Visit: Yes Status: Chronic DVT Prophylaxis: Sq heparin - Summary of Assessment and Plan Summary of Assessment and Plan: 47M with cerebral palsy, paraplegia, polycystic kidney disease, was admitted for encephalopathy, acute on chronic renal failure and UTI. He had already been on prolonged course of abx with Rocephin and Clindamycin but was still having fever, tachycardia, and leukocytosis. All the culture results had been negative. Repeat blood cultures 03/30 from peripheral and HD catheter negative till date. Repeat CXR also negative. My colleague had previously escalated antibiotics to vancomycin and cefepime with subsequent improvement in symptoms and mental status; patient has been afebrile, mental status is improving and speech is more comprehensible. - Time Spent with Patient Total time spent is greater than 50% in coordination of care (as documented) at patient's floor/unit and/or counseling patient: less than 15 minutes Plan of Care Discussed with: patient Internal Medicine: Result - Labs CBC & Chem 7: 04/07/18 06:30 04/07/18 06:30 Labs: Short CBC 04/07/18 Range/Units 06:30 WBC 7.3 (4.3-11.1) K/mcL Hgb 7.2 L (12.9-16.9) g/dL Hct 23.7 L (37.5-50.1) % Plt Count 308 (140-400) K/mcL BMP 04/07/18 06:30 Sodium 138 Potassium 5.5 H Chloride 106 Carbon Dioxide 26 BUN 46 H Creatinine 4.43 H Glucose 93 Calcium 8.5 L - ABG Interpretation ABG results: PT/INR, D-dimer PT 14.3 Seconds (9.4-12.1) H 03/31/18 04:00 Consult Discharge Plan - Plan Referrals: Isatu Zaman MD [Primary Care Provider] - (3) Cerebral palsy Qualifiers: Cerebral palsy type: unspecified type Qualified Code(s): G80.9 - Cerebral palsy, unspecified (4) Fever Qualifiers: Fever type: unspecified Qualified Code(s): R50.9 - Fever, unspecified (5) Hypertension Qualifiers: Hypertension type: secondary to other renal disorders Qualified Code(s): I15.1 - Hypertension secondary to other renal disorders; N28.89 - Other specified disorders of kidney and ureter
[2018-04-07] MEDS ORDERED: 0.9 % Sodium Chloride 2,000 ML ONE (16:15)
--- NOTE | 2018-04-07 18:20 | Nephrology Progress Note ---
Date of Encounter: 04/07/18 Time of Encounter: 12:00 - Assessment and Plan (1) Acute kidney injury superimposed on chronic kidney disease Status: Acute Continue HD with minimal UF as tolerated Now with permcath, will arrange outpatient HD and the plan is [facility] (2) Encephalopathy Status: Resolved Mostly resolved. Likely was related to uremia now resolved with ongoing HD sessions (3) Cerebral palsy Status: Chronic Chronic/congenital Qualifiers: Cerebral palsy type: unspecified type Qualified Code(s): G80.9 - Cerebral palsy, unspecified (4) Hyperkalemia Status: Resolved (5) Uremia Status: Acute (6) Hypertension Status: Chronic Qualifiers: Hypertension type: secondary to other renal disorders Qualified Code(s): I 15.1 - Hypertension secondary to other renal disorders; N28.89 - Other specified disorders of kidney and ureter (7) Adrenal nodule Status: Acute (8) PKD (polycystic kidney disease) Status: Chronic Hx of CKD from PKD. Subjective Principal diagnosis: KAMARI Interval history: Pt seen and examined on HD today s/p permcath yesterday with no complications Objective - Vital Signs Vital signs: Vital Signs Temp Pulse Resp BP Pulse Ox 04/07/18 16:45 97.7 F 18 106/55 04/07/18 16:30 74/58 04/07/18 16:15 92/46 04/07/18 16:00 97/66 04/07/18 15:45 99/66 04/07/18 15:30 105/69 04/07/18 15:15 106/74 04/07/18 15:00 101/67 04/07/18 14:45 96/67 04/07/18 14:30 101/71 04/07/18 14:15 98/67 04/07/18 14:00 93/58 04/07/18 13:45 101/68 04/07/18 13:30 102/70 04/07/18 13:15 97.6 F 18 93/67 04/07/18 10:56 97.9 F 97 18 139/61 99 04/07/18 07:38 98.5 F 95 16 113/62 97 04/07/18 03:38 97.8 F 88 16 123/78 97 04/06/18 23:49 98.3 F 94 16 119/79 99 04/06/18 19:37 99.0 F 96 16 168/96 98 Intake and Output 04/07/18 04/07/18 04/07/18 07:59 15:59 23:59 Intake Total 980 / 980 Output Total 800 / 800 1400 / 1400 Balance 180 / 180 -1400 / -1400 Intake: Oral 380 / 380 Intake, Rinseback and Flushes 600 / 600 Output: Total Dialysis (HD) Output 1400 / 1400 Catheter 800 / 800 Other: Meal Breakfast Percent of Meal Consumed 50% Blood Glucose* 124 Hemodialysis Net Fluid Removed 1151 850 (mL) - General Appearance General appearance: Present: chronically ill EENT: Present: ATNC, mucous membranes moist Neck: Present: no JVD, supple Respiratory: Present: clear Cardiology: Present: no edema, normal S1, normal S2 Dialysis Vascular Access: Venous Catheter (permcath) Gastrointestinal: Present: no tenderness, no guarding Integumentary: Present: warm and dry Neurologic: Present: no focal deficit Musculoskeletal: Present: deformities (contracted LE bilat) Psychiatric: Present: mood/affect appropriate, cooperative - Lab 04/15/18 04:38 04/17/18 04:49 Most recent lab results Calcium 8.5 mg/dL (8.6-10.3) L 04/07/18 06:30 Phosphorus 2.7 mg/dL (2.7-4.5) 04/06/18 06:30 Magnesium 2.0 mg/dL (1.6-2.6) 03/28/18 04:55 Urine Creatinine 62 mg/dL 03/26/18 16:43 Ur Total Protein 24 Hr 2164 mg/day (50-80) H 03/26/18 16:43 Urine Sodium 46.0 mEq/L 03/24/18 16:19 Urine Total Protein 281 mg/dL (1-14) H 03/26/18 16:43 Consult Discharge Plan - Plan Instructions: Acute Kidney Injury (DC), Urinary Tract Infection in Men (DC), Depression (DC), Chronic Hypertension (DC), Anemia (GEN) Additional Instructions: HEMODIALYSIS -- 3 TIMES A WEEK.. Referrals: Isatu Zaman MD [Primary Care Provider] -
[2018-04-07] MEDS: Latanoprost 2.5 ML BOTTLE BOTH EYES SCH (21:02)
[2018-04-08] MEDS: *HR* Heparin 5,000 UNIT/ML VIAL SQ SCH ×2 (04:51→18:27)
[2018-04-08 07:36] LABS: Hematocrit 23.8 % (37.5-50.1); Hemoglobin 6.9 g/dL (12.9-16.9); Mean Corpuscular Hemoglobin 27.3 pg (28.0-33.3); Mean Corpuscular Volume 94.1 fL (83.0-100.0); Platelet Count 293 K/mcL (140-400); Red Blood Count 2.53 M/mcL (4.19-5.50); Red Cell Distribution Width 15.1 % (11.5-14.5)
[2018-04-08 07:53] LABS: Calcium 8.3 mg/dL (8.6-10.3); Potassium 4.7 mEq/L (3.5-5.1)
[2018-04-08] MEDS: NIFEdipine XL (24 HR) 60 MG TAB.ER.24 PO SCH (09:06)
[2018-04-08] MEDS: BuPROPion SR (12 HR) 150 MG TABLET PO SCH (09:06)
[2018-04-08] MEDS: Baclofen 10 MG TABLET PO SCH ×2 (09:06→21:06)
[2018-04-08] MEDS: Silvasorb 44.4 ML TUBE TP SCH (09:06)
--- NOTE | 2018-04-08 13:02 | Nephrology Progress Note ---
Date of Encounter: 04/08/18 Time of Encounter: 12:00 - Assessment and Plan (1) Acute kidney injury superimposed on chronic kidney disease Status: Acute s/p Hd yesterday, next HD planned today Placement in outpatient HD done, awaiting discharge once long-term ready (2) Encephalopathy Status: Resolved Mostly resolved. Likely was related to uremia now resolved with ongoing HD sessions (3) Cerebral palsy Status: Chronic Chronic/congenital Qualifiers: Cerebral palsy type: unspecified type Qualified Code(s): G80.9 - Cerebral palsy, unspecified (4) Hyperkalemia Status: Resolved (5) Uremia Status: Acute (6) Hypertension Status: Chronic Qualifiers: Hypertension type: secondary to other renal disorders Qualified Code(s): I15.1 - Hypertension secondary to other renal disorders; N28.89 - Other specified disorders of kidney and ureter (7) Adrenal nodule Status: Acute (8) PKD (polycystic kidney disease) Status: Chronic Hx of CKD from PKD. Subjective Principal diagnosis: KAMARI Interval history: Pt seen and examined on s/p HD yesterday, discharge delayed due to staffing with long-term. Objective - Vital Signs Vital signs: Vital Signs Temp Pulse Resp BP Pulse Ox 04/08/18 11:16 99.2 F 101 18 103/66 98 04/08/18 07:44 97.9 F 95 20 104/64 92 04/08/18 04:11 99.0 F 110 16 116/70 99 04/07/18 23:11 98.9 F 102 16 90/53 97 04/07/18 19:35 98.4 F 93 16 91/54 98 04/07/18 16:45 97.7 F 18 106/55 04/07/18 16:30 74/58 04/07/18 16:15 92/46 04/07/18 16:00 97/66 04/07/18 15:45 99/66 04/07/18 15:30 105/69 04/07/18 15:15 106/74 04/07/18 15:00 101/67 04/07/18 14:45 96/67 04/07/18 14:30 101/71 04/07/18 14:15 98/67 04/07/18 14:00 93/58 04/07/18 13:45 101/68 04/07/18 13:30 102/70 04/07/18 13:15 97.6 F 18 93/67 Intake and Output 04/07/18 04/08/18 04/08/18 23:59 07:59 15:59 Intake Total 480 / 480 Output Total 1400 / 1400 Balance -1400 / -1400 480 / 480 Intake: Oral 480 / 480 Output: Total Dialysis (HD) Output 1400 / 1400 Other: Meal Breakfast Percent of Meal Consumed 25% Stool Size Large Stool Consistency loose soft Stool Color Brown Weight 60.4 kg Blood Glucose* 104 Hemodialysis Net Fluid Removed 850 (mL) - General Appearance General appearance: Present: chronically ill EENT: Present: ATNC, mucous membranes moist Neck: Present: no JVD, supple Respiratory: Present: clear Cardiology: Present: no edema, normal S1, normal S2 Dialysis Vascular Access: Venous Catheter (permcath) Gastrointestinal: Present: no tenderness, no guarding Integumentary: Present: warm and dry Neurologic: Present: no focal deficit Musculoskeletal: Present: deformities (contracted LE bilat) Psychiatric: Present: mood/affect appropriate - Lab 04/15/18 04:38 04/17/18 04:49 Most recent lab results Calcium 8.3 mg/dL (8.6-10.3) L 04/08/18 06:30 Phosphorus 2.7 mg/dL (2.7-4.5) 04/06/18 06:30 Magnesium 2.0 mg/dL (1.6-2.6) 03/28/18 04:55 Urine Creatinine 62 mg/dL 03/26/18 16:43 Ur Total Protein 24 Hr 2164 mg/day (50-80) H 03/26/18 16:43 Urine Sodium 46.0 mEq/L 03/24/18 16:19 Urine Total Protein 281 mg/dL (1-14) H 03/26/18 16:43 Consult Discharge Plan - Plan Instructions: Acute Kidney Injury (DC), Urinary Tract Infection in Men (DC), Depression (DC), Chronic Hypertension (DC), Anemia (GEN) Additional Instructions: HEMODIALYSIS -- 3 TIMES A WEEK.. Referrals: Isatu Zaman MD [Primary Care Provider] -
--- NOTE | 2018-04-08 19:44 | Internal Med Progress Note ---
Hospitalist Progress Note - Encounter Date of Encounter: 04/08/18 Time of Encounter: 19:43 - Subjective Interval History: Pt without complaint. Afebrile. No SOB. Per nurse no acute changes during the night. - Exam Vitals: Temp Pulse Resp BP Pulse Ox 99.5 F 121 20 92/53 98 04/08/18 16:13 04/08/18 16:13 04/08/18 16:13 04/08/18 16:13 04/08/18 16:13 Exam: General: awake, alert with eyes open and tracks with eyes. Speech is comprehensible, states that he is feeling ok HEENT: moist oral mucosa. No meningismus. Right neck HD line site without erythema. Cardiovascular: normal rate and rhythm, normal S1 & S2, no murmurs Lungs:Normal breath sounds, no wheezes, or crackles. Abdomen:Soft, no apparent tenderness, no guarding, non-distended Neurological: awake, alert, speech is comprehensive, he is oriented to place and person but not to time, paraplegic. Follows commands appropriately. No obvious facial asymmetry, no LE movement at baseline. Bilateral upper extremity strength 4/5 Skin:Normal color, no rash, no pallor. Extremities: Disuse atrophy with bilateral pitting pedal edema : fowler cath in situ with dark urine - Assessment and Plan (1) Acute kidney injury superimposed on chronic kidney disease Current Visit: Yes Status: Acute Assessment and Plan: with underlying CKD stage IV. Discussed with Nephrology and will be HD dependent. IR placed temp vascular cath 03/25/2018 and HD started. Perma-cath placed and functioning. Discharge on hold till Fri due to pt's caregiver not being available at assisted living (2) Encephalopathy Current Visit: Yes Status: Resolved Assessment and Plan: Improved, likely due to uremia but also suspected to be due to UTI. Suspected UTI treated with Rocephin and clindamnycin. Urine culture no sig growth x 2, bl cx ngtd. switched to cefepime/vanc on 03/31 with resolution of fever, tachycardia and leukocytosis from 13k to 8k. Cont Abx, noted plan for 7 days total (03/31-04/06/18). Antibiotics course completed (3) Cerebral palsy Current Visit: Yes Status: Chronic Assessment and Plan: currently oriented to place/person and speaks slowly but comprehensible. state appointed legal guardian, Sanjuanita Wylie. baseline mental status is AOx3, has full use of UE and can assist in transferring from wheelchair, no use of LE at baseline (4) Fever Current Visit: Yes Status: Resolved Assessment and Plan: Afebrile and WBC wl. Antibiotic course completed. (5) Hypertension Current Visit: Yes Status: Chronic Assessment and Plan: PO Cozaar and Nifedipine. PRN Labet (6) PKD (polycystic kidney disease) Current Visit: Yes Status: Chronic DVT Prophylaxis: Sq heparin - Summary of Assessment and Plan Summary of Assessment and Plan: 47M with cerebral palsy, paraplegia, polycystic kidney disease, was admitted for encephalopathy, acute on chronic renal failure and UTI. He had already been on prolonged course of abx with Rocephin and Clindamycin but was still having fever, tachycardia, and leukocytosis. All the culture results had been negative. Repeat blood cultures 03/30 from peripheral and HD catheter negative till date. Repeat CXR also negative. My colleague had previously escalated antibiotics to vancomycin and cefepime with subsequent improvement in symptoms and mental status; patient has been afebrile, mental status is improving and speech is more comprehensible. - Time Spent with Patient Total time spent is greater than 50% in coordination of care (as documented) at patient's floor/unit and/or counseling patient: less than 15 minutes Plan of Care Discussed with: patient Internal Medicine: Result - Labs CBC & Chem 7: 04/08/18 06:30 04/08/18 06:30 Labs: Short CBC 04/08/18 Range/Units 06:30 WBC 7.4 (4.3-11.1) K/mcL Hgb 6.9 L (12.9-16.9) g/dL Hct 23.8 L (37.5-50.1) % Plt Count 293 (140-400) K/mcL BMP 04/08/18 06:30 Sodium 138 Potassium 4.7 Chloride 103 Carbon Dioxide 30 H BUN 30 H Creatinine 3.07 H Glucose 101 Calcium 8.3 L - ABG Interpretation ABG results: PT/INR, D-dimer PT 14.3 Seconds (9.4-12.1) H 03/31/18 04:00 Consult Discharge Plan - Plan Referrals: Isatu Zaman MD [Primary Care Provider] - (3) Cerebral palsy Qualifiers: Cerebral palsy type: unspecified type Qualified Code(s): G80.9 - Cerebral palsy, unspecified (4) Fever Qualifiers: Fever type: unspecified Qualified Code(s): R50.9 - Fever, unspecified (5) Hypertension Qualifiers: Hypertension type: secondary to other renal disorders Qualified Code(s): I15.1 - Hypertension secondary to other renal disorders; N28.89 - Other specified disorders of kidney and ureter
[2018-04-08] MEDS: Latanoprost 2.5 ML BOTTLE BOTH EYES SCH (21:07)
[2018-04-09] MEDS: *HR* Heparin 5,000 UNIT/ML VIAL SQ SCH ×2 (05:03→17:06)
[2018-04-09 05:27] LABS: Hematocrit 21.1 % (37.5-50.1); Hemoglobin 6.4 g/dL (12.9-16.9); Mean Corpuscular HGB Conc 30.3 g/dL (31.6-35.5); Mean Corpuscular Hemoglobin 27.7 pg (28.0-33.3); Mean Corpuscular Volume 91.3 fL (83.0-100.0); Mean Platelet Volume 8.8 fL (9.4-12.4); Platelet Count 260 K/mcL (140-400); Red Blood Count 2.31 M/mcL (4.19-5.50); Red Cell Distribution Width 15.1 % (11.5-14.5)
[2018-04-09 05:37] LABS: Calcium 8.2 mg/dL (8.6-10.3); Potassium 5.1 mEq/L (3.5-5.1)
[2018-04-09] MEDS ORDERED: 0.9 % Sodium Chloride 250 ML IVC PRN (07:54)
[2018-04-09] MEDS ORDERED: *HR* Heparin 10,000 UNIT/10 ML VIAL IV PRN (07:54)
[2018-04-09] MEDS ORDERED: 0.9 % Sodium Chloride 1,000 ML PRIME SCH (08:00)
[2018-04-09] MEDS ORDERED: 0.9 % Sodium Chloride 2,000 ML ONE (08:15)
[2018-04-09] MEDS ORDERED: *HR* Heparin 5,000 UNIT/ML VIAL ONE (08:15)
[2018-04-09] MEDS: NIFEdipine XL (24 HR) 60 MG TAB.ER.24 PO SCH (12:32)
[2018-04-09] MEDS: BuPROPion SR (12 HR) 150 MG TABLET PO SCH (12:32)
[2018-04-09] MEDS: Baclofen 10 MG TABLET PO SCH ×2 (12:32→21:55)
[2018-04-09] MEDS: Silvasorb 44.4 ML TUBE TP SCH (12:32)
--- NOTE | 2018-04-09 17:10 | Internal Med Progress Note ---
Hospitalist Progress Note - Encounter Date of Encounter: 04/09/18 Time of Encounter: 17:06 - Subjective Interval History: Pt without complaint. Afebrile. No SOB. Per nurse no acute changes during the night. - Exam Vitals: Temp Pulse Resp BP Pulse Ox 98.4 F 104 16 91/45 96 04/09/18 16:25 04/09/18 16:25 04/09/18 16:25 04/09/18 16:25 04/09/18 16:25 Exam: General: awake, alert with eyes open and tracks with eyes. Speech is comprehensible, states that he is feeling ok HEENT: moist oral mucosa. No meningismus. Right neck HD line site without erythema. Cardiovascular: normal rate and rhythm, normal S1 & S2, no murmurs Lungs:Normal breath sounds, no wheezes, or crackles. Abdomen:Soft, no apparent tenderness, no guarding, non-distended Neurological: awake, alert, speech is comprehensive, he is oriented to place and person but not to time, paraplegic. Follows commands appropriately. No obvious facial asymmetry, no LE movement at baseline. Bilateral upper extremity strength 4/5 Skin:Normal color, no rash, no pallor. Extremities: Disuse atrophy with bilateral pitting pedal edema : fowler cath in situ with dark urine - Assessment and Plan (1) Acute kidney injury superimposed on chronic kidney disease Current Visit: Yes Status: Acute Assessment and Plan: with underlying CKD stage IV. Discussed with Nephrology and will be HD dependent. IR placed temp vascular cath 03/25/2018 and HD started. Perma-cath placed 04/06/2018 and functioning. Discharge on hold till for now due to placement being in progress. (2) Encephalopathy Current Visit: Yes Status: Resolved Assessment and Plan: Improved, likely due to uremia but also suspected to be due to UTI. Suspected UTI treated with Rocephin and Clindamycin. Urine culture no significant growth x 2, bl cx ngtd. switched to Cefepime/Vanc on 03/31 with resolution of fever, tachycardia and leukocytosis from 13k to 8k. Cont Abx, noted plan for 7 days total (03/31-04/06/18). Antibiotics course completed (3) Cerebral palsy Current Visit: Yes Status: Chronic (4) Fever Current Visit: Yes Status: Resolved Assessment and Plan: Afebrile and WBC wl. Antibiotic course completed. (5) Hypertension Current Visit: Yes Status: Chronic Assessment and Plan: PO Cozaar and Nifedipine. PRN Labetolol (6) PKD (polycystic kidney disease) Current Visit: Yes Status: Chronic DVT Prophylaxis: Sq heparin - Summary of Assessment and Plan Summary of Assessment and Plan: 47M with cerebral palsy, paraplegia, polycystic kidney disease, was admitted for encephalopathy, acute on chronic renal failure and UTI. He had already been on prolonged course of abx with Rocephin and Clindamycin but was still having fever, tachycardia, and leukocytosis. All the culture results had been negative. Repeat blood cultures 03/30 from peripheral and HD catheter negative till date. Repeat CXR also negative. My colleague had previously escalated antibiotics to vancomycin and cefepime with subsequent improvement in symptoms and mental status; patient has been afebrile, mental status is improving and speech is more comprehensible. - Time Spent with Patient Total time spent is greater than 50% in coordination of care (as documented) at patient's floor/unit and/or counseling patient: less than 15 minutes Plan of Care Discussed with: patient Internal Medicine: Result - Labs CBC & Chem 7: 04/09/18 05:02 04/09/18 05:02 Labs: Short CBC 04/09/18 Range/Units 05:02 WBC 7.2 (4.3-11.1) K/mcL Hgb 6.4 L (12.9-16.9) g/dL Hct 21.1 L (37.5-50.1) % Plt Count 260 (140-400) K/mcL BMP 04/09/18 05:02 Sodium 137 Potassium 5.1 Chloride 104 Carbon Dioxide 24 BUN 46 H Creatinine 3.93 H Glucose 120 H Calcium 8.2 L - ABG Interpretation ABG results: PT/INR, D-dimer PT 14.3 Seconds (9.4-12.1) H 03/31/18 04:00 Consult Discharge Plan - Plan Referrals: Isatu Zaman MD [Primary Care Provider] - (3) Cerebral palsy Qualifiers: Cerebral palsy type: unspecified type Qualified Code(s): G80.9 - Cerebral palsy, unspecified (4) Fever Qualifiers: Fever type: unspecified Qualified Code(s): R50.9 - Fever, unspecified (5) Hypertension Qualifiers: Hypertension type: secondary to other renal disorders Qualified Code(s): I15.1 - Hypertension secondary to other renal disorders; N28.89 - Other specified disorders of kidney and ureter
--- NOTE | 2018-04-09 23:39 | Nephrology Progress Note ---
Date of Encounter: 04/09/18 Time of Encounter: 12:00 - Assessment and Plan (1) Acute kidney injury superimposed on chronic kidney disease Status: Acute Will continue HD today given no signs of renal recovery with continued worsening SCr in between treatment Minimal UF planned with HD today along with transfusion 2 units pRBCs. Continue to avoid nephrotoxins if possible UOP noted at 250cc in the past 24hrs (2) Encephalopathy Status: Resolved Mostly resolved. Likely was related to uremia now resolved with ongoing HD sessions (3) Cerebral palsy Status: Chronic Chronic/congenital Qualifiers: Cerebral palsy type: unspecified type Qualified Code(s): G80.9 - Cerebral palsy, unspecified (4) Hyperkalemia Status: Resolved (5) Uremia Status: Acute (6) Hypertension Status: Chronic Qualifiers: Hypertension type: secondary to other renal disorders Qualified Code(s): I15.1 - Hypertension secondary to other renal disorders; N28.89 - Other specified disorders of kidney and ureter (7) Adrenal nodule Status: Acute (8) PKD (polycystic kidney disease) Status: Chronic Subjective Principal diagnosis: KAMARI Interval history: Pt seen and examined on HD doing well. Unable to be dischrged yesterday due to staffing issues at the [facility]. Objective - Vital Signs Vital signs: Vital Signs Temp Pulse Resp BP Pulse Ox 04/09/18 19:51 99.4 F 100 16 91/51 97 04/09/18 16:25 98.4 F 104 16 91/45 96 04/09/18 12:27 97.6 F 18 112/70 04/09/18 12:15 111/78 04/09/18 12:00 107/63 04/09/18 11:45 116/68 04/09/18 11:33 97.5 F L 84 18 104/74 04/09/18 11:30 108/66 04/09/18 11:15 104/66 04/09/18 11:00 122/71 04/09/18 10:59 97.5 F L 90 18 119/77 04/09/18 10:45 119/74 04/09/18 10:44 97.6 F 88 17 111/71 04/09/18 10:30 97.7 F 84 18 103/69 04/09/18 10:16 97.4 F L 88 16 117/69 10/04/18 10:15 110/70 04/09/18 10:01 97.7 F 80 18 112/71 04/09/18 10:00 115/71 04/09/18 09:45 94/83 04/09/18 09:30 110/65 04/09/18 09:15 108/74 04/09/18 09:00 111/81 04/09/18 08:45 97.7 F 17 94/56 04/09/18 07:20 97.9 F 94 18 114/76 99 04/09/18 05:43 98.2 F 91 14 110/70 97 04/09/18 01:51 98.9 F 103 18 100/62 96 Intake and Output 04/09/18 04/09/18 04/09/18 07:59 15:59 23:59 Intake Total 1300 / 1300 Output Total 2300 / 2300 Balance -1000 / -1000 Intake: Oral 0 / 0 Blood Product 700 / 700 Rbcs Leuko Poor As-1 Unit 350 / 350 [id number] Rbcs Leuko Poor As-1 Unit 350 / 350 [id number] Intake, Rinseback and Flushes 600 / 600 Output: Urine 0 / 0 Total Dialysis (HD) Output 2300 / 2300 Other: Stool Size Large Moderate Stool Consistency loose soft Stool Color Brown Brown # Voids 1 # Urine Diapers 1 # Bowel Movement Diapers 1 Weight 58.8 kg Blood Glucose* 101 129 Hemodialysis Net Fluid Removed 1000 (mL) Patient Weight 04/09/18 23:59 Weight 58.8 kg - General Appearance General appearance: Present: chronically ill, frail EENT: Present: ATNC, mucous membranes moist Neck: Present: no JVD, supple Respiratory: Present: clear Cardiology: Present: no edema, normal S1, normal S2 Dialysis Vascular Access: Venous Catheter (permcath) Gastrointestinal: Present: no tenderness, no guarding Integumentary: Present: warm and dry Neurologic: Present: no focal deficit Musculoskeletal: Present: deformities (contractures LE bilat) Psychiatric: Present: mood/affect appropriate, cooperative - Lab 04/15/18 04:38 04/17/18 04:49 Most recent lab results Calcium 8.2 mg/dL (8.6-10.3) L 04/09/18 05:02 Phosphorus 2.7 mg/dL (2.7-4.5) 04/06/18 06:30 Magnesium 2.0 mg/dL (1.6-2.6) 03/28/18 04:55 Urine Creatinine 62 mg/dL 03/26/18 16:43 Ur Total Protein 24 Hr 2164 mg/day (50-80) H 03/26/18 16:43 Urine Sodium 46.0 mEq/L 03/24/18 16:19 Urine Total Protein 281 mg/dL (1-14) H 03/26/18 16:43 Consult Discharge Plan - Plan Instructions: Acute Kidney Injury (DC), Urinary Tract Infection in Men (DC), Depression (DC), Chronic Hypertension (DC), Anemia (GEN) Additional Instructions: HEMODIALYSIS -- 3 TIMES A WEEK.. Referrals: Isatu Zaman MD [Primary Care Provider] -
[2018-04-10] MEDS: *HR* Heparin 5,000 UNIT/ML VIAL SQ SCH ×2 (06:38→18:18)
[2018-04-10] MEDS: NIFEdipine XL (24 HR) 60 MG TAB.ER.24 PO SCH (09:59)
[2018-04-10] MEDS: Baclofen 10 MG TABLET PO SCH ×2 (09:59→21:15)
[2018-04-10] MEDS: BuPROPion SR (12 HR) 150 MG TABLET PO SCH (10:00)
[2018-04-10 15:40] LABS: Calcium 8.5 mg/dL (8.6-10.3); Potassium 4.8 mEq/L (3.5-5.1)
--- NOTE | 2018-04-10 18:02 | Internal Med Progress Note ---
Hospitalist Progress Note - Encounter Date of Encounter: 04/10/18 Time of Encounter: 18:00 - Subjective Interval History: Pt without complaint. Afebrile. No SOB. Per nurse no acute changes during the night. - Exam Vitals: Temp Pulse Resp BP Pulse Ox 98.2 F 104 18 92/48 96 04/10/18 15:24 04/10/18 15:24 04/10/18 15:24 04/10/18 15:24 04/10/18 15:24 Exam: General: awake, alert with eyes open and tracks with eyes. Speech is comprehensible, states that he is feeling ok HEENT: moist oral mucosa. No meningismus. Right neck HD line site without erythema. Cardiovascular: normal rate and rhythm, normal S1 & S2, no murmurs Lungs:Normal breath sounds, no wheezes, or crackles. Abdomen:Soft, no apparent tenderness, no guarding, non-distended Neurological: awake, alert, speech is comprehensive, he is oriented to place and person but not to time, paraplegic. Follows commands appropriately. No obvious facial asymmetry, no LE movement at baseline. Bilateral upper extremity strength 4/5 Skin:Normal color, no rash, no pallor. Extremities: Disuse atrophy with bilateral pitting pedal edema : fowler cath in situ with dark urine - Assessment and Plan (1) Acute kidney injury superimposed on chronic kidney disease Current Visit: Yes Status: Acute Assessment and Plan: with underlying CKD stage IV. Discussed with Nephrology and will be HD dependent. IR placed temp vascular cath 03/25/2018 and HD started. Perma-cath placed 04/06/2018 and functioning. Discharge on hold till for now due to placement being in progress. (2) Encephalopathy Current Visit: Yes Status: Resolved Assessment and Plan: Improved, likely due to uremia but also suspected to be due to UTI. Suspected UTI treated with Rocephin and Clindamycin. Urine culture no significant growth x 2, bl cx ngtd. switched to Cefepime/Vanc on 03/31 with resolution of fever, tachycardia and leukocytosis from 13k to 8k. Cont Abx, noted plan for 7 days total (03/31-04/06/18). Antibiotics course completed (3) Cerebral palsy Current Visit: Yes Status: Chronic Assessment and Plan: (4) Anemia Current Visit: Yes Status: Chronic Assessment and Plan: chronic component given CKD. Hgb dropped to 6.4. He is s/p 2 units PRBC transfused during dialysis. Will check occult stool. Will check iron studies if not already done. (5) Fever Current Visit: Yes Status: Resolved Assessment and Plan: Afebrile and WBC wl. Antibiotic course completed. (6) Hypertension Current Visit: Yes Status: Chronic Assessment and Plan: PO Cozaar and Nifedipine. PRN Labetolol. (7) Depression Current Visit: Yes Status: Chronic Assessment and Plan: continue home meds (8) PKD (polycystic kidney disease) Current Visit: Yes Status: Chronic DVT Prophylaxis: Sq heparin - Summary of Assessment and Plan Summary of Assessment and Plan: 47M with cerebral palsy, paraplegia, polycystic kidney disease, was admitted for encephalopathy, acute on chronic renal failure and UTI. He had already been on prolonged course of abx with Rocephin and Clindamycin but was still having fever, tachycardia, and leukocytosis. All the culture results had been negative. Repeat blood cultures 03/30 from peripheral and HD catheter negative till date. Repeat CXR also negative. My colleague had previously escalated antibiotics to vancomycin and cefepime with subsequent improvement in symptoms and mental status; patient has been afebrile, mental status is improving and speech is more comprehensible. - Time Spent with Patient Total time spent is greater than 50% in coordination of care (as documented) at patient's floor/unit and/or counseling patient: less than 15 minutes Plan of Care Discussed with: patient Internal Medicine: Result - Labs CBC & Chem 7: 04/09/18 05:02 04/10/18 15:05 Labs: BMP 04/10/18 15:05 Sodium 140 Potassium 4.8 Chloride 98 Carbon Dioxide 35 H BUN 39 H Creatinine 3.33 H Glucose 121 H Calcium 8.5 L - ABG Interpretation ABG results: PT/INR, D-dimer PT 14.3 Seconds (9.4-12.1) H 03/31/18 04:00 Consult Discharge Plan - Plan Referrals: Isatu Zaman MD [Primary Care Provider] - (3) Cerebral palsy Qualifiers: Cerebral palsy type: unspecified type Qualified Code(s): G80.9 - Cerebral palsy, unspecified (4) Anemia Qualifiers: Anemia type: due to chronic kidney disease Chronic kidney disease stage: stage 4 (severe) Qualified Code(s): N18.4 - Chronic kidney disease, stage 4 ( severe); D63.1 - Anemia in chronic kidney disease (5) Fever Qualifiers: Fever type: unspecified Qualified Code(s): R50.9 - Fever, unspecified (6) Hypertension Qualifiers: Hypertension type: secondary to other renal disorders Qualified Code(s): I15.1 - Hypertension secondary to other renal disorders; N28.89 - Other specified disorders of kidney and ureter
--- NOTE | 2018-04-10 20:21 | Nephrology Progress Note ---
Date of Encounter: 04/10/18 Time of Encounter: 12:00 - Assessment and Plan (1) Acute kidney injury superimposed on chronic kidney disease Current Visit: Yes Status: Acute Will continue HD T-Th-Sat given no signs of renal recovery with continued worsening SCr in between treatment Await ECF placement, outpatient HD already in place but the concern now is if pt would have a sitter from ECF as the group was willing to do this inorder to control his behavior Continue to avoid nephrotoxins if possible UOP not documented in the past 24hrs (2) Cerebral palsy Current Visit: Yes Status: Resolved Chronic/congenital Qualifiers: Cerebral palsy type: unspecified type Qualified Code(s): G80.9 - Cerebral palsy, unspecified (3) Hyperkalemia Current Visit: Yes Status: Resolved Resolved, continue renal diet (4) Uremia Current Visit: Yes Status: Acute Back to baseline with HD (5) Hypertension Current Visit: Yes Status: Chronic stable Qualifiers: Hypertension type: secondary to other renal disorders Qualified Code(s): I15.1 - Hypertension secondary to other renal disorders; N28.89 - Other specified disorders of kidney and ureter (6) PKD (polycystic kidney disease) Current Visit: Yes Status: Acute Hx of CKD from PKD. (7) Anemia Current Visit: Yes Status: Chronic s/p transfusion 2 unit pRBCs yesterday for hgb down to 6.4, etiology unclear Qualifiers: Anemia type: due to chronic kidney disease Chronic kidney disease stage: stage 4 (severe) Qualified Code(s): N18.4 - Chronic kidney disease, stage 4 ( severe); D63.1 - Anemia in chronic kidney disease Subjective Principal diagnosis: KAMARI Interval history: Pt seen and examined with no new complaints. Discharge delayed again today as his [place] [facility] is no longer able to accommodate him at their facility, needs ECF placement Objective - Vital Signs Vital signs: Vital Signs Temp Pulse Resp BP Pulse Ox 04/10/18 19:39 98.8 F 108 17 95/56 96 04/10/18 15:24 98.2 F 104 18 92/48 96 04/10/18 10:47 98.6 F 110 18 110/68 96 04/10/18 07:16 98.7 F 92 18 110/64 96 04/10/18 04:35 98.8 F 94 16 116/66 96 04/10/18 00:45 99.2 F 98 15 95/62 97 Intake and Output 04/10/18 04/10/18 04/10/18 07:59 15:59 23:59 Intake Total 80 / 80 Balance 80 / 80 Intake: Oral 80 / 80 Other: Meal Breakfast Percent of Meal Consumed 50% # Urine Diapers 1 Weight 59.2 kg Blood Glucose* 107 122 Patient Weight 04/10/18 23:59 Weight 59.2 kg - General Appearance General appearance: Present: chronically ill, frail EENT: Present: ATNC, mucous membranes moist Neck: Present: no JVD, supple Respiratory: Present: clear Cardiology: Present: no edema, normal S1, normal S2 Dialysis Vascular Access: Venous Catheter (permcath) Gastrointestinal: Present: no tenderness, no guarding Integumentary: Present: warm and dry Neurologic: Present: no focal deficit Musculoskeletal: Present: deformities (contracture LE bilat) Psychiatric: Present: mood/affect appropriate, cooperative - Lab 04/11/18 05:05 04/11/18 05:05 Most recent lab results Calcium 8.5 mg/dL (8.6-10.3) L 04/10/18 15:05 Phosphorus 2.7 mg/dL (2.7-4.5) 04/06/18 06:30 Magnesium 2.0 mg/dL (1.6-2.6) 03/28/18 04:55 Urine Creatinine 62 mg/dL 03/26/18 16:43 Ur Total Protein 24 Hr 2164 mg/day (50-80) H 03/26/18 16:43 Urine Sodium 46.0 mEq/L 03/24/18 16:19 Urine Total Protein 281 mg/dL (1-14) H 03/26/18 16:43 Consult Discharge Plan - Plan Referrals: Isatu Zaman MD [Primary Care Provider] -
[2018-04-11 05:43] LABS: Hematocrit 27.7 % (37.5-50.1); Mean Corpuscular HGB Conc 30.3 g/dL (31.6-35.5); Mean Corpuscular Hemoglobin 28.1 pg (28.0-33.3); Mean Corpuscular Volume 92.6 fL (83.0-100.0); Mean Platelet Volume 8.6 fL (9.4-12.4); Platelet Count 278 K/mcL (140-400); Red Blood Count 2.99 M/mcL (4.19-5.50); Red Cell Distribution Width 15.2 % (11.5-14.5)
[2018-04-11 06:03] LABS: Hemoglobin 8.4 g/dL (12.9-16.9)
[2018-04-11 06:09] LABS: Calcium 8.4 mg/dL (8.6-10.3); Potassium 4.9 mEq/L (3.5-5.1)
[2018-04-11 06:15] LABS: % Iron Saturation 6 % (20-55); Iron 10 mcg/dL (65-175); Transferrin 126 mg/dL (203-362)
[2018-04-11 06:29] LABS: Ferritin 365 ng/mL (20-250)
[2018-04-11 06:34] LABS: Folate 7.4 ng/mL (3.0-16.0)
[2018-04-11] MEDS: *HR* Heparin 5,000 UNIT/ML VIAL SQ SCH ×2 (06:34→15:53)
[2018-04-11] MEDS ORDERED: 0.9 % Sodium Chloride 1,000 ML ONE ×2 (07:56→10:10)
[2018-04-11] MEDS ORDERED: *HR* Heparin 10,000 UNIT/10 ML VIAL IV PRN (08:54)
[2018-04-11] MEDS ORDERED: 0.9 % Sodium Chloride 250 ML IVC PRN (08:54)
--- NOTE | 2018-04-11 10:17 | Internal Med Progress Note ---
Hospitalist Progress Note - Encounter Date of Encounter: 04/11/18 Time of Encounter: 10:15 - Subjective Interval History: Patient seen and evaluated at bedside, Alert and oriented to person. following commands, denies chest pain or abdominal pain, but reports back pain. - Exam Vitals: Temp Pulse Resp BP Pulse Ox 97.9 F 97 20 112/74 97 04/11/18 07:05 04/11/18 07:05 04/11/18 07:05 04/11/18 07:05 04/11/18 04:48 Exam: General: awake, alert, oriented to person and time not place. No acute distress. HEENT: Right neck HD line site without erythema. Cardiovascular: normal rate and rhythm, normal S1 & S2, no murmurs Lungs: Clear breath sounds to auscultation b/l, no wheezes, or crackles. Abdomen: Soft, no tenderness, no guarding, non-distended Neurological: awake, alert, speech is comprehensive, he is oriented to place and person but not to time, paraplegic. Follows commands appropriately. No obvious facial asymmetry, no LE movement at baseline. Bilateral upper extremity strength 4/5 Extremities: Disuse atrophy in the lower extremities. - Assessment and Plan (1) Acute kidney injury superimposed on chronic kidney disease Current Visit: Yes Status: Acute Assessment and Plan: Patient started on HD during this admission. Perma-cath placed 04/06/2018 and functioning. Renal replacement therapy as per ballroom dancer recommendations. Pending placement with scheduled HD to be discharge. (2) Encephalopathy Current Visit: Yes Status: Resolved Assessment and Plan: Suspected to be due to UTI. Patient has completed appropriate antibiotic coverage for UTI. (3) Cerebral palsy Current Visit: Yes Status: Chronic (4) Anemia Current Visit: Yes Status: Chronic Assessment and Plan: H&H stable. S/P transfusion of 2 PRBCs on the 4th. No active signs of bleeding. Will continue to monitor and transfuse if Hb <7 or Hct <23 or patient becomes hemodynamically unstable. (5) Hypertension Current Visit: Yes Status: Chronic Assessment and Plan: Blood pressure running in the low 100s. Continue Nifedipine 60mg by mouth daily. Decrease losartan to 50 mg by mouth daily and. (6) Depression Current Visit: Yes Status: Chronic Assessment and Plan: Patient on bupropion 150 mg by mouth daily and Sertraline 200mg/PO daily. . (7) PKD (polycystic kidney disease) Current Visit: Yes Status: Chronic DVT Prophylaxis: On heparin 5000 units subcutaneous twice a day for DVT prophylaxis. - Summary of Assessment and Plan Summary of Assessment and Plan: Patient pending Insurance authorization for placement. 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 - Time Spent with Patient Total time spent is greater than 50% in coordination of care (as documented) at patient's floor/unit and/or counseling patient: 25 - 35 minutes Plan of Care Discussed with: nurse Internal Medicine: Result - Labs CBC & Chem 7: 04/11/18 05:05 04/11/18 05:05 Labs: Short CBC 04/11/18 Range/Units 05:05 WBC 6.3 (4.3-11.1) K/mcL Hgb 8.4 L D (12.9-16.9) g/dL Hct 27.7 L (37.5-50.1) % Plt Count 278 (140-400) K/mcL BMP 04/10/18 04/11/18 15:05 05:05 Sodium 140 138 Potassium 4.8 4.9 Chloride 98 100 Carbon Dioxide 35 H 31 H BUN 39 H 47 H Creatinine 3.33 H 3.93 H Glucose 121 H 94 Calcium 8.5 L 8.4 L - ABG Interpretation ABG results: PT/INR, D-dimer PT 14.3 Seconds (9.4-12.1) H 03/31/18 04:00 Consult Discharge Plan - Plan Referrals: Isatu Zaman MD [Primary Care Provider] - (3) Cerebral palsy Qualifiers: Cerebral palsy type: unspecified type Qualified Code(s): G80.9 - Cerebral palsy, unspecified (4) Anemia Qualifiers: Anemia type: due to chronic kidney disease Chronic kidney disease stage: stage 4 (severe) Qualified Code(s): N18.4 - Chronic kidney disease, stage 4 ( severe); D63.1 - Anemia in chronic kidney disease (5) Hypertension Qualifiers: Hypertension type: secondary to other renal disorders Qualified Code(s): I15.1 - Hypertension secondary to other renal disorders; N28.89 - Other specified disorders of kidney and ureter (6) Depression Qualifiers: Depression Type: unspecified Qualified Code(s): F32.9 - Major depressive disorder, single episode, unspecified
--- NOTE | 2018-04-11 11:32 | Nephrology Progress Note ---
Date of Encounter: 04/11/18 Time of Encounter: 11:00 - Assessment and Plan (1) Acute kidney injury superimposed on chronic kidney disease Status: Acute Will continue HD T-Th-Sat given no signs of renal recovery with continued worsening SCr in between treatment. Continue HD today with minimal UF Await ECF placement, outpatient HD already in place but the concern now is if pt would have a sitter from ECF as the group was willing to do this inorder to control his behavior Continue to avoid nephrotoxins if possible UOP not documented in the past 24hrs (2) Anemia Status: Chronic Hgb improved at 8.4 after 2 units pRBCs at last HD session Qualifiers: Anemia type: due to chronic kidney disease Chronic kidney disease stage: stage 4 (severe) Qualified Code(s): N18.4 - Chronic kidney disease, stage 4 (severe); D63.1 - Anemia in chronic kidney disease (3) Cerebral palsy Status: Chronic Chronic/congenital Qualifiers: Cerebral palsy type: unspecified type Qualified Code(s): G80.9 - Cerebral palsy, unspecified (4) Hyperkalemia Status: Resolved Resolved, continue renal diet (5) Uremia Status: Acute Back to baseline with HD (6) Hypertension Status: Chronic stable Qualifiers: Hypertension type: secondary to other renal disorders Qualified Code(s): I15.1 - Hypertension secondary to other renal disorders; N28.89 - Other specified disorders of kidney and ureter (7) PKD (polycystic kidney disease) Status: Chronic Hx of CKD from PKD. Subjective Principal diagnosis: KAMARI Interval history: Pt seen and examined with no new complaints on HD. No overnight issues noted. Objective - Vital Signs Vital signs: Vital Signs Temp Pulse Resp BP Pulse Ox 04/11/18 07:05 97.9 F 97 20 112/74 04/11/18 04:48 99 F 93 16 113/72 97 04/11/18 00:24 98 F 95 16 108/67 99 04/10/18 19:39 98.8 F 108 17 95/56 96 04/10/18 15:24 98.2 F 104 18 92/48 96 Intake and Output 04/10/18 04/11/18 04/11/18 23:59 07:59 15:59 Other: # Urine Diapers 1 # Bowel Movement Diapers 1 Weight 59.8 kg Blood Glucose* 122 133 Patient Weight 04/11/18 23:59 Weight 59.8 kg - General Appearance General appearance: Present: chronically ill, frail EENT: Present: ATNC, mucous membranes moist Neck: Present: no JVD, supple Respiratory: Present: clear Cardiology: Present: no edema, normal S1, normal S2 Dialysis Vascular Access: Venous Catheter (permcath) Gastrointestinal: Present: no tenderness, no guarding Integumentary: Present: warm and dry Neurologic: Present: no focal deficit Musculoskeletal: Present: deformities (contractures LE bilat) Psychiatric: Present: mood/affect appropriate, cooperative - Lab 04/15/18 04:38 04/17/18 04:49 Most recent lab results Calcium 8.4 mg/dL (8.6-10.3) L 04/11/18 05:05 Phosphorus 2.7 mg/dL (2.7-4.5) 04/06/18 06:30 Magnesium 2.0 mg/dL (1.6-2.6) 03/28/18 04:55 Urine Creatinine 62 mg/dL 03/26/18 16:43 Ur Total Protein 24 Hr 2164 mg/day (50-80) H 03/26/18 16:43 Urine Sodium 46.0 mEq/L 03/24/18 16:19 Urine Total Protein 281 mg/dL (1-14) H 03/26/18 16:43 Consult Discharge Plan - Plan Instructions: Acute Kidney Injury (DC), Urinary Tract Infection in Men (DC), Depression (DC), Chronic Hypertension (DC), Anemia (GEN) Additional Instructions: HEMODIALYSIS -- 3 TIMES A WEEK.. Referrals: Isatu Zaman MD [Primary Care Provider] -
[2018-04-11] MEDS: Baclofen 10 MG TABLET PO SCH ×2 (14:00→21:25)
[2018-04-11] MEDS: BuPROPion SR (12 HR) 150 MG TABLET PO SCH (14:00)
[2018-04-11] MEDS: NIFEdipine XL (24 HR) 60 MG TAB.ER.24 PO SCH (15:54)
[2018-04-11] MEDS: Silvasorb 44.4 ML TUBE TP SCH (15:54)
[2018-04-12] MEDS: *HR* Heparin 5,000 UNIT/ML VIAL SQ SCH ×2 (05:47→18:08)
[2018-04-12 06:46] LABS: Basophils % 0.3 %; Eosinophils # 0.1 K/mcL (0.0-0.6); Hematocrit 26.3 % (37.5-50.1); Hemoglobin 7.9 g/dL (12.9-16.9); Immature Granulocytes % 0.3 % (0-4); Lymphocytes # 1.1 K/mcL (0.6-4.6); Lymphocytes % 18.7 %; Mean Corpuscular Hemoglobin 27.7 pg (28.0-33.3); Mean Corpuscular Volume 92.3 fL (83.0-100.0); Mean Platelet Volume 8.5 fL (9.4-12.4); Monocytes # 0.7 K/mcL (0.0-1.3); Monocytes % 11.5 %; Platelet Count 237 K/mcL (140-400); Red Blood Count 2.85 M/mcL (4.19-5.50); Red Cell Distribution Width 14.9 % (11.5-14.5); Segmented Neutrophils % 68.2 %
[2018-04-12 07:11] LABS: Magnesium 2.1 mg/dL (1.6-2.6); Phosphorous 3.6 mg/dL (2.7-4.5)
[2018-04-12 07:13] LABS: Calcium 8.4 mg/dL (8.6-10.3); Potassium 4.8 mEq/L (3.5-5.1)
[2018-04-12] MEDS: BuPROPion SR (12 HR) 150 MG TABLET PO SCH (08:11)
[2018-04-12] MEDS: Baclofen 10 MG TABLET PO SCH ×2 (08:12→22:02)
[2018-04-12] MEDS: NIFEdipine XL (24 HR) 60 MG TAB.ER.24 PO SCH (08:12)
--- NOTE | 2018-04-12 13:02 | Internal Med Progress Note ---
Hospitalist Progress Note - Encounter Date of Encounter: 04/12/18 Time of Encounter: 13:00 - Subjective Interval History: Evaluated at bedside. Patient reports chronic back pain and leg pain. Denies abdominal pain, nausea vomiting or headache. - Exam Vitals: Temp Pulse Resp BP Pulse Ox 99.0 F 102 16 106/68 97 04/12/18 11:38 04/12/18 11:38 04/12/18 11:38 04/12/18 11:38 04/12/18 11:38 Exam: General: awake, alert, oriented to person and time not place. No acute distress. HEENT: Right neck HD line site without erythema. Cardiovascular: RRR, normal S1 & S2, no murmurs, rubs or gallops. Lungs: Clear breath sounds to auscultation b/l, no wheezes, or crackles. Abdomen: Soft, no tenderness, no guarding, non-distended Neurological: paraplegic. Follows commands appropriately. Bilateral upper extremity strength 4/5 Extremities: Disuse atrophy in the lower extremities. - Assessment and Plan (1) Acute kidney injury superimposed on chronic kidney disease Current Visit: Yes Status: Acute Assessment and Plan: Required renal replacement therapy during this hospitalization. Perma-cath placed 04/06/2018. Renal replacement therapy as per live in [employer] recommendations. Pending placement with scheduled HD to be discharge. (2) Anemia Current Visit: Yes Status: Chronic Assessment and Plan: H&H of 7.9&26.3 today. slight drop when compared with yesterday. no active site of bleeding. Will send stool for Occult blood. CBC in the morning (3) Hypertension Current Visit: Yes Status: Chronic Assessment and Plan: Blood pressure well controlled. Continue losartan and nifedipine. (4) Depression Current Visit: Yes Status: Chronic Assessment and Plan: Continue mood stabilizing medication. Patient on bupropion and sertraline. (5) PKD (polycystic kidney disease) Current Visit: Yes Status: Chronic (6) Cerebral palsy Current Visit: Yes Status: Chronic DVT Prophylaxis: On heparin 5000 units subcutaneous twice a day for DVT prophylaxis. - Summary of Assessment and Plan Summary of Assessment and Plan: Patient pending placement. - Time Spent with Patient Total time spent is greater than 50% in coordination of care (as documented) at patient's floor/unit and/or counseling patient: less than 15 minutes Plan of Care Discussed with: patient (the nurse.) Internal Medicine: Result - Labs CBC & Chem 7: 04/12/18 06:17 04/12/18 06:17 Labs: Short CBC 04/12/18 Range/Units 06:17 WBC 5.9 (4.3-11.1) K/mcL Hgb 7.9 L (12.9-16.9) g/dL Hct 26.3 L (37.5-50.1) % Plt Count 237 (140-400) K/mcL Neutrophils # 4.0 (1.6-8.9) K/mcL BMP 04/12/18 06:17 Sodium 136 Potassium 4.8 Chloride 99 Carbon Dioxide 29 BUN 32 H Creatinine 2.83 H Glucose 90 Calcium 8.4 L - ABG Interpretation ABG results: PT/INR, D-dimer PT 14.3 Seconds (9.4-12.1) H 03/31/18 04:00 Consult Discharge Plan - Plan Referrals: Isatu Zaman MD [Primary Care Provider] - (2) Anemia Qualifiers: Anemia type: due to chronic kidney disease Chronic kidney disease stage: stage 4 (severe) Qualified Code(s): N18.4 - Chronic kidney disease, stage 4 ( severe); D63.1 - Anemia in chronic kidney disease (3) Hypertension Qualifiers: Hypertension type: secondary to other renal disorders Qualified Code(s): I15.1 - Hypertension secondary to other renal disorders; N28.89 - Other specified disorders of kidney and ureter (4) Depression Qualifiers: Depression Type: unspecified Qualified Code(s): F32.9 - Major depressive disorder, single episode, unspecified (6) Cerebral palsy Qualifiers: Cerebral palsy type: unspecified type Qualified Code(s): G80.9 - Cerebral palsy, unspecified
--- NOTE | 2018-04-12 13:41 | Nephrology Progress Note ---
Date of Encounter: 04/12/18 Time of Encounter: 13:00 - Assessment and Plan (1) Acute kidney injury superimposed on chronic kidney disease Current Visit: Yes Status: Acute s/p HD yesterday, next HD planned tomorrow Lytes stable Await ECF placement, outpatient already arranged (2) Anemia Current Visit: Yes Status: Chronic Hgb noted at 7.9 with low iron levels noted. Will need repleted Transfusion parameters per primary team Qualifiers: Anemia type: due to chronic kidney disease Chronic kidney disease stage: stage 4 (severe) Qualified Code(s): N18.4 - Chronic kidney disease, stage 4 ( severe); D63.1 - Anemia in chronic kidney disease (3) Cerebral palsy Current Visit: Yes Status: Chronic Chronic/congenital Qualifiers: Cerebral palsy type: unspecified type Qualified Code(s): G80.9 - Cerebral palsy, unspecified (4) Uremia Current Visit: Yes Status: Resolved (5) Hypertension Current Visit: Yes Status: Chronic stable Qualifiers: Hypertension type: secondary to other renal disorders Qualified Code(s): I15.1 - Hypertension secondary to other renal disorders; N28.89 - Other specified disorders of kidney and ureter (6) PKD (polycystic kidney disease) Current Visit: Yes Status: Chronic Hx of CKD from PKD. Subjective Principal diagnosis: KAMARI Interval history: Pt seen and examined with no new complaints eating lunch. Objective - Vital Signs Vital signs: Vital Signs Temp Pulse Resp BP Pulse Ox 04/12/18 11:38 99.0 F 102 16 106/68 97 04/12/18 08:14 99.6 F 97 18 118/73 97 04/12/18 05:56 98.3 F 92 16 112/67 98 04/12/18 01:31 98.6 F 100 16 108/72 97 04/11/18 20:56 98.6 F 108 16 115/66 95 04/11/18 16:42 98.3 F 99 18 98/60 97 Intake and Output 04/11/18 04/12/18 04/12/18 23:59 07:59 15:59 Intake Total 240 / 240 Balance 240 / 240 Intake: Oral 240 / 240 Other: Meal Dinner Percent of Meal Consumed 100% Weight 59.8 kg Patient Weight 04/12/18 23:59 Weight 59.8 kg - General Appearance General appearance: Present: chronically ill, frail EENT: Present: ATNC, mucous membranes moist Neck: Present: no JVD, supple Respiratory: Present: clear (ant bilat) Cardiology: Present: no edema, normal S1, normal S2 Dialysis Vascular Access: Venous Catheter (permcath) Gastrointestinal: Present: no tenderness, no guarding Integumentary: Present: warm and dry Neurologic: Present: no focal deficit Musculoskeletal: Present: no deformities Psychiatric: Present: mood/affect appropriate - Lab 04/12/18 06:17 04/12/18 06:17 Most recent lab results Calcium 8.4 mg/dL (8.6-10.3) L 04/12/18 06:17 Phosphorus 3.6 mg/dL (2.7-4.5) 04/12/18 06:17 Magnesium 2.1 mg/dL (1.6-2.6) 04/12/18 06:17 Urine Creatinine 62 mg/dL 03/26/18 16:43 Ur Total Protein 24 Hr 2164 mg/day (50-80) H 03/26/18 16:43 Urine Sodium 46.0 mEq/L 03/24/18 16:19 Urine Total Protein 281 mg/dL (1-14) H 03/26/18 16:43 Consult Discharge Plan - Plan Referrals: Isatu Zaman MD [Primary Care Provider] -
[2018-04-12] MEDS: Silvasorb 44.4 ML TUBE TP SCH (18:08)
[2018-04-12] MEDS: Latanoprost 2.5 ML BOTTLE BOTH EYES SCH ×2 (22:01→22:02)
[2018-04-13] MEDS: *HR* Heparin 5,000 UNIT/ML VIAL SQ SCH (05:13)
[2018-04-13 05:40] LABS: Basophils % 0.6 %; Eosinophils # 0.1 K/mcL (0.0-0.6); Eosinophils % 1.2 %; Hemoglobin 7.6 g/dL (12.9-16.9); Immature Granulocytes % 0.3 % (0-4); Lymphocytes # 0.9 K/mcL (0.6-4.6); Lymphocytes % 14.1 %; Mean Corpuscular HGB Conc 30.4 g/dL (31.6-35.5); Mean Corpuscular Hemoglobin 27.9 pg (28.0-33.3); Mean Corpuscular Volume 91.9 fL (83.0-100.0); Mean Platelet Volume 8.9 fL (9.4-12.4); Monocytes # 0.6 K/mcL (0.0-1.3); Monocytes % 9.4 %; Neutrophils # 4.9 K/mcL (1.6-8.9); Platelet Count 250 K/mcL (140-400); Red Blood Count 2.72 M/mcL (4.19-5.50); Segmented Neutrophils % 74.4 %
[2018-04-13 06:02] LABS: Calcium 8.3 mg/dL (8.6-10.3); Magnesium 2.2 mg/dL (1.6-2.6); Phosphorous 4.3 mg/dL (2.7-4.5); Potassium 5.2 mEq/L (3.5-5.1)
[2018-04-13] MEDS: NIFEdipine XL (24 HR) 60 MG TAB.ER.24 PO SCH (08:37)
[2018-04-13] MEDS: Silvasorb 44.4 ML TUBE TP SCH (09:10)
[2018-04-13] MEDS: Baclofen 10 MG TABLET PO SCH ×2 (09:11→20:57)
[2018-04-13] MEDS: BuPROPion SR (12 HR) 150 MG TABLET PO SCH (09:11)
--- NOTE | 2018-04-13 09:24 | Nephrology Progress Note ---
Date of Encounter: 04/13/18 Time of Encounter: 09:23 - Assessment and Plan (1) Acute kidney injury superimposed on chronic kidney disease Current Visit: Yes Status: Acute HD planned for tomorrow. Awaiting ECF placement. Chair time is set for 11:00am TTS at [facility]. (2) Cerebral palsy Current Visit: Yes Status: Chronic Chronic/congenital Qualifiers: Cerebral palsy type: unspecified type Qualified Code(s): G80.9 - Cerebral palsy, unspecified (3) Anemia Current Visit: Yes Status: Chronic Hgb 7.6 today. Transfusion parameters per primary team Qualifiers: Anemia type: due to chronic kidney disease Chronic kidney disease stage: stage 4 (severe) Qualified Code(s): N18.4 - Chronic kidney disease, stage 4 ( severe); D63.1 - Anemia in chronic kidney disease (4) Uremia Current Visit: Yes Status: Acute Back to baseline with HD (5) Hypertension Current Visit: Yes Status: Chronic stable Qualifiers: Hypertension type: secondary to other renal disorders Qualified Code(s): I15.1 - Hypertension secondary to other renal disorders; N28.89 - Other specified disorders of kidney and ureter (6) PKD (polycystic kidney disease) Current Visit: Yes Status: Chronic Hx of CKD from PKD. Subjective Principal diagnosis: KAMARI Interval history: Pt seen and examined, doing well. Objective - Vital Signs Vital signs: Vital Signs Temp Pulse Resp BP Pulse Ox 04/13/18 07:49 98.0 F 90 16 95/63 98 04/13/18 04:44 98.8 F 89 16 96/52 96 04/13/18 00:53 99.3 F 102 16 85/53 97 04/12/18 20:07 99.7 F H 102 17 95/52 98 04/12/18 15:55 99.0 F 107 18 101/60 98 04/12/18 11:38 99.0 F 102 16 106/68 97 Intake and Output 04/12/18 04/13/18 04/13/18 23:59 07:59 15:59 Other: # Urine Diapers 1 Weight 60.9 kg Patient Weight 04/13/18 23:59 Weight 60.9 kg - General Appearance General appearance: Present: well-developed, well-nourished EENT: Present: ATNC, hearing intact, vision intact Neck: Present: supple Respiratory: Present: clear Cardiology: Present: no edema, normal S1, normal S2 Dialysis Vascular Access: Venous Catheter (Tunneled Line, DRSG C/D/I) Gastrointestinal: Present: normoactive bowel sounds, no tenderness, no guarding Integumentary: Present: no rash, warm and dry Neurologic: Present: alert and oriented x3 Psychiatric: Present: mood/affect appropriate, cooperative - Lab 04/13/18 04:53 04/13/18 04:53 Most recent lab results Calcium 8.3 mg/dL (8.6-10.3) L 04/13/18 04:53 Phosphorus 4.3 mg/dL (2.7-4.5) 04/13/18 04:53 Magnesium 2.2 mg/dL (1.6-2.6) 04/13/18 04:53 Urine Creatinine 62 mg/dL 03/26/18 16:43 Ur Total Protein 24 Hr 2164 mg/day (50-80) H 03/26/18 16:43 Urine Sodium 46.0 mEq/L 03/24/18 16:19 Urine Total Protein 281 mg/dL (1-14) H 03/26/18 16:43 Consult Discharge Plan - Plan Referrals: Isatu Zaman MD [Primary Care Provider] -
--- NOTE | 2018-04-13 14:12 | Internal Med Progress Note ---
Hospitalist Progress Note - Encounter Date of Encounter: 04/13/18 Time of Encounter: 14:12 - Subjective Interval History: Patient evaluated at bedside. alert, oriented to person and place. reports chronic back pain, denies nausea or vomiting. in no obvious distress. - Exam Vitals: Temp Pulse Resp BP Pulse Ox 98.5 F 93 16 118/72 96 04/13/18 11:19 04/13/18 11:19 04/13/18 11:19 04/13/18 11:19 04/13/18 11:19 Exam: General: awake, alert, oriented to person and time not place. No acute distress. HEENT: Right neck HD line site without erythema. Cardiovascular: RRR, normal S1 & S2, no murmurs, rubs or gallops. Lungs: Clear breath sounds to auscultation b/l, no wheezes, or crackles. Abdomen: Soft, no tenderness, no guarding, non-distended Neurological: paraplegic. Follows commands appropriately. Bilateral upper extremity strength 4/5 Extremities: Disuse atrophy in the lower extremities. - Assessment and Plan (1) Acute kidney injury superimposed on chronic kidney disease Current Visit: Yes Status: Acute Assessment and Plan: Renal replacement therapy as per nephrology group. Patient scheduled for HD tomorrow. Patient has a seat for outpatient HD. (2) Anemia Current Visit: Yes Status: Chronic Assessment and Plan: H&H slightly dropping over the past couple of days. No signs o active bleeding Will Transfuse 2 units of PRBCs tomorrow during HD. Will consider transfusing [patient today becomes hemodynamically unstable. will repeat cbc this afternoon. FOBT has been ordered. pending (3) Hypertension Current Visit: Yes Status: Chronic Assessment and Plan: BP has been running in the low side. WIll discontinue antihypertensive medications. Continue labetalol 5mg/IV Q6HR PRN for SBP >190 (4) Depression Current Visit: Yes Status: Chronic Assessment and Plan: patient on Bupropion and sertraline. (5) PKD (polycystic kidney disease) Current Visit: Yes Status: Chronic (6) Cerebral palsy Current Visit: Yes Status: Chronic DVT Prophylaxis: Will discontinue Heparin until FOBT is resulted. Mechanical DVT prophylaxis with Intermittent pneumatic compression. - Summary of Assessment and Plan Summary of Assessment and Plan: Patient pending placement to ECF. - Time Spent with Patient Total time spent is greater than 50% in coordination of care (as documented) at patient's floor/unit and/or counseling patient: 25 - 35 minutes Plan of Care Discussed with: patient (the nurse.) Internal Medicine: Result - Labs CBC & Chem 7: 04/13/18 04:53 04/13/18 04:53 Labs: Short CBC 04/13/18 Range/Units 04:53 WBC 6.6 (4.3-11.1) K/mcL Hgb 7.6 L (12.9-16.9) g/dL Hct 25.0 L (37.5-50.1) % Plt Count 250 (140-400) K/mcL Neutrophils # 4.9 (1.6-8.9) K/mcL BMP 04/13/18 04:53 Sodium 134 L Potassium 5.2 H Chloride 97 L Carbon Dioxide 29 BUN 51 H Creatinine 3.97 H Glucose 105 Calcium 8.3 L - ABG Interpretation ABG results: PT/INR, D-dimer PT 14.3 Seconds (9.4-12.1) H 03/31/18 04:00 Consult Discharge Plan - Plan Referrals: Isatu Zaman MD [Primary Care Provider] - (2) Anemia Qualifiers: Anemia type: due to chronic kidney disease Chronic kidney disease stage: stage 4 (severe) Qualified Code(s): N18.4 - Chronic kidney disease, stage 4 ( severe); D63.1 - Anemia in chronic kidney disease (3) Hypertension Qualifiers: Hypertension type: secondary to other renal disorders Qualified Code(s): I15.1 - Hypertension secondary to other renal disorders; N28.89 - Other specified disorders of kidney and ureter (4) Depression Qualifiers: Depression Type: unspecified Qualified Code(s): F32.9 - Major depressive disorder, single episode, unspecified (6) Cerebral palsy Qualifiers: Cerebral palsy type: unspecified type Qualified Code(s): G80.9 - Cerebral palsy, unspecified
[2018-04-13] MEDS: Latanoprost 2.5 ML BOTTLE BOTH EYES SCH (20:57)
[2018-04-13 21:31] LABS: Basophils % 0.6 %; Eosinophils # 0.1 K/mcL (0.0-0.6); Eosinophils % 1.3 %; Hematocrit 25.4 % (37.5-50.1); Hemoglobin 7.8 g/dL (12.9-16.9); Immature Granulocytes % 0.4 % (0-4); Lymphocytes # 0.9 K/mcL (0.6-4.6); Lymphocytes % 13.1 %; Mean Corpuscular HGB Conc 30.7 g/dL (31.6-35.5); Mean Corpuscular Hemoglobin 28.5 pg (28.0-33.3); Mean Corpuscular Volume 92.7 fL (83.0-100.0); Mean Platelet Volume 8.7 fL (9.4-12.4); Monocytes # 0.7 K/mcL (0.0-1.3); Neutrophils # 5.4 K/mcL (1.6-8.9); Platelet Count 268 K/mcL (140-400); Red Blood Count 2.74 M/mcL (4.19-5.50); Red Cell Distribution Width 14.7 % (11.5-14.5); Segmented Neutrophils % 75.6 %
[2018-04-14 04:40] LABS: Calcium 8.5 mg/dL (8.6-10.3); Potassium 5.9 mEq/L (3.5-5.1)
[2018-04-14] MEDS ORDERED: 0.9 % Sodium Chloride 250 ML IVC PRN (06:30)
[2018-04-14] MEDS: 0.9 % Sodium Chloride 1,000 ML PRIME SCH (08:25)
--- NOTE | 2018-04-14 09:22 | Nephrology Progress Note ---
Date of Encounter: 04/14/18 Time of Encounter: 09:20 - Assessment and Plan (1) Acute kidney injury superimposed on chronic kidney disease Current Visit: Yes Status: Acute HD in progress today. Awaiting ECF placement. Chair time is set for 11:00am TTS at [facility]. (2) Cerebral palsy Current Visit: Yes Status: Chronic Chronic/congenital Qualifiers: Cerebral palsy type: unspecified type Qualified Code(s): G80.9 - Cerebral palsy, unspecified (3) Anemia Current Visit: Yes Status: Chronic Goal Hgb 10-11. No CBC ordered for today. Transfusion parameters per primary team. 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 Subjective Principal diagnosis: KAMARI Interval history: Pt seen and examined during HD, doing well. Denies CP/SOB. Objective - Vital Signs Vital signs: Vital Signs Temp Pulse Resp BP Pulse Ox 04/14/18 06:57 97.8 F 93 16 105/67 96 04/14/18 04:06 97.9 F 88 14 114/71 96 04/13/18 23:54 99.1 F 95 14 130/78 97 04/13/18 19:23 99.2 F 104 15 115/71 97 04/13/18 16:50 97.9 F 98 16 108/71 100 04/13/18 11:19 98.5 F 93 16 118/72 96 04/13/18 09:21 98 Intake and Output 04/13/18 04/14/18 04/14/18 23:59 07:59 15:59 Intake Total 120 / 120 Balance 120 / 120 Intake: Oral 120 / 120 Other: Meal Breakfast Percent of Meal Consumed 50% Stool Size Small Stool Consistency soft Stool Color Yellow Green # Bowel Movement Diapers 1 Weight 55.9 kg - General Appearance General appearance: Present: well-developed, well-nourished EENT: Present: ATNC, hearing intact, vision intact Neck: Present: supple Respiratory: Present: clear Cardiology: Present: no edema, normal S1, normal S2 Dialysis Vascular Access: Venous Catheter (Tunneled Line, DRSG C/D/I) Gastrointestinal: Present: normoactive bowel sounds, no tenderness, no guarding Integumentary: Present: no rash, warm and dry Neurologic: Present: alert and oriented x3 Psychiatric: Present: mood/affect appropriate, cooperative - Lab 04/13/18 21:05 04/14/18 04:01 Most recent lab results Calcium 8.5 mg/dL (8.6-10.3) L 04/14/18 04:01 Phosphorus 4.3 mg/dL (2.7-4.5) 04/13/18 04:53 Magnesium 2.2 mg/dL (1.6-2.6) 04/13/18 04:53 Urine Creatinine 62 mg/dL 03/26/18 16:43 Ur Total Protein 24 Hr 2164 mg/day (50-80) H 03/26/18 16:43 Urine Sodium 46.0 mEq/L 03/24/18 16:19 Urine Total Protein 281 mg/dL (1-14) H 03/26/18 16:43 Consult Discharge Plan - Plan Referrals: Isatu Zaman MD [Primary Care Provider] -
[2018-04-14] MEDS: EPOETIN ALFA 20,000 UNIT/ML VIAL SQ SCH (12:39)
[2018-04-14] MEDS: Baclofen 10 MG TABLET PO SCH ×2 (12:40→21:17)
[2018-04-14] MEDS: BuPROPion SR (12 HR) 150 MG TABLET PO SCH (12:40)
[2018-04-14] MEDS: Latanoprost 2.5 ML BOTTLE BOTH EYES SCH (21:17)
[2018-04-14] MEDS: Silvasorb 44.4 ML TUBE TP SCH (21:18)
--- NOTE | 2018-04-14 21:52 | Internal Med Progress Note ---
Hospitalist Progress Note - Encounter Date of Encounter: 04/14/18 Time of Encounter: 19:00 - Subjective Interval History: SUBJECTIVE: The patient is on room air, again. His breathing is not labored any more. He continues hemodialysis. The patient has been basically bedbound due to his cerebral palsy/paraplegia. He has also underlying polycystic kidney disease. OBJECTIVE: Skin: Free of rash and discoloration. ENMT: Oral/pharyngeal mucosa is normal in appearance. Eyes: Sclera is white. There is no discharge from eyes. Respiratory: Normal breath sounds; no crackles or wheezes. CV: Heart is regular; no gallop or murmur. GI: Abdomen is soft and not tender. There is no palpable mass or visceromegaly. Neuro: There is no focal deficits. ASSESSMENT AND PLAN: Acute kidney injury superimposed on chronic kidney disease of stage IV. He has underlying polycystic kidney disease. Nephrology is consulted. The patient currently gets hemodialysis. Anemia from chronic kidney disease. His last hemoglobin was 7.8; previously 7.9. He gets 3 times a week Procrit. Cerebral palsy. We will continue supportive treatment. He is bedbound. Hypertension. He gets when necessary IV labetalol. DISPOSITION: We will discharge him to ECF, when cleared by nephrology. - Exam Vitals: Temp Pulse Resp BP Pulse Ox 99 F 108 16 95/58 96 04/14/18 18:56 04/14/18 18:56 04/14/18 18:56 10 18:56 04/14/18 18:56 Exam: xx - Assessment and Plan (1) Acute kidney injury superimposed on chronic kidney disease Current Visit: Yes Status: Acute (2) PKD (polycystic kidney disease) Current Visit: Yes Status: Chronic (3) Anemia Current Visit: Yes Status: Chronic (4) Cerebral palsy Current Visit: Yes Status: Chronic (5) Hypertension Current Visit: Yes Status: Chronic (6) Depression Current Visit: Yes Status: Chronic - Time Spent with Patient Total time spent is greater than 50% in coordination of care (as documented) at patient's floor/unit and/or counseling patient: 25 - 35 minutes Plan of Care Discussed with: patient Internal Medicine: Result - Labs CBC & Chem 7: 04/13/18 21:05 04/14/18 04:01 Labs: BMP 04/14/18 04:01 Sodium 135 L Potassium 5.9 H Chloride 97 L Carbon Dioxide 29 BUN 66 H Creatinine 4.94 H Glucose 105 Calcium 8.5 L - ABG Interpretation ABG results: PT/INR, D-dimer PT 14.3 Seconds (9.4-12.1) H 03/31/18 04:00 Consult Discharge Plan - Plan Referrals: Isatu Zaman MD [Primary Care Provider] - (3) Anemia Qualifiers: Anemia type: due to chronic kidney disease Chronic kidney disease stage: stage 4 (severe) Qualified Code(s): N18.4 - Chronic kidney disease, stage 4 ( severe); D63.1 - Anemia in chronic kidney disease (4) Cerebral palsy Qualifiers: Cerebral palsy type: unspecified type Qualified Code(s): G80.9 - Cerebral palsy, unspecified (5) Hypertension Qualifiers: Hypertension type: secondary to other renal disorders Qualified Code(s): I15.1 - Hypertension secondary to other renal disorders; N28.89 - Other specified disorders of kidney and ureter (6) Depression Qualifiers: Depression Type: unspecified Qualified Code(s): F32.9 - Major depressive disorder, single episode, unspecified
[2018-04-15 05:12] LABS: Calcium 8.4 mg/dL (8.6-10.3); Potassium 5.2 mEq/L (3.5-5.1)
[2018-04-15 05:20] LABS: Basophils % 0.7 %; Eosinophils % 0.7 %; Hematocrit 25.1 % (37.5-50.1); Hemoglobin 7.5 g/dL (12.9-16.9); Immature Granulocytes % 0.3 % (0-4); Lymphocytes # 1.1 K/mcL (0.6-4.6); Lymphocytes % 18.3 %; Mean Corpuscular HGB Conc 29.9 g/dL (31.6-35.5); Mean Corpuscular Hemoglobin 27.6 pg (28.0-33.3); Mean Corpuscular Volume 92.3 fL (83.0-100.0); Mean Platelet Volume 8.6 fL (9.4-12.4); Monocytes # 0.6 K/mcL (0.0-1.3); Monocytes % 9.5 %; Neutrophils # 4.2 K/mcL (1.6-8.9); Platelet Count 276 K/mcL (140-400); Red Blood Count 2.72 M/mcL (4.19-5.50); Red Cell Distribution Width 14.7 % (11.5-14.5); Segmented Neutrophils % 70.5 %
[2018-04-15] MEDS: BuPROPion SR (12 HR) 150 MG TABLET PO SCH (08:02)
[2018-04-15] MEDS: Baclofen 10 MG TABLET PO SCH ×2 (09:00→21:38)
[2018-04-15] MEDS: EPOETIN ALFA 20,000 UNIT/ML VIAL SQ SCH (09:00)
--- NOTE | 2018-04-15 09:30 | Nephrology Progress Note ---
Date of Encounter: 04/15/18 Time of Encounter: 09:28 - Assessment and Plan (1) Acute kidney injury superimposed on chronic kidney disease Current Visit: Yes Status: Acute HD completed yesterday. Awaiting ECF placement. Chair time is set for 11:00am TTS at [facility]. (2) Cerebral palsy Current Visit: Yes Status: Chronic Chronic/congenital Qualifiers: Cerebral palsy type: unspecified type Qualified Code(s): G80.9 - Cerebral palsy, unspecified (3) Anemia Current Visit: Yes Status: Chronic Goal Hgb 10-11. Hgb is 7.5 today, already on Epo. Transfusion parameters per primary team. 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 Subjective Principal diagnosis: KAMARI Interval history: Pt seen and examined doing well. Denies CP/SOB. Objective - Vital Signs Vital signs: Vital Signs Temp Pulse Resp BP Pulse Ox 04/15/18 08:20 98.9 F 84 14 110/67 98 04/15/18 04:39 99.0 F 97 15 132/74 96 04/15/18 00:28 98.2 F 97 17 114/73 96 04/14/18 18:56 99 F 108 16 95/58 96 04/14/18 15:32 98.4 F 96 16 106/69 100 04/14/18 11:56 97.8 F 83 16 130/78 99 04/14/18 11:50 98.1 F 18 121/70 04/14/18 11:35 116/71 04/14/18 11:20 125/86 04/14/18 11:05 132/82 04/14/18 10:50 126/76 04/14/18 10:35 125/77 04/14/18 10:20 135/79 04/14/18 10:05 128/81 04/14/18 09:50 123/73 04/14/18 09:35 111/70 Intake and Output 04/14/18 04/15/18 04/15/18 23:59 07:59 15:59 Intake Total 220 / 220 100 / 100 360 / 360 Balance 220 / 220 100 / 100 360 / 360 Intake: Oral 220 / 220 100 / 100 360 / 360 Other: Meal applesauce Breakfast Percent of Meal Consumed 100% 5% Stool Size Large Stool Consistency soft Stool Color Brown Yellow # Urine Diapers 1 1 # Bowel Movement Diapers 1 Weight 54.2 kg Blood Glucose* 128 Patient Weight 04/15/18 23:59 Weight 54.2 kg - General Appearance General appearance: Present: well-developed, well-nourished EENT: Present: ATNC, hearing intact, vision intact Neck: Present: supple Respiratory: Present: clear Cardiology: Present: no edema, normal S1, normal S2 Dialysis Vascular Access: Venous Catheter (Tunneled Line, DRSG C/D/I) Gastrointestinal: Present: normoactive bowel sounds, no tenderness, no guarding Integumentary: Present: no rash, warm and dry Neurologic: Present: alert and oriented x3 Psychiatric: Present: mood/affect appropriate, cooperative - Lab 04/15/18 04:38 04/15/18 04:38 Most recent lab results Calcium 8.4 mg/dL (8.6-10.3) L 04/15/18 04:38 Phosphorus 4.3 mg/dL (2.7-4.5) 04/13/18 04:53 Magnesium 2.2 mg/dL (1.6-2.6) 04/13/18 04:53 Urine Creatinine 62 mg/dL 03/26/18 16:43 Ur Total Protein 24 Hr 2164 mg/day (50-80) H 03/26/18 16:43 Urine Sodium 46.0 mEq/L 03/24/18 16:19 Urine Total Protein 281 mg/dL (1-14) H 03/26/18 16:43 Consult Discharge Plan - Plan Referrals: Isatu Zaman MD [Primary Care Provider] -
--- NOTE | 2018-04-15 20:47 | Internal Med Progress Note ---
Hospitalist Progress Note - Encounter Date of Encounter: 04/15/18 Time of Encounter: 19:00 - Subjective Interval History: SUBJECTIVE: The patient is breathing with room air oxygen. He does not show any distress. He follows my simple commands. He continues hemodialysis, as ordered by nephrology. The patient is bedbound due to his cerebral palsy/paraplegia. He has underlying polycystic kidney disease. OBJECTIVE: Skin: Free of rash and discoloration. ENMT: Oral/pharyngeal mucosa is normal in appearance. Eyes: Sclera is white. There is no discharge from eyes. Respiratory: Normal breath sounds; no crackles or wheezes. CV: Heart is regular; no gallop or murmur. GI: Abdomen is soft and not tender. There is no palpable mass or visceromegaly. Neuro: There is no focal deficits. ASSESSMENT AND PLAN: Acute kidney injury superimposed on chronic kidney disease of stage IV. The acute component is basically gone. He will continue hemodialysis, as ordered by nephrology. His chest x-ray from today does not show any pulmonary congestion or other abnormalities. Anemia from chronic kidney disease. His hemoglobin is 7.5; 7.8 2 days ago. He gets 3 times a week Procrit. Cerebral palsy. We will continue supportive treatment. He is bedbound. Hypertension. He gets when necessary IV labetalol. DISPOSITION: We will discharge him to ECF, as soon as a bed is available. We will get recommendations from nephrology regarding further management. - Exam Vitals: Temp Pulse Resp BP Pulse Ox 99.4 F 3 16 108/65 96 04/15/18 17:33 04/15/18 17:33 04/15/18 17:33 04/15/18 17:33 04/15/18 17:33 Exam: xx - Assessment and Plan (1) Acute kidney injury superimposed on chronic kidney disease Current Visit: Yes Status: Acute (2) PKD (polycystic kidney disease) Current Visit: Yes Status: Chronic (3) Anemia Current Visit: Yes Status: Chronic (4) Cerebral palsy Current Visit: Yes Status: Chronic (5) Hypertension Current Visit: Yes Status: Chronic (6) Depression Current Visit: Yes Status: Chronic - Time Spent with Patient Total time spent is greater than 50% in coordination of care (as documented) at patient's floor/unit and/or counseling patient: Plan of Care Discussed with: patient (and nurse..) Internal Medicine: Result - Labs CBC & Chem 7: 04/15/18 04:38 04/15/18 04:38 Labs: Short CBC 04/15/18 Range/Units 04:38 WBC 5.9 (4.3-11.1) K/mcL Hgb 7.5 L (12.9-16.9) g/dL Hct 25.1 L (37.5-50.1) % Plt Count 276 (140-400) K/mcL Neutrophils # 4.2 (1.6-8.9) K/mcL BMP 04/15/18 04:38 Sodium 139 Potassium 5.2 H Chloride 101 Carbon Dioxide 31 H BUN 39 H Creatinine 3.12 H Glucose 102 Calcium 8.4 L - ABG Interpretation ABG results: PT/INR, D-dimer PT 14.3 Seconds (9.4-12.1) H 03/31/18 04:00 - Impressions Impressions Chest X-Ray 04/15/18 08:28 IMPRESSION: 1. No convincing radiographic evidence of acute intrathoracic findings. No radiographic evidence of pulmonary edema. 2. Gaseous distention of the stomach is partially imaged. D/ / Carlos Ewing MD / Carlos Ewing MD Interpreting Provider: Carlos Ewing MD Consult Discharge Plan - Plan Referrals: Isatu Zaman MD [Primary Care Provider] - (3) Anemia Qualifiers: Anemia type: due to chronic kidney disease Chronic kidney disease stage: stage 4 (severe) Qualified Code(s): N18.4 - Chronic kidney disease, stage 4 ( severe); D63.1 - Anemia in chronic kidney disease (4) Cerebral palsy Qualifiers: Cerebral palsy type: unspecified type Qualified Code(s): G80.9 - Cerebral palsy, unspecified (5) Hypertension Qualifiers: Hypertension type: secondary to other renal disorders Qualified Code(s): I15.1 - Hypertension secondary to other renal disorders; N28.89 - Other specified disorders of kidney and ureter (6) Depression Qualifiers: Depression Type: unspecified Qualified Code(s): F32.9 - Major depressive disorder, single episode, unspecified
[2018-04-15] MEDS: Silvasorb 44.4 ML TUBE TP SCH (21:38)
[2018-04-15] MEDS: Latanoprost 2.5 ML BOTTLE BOTH EYES SCH (21:39)
[2018-04-16 04:18] LABS: Calcium 8.5 mg/dL (8.6-10.3); Potassium 5.8 mEq/L (3.5-5.1)
[2018-04-16] MEDS: BuPROPion SR (12 HR) 150 MG TABLET PO SCH (07:15)
[2018-04-16] MEDS: Baclofen 10 MG TABLET PO SCH ×2 (07:15→20:53)
[2018-04-16] MEDS ORDERED: *HR* Heparin 10,000 UNIT/10 ML VIAL IV PRN (07:48)
[2018-04-16] MEDS: 0.9 % Sodium Chloride 1,000 ML PRIME SCH (09:15)
--- NOTE | 2018-04-16 11:22 | Nephrology Progress Note ---
Date of Encounter: 04/16/18 Time of Encounter: 11:20 - Assessment and Plan (1) Acute kidney injury superimposed on chronic kidney disease Current Visit: Yes Status: Acute HD in progress today. Awaiting ECF placement. Chair time is set for 11:00am TTS at [facility]. (2) Cerebral palsy Current Visit: Yes Status: Chronic Chronic/congenital Qualifiers: Cerebral palsy type: unspecified type Qualified Code(s): G80.9 - Cerebral palsy, unspecified (3) Anemia Current Visit: Yes Status: Chronic Goal Hgb 10-11. No new CBC today, already on Epo. Transfusion parameters per primary team. 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 Subjective Principal diagnosis: KAMARI Interval history: Pt seen and examined during HD, doing well. Objective - Vital Signs Vital signs: Vital Signs Temp Pulse Resp BP Pulse Ox 04/16/18 09:25 97.5 F L 18 117/76 04/16/18 07:39 97.7 F 92 12 116/76 98 04/16/18 05:32 99.3 F 96 17 138/78 94 04/16/18 01:14 99.1 F 98 17 126/82 96 04/15/18 23:00 99.5 F 103 17 131/80 95 04/15/18 17:33 99.4 F 3 16 108/65 96 04/15/18 12:53 98.6 F 94 15 110/70 97 Intake and Output 04/15/18 04/16/18 04/16/18 23:59 07:59 15:59 Intake Total 0 / 0 600 / 600 Output Total 0 / 0 Balance 0 / 0 600 / 600 Intake: Oral 0 / 0 0 / 0 Intake, Rinseback and Flushes 600 / 600 Output: Urine 0 / 0 Other: Stool Size Large Stool Consistency soft Stool Color Brown # Urine Diapers 1 1 # Bowel Movement Diapers 1 Weight 53.1 kg Blood Glucose* 204 Hemodialysis Net Fluid Removed 91 (mL) Patient Weight 04/16/18 23:59 Weight 53.1 kg - General Appearance General appearance: Present: well-developed, well-nourished EENT: Present: ATNC, hearing intact, vision intact Neck: Present: supple Respiratory: Present: clear Cardiology: Present: no edema, normal S1, normal S2 Dialysis Vascular Access: Venous Catheter (Tunneled Line, DRSG C/D/I) Gastrointestinal: Present: normoactive bowel sounds, no tenderness, no guarding Integumentary: Present: no rash, warm and dry Additional Comments: Alert to self and surroundings. Psychiatric: Present: mood/affect appropriate, cooperative - Lab 04/15/18 04:38 04/16/18 03:25 Most recent lab results Calcium 8.5 mg/dL (8.6-10.3) L 04/16/18 03:25 Phosphorus 4.3 mg/dL (2.7-4.5) 04/13/18 04:53 Magnesium 2.2 mg/dL (1.6-2.6) 04/13/18 04:53 Urine Creatinine 62 mg/dL 03/26/18 16:43 Ur Total Protein 24 Hr 2164 mg/day (50-80) H 03/26/18 16:43 Urine Sodium 46.0 mEq/L 03/24/18 16:19 Urine Total Protein 281 mg/dL (1-14) H 03/26/18 16:43 Consult Discharge Plan - Plan Referrals: Isatu Zaman MD [Primary Care Provider] -
[2018-04-16] MEDS: Acetaminophen 325 MG TABLET PO PRN (12:04)
[2018-04-16] MEDS: Silvasorb 44.4 ML TUBE TP SCH (20:53)
[2018-04-16] MEDS: Latanoprost 2.5 ML BOTTLE BOTH EYES SCH (20:53)
--- NOTE | 2018-04-16 23:04 | Internal Med Progress Note ---
Hospitalist Progress Note - Encounter Date of Encounter: 04/16/18 Time of Encounter: 19:00 - Subjective Interval History: SUBJECTIVE: No distress is seen. The patient takes fair amounts of foods/fluids. He continues hemodialysis; managed by nephrology. The patient is bedbound due to his cerebral palsy/paraplegia. He has underlying polycystic kidney disease. OBJECTIVE: Skin: Free of rash and discoloration. ENMT: Oral/pharyngeal mucosa is normal in appearance. Eyes: Sclera is white. There is no discharge from eyes. Respiratory: Normal breath sounds; no crackles or wheezes. CV: Heart is regular; no gallop or murmur. GI: Abdomen is soft and not tender. There is no palpable mass or visceromegaly. Neuro: There is no focal deficits. ASSESSMENT AND PLAN: Acute kidney injury superimposed on chronic kidney disease of stage IV. He basically advanced to stage V; he will have chronic hemodialysis program after the discharge. Anemia from chronic kidney disease. Procrit or similar will be given in outpatient settings. Cerebral palsy. We will continue supportive treatment. He is bedbound. Hypertension. He gets when necessary IV labetalol. DISPOSITION: We will discharge him to [facility], as soon as a bed is available. He will continue hemodialysis, as an outpatient. - Exam Vitals: Temp Pulse Resp BP Pulse Ox 98.2 F 85 18 108/71 97 04/16/18 16:24 04/16/18 16:24 04/16/18 16:24 04/16/18 16:24 04/16/18 16:24 Exam: xx - Assessment and Plan (1) Acute kidney injury superimposed on chronic kidney disease Current Visit: Yes Status: Acute (2) PKD (polycystic kidney disease) Current Visit: Yes Status: Chronic (3) Anemia Current Visit: Yes Status: Chronic (4) Cerebral palsy Current Visit: Yes Status: Chronic (5) Hypertension Current Visit: Yes Status: Chronic (6) Depression Current Visit: Yes Status: Chronic - Time Spent with Patient Total time spent is greater than 50% in coordination of care (as documented) at patient's floor/unit and/or counseling patient: 25 - 35 minutes Plan of Care Discussed with: nurse Internal Medicine: Result - Labs CBC & Chem 7: 04/15/18 04:38 04/16/18 03:25 Labs: BMP 04/16/18 03:25 Sodium 138 Potassium 5.8 H Chloride 101 Carbon Dioxide 28 BUN 58 H Creatinine 4.19 H Glucose 105 Calcium 8.5 L - ABG Interpretation ABG results: PT/INR, D-dimer PT 14.3 Seconds (9.4-12.1) H 03/31/18 04:00 Consult Discharge Plan - Plan Referrals: Isatu Zaman MD [Primary Care Provider] - (3) Anemia Qualifiers: Anemia type: due to chronic kidney disease Chronic kidney disease stage: stage 4 (severe) Qualified Code(s): N18.4 - Chronic kidney disease, stage 4 ( severe); D63.1 - Anemia in chronic kidney disease (4) Cerebral palsy Qualifiers: Cerebral palsy type: unspecified type Qualified Code(s): G80.9 - Cerebral palsy, unspecified (5) Hypertension Qualifiers: Hypertension type: secondary to other renal disorders Qualified Code(s): I15.1 - Hypertension secondary to other renal disorders; N28.89 - Other specified disorders of kidney and ureter (6) Depression Qualifiers: Depression Type: unspecified Qualified Code(s): F32.9 - Major depressive disorder, single episode, unspecified
[2018-04-17 05:31] LABS: Calcium 8.5 mg/dL (8.6-10.3)
[2018-04-17] MEDS: BuPROPion SR (12 HR) 150 MG TABLET PO SCH (07:32)
[2018-04-17] MEDS: Baclofen 10 MG TABLET PO SCH (07:32)
[2018-04-17] MEDS: EPOETIN ALFA 20,000 UNIT/ML VIAL SQ SCH (07:33)
[2018-04-17 16:20] VITALS: BP 134/65
--- NOTE | 2018-04-17 17:33 | Discharge Summary ---
Orders not resulted at time of discharge: Pending orders 04/18/18 04:00 BMP [Basic Metabolic Panel] AM 0400 CBC [Complete Blood Count] [HEME] AM 04004/19/18 04:00 BMP [Basic Metabolic Panel] AM 0400 04/20/18 04:00 BMP [Basic Metabolic Panel] AM 0400 Date of Encounter: 04/17/18 Time of Encounter: 17:31 - Discharge Diagnosis (1) Acute kidney injury superimposed on chronic kidney disease Priority: Primary Status: Acute (2) PKD (polycystic kidney disease) Priority: Secondary Status: Chronic (3) Hypertension Priority: Secondary Status: Chronic Qualifiers: Hypertension type: secondary to other renal disorders Qualified Code(s): I15.1 - Hypertension secondary to other renal disorders; N28.89 - Other specified disorders of kidney and ureter (4) Anemia Priority: Secondary Status: Chronic Qualifiers: Anemia type: due to chronic kidney disease Chronic kidney disease stage: stage 4 (severe) Qualified Code(s): N18.4 - Chronic kidney disease, stage 4 ( severe); D63.1 - Anemia in chronic kidney disease (5) Cerebral palsy Priority: Secondary Status: Chronic Qualifiers: Cerebral palsy type: unspecified type Qualified Code(s): G80.9 - Cerebral palsy, unspecified (6) Depression Priority: Secondary Status: Chronic Qualifiers: Depression Type: unspecified Qualified Code(s): F32.9 - Major depressive disorder, single episode, unspecified Hospital course: HOSPITAL COURSE: This is a 37-year-old male has had underlying can cerebral palsy and polycystic kidney disease. We admitted him with confusion; was treated for urinary tract infection shortly before this hospitalization. We found him to have acute kidney injury on top of CKD stage IV. The patient had to be treated with hemodialysis; nephrology was consulted. Eventually, the decision has been made to continue hemodialysis in outpatient settings. This was the moment, when we decided to get him to ECF. He will be getting repleted his hemodialysis sessions, as he has significant anemia secondary to chronic kidney disease. CONDITION AT DISCHARGE: The patient is mentally handicapped. He follows very simple commands. He does not verbalize himself. No distress is seen. Skin: Free of rash and discoloration. Respiratory: Normal breath sounds with no crackles and wheezes bilaterally. CV: Heart is regular with no gallop or murmur. GI: Abdomen is flat and soft with no palpable mass or visceromegaly. Neuro exam: There is no focal deficits. Normal speech, swallowing and gait. SEE DISCHARGE ORDERS/MEDICATIONS.. Discharge discussed with: patient, nurse, social work - Time Spent with Patient Total time spent providing and/or coordinating discharge services: Greater than 30 minutes (40 minutes) - Discharge Medications Home Medications: Acetaminophen [Tylenol] 1,000 mg PO Q4HR 03/24/18 [History] Baclofen [Lioresal] 10 mg PO BID 03/24/18 [History] Cholecalciferol (D-3) [Vitamin D] 1,000 unit PO DAILY 03/24/18 [History] EPINEPHrine [Epipen] 0.3 mg IM ONCE PRN 03/24/18 [History] Epinastine HCl [Elestat] 1 drop OP BID 03/24/18 [History] Losartan Potassium [Cozaar] 100 mg PO DAILY 03/24/18 [History] NIFEdipine [Nifedipine ER] 30 mg PO DAILY 03/24/18 [History] Ranitidine HCl [Acid Brick Yard Hand] 150 mg PO BID 03/24/18 [History] Sertraline [Zoloft] 200 mg PO DAILY 03/24/18 [History] Tamsulosin [Flomax] 0.4 mg PO DAILY 03/24/18 [History] Travoprost [Travatan Z] 1 drop OP QPM 03/24/18 [History] traZODone [TraZODone] 50 mg PO HS 03/24/18 [History] BuPROPion SR (12 HR) [Wellbutrin SR] 150 mg PO DAILY 03/25/18 [History] Epoetin Ezequiel [Procrit] 3,000 unit SQ 3XW vial 04/17/18 [Rx] Allergies/Adverse Reactions: 3 Allergy/AdvReac Type Severity Reaction Status Date / Time No Known Allergies Allergy Verified 03/24/18 15:33 Date of admission: 03/24/18 19:37 Primary care physician: Isatu Zaman MD Consults: 03/25/18 08:00 Consult to Dialysis [CONS] ONCE 03/26/18 07:30 Consult to Dialysis [CONS] ONCE 03/26/18 08:14 Consult to Speech Therapy [CONS] Routine Comment: Evaluate, develop and implement POC Reason for Consult: pt with altered mental staus, some improvement, has been npo, please eval for appropriate diet at this time, thank you Call Completed: No 03/27/18 08:15 Consult to Dialysis [CONS] ONCE 03/27/18 18:29 Consult to Wound Care [CONS] Routine Reason for Consult: Stage 1 pressure injuries to L hip and R coccyx Time Notified: 17:00 Call Completed: Yes 03/28/18 13:18 Consult to Occupational Therapy [CONS] Routine Comment: Evaluate, develop and implement POC Reason for Consult: increased weakness during illness/hospital stay Does patient have active BEDREST order?: No Is patient medically & hemodynamically stable?: Yes Consult to Physical Therapy [CONS] Routine Comment: Evaluate, develop and implement POC Reason for Consult: increased weakness during hospital stay Does patient have active BEDREST order?: No Is patient medically & hemodynamically stable?: Yes 03/31/18 07:45 Consult to Dialysis [CONS] ONCE 04/02/18 07:45 Consult to Dialysis [CONS] ONCE 04/04/18 11:15 Consult to Dialysis [CONS] ONCE 04/05/18 16:20 Consult to Interventional Radiology [CONS] Routine Consulting Provider: Radiology Interventional Cols Reason for Consult: replace temp IJ with new permcath line Call Completed: No 04/07/18 08:15 Consult to Dialysis [CONS] ONCE 04/09/18 08:00 Consult to Dialysis [CONS] ONCE 04/11/18 09:30 Consult to Dialysis [CONS] ONCE 04/14/18 06:30 Consult to Dialysis [CONS] ONCE 04/16/18 07:30 Consult to Dialysis [CONS] ONCE Consult to Dialysis [CONS] ONCE Discharging clinician: Adalberto Ferrer Anticipated date of discharge: 04/17/18 - Constitutional Vitals: Temp Pulse Resp BP Pulse Ox 98.7 F 99 19 134/65 97 04/17/18 16:19 04/17/18 16:19 04/17/18 16:19 04/17/18 16:19 04/17/18 16:19 General appearance: Present: A&O X 1, no acute distress Exam: xx - Patient Status Disposition: Transfer SNF Condition: Fair Functional capacity at discharge: bed bound Overall status at discharge: patient is back to baseline - Discharge Instructions Instructions: Acute Kidney Injury (DC), Urinary Tract Infection in Men (DC), Depression (DC), Chronic Hypertension (DC), Anemia (GEN) Follow Up With: Isatu Zaman MD [Primary Care Provider] - Additional Instructions: HEMODIALYSIS -- 3 TIMES A WEEK.. - Diet and Activity Activity: other (BED-BOUND) Diet: regular diet - VTE Deep Vein Thrombosis/Pulmonary Embolism Present on Admission: No
--- NOTE | 2018-04-17 17:44 | Physician Discharge Referral ---
ExtendedCare Referral Info Transfer To: [facility] Provider in Charge: Rayshawn Ferrer MD Provider in Charge after Transfer: Other (an F physician..) - Diagnosis (1) Acute kidney injury superimposed on chronic kidney disease Priority: Primary Status: Acute (2) PKD (polycystic kidney disease) Priority: Primary Status: Chronic (3) Hypertension Priority: Secondary Status: Chronic (4) Anemia Priority: Secondary Status: Chronic (5) Cerebral palsy Priority: Secondary Status: Chronic (6) Depression Priority: Secondary Status: Chronic - Transfer Medications Home Medications: Acetaminophen [Tylenol] 1,000 mg PO Q4HR 03/24/18 [History] Baclofen [Lioresal] 10 mg PO BID 03/24/18 [History] Cholecalciferol (D-3) [Vitamin D] 1,000 unit PO DAILY 03/24/18 [History] EPINEPHrine [Epipen] 0.3 mg IM ONCE PRN 03/24/18 [History] Epinastine HCl [Elestat] 1 drop OP BID 03/24/18 [History] Losartan Potassium [Cozaar] 100 mg PO DAILY 03/24/18 [History] NIFEdipine [Nifedipine ER] 30 mg PO DAILY 03/24/18 [History] Ranitidine HCl [Acid Damage Prevention Coordinator] 150 mg PO BID 03/24/18 [History] Sertraline [Zoloft] 200 mg PO DAILY 03/24/18 [History] Tamsulosin [Flomax] 0.4 mg PO DAILY 03/24/18 [History] Travoprost [Travatan Z] 1 drop OP QPM 03/24/18 [History] traZODone [TraZODone] 50 mg PO HS 03/24/18 [History] BuPROPion SR (12 HR) [Wellbutrin SR] 150 mg PO DAILY 03/25/18 [History] Epoetin Ezequiel [Procrit] 3,000 unit SQ 3XW vial 04/17/18 [Rx] Allergies/Adverse Reactions: 3 Allergy/AdvReac Type Severity Reaction Status Date / Time No Known Allergies Allergy Verified 03/24/18 15:33 - Respiratory Orders None Smoking Cessation: Smoking cessation has been advised. For more information, call the [place] Tobacco Quit Line at 4-300-BZIQ-NOW. - Mobility Orders Other (Bed-bound..) - Rehabiliation Orders Rehab Potential: Poor - Diet Orders Regular CERTIFICATION: I certify that the transfer of the above named patient to an Extended Care Facility is necessary for the continuing treatment of the diagnosis listed. The above information is true and accurate reflection of patient's current condition. Confidential - Redisclosure prohibited without a patient's written consent.
== END 2018-04-17 19:20 | DRG 673 ==
LOC: EMEROOARM 13:45 → 2ANU 19:37 → SUATTDRO 19:37 → 2ANU 21:20
PROVIDERS: ADMIT Internal Medicine; ATTEND Internal Medicine
PROC: IRPERMA (2018-04-06 14:00)

== ENCOUNTER 2018-09-26 09:16 | Observation (INO) ==
[2018-09-26 10:04] LABS: Basophils % 0.4 %; Eosinophils # 0.1 K/mcL (0.0-0.6); Eosinophils % 1.5 %; Hematocrit 38.5 % (37.5-50.1); Hemoglobin 12.2 g/dL (12.9-16.9); Immature Granulocytes % 0.2 % (0-4); Lymphocytes # 1.2 K/mcL (0.6-4.6); Lymphocytes % 25.4 %; Mean Corpuscular HGB Conc 31.7 g/dL (31.6-35.5); Mean Corpuscular Hemoglobin 32.3 pg (28.0-33.3); Mean Corpuscular Volume 101.9 fL (83.0-100.0); Mean Platelet Volume 8.2 fL (9.4-12.4); Monocytes # 0.4 K/mcL (0.0-1.3); Monocytes % 8.2 %; Neutrophils # 2.9 K/mcL (1.6-8.9); Platelet Count 121 K/mcL (140-400); Red Blood Count 3.78 M/mcL (4.19-5.50); Red Cell Distribution Width 17.2 % (11.5-14.5); Segmented Neutrophils % 64.3 %
[2018-09-26 10:15] LABS: Prothrombin Time 10.9 Seconds (9.4-12.1)
--- NOTE | 2018-09-26 10:15 | Emergency Department Note ---
Disposition Clinical Impression: Chest pain Qualifiers: Chest pain type: unspecified Qualified Code(s): R07.9 - Chest pain, unspecified Disposition: Admitted As Inpatient Condition: Good Referrals: Isatu Zaman MD [Primary Care Provider] - Forms: ED Satisfaction Letter Chest Pain HPI - General Chief Complaint: ED Chest Pain Stated Complaint: CP Time Seen by Provider: 09/26/18 09:18 Source: patient, EMS Mode of arrival: EMS Limitations: language barrier, physical limitation Vital Signs Reviewed: Yes Nursing Notes Reviewed: Yes - History of Present Illness HPI Narrative: 48-year-old male presents from dialysis due to chest pain. History is limited as the patient is a poor historian however he was complaining to staff there of chest pain after having dialysis. He was given 2 nitroglycerin in route however it is difficult to ascertain whether or not this improved his symptoms. He answers yes to most questions that I ask him. 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 Onset: other (After dialysis) Severity scale (1-10): 5 Improves with: nothing Worsens with: nothing Treatments prior to arrival chest pain: nitroglycerin - Related Data Home Medications Medication Instructions Recorded Confirmed Acetaminophen [Tylenol] 1,000 mg PO Q4HR 03/24/18 03/24/18 Baclofen [Lioresal] 10 mg PO BID 03/24/18 03/24/18 Cholecalciferol (D-3) [Vitamin D] 1,000 unit PO DAILY 03/24/18 03/24/18 EPINEPHrine [Epipen] 0.3 mg IM ONCE PRN 03/24/18 03/24/18 Epinastine HCl [Elestat] 1 drop OP BID 03/24/18 03/24/18 Losartan Potassium [Cozaar] 100 mg PO DAILY 03/24/18 03/24/18 NIFEdipine [Nifedipine ER] 30 mg PO DAILY 03/24/18 03/24/18 Ranitidine HCl [Acid Hose Operator] 150 mg PO BID 03/24/18 03/24/18 Sertraline [Zoloft] 200 mg PO DAILY 03/24/18 03/24/18 Tamsulosin [Flomax] 0.4 mg PO DAILY 03/24/18 03/24/18 Travoprost [Travatan Z] 1 drop OP QPM 03/24/18 03/24/18 traZODone [TraZODone] 50 mg PO HS 03/24/18 03/24/18 BuPROPion SR (12 HR) [Wellbutrin 150 mg PO DAILY 03/25/18 03/25/18 SR] Previous Rx's Medication Instructions Recorded Epoetin Ezequiel [Procrit] 3,000 unit SQ 3XW vial 04/17/18 Allergies Allergy/AdvReac Type Severity Reaction Status Date / Time No Known Allergies Allergy Verified 03/24/18 15:33 Limitations: ROS unobtainable due to patients medical condition Chest Pain PMH - Past Medical History Medical history: Reports: dialysis, renal disease, other Psychiatric history: Reports: no psych history - Social History Smoking Status: Unknown if ever smoked Alcohol use: Reports: none Drug use: Reports: none Physical Exam - General Limitations: language barrier, physical limitation General appearance: alert, in no apparent distress - Head Head exam: atraumatic, normocephalic, normal inspection - Eye Eye exam: Present: normal appearance - ENT ENT exam: normal exam - Neck Neck exam: Present: normal inspection - Chest Chest inspection: Present: normal inspection, symmetric chest wall rise - Respiratory Respiratory exam: Present: normal lung sounds bilaterally - Cardiovascular Cardiovascular exam: Present: regular rate, normal rhythm, normal heart sounds - Abdominal Exam Abdominal exam: Present: soft, Non-Tender. Absent: tenderness, distention, rigidity - Extremities Exam Extremities exam: Present: normal inspection - Expanded Upper Extremity Exam Shoulder exam: Present: normal inspection Arm exam: Present: normal inspection Elbow exam: Present: normal inspection Forearm/Wrist exam: Present: normal inspection Hand exam: Present: normal inspection - Expanded Lower Extremity Exam Hip/Pelvis exam: Present: normal inspection Upper leg exam: Present: normal inspection Knee exam: Present: normal inspection Lower leg exam: Present: normal inspection Ankle exam: Present: normal inspection Foot/toe exam: Present: normal inspection - Skin Skin exam: Present: warm, dry Course Course Narrative: Patient seen and examined. Vital signs reviewed. The patient is a very poor historian. We will get an EKG, chest x-ray as well as labs. I reviewed the patient's previous admission. I see no history of coronary artery disease. We will give him an aspirin as well. Vital Signs Temperature 98.6 F 09/26/18 09:20 Pulse Rate 86 09/26/18 09:20 Respiratory Rate 20 09/26/18 09:20 Blood Pressure 115/85 09/26/18 09:20 O2 Sat by Pulse Oximetry 98 09/26/18 09:20 Temperature 98.6 F 09/26/18 09:20 Pulse Rate 77 09/26/18 10:03 Respiratory Rate 18 09/26/18 10:03 Blood Pressure 128/90 09/26/18 10:03 O2 Sat by Pulse Oximetry 95 09/26/18 10:03 Oxygen Delivery Oxygen Delivery Room Air Chest Pain - MDM Narrative Medical decision making narrative: 48-year-old male with renal failure and cerebral palsy presenting with chest pain. EKG is nonischemic here. Labs are grossly unremarkable with the exce ption of his chronic kidney disease. Patient received nitroglycerin from prior to arrival as well as aspirin here. Chest x-ray is unremarkable. The patient is a very poor historian. He has a heart score of 34. Given no prior history of workup plan to admit for chest pain rule out. - Lab Data Lab results reviewed: Yes I reviewed the patient's lab results. Result diagrams: 09/26/18 09:32 09/26/18 09:32 Lab Results 09/26/18 09/26/18 09/26/18 Range/Units 09:32 09:32 09:32 WBC 4.5 (4.3-11.1) K/mcL RBC 3.78 L (4.19-5.50) M/mcL Hgb 12.2 L (12.9-16.9) g/dL Hct 38.5 (37.5-50.1) % MCV 101.9 H (83.0-100.0) fL MCH 32.3 (28.0-33.3) pg MCHC 31.7 (31.6-35.5) g/dL RDW 17.2 H (11.5-14.5) % Plt Count 121 L (140-400) K/mcL MPV 8.2 L (9.4-12.4) fL Immature Gran % 0.2 (0-4) % Seg Neutrophils % 64.3 % Lymphocytes % 25.4 % Monocytes % 8.2 % Eosinophils % 1.5 % Basophils % 0.4 % Neutrophils # 2.9 (1.6-8.9) K/mcL Lymphocytes # 1.2 (0.6-4.6) K/mcL Monocytes # 0.4 (0.0-1.3) K/mcL Eosinophils # 0.1 (0.0-0.6) K/mcL Basophils # 0.0 (0.0-0.2) K/mcL PT 10.9 (9.4-12.1) Seconds INR 1.0 APTT 39.0 H (26.0-36.0) Seconds Sodium (136-145) mEq/L Potassium (3.5-5.1) mEq/L Chloride (98-107) mEq/L Carbon Dioxide (23-29) mEq/L BUN (6-20) mg/dL Creatinine (0.70-1.30) mg/dL Est GFR ( Amer) (> 60) Est GFR (Non-Af Amer) (> 60) BUN/Creatinine Ratio (6-26) Glucose (70-105) mg/dL Calculated Osmolality (280-300) Calcium (8.6-10.3) mg/dL Troponin I (< 0.04) ng/mL B-Natriuretic Peptide 49 (Less than 100) pg/mL 09/26/18 Range/Units 09:32 WBC (4.3-11.1) K/mcL RBC (4.19-5.50) M/mcL Hgb (12.9-16.9) g/dL Hct (37.5-50.1) % MCV (83.0-100.0) fL MCH (28.0-33.3) pg MCHC (31.6-35.5) g/dL RDW (11.5-14.5) % Plt Count (140-400) K/mcL MPV (9.4-12.4) fL Immature Gran % (0-4) % Seg Neutrophils % % Lymphocytes % % Monocytes % % Eosinophils % % Basophils % % Neutrophils # (1.6-8.9) K/mcL Lymphocytes # (0.6-4.6) K/mcL Monocytes # (0.0-1.3) K/mcL Eosinophils # (0.0-0.6) K/mcL Basophils # (0.0-0.2) K/mcL PT (9.4-12.1) Seconds INR APTT (26.0-36.0) Seconds Sodium 142 (136-145) mEq/L Potassium 4.1 (3.5-5.1) mEq/L Chloride 105 (98-107) mEq/L Carbon Dioxide 31 H (23-29) mEq/L BUN 24 H (6-20) mg/dL Creatinine 3.13 H (0.70-1.30) mg/dL Est GFR ( Amer) 26 L (> 60) Est GFR (Non-Af Amer) 22 L (> 60) BUN/Creatinine Ratio 8 (6-26) Glucose 83 (70-105) mg/dL Calculated Osmolality 297 (280-300) Calcium 8.0 L (8.6-10.3) mg/dL Troponin I < 0.03 (< 0.04) ng/mL B-Natriuretic Peptide (Less than 100) pg/mL - Radiology Data Radiology results reviewed: Yes I reviewed the patient's radiology results. Chest X-Ray 09/26/18 09:21 IMPRESSION: No acute findings. D/ / Lamberto Gagnon MD / Lamberto Gagnon MD Interpreting Provider: Lamberto Gagnon MD - EKG Data EKG attestation: Yes I reviewed and interpreted this EKG. EKG results narrative: EKG demonstrates sinus rhythm with a rate of 82 bpm. Normal axis. Normal intervals. Normal R-wave progression. No gross ST elevations or depressions. No acute ischemic findings. No significant changes from previous EKG dated 03/24/18. Heart Score - Score History: Moderately Suspicious EKG: Normal Age: 45-65 Risk Factors: 1-2 risk factors Troponin: Less than normal limit HEART Score Total: 3 S.B.A.R. - S.B.A.R. Situation: Demographics, MOA Background: Presenting Complaint, Relevant PMH, Meds, & Allergies Assessment: Course and respsone to treatment, Exam Concerns, Patient/Family Expectation, Pertinant Lab Results Recommendation: Barrier(s) to disposition, Recommendation based on pending studies, treatments, or consults S.B.A.R. Report Given to: Dr. Rivera S.B.A.RBrittany Repor Time: 11:58 Attestation Statement - Attestation Attestation: Angel Dai, examined this patient and my medical decision-making was reviewed with the LOSS PREVENTION ASSOCIATE/PA/Advanced Practice Nurse/Resident Physician. I agree with the documented findings, disposition and treatment plan as described except to the extent set forth below. 48-year-old male presents emergency Department with concerns of chest pain. Patient has a history of cerebral palsy, was at the dialysis session when he started having acute onset of chest pain. Patient is unable to give a history regarding his case and presentation secondary to his cerebral palsy, he received nitroglycerin prior to arrival and states that his chest pain did improve. EKG did not show evidence of STEMI. Initial troponin was negative. Patient has a heart score of 4. Patient will likely be admitted to the hospitalist for further care and evaluation.
[2018-09-26 10:40] LABS: BUN/Creatinine Ratio 8 (6-26); Blood Urea Nitrogen 24 mg/dL (6-20); Carbon Dioxide 31 mEq/L (23-29); Chloride 105 mEq/L (98-107); Glucose 83 mg/dL (70-105); Osmolality,Calculated 297 (280-300); Potassium 4.1 mEq/L (3.5-5.1); Sodium 142 mEq/L (136-145); Troponin I < 0.03 ng/mL (< 0.04); eGFR For Non-African Americans 22 (> 60)
[2018-09-26] MEDS ORDERED: Aspirin 325 MG TABLET PO ONE (10:59)
--- NOTE | 2018-09-26 14:54 | Internal Med History&Physical ---
Date of Encounter: 09/26/18 Time of Encounter: 14:40 Internal Medicine - H&P: HPI Chief complaint: Chest pain Admitted From: Emergency Dept History of present illness: Mr. Watters is a 48 year old male patient with a history of cerebral palsy, end- stage renal disease on hemodialysis due to polycystic kidney disease, who [facility] was brought to the ER with complaints of chest pain while he was receiving hemodialysis. Patient is unable to provide much history due to his underlying cerebral palsy. As such history has been obtained through review of ED records. Patient apparently complained of chest pain pointing to his chest and received 2 nitroglycerin tablets while he was being brought here. At this time he does continue to report some chest discomfort. Although he does not appear to be in severe pain. He does answer with yes to most questions with difficult to establish what symptoms he is really having. Past Med Surg Social Fam HX - Past Medical History Medical history: dialysis, renal disease, other Additional medical history: Cerebral palsy Psychiatric history: no psych history - Past Surgical History Additional surgical history: unknown - Social History Smoking Status: Unknown if ever smoked Smokeless Tobacco Status: No Alcohol use: none Drug use: none - Additional Family History Additional family history: Reviewed medical record. No significant family history reported Internal Medicine - H&P: Meds Acetaminophen [Tylenol] 1,000 mg PO Q4HR 03/24/18 [History] Baclofen [Lioresal] 10 mg PO BID 03/24/18 [History] Cholecalciferol (D-3) [Vitamin D] 1,000 unit PO DAILY 03/24/18 [History] EPINEPHrine [Epipen] 0.3 mg IM ONCE PRN 03/24/18 [History] Epinastine HCl [Elestat] 1 drop OP BID 03/24/18 [History] Losartan Potassium [Cozaar] 100 mg PO DAILY 03/24/18 [History] NIFEdipine [Nifedipine ER] 30 mg PO DAILY 03/24/18 [History] Ranitidine HCl [Acid Diversity Specialist] 150 mg PO BID 03/24/18 [History] Sertraline [Zoloft] 200 mg PO DAILY 03/24/18 [History] Tamsulosin [Flomax] 0.4 mg PO DAILY 03/24/18 [History] Travoprost [Travatan Z] 1 drop OP QPM 03/24/18 [History] traZODone [TraZODone] 50 mg PO HS 03/24/18 [History] BuPROPion SR (12 HR) [Wellbutrin SR] 150 mg PO DAILY 03/25/18 [History] Epoetin Ezequiel [Procrit] 3,000 unit SQ 3XW vial 04/17/18 [Rx] Allergy/AdvReac Type Severity Reaction Status Date / Time No Known Allergies Allergy Verified 03/24/18 15:33 ROS unobtainable: due to mental status All Systems PM: A 10-system review of systems was performed and is negative for pertinent findings except as documented above in the HPI. - Cardiovascular Cardiovascular ROS IM: chest pain - Constitutional Vitals: Temp Pulse Resp BP Pulse Ox 98.6 F 72 14 137/95 96 09/26/18 09:20 09/26/18 14:41 09/26/18 14:41 09/26/18 14:41 09/26/18 14:41 Exam: Recent with history of cerebral palsy. Answers yes to all questions but pointing towards his chest and reporting pain - Neck Neck exam general surgery: Present: supple, trachea midline. Absent: lymphadenopathy - Respiratory Respiratory exam: Present: CTAB. Absent: accessory muscle use, rales, rhonchi, wheezes - Cardiovascular Cardiovascular exam: Present: RRR, +S1, +S2. Absent: diastolic murmur, gallop, rubs, systolic murmur - GI/Abdominal GI/Abdominal exam: Present: normal bowel sounds, soft, no peritoneal signs. Absent: distended, tenderness - Extremities Exam Extremities exam: Present: warm, radial pulses palpable and symmetrical. Absent: calf tenderness, cyanotic, pedal edema - Neurological Exam Neurological exam: Present: speech deficit. Absent: facial droop Additional comments: Contractures and extremities noted Internal Med - H&P Results - Labs CBC & Chem 7: 09/26/18 09:32 09/26/18 09:32 Labs: Short CBC 09/26/18 Range/Units 09:32 WBC 4.5 (4.3-11.1) K/mcL Hgb 12.2 L (12.9-16.9) g/dL Hct 38.5 (37.5-50.1) % Plt Count 121 L (140-400) K/mcL Neutrophils # 2.9 (1.6-8.9) K/mcL BMP 09/26/18 09:32 Sodium 142 Potassium 4.1 Chloride 105 Carbon Dioxide 31 H BUN 24 H Creatinine 3.13 H Glucose 83 Calcium 8.0 L Cardiac Enzymes 09/26/18 Range/Units 09:32 Troponin I < 0.03 (< 0.04) ng/mL - Impressions ITS Impressions Chest X-Ray 09/26/18 09:21 IMPRESSION: No acute findings. D/ / Lamberto Gagnon MD / Lamberto Gagnon MD Interpreting Provider: Lamberto Gagnon MD - Assessment and Plan (1) Chest pain Current Visit: Yes Status: Acute Assessment and plan: Patient reporting chest pain. Central in location. Given his history of underlying end-stage renal disease and hypertension, he does remain at intermediate to high risk for coronary artery disease. Will obtain troponins. 2D echocardiogram. If troponins are negative, will schedule for stress test in the morning. Qualifiers: Chest pain type: other chest pain Qualified Code(s): R07.89 - Other chest pain; R07.8 - Other chest pain (2) End-stage renal disease on hemodialysis Current Visit: Yes Status: Chronic Assessment and plan: Patient gets dialyzed on Friday, , Friday schedule. He had dialysis done today. Unclear if he completed it. Creatinine 3.13. Potassium 4.1. No emergent indication for hemodialysis at this time. We will consult nephrology for dialysis as needed for his usual schedule. (3) Cerebral palsy Current Visit: Yes Status: Chronic Assessment and plan: Patient with history of cerebral palsy. Speech deficits present at baseline. We will continue supportive care. Fall precautions. Qualifiers: Cerebral palsy type: other type Qualified Code(s): G80.8 - Other cerebral palsy (4) Hypertension Current Visit: Yes Status: Chronic Assessment and plan: Blood pressure elevated initially. It is now improving. We will resume home medications. Qualifiers: Hypertension type: secondary to other renal disorders Qualified Code(s): I15.1 - Hypertension secondary to other renal disorders; N28.89 - Other specified disorders of kidney and ureter - Time Spent With Patient Total time spent is greater than 50% in coordination of care (as documented) at patient's floor/unit and/or counseling patient:
[2018-09-26] MEDS ORDERED: Naloxone 0.4 MG/ML INJ IVP PRN (14:59)
[2018-09-26] MEDS ORDERED: *HR* EPINEPHrine 1 MG/ML AMPUL IM PRN (15:10)
[2018-09-26] MEDS: NIFEdipine XL (24 HR) 30 MG TAB.ER.24 PO SCH (17:34)
[2018-09-26] MEDS: Famotidine 20 MG TABLET PO SCH (20:59)
[2018-09-26] MEDS: Baclofen 10 MG TABLET PO SCH (20:59)
[2018-09-26] MEDS: traZODone 50 MG TABLET PO SCH (20:59)
[2018-09-27] MEDS ORDERED: Regadenoson 0.4 MG/5 ML SYRINGE IVP ONE (07:05)
[2018-09-27 07:52] LABS: Basophils % 0.5 %; Eosinophils # 0.1 K/mcL (0.0-0.6); Eosinophils % 2.8 %; Hematocrit 41.4 % (37.5-50.1); Hemoglobin 12.9 g/dL (12.9-16.9); Immature Granulocytes % 0.3 % (0-4); Lymphocytes # 1.1 K/mcL (0.6-4.6); Lymphocytes % 28.9 %; Mean Corpuscular HGB Conc 31.2 g/dL (31.6-35.5); Mean Corpuscular Hemoglobin 31.9 pg (28.0-33.3); Mean Corpuscular Volume 102.5 fL (83.0-100.0); Mean Platelet Volume 8.7 fL (9.4-12.4); Monocytes # 0.4 K/mcL (0.0-1.3); Monocytes % 9.3 %; Neutrophils # 2.3 K/mcL (1.6-8.9); Platelet Count 136 K/mcL (140-400); Red Blood Count 4.04 M/mcL (4.19-5.50); Red Cell Distribution Width 16.1 % (11.5-14.5); Segmented Neutrophils % 58.2 %
[2018-09-27 08:07] LABS: Calcium 9.2 mg/dL (8.6-10.3); Potassium 4.6 mEq/L (3.5-5.1)
[2018-09-27] MEDS ORDERED: NIFEdipine XL (24 HR) 30 MG TAB.ER.24 PO SCH (09:00)
[2018-09-27] MEDS: NIFEdipine XL (24 HR) 30 MG TAB.ER.24 PO SCH (09:47)
[2018-09-27] MEDS: Renal Vitamin 1 CAP CAPSULE PO SCH (09:47)
[2018-09-27] MEDS: Famotidine 20 MG TABLET PO SCH (09:47)
[2018-09-27] MEDS: Baclofen 10 MG TABLET PO SCH ×2 (09:47→20:58)
[2018-09-27] MEDS: BuPROPion SR (12 HR) 150 MG TABLET PO SCH (09:47)
[2018-09-27] MEDS: Cholecalciferol (D-3) 1,000 UNIT TABLET PO SCH (09:47)
--- NOTE | 2018-09-27 14:39 | Internal Med Progress Note ---
Hospitalist Progress Note - Encounter Date of Encounter: 09/27/18 Time of Encounter: 11:15 - Subjective Interval History: Patient does describe chest pain again today. He was taken for stress test earlier this morning but consent was not able to be obtained from his guardian. As such stress test was canceled. He has not had any fevers or chills overn ight. No other complaints reported. - Exam Vitals: Temp Pulse Resp BP Pulse Ox 97.4 F L 98 20 144/76 98 09/27/18 11:37 09/27/18 11:37 09/27/18 11:37 09/27/18 11:37 09/27/18 11:37 Exam: General: Patient is alert, mild distress ENT: Mucous membranes moist Respiratory: Good respiratory effort. Normal breath sounds. No wheezing or crackles. Cardiovascular: Regular rate and rhythm. s1 and s2 normal No clicks, rubs, gallops, or murmurs. No pedal edema Abdomen: Abdomen is soft, nontender. Bowel sounds are present Musculoskeletal: Patient has contractures in lower extremities but is able to manage himself with spontaneous and normal movements of his upper extremities Skin: warm, dry, intact. Neuro: Alert, normal cranial nerves, no focal deficits - Assessment and Plan (1) Chest pain Current Visit: Yes Status: Acute Assessment and Plan: Stress test has been postponed for now in order to obtain consent. Troponins have been negative. We will continue to monitor with telemetry. (2) End-stage renal disease on hemodialysis Current Visit: Yes Status: Chronic Assessment and Plan: Patient gets dialysis on Friday schedule. Will monitor renal function. (3) Cerebral palsy Current Visit: Yes Status: Chronic Assessment and Plan: Continue supportive care. Frequent repositioning. Fall precautions. (4) Hypertension Current Visit: Yes Status: Chronic Assessment and Plan: Blood pressure better controlled today. Continue Procardia and Losartan - Time Spent with Patient Total time spent is greater than 50% in coordination of care (as documented) at patient's floor/unit and/or counseling patient: Internal Medicine: Result - Labs CBC & Chem 7: 09/27/18 07:06 09/27/18 07:06 Labs: Short CBC 09/27/18 Range/Units 07:06 WBC 3.9 L (4.3-11.1) K/mcL Hgb 12.9 (12.9-16.9) g/dL Hct 41.4 (37.5-50.1) % Plt Count 136 L (140-400) K/mcL Neutrophils # 2.3 (1.6-8.9) K/mcL BMP 09/27/18 07:06 Sodium 141 Potassium 4.6 Chloride 104 Carbon Dioxide 29 BUN 42 H Creatinine 4.78 H Glucose 78 Calcium 9.2 Cardiac Enzymes 09/26/18 09/26/18 Range/Units 15:41 21:50 Troponin I < 0.03 < 0.03 (< 0.04) ng/mL - ABG Interpretation ABG results: PT/INR, D-dimer PT 10.9 Seconds (9.4-12.1) 09/26/18 09:32 Consult Discharge Plan - Plan Referrals: Isatu Zaman MD [Primary Care Provider] - (1) Chest pain Qualifiers: Chest pain type: other chest pain Qualified Code(s): R07.89 - Other chest pain; R07.8 - Other chest pain (3) Cerebral palsy Qualifiers: Cerebral palsy type: other type Qualified Code(s): G80.8 - Other cerebral palsy (4) Hypertension Qualifiers: Hypertension type: secondary to other renal disorders Qualified Code(s): I15.1 - Hypertension secondary to other renal disorders; N28.89 - Other specified disorders of kidney and ureter
[2018-09-27] MEDS: *HR* Heparin 5,000 UNIT/ML VIAL SQ SCH (17:21)
[2018-09-27] MEDS: traZODone 50 MG TABLET PO SCH (20:57)
[2018-09-28 05:22] LABS: Calcium 8.3 mg/dL (8.6-10.3)
[2018-09-28] MEDS: *HR* Heparin 5,000 UNIT/ML VIAL SQ SCH ×2 (05:43→16:52)
[2018-09-28] MEDS ORDERED: Regadenoson 0.4 MG/5 ML SYRINGE IVP ONE (05:57)
[2018-09-28] MEDS ORDERED: 0.9 % Sodium Chloride 250 ML IVC PRN (06:56)
[2018-09-28] MEDS ORDERED: 0.9 % Sodium Chloride 1,000 ML PRIME SCH (07:00)
[2018-09-28] MEDS ORDERED: Famotidine 20 MG TABLET PO SCH (09:00)
[2018-09-28] MEDS ORDERED: *HR* Heparin 10,000 UNIT/10 ML VIAL IV PRN ×2 (09:39)
[2018-09-28] MEDS: Cholecalciferol (D-3) 1,000 UNIT TABLET PO SCH (11:50)
[2018-09-28] MEDS: BuPROPion SR (12 HR) 150 MG TABLET PO SCH (11:50)
[2018-09-28] MEDS: NIFEdipine XL (24 HR) 30 MG TAB.ER.24 PO SCH (11:50)
[2018-09-28] MEDS: Renal Vitamin 1 CAP CAPSULE PO SCH (11:50)
[2018-09-28] MEDS: Baclofen 10 MG TABLET PO SCH (11:51)
--- NOTE | 2018-09-28 12:53 | Nephrology Consult Note ---
Date of Encounter: 09/28/18 Time of Encounter: 09:30 Assessment and Plan (1) End-stage renal disease on hemodialysis Current Visit: Yes Status: Chronic Patient receives HD on TTS He only received a partial treatment on Friday due to his chest pain Will plan for HD today and then resume his normal schedule tomorrow if he is still in the hospital (2) PKD (polycystic kidney disease) Current Visit: No Status: Chronic (3) Chest pain Current Visit: Yes Status: Acute Stress test results pending Qualifiers: Chest pain type: other chest pain Qualified Code(s): R07.89 - Other chest pain; R07.8 - Other chest pain (4) Cerebral palsy Current Visit: Yes Status: Chronic Qualifiers: Cerebral palsy type: other type Qualified Code(s): G80.8 - Other cerebral palsy History of Present Illness - Reason for Consult Consult date: 09/28/18 end stage renal disease Requesting physician: Mike Rivera - Chief Complaint ESRD, chest pain - History of Present Illness Mr. Watters is a 48 yo WM well known to [facility] with PMH of ESRD on dialysis TTS, PKD, and cerebral palsy is admitted for chest pain. He was at dialysis on Friday when he was noted to have chest pain. His HD treatment was cut short and he was taken to the hospital. With his cerebral palsy there is limited history of the nature of the chest pain, but he has no history of CAD. EKG was normal sinus rhythm and troponins x3 are negative. Stress test results are pending. He responds with "yes" to most questions, including chest pain and nausea, but did say no to abdominal pain. With him only having a partial treatment on Friday, will plan for HD today and then resuming his regular schedule tomorrow. Past Med Surg Social Fam HX - Past Medical History Medical history: dialysis, renal disease, other Additional medical history: Cerebral palsy Psychiatric history: no psych history - Past Surgical History Additional surgical history: unknown - Social History Smoking Status: Unknown if ever smoked Smokeless Tobacco Status: No Alcohol use: none Drug use: none Medications and Allergies Baclofen [Lioresal] 10 mg PO BID 03/24/18 [History] Cholecalciferol (D-3) [Vitamin D] 1,000 unit PO DAILY 03/24/18 [History] EPINEPHrine [Epipen] 0.3 mg IM ONCE PRN 03/24/18 [History] Epinastine HCl [Elestat] 1 drop BOTH EYES BID 03/24/18 [History] Losartan Potassium [Cozaar] 100 mg PO DAILY 03/24/18 [History] NIFEdipine [Nifedipine ER] 30 mg PO DAILY 03/24/18 [History] Ranitidine HCl [Acid Concrete Block Plant Supervisor] 150 mg PO BID 03/24/18 [History] Sertraline [Zoloft] 100 mg PO DAILY 03/24/18 [History] Tamsulosin [Flomax] 0.4 mg PO DAILY 03/24/18 [History] Travoprost [Travatan Z] 1 drop BOTH EYES HS 03/24/18 [History] traZODone [TraZODone] 50 mg PO HS 03/24/18 [History] BuPROPion SR (12 HR) [Wellbutrin SR] 150 mg PO DAILY 03/25/18 [History] Carbamide Peroxide 5 drop BOTH EARS MO 09/26/18 [History] Folic Acid/Vit B Complex and C [Dialyvite Tablet] 1 each PO DAILY 09/26/18 [History] Sevelamer [Renvela] 2 tab PO TIDAC 09/26/18 [History] Allergy/AdvReac Type Severity Reaction Status Date / Time No Known Allergies Allergy Verified 03/24/18 15:33 Review of Systems All Systems: reviewed and no additional remarkable complaints except as stated Exam - Vital Signs Vital signs: Initial Vital Signs Temp Pulse Resp BP Pulse Ox 98.6 F 86 20 115/85 98 09/26/18 09:20 09/26/18 09:20 09/26/18 09:20 09/26/18 09:20 09/26/18 09:20 Vital Signs - Last 8 Hours Temp Pulse Resp BP Pulse Ox 09/28/18 11:16 98.7 F 84 16 136/86 98 09/28/18 07:27 97.9 F 84 16 146/83 99 Intake and Output 09/27/18 09/28/18 09/28/18 23:59 07:59 15:59 Intake Total 60 / 60 240 / 240 Balance 60 / 60 240 / 240 Intake: Oral 60 / 60 240 / 240 Other: Meal Lunch Percent of Meal Consumed 100% # Urine Diapers 1 1 1 Weight 54.1 kg - General Appearance General appearance: frail EENT: ATNC, mucous membranes moist Neck: supple Respiratory: clear Cardiology: no edema, regular rate, regular rhythm - Dialysis Access Dialysis Vascular Access: Venous Catheter (right permacath) Gastrointestinal: normoactive bowel sounds, no tenderness Integumentary: warm and dry Additional Comments: slow speech, contractures of extremities Musculoskeletal: no cyanosis, no clubbing Results - Lab Results 09/27/18 07:06 09/28/18 04:47 Most recent lab results Calcium 8.3 mg/dL (8.6-10.3) L 09/28/18 04:47 Consult Discharge Plan - Plan Referrals: Isatu Zaman MD [Primary Care Provider] -
[2018-09-28] MEDS ORDERED: Carbamide Peroxide 150 DROP/15 ML BOTTLE BOTH EARS SCH (15:10)
--- NOTE | 2018-09-28 15:20 | Discharge Summary ---
- NOTES TO OUTPATIENT PROVIDER Notes to Outpatient Provider: Patient with a history of cerebral palsy, end- stage renal disease on hemodialysis due to polycystic kidney disease who was hospitalized here after presenting from dialysis center with complaints of chest pain. His EKG was evaluated and was found to be in normal sinus rhythm. His troponins were negative. However given his comorbidities, he was observed in the hospital and his troponins were trended. He then underwent cardiac stress test today which was negative for ischemia. At this time patient is clinically stable to be discharged back to [facility]. He did receive hemodialysis today. He will continue to go to hemodialysis according to his usual schedule from tomorrow. Orders not resulted at time of discharge: Pending orders 09/27/18 07:00 NM akil perf SPECT multi [NM] Routine Date of Encounter: 09/28/18 Time of Encounter: 15:17 - Discharge Diagnosis (1) Chest pain Priority: Primary Status: Resolved Qualifiers: Chest pain type: other chest pain Qualified Code(s): R07.89 - Other chest pain; R07.8 - Other chest pain (2) End-stage renal disease on hemodialysis Priority: Secondary Status: Chronic (3) Cerebral palsy Priority: Secondary Status: Chronic Qualifiers: Cerebral palsy type: other type Qualified Code(s): G80.8 - Other cerebral palsy (4) Hypertension Priority: Secondary Status: Chronic Qualifiers: Hypertension type: secondary to other renal disorders Qualified Code(s): I15.1 - Hypertension secondary to other renal disorders; N28.89 - Other specified disorders of kidney and ureter Hospital course: Mr. Watters is a 48 year old male Patient with a history of cerebral palsy, end- stage renal disease on hemodialysis due to polycystic kidney disease who was hospitalized here after presenting from dialysis center with complaints of chest pain. His EKG was evaluated and was found to be in normal sinus rhythm. His troponins were negative. However given his comorbidities, he was observed in the hospital and his troponins were trended. He then underwent cardiac stress test today which was negative for ischemia. At this time patient is clinically stable to be discharged back to [facility]. He did receive hemodialysis today. He will continue to go to hemodialysis according to his usual schedule from tomorrow. Discharge discussed with: nurse, training consultant - Time Spent with Patient Total time spent providing and/or coordinating discharge services: Time spent: Less than 30 minutes (25min) - Discharge Medications Prescriptions: Continue Travoprost [Travatan Z] 1 drop BOTH EYES HS Epinastine HCl [Elestat] 1 drop BOTH EYES BID Sertraline [Zoloft] 100 mg PO DAILY Ranitidine HCl [Acid Food And Beverage Manager] 150 mg PO BID Cholecalciferol (D-3) [Vitamin D] 1,000 unit PO DAILY Baclofen [Lioresal] 10 mg PO BID Tamsulosin [Flomax] 0.4 mg PO DAILY NIFEdipine [Nifedipine ER] 30 mg PO DAILY Losartan Potassium [Cozaar] 100 mg PO DAILY EPINEPHrine [Epipen] 0.3 mg IM ONCE PRN PRN Reason: Anaphylaxis traZODone [TraZODone] 50 mg PO HS BuPROPion SR (12 HR) [Wellbutrin SR] 150 mg PO DAILY Carbamide Peroxide 5 drop BOTH EARS MO Sevelamer [Renvela] 2 tab PO TIDAC Folic Acid/Vit B Complex and C [Dialyvite Tablet] 1 each PO DAILY Home Medications: Baclofen [Lioresal] 10 mg PO BID 03/24/18 [History] Cholecalciferol (D-3) [Vitamin D] 1,000 unit PO DAILY 03/24/18 [History] EPINEPHrine [Epipen] 0.3 mg IM ONCE PRN 03/24/18 [History] Epinastine HCl [Elestat] 1 drop BOTH EYES BID 03/24/18 [History] Losartan Potassium [Cozaar] 100 mg PO DAILY 03/24/18 [History] NIFEdipine [Nifedipine ER] 30 mg PO DAILY 03/24/18 [History] Ranitidine HCl [Acid Food And Beverage Manager] 150 mg PO BID 03/24/18 [History] Sertraline [Zoloft] 100 mg PO DAILY 03/24/18 [History] Tamsulosin [Flomax] 0.4 mg PO DAILY 03/24/18 [History] Travoprost [Travatan Z] 1 drop BOTH EYES HS 03/24/18 [History] traZODone [TraZODone] 50 mg PO HS 03/24/18 [History] BuPROPion SR (12 HR) [Wellbutrin SR] 150 mg PO DAILY 03/25/18 [History] Carbamide Peroxide 5 drop BOTH EARS MO 09/26/18 [History] Folic Acid/Vit B Complex and C [Dialyvite Tablet] 1 each PO DAILY 09/26/18 [History] Sevelamer [Renvela] 2 tab PO TIDAC 09/26/18 [History] Allergies/Adverse Reactions: Allergy/AdvReac Type Severity Reaction Status Date / Time No Known Allergies Allergy Verified 03/24/18 15:33 Date of admission: 09/26/18 12:17 Primary care physician: Isatu Zaman MD Consults: 09/26/18 17:13 Consult to Nutrition [CONS] Routine Comment: Consulting Provider: NUTRITION Reason for Dietary Consult: MST Score 09/28/18 07:00 Consult to Dialysis [CONS] ONCE 09/28/18 09:31 Consult to Nurse Navigator [CONS] Routine Comment: hd 09/28/18 11:43 Consult to Nephrology [CONS] Routine Consulting Provider: Kidney Lita/PEDRO/JED/RAH Reason for Consult: esrd Call Completed: Yes Discharging clinician: Jf Vivas Anticipated date of discharge: 09/28/18 - Constitutional Vitals: Temp Pulse Resp BP Pulse Ox 98.7 F 84 16 136/86 98 09/28/18 11:16 09/28/18 11:16 09/28/18 11:16 09/28/18 11:16 09/28/18 11:16 General appearance: Present: cooperative, pleasant Exam: General: Patient is alert, speech impaired at baseline Respiratory: Good respiratory effort. Normal breath sounds. No wheezing or crackles. Cardiovascular: Regular rate and rhythm. s1 and s2 normal No clicks, rubs, gallops, or murmurs. No pedal edema Abdomen: Abdomen is soft, nontender. Bowel sounds are present Musculoskeletal: Contractures present mainly in lower extremities - Patient Status Disposition: Transfer SNF Condition: Good Functional capacity at discharge: bed bound Overall status at discharge: patient is progressing back to baseline - Discharge Instructions Instructions: Chronic Hypertension (DC) Follow Up With: Isatu Zaman MD [Primary Care Provider] - (in 1 week) - Diet and Activity Activity: as per physical therapy Diet: advance to your usual diet
--- NOTE | 2018-09-28 15:30 | Physician Discharge Referral ---
ExtendedCare Referral Info Provider in Charge after Transfer: PCP Institutional Level of Care: Skilled - Diagnosis (1) Chest pain Priority: Primary Status: Resolved (2) End-stage renal disease on hemodialysis Priority: Secondary Status: Chronic (3) Cerebral palsy Priority: Secondary Status: Chronic (4) Hypertension Priority: Secondary Status: Chronic Prognosis: Fair - Transfer Medications Home Medications: Baclofen [Lioresal] 10 mg PO BID 03/24/18 [History] Cholecalciferol (D-3) [Vitamin D] 1,000 unit PO DAILY 03/24/18 [History] EPINEPHrine [Epipen] 0.3 mg IM ONCE PRN 03/24/18 [History] Epinastine HCl [Elestat] 1 drop BOTH EYES BID 03/24/18 [History] Losartan Potassium [Cozaar] 100 mg PO DAILY 03/24/18 [History] NIFEdipine [Nifedipine ER] 30 mg PO DAILY 03/24/18 [History] Ranitidine HCl [Acid Trust And Estates Attorney] 150 mg PO BID 03/24/18 [History] Sertraline [Zoloft] 100 mg PO DAILY 03/24/18 [History] Tamsulosin [Flomax] 0.4 mg PO DAILY 03/24/18 [History] Travoprost [Travatan Z] 1 drop BOTH EYES HS 03/24/18 [History] traZODone [TraZODone] 50 mg PO HS 03/24/18 [History] BuPROPion SR (12 HR) [Wellbutrin SR] 150 mg PO DAILY 03/25/18 [History] Carbamide Peroxide 5 drop BOTH EARS MO 09/26/18 [History] Folic Acid/Vit B Complex and C [Dialyvite Tablet] 1 each PO DAILY 09/26/18 [History] Sevelamer [Renvela] 2 tab PO TIDAC 09/26/18 [History] Allergies/Adverse Reactions: Allergy/AdvReac Type Severity Reaction Status Date / Time No Known Allergies Allergy Verified 03/24/18 15:33 - Respiratory Orders Smoking Cessation: Smoking cessation has been advised. For more information, call the [place] Tobacco Quit Line at 5-499-UNXV-NOW. - Ancillary Orders May use pressure relief devices daily prn - Advance Directives Code Status: Full Code - Rehabiliation Orders Rehab Potential: Fair Rehab Orders: Evaluation for Physical Therapy, Evaluation for Occupational Therapy - Treatments Skin tear care topically daily PRN per policy - Diet Orders Cardiac CERTIFICATION: I certify that the transfer of the above named patient to an Extended Care Facility is necessary for the continuing treatment of the diagnosis listed. The above information is true and accurate reflection of patient's current condition. Confidential - Redisclosure prohibited without a patient's written consent.
[2018-09-28 17:50] VITALS: BP 123/96
[2018-09-28 18:18] LABS: Hepatitis B Surface Antibody 14.85 mIU/mL
[2018-09-28 18:29] LABS: Hepatitis B Surface Antigen Nonreactive (Nonreactive)
--- NOTE | 2018-09-30 17:23 | Electrocardiograph Report ---
[place] [id number] Test Date: 2018-09-26 Pat Name: Adrian Watters Department: EXAM6 Room: 2A71 Gender: M Ict Trainer: : 1970 Requested By: Chava Haney Order Number: [id number] Reading MD: Kathy Hidalgo Measurements Intervals [place] Rate: 83 P: 67 DC: 129 QRS: 81 QRSD: 93 T: 72 QT: 383 QTc: 450 Interpretive Statements Sinus rhythm Probable left atrial enlargement Electronically Signed On 09-30-2018 17:22:13 EDT by Kathy Hidalgo
[2018-09-30] MEDS ORDERED: Famotidine 20 MG TABLET PO SCH (21:00)
== END 2018-09-28 18:03 ==
LOC: 2ANU 09:16 → EMEROOARM 09:16 → 2ANU 15:27
PROVIDERS: ADMIT Internal Medicine; ATTEND Internal Medicine

== ENCOUNTER 2018-12-31 10:17 | Inpatient (IN) ==
--- NOTE | 2018-12-31 10:49 | Emergency Department Note ---
Disposition Clinical Impression: End-stage renal disease on hemodialysis, PKD (polycystic kidney disease), Kidney lesion Anemia Qualifiers: Anemia type: unspecified type Qualified Code(s): D64.9 - Anemia, unspecified Disposition: Admitted As Inpatient Condition: Fair Referrals: NONE,PCP [Primary Care Provider] - Forms: ED Satisfaction Letter, Work/School Release Time of Disposition: 13:31 General Adult HPI - General Chief complaint: ED General Medical Stated complaint: possible low hemoglobin Time Seen by Provider: 12/31/18 10:23 Source: patient, EMS Nursing Notes Reviewed: Yes Vital Signs Reviewed: Yes - History of Present Illness Pain Scale: 3 - Related Data Home Medications Medication Instructions Recorded Confirmed Baclofen [Lioresal] 10 mg PO BID 03/24/18 12/31/18 Cholecalciferol (D-3) [Vitamin D] 1,000 unit PO DAILY 03/24/18 12/31/18 EPINEPHrine [Epipen] 0.3 mg IM ONCE PRN 03/24/18 12/31/18 Epinastine HCl [Elestat] 1 drop BOTH EYES BID 03/24/18 12/31/18 Losartan Potassium [Cozaar] 100 mg PO DAILY 03/24/18 12/31/18 NIFEdipine [Nifedipine ER] 30 mg PO DAILY 03/24/18 12/31/18 Ranitidine HCl [Acid Mold Designer] 150 mg PO BID 03/24/18 12/31/18 Sertraline [Zoloft] 100 mg PO DAILY 03/24/18 12/31/18 Tamsulosin [Flomax] 0.4 mg PO DAILY 03/24/18 12/31/18 Travoprost [Travatan Z] 1 drop BOTH EYES HS 03/24/18 12/31/18 traZODone [TraZODone] 50 mg PO HS 03/24/18 12/31/18 BuPROPion SR (12 HR) [Wellbutrin 150 mg PO DAILY 03/25/18 12/31/18 SR] Carbamide Peroxide drop BOTH EARS MO 09/26/18 09/26/18 Folic Acid/Vit B Complex and C 1 each PO DAILY 09/26/18 12/31/18 [Dialyvite Tablet] Sevelamer [Renvela] 2 tab PO TIDAC 09/26/18 12/31/18 Acetaminophen [Tylenol] 650 mg PO Q4HR PRN 12/31/18 12/31/18 Allergies Allergy/AdvReac Type Severity Reaction Status Date / Time No Known Allergies Allergy Verified 03/24/18 15:33 Past Medical History - Past Medical History Medical history: Reports: dialysis, renal disease, other Psychiatric history: Reports: no psych history - Social History Smoking Status: Unknown if ever smoked Smokeless Tobacco Status: No Alcohol use: Reports: none Drug use: Reports: none Physical Exam - General General appearance: alert, in no apparent distress Course Vital Signs Temperature 97.5 F L 12/31/18 10:25 Pulse Rate 97 12/31/18 10:25 Respiratory Rate 16 12/31/18 10:25 Blood Pressure 111/90 12/31/18 10:25 O2 Sat by Pulse Oximetry 100 12/31/18 10:25 Temperature 97.5 F L 12/31/18 10:25 Pulse Rate 98 12/31/18 12:54 Respiratory Rate 12 12/31/18 12:54 Blood Pressure 113/63 12/31/18 12:54 O2 Sat by Pulse Oximetry 100 12/31/18 12:54 Oxygen Delivery Oxygen Delivery Nasal Cannula Medical Decision Making - [facility] Narrative Medical decision making narrative: Abdomen/Pelvis CT 12/31/18 10:50 IMPRESSION: Polycystic kidney disease with numerous simple, hemorrhagic or complex cysts. In particular, there is a 5.4 cm hemorrhagic lesion in the anterior aspect of the left kidney, possibly with hemorrhage extending to the left renal collecting system. Hyperdense material in the dependent portion of the bladder, particularly on the right, likely related to blood products. Recommend follow-up to resolution to exclude bladder wall mass. No definite left or right hydronephrosis or obstructive calculus. Moderate fecal material throughout the colon. Large amount of fecal material in the rectum. Rectal wall thickening, possibly with mild stercoral colitis. Airspace opacity at the posterior left lung base, likely related to dependent atelectasis. Early pneumonia is considered less likely. Stable 1.4 cm left adrenal nodule, incompletely evaluated, likely represent an adenoma. Follow-up is recommended. D/ / Melvin Bell MD / Melvin Bell MD Interpreting Provider: Melvin Bell MD 1300 hrs. we will administer blood. He has a urology consult. No Aguilera at this time and admission to hospitalist. - Lab Data Result diagrams: 12/31/18 11:02 12/31/18 11:02 Lab Results 12/31/18 12/31/18 12/31/18 Range/Units 11:02 11:02 11:02 WBC 4.0 L (4.3-11.1) K/mcL RBC 2.30 L (4.19-5.50) M/mcL Hgb 7.3 L (12.9-16.9) g/dL Hct 24.0 L (37.5-50.1) % MCV 104.3 H (83.0-100.0) fL MCH 31.7 (28.0-33.3) pg MCHC 30.4 L (31.6-35.5) g/dL RDW 13.1 (11.5-14.5) % Plt Count 189 (140-400) K/mcL MPV 8.2 L (9.4-12.4) fL Immature Gran % 0.5 (0-4) % Seg Neutrophils % 53.3 % Lymphocytes % 26.6 % Monocytes % 15.8 % Eosinophils % 3.5 % Basophils % 0.3 % Neutrophils # 2.1 (1.6-8.9) K/mcL Lymphocytes # 1.1 (0.6-4.6) K/mcL Monocytes # 0.6 (0.0-1.3) K/mcL Eosinophils # 0.1 (0.0-0.6) K/mcL Basophils # 0.0 (0.0-0.2) K/mcL Sodium 144 (136-145) mEq/L Potassium 4.0 (3.5-5.1) mEq/L Chloride 102 (98-107) mEq/L Carbon Dioxide 34 H (23-29) mEq/L BUN 26 H (6-20) mg/dL Creatinine 3.47 H (0.70-1.30) mg/dL Est GFR ( Amer) 23 L (> 60) Est GFR (Non-Af Amer) 19 L (> 60) BUN/Creatinine Ratio 7 (6-26) Glucose 78 (70-105) mg/dL Calculated Osmolality 302 H (280-300) Calcium 7.6 L (8.6-10.3) mg/dL Blood Type A POSITIVE Antibody Screen NEGATIVE Crossmatch See Detail Critical Care Time Critical Care Time: Yes Total Critical Care Time: 45 Attestation: Excluding any separately billable procedures. Attestation Statement - Attestation Attestation: This documentation is done with the assistance of Dragon dictation. Despite efforts made to ensure accuracy, there may be inaccuracies in electrical inspector or spelling and typographical errors. I examined this patient and my medical decision-making was reviewed with the Resident Physician. I agree with the documented findings, disposition and treatment plan as described except to the extent set forth below. Patient was seen and evaluated by Dr. Allen, I agree with their evaluation and management plan, I supervised care the patient's stay. Patient sent over from dialysis. He has end-stage renal disease and dialyzes on Friday and Friday. Patient has no complaints. They did note that he had a decline in his hemoglobin said they sent him over here. He has a diaper on at this point instilled with diluted blood. It appears this is coming from the penis and not from the rectum. We did send out of whack. We will speak with urology. Due the workup on him type and screen him and then reassess. He is in agreement with plan. I reviewed the residents documentation and agree with the residents assessment and plan of care. I have personally had face to face time with the patient. (Brief History, Brief Exam, and MDM) I personally supervised and was present for the oneal/critical portions of the following procedures completed by the resident: EKG was interpreted by the resident under my supervision, I agree with their interpretation.
[2018-12-31 11:22] LABS: Basophils % 0.3 %; Eosinophils # 0.1 K/mcL (0.0-0.6); Eosinophils % 3.5 %; Hemoglobin 7.3 g/dL (12.9-16.9); Immature Granulocytes % 0.5 % (0-4); Lymphocytes # 1.1 K/mcL (0.6-4.6); Lymphocytes % 26.6 %; Mean Corpuscular HGB Conc 30.4 g/dL (31.6-35.5); Mean Corpuscular Hemoglobin 31.7 pg (28.0-33.3); Mean Corpuscular Volume 104.3 fL (83.0-100.0); Mean Platelet Volume 8.2 fL (9.4-12.4); Monocytes # 0.6 K/mcL (0.0-1.3); Monocytes % 15.8 %; Neutrophils # 2.1 K/mcL (1.6-8.9); Platelet Count 189 K/mcL (140-400); Red Cell Distribution Width 13.1 % (11.5-14.5); Segmented Neutrophils % 53.3 %
--- NOTE | 2018-12-31 11:29 | Emergency Department Note ---
Disposition Clinical Impression: End-stage renal disease on hemodialysis, PKD (polycystic kidney disease), Kidney lesion Anemia Qualifiers: Anemia type: unspecified type Qualified Code(s): D64.9 - Anemia, unspecified Disposition: Admitted As Inpatient Condition: Fair Referrals: NONE,PCP [Primary Care Provider] - Forms: ED Satisfaction Letter, Work/School Release Time of Disposition: 13:02 General Adult HPI - General Chief complaint: ED General Medical Stated complaint: possible low hemoglobin Time Seen by Provider: 12/31/18 10:23 Source: patient, EMS Mode of arrival: ambulatory Limitations: no limitations Nursing Notes Reviewed: Yes Vital Signs Reviewed: Yes - History of Present Illness HPI Narrative: 48-year-old male history of end-stage renal disease 3 days a week dialysis presents to the emergency department with low hemoglobin. He was at dialysis center today they did check his hemogram said it dropped down to 7.3 worried 2 days ago he was normal. He noticed that they did have bright red blood in his diaper unsure is coming from. He did complete dialysis today. Patient does have history of cerebral palsy is difficult to get further history from the patient but based on chart review last saw urology in 2012 otherwise nothing else on exam. Pain Scale: 3 - Related Data Home Medications Medication Instructions Recorded Confirmed Baclofen [Lioresal] 10 mg PO BID 03/24/18 12/31/18 Cholecalciferol (D-3) [Vitamin D] 1,000 unit PO DAILY 03/24/18 12/31/18 EPINEPHrine [Epipen] 0.3 mg IM ONCE PRN 03/24/18 12/31/18 Epinastine HCl [Elestat] 1 drop BOTH EYES BID 03/24/18 12/31/18 Losartan Potassium [Cozaar] 100 mg PO DAILY 03/24/18 12/31/18 NIFEdipine [Nifedipine ER] 30 mg PO DAILY 03/24/18 12/31/18 Ranitidine HCl [Acid Spot Worker] 150 mg PO BID 03/24/18 12/31/18 Sertraline [Zoloft] 100 mg PO DAILY 03/24/18 12/31/18 Tamsulosin [Flomax] 0.4 mg PO DAILY 03/24/18 12/31/18 Travoprost [Travatan Z] 1 drop BOTH EYES HS 03/24/18 12/31/18 traZODone [TraZODone] 50 mg PO HS 03/24/18 12/31/18 BuPROPion SR (12 HR) [Wellbutrin 150 mg PO DAILY 03/25/18 12/31/18 SR] Carbamide Peroxide drop BOTH EARS MO 09/26/18 09/26/18 Folic Acid/Vit B Complex and C 1 each PO DAILY 09/26/18 12/31/18 [Dialyvite Tablet] Sevelamer [Renvela] 2 tab PO TIDAC 09/26/18 12/31/18 Acetaminophen [Tylenol] 650 mg PO Q4HR PRN 12/31/18 12/31/18 Allergies Allergy/AdvReac Type Severity Reaction Status Date / Time No Known Allergies Allergy Verified 03/24/18 15:33 All systems ED: reviewed and negative except as stated. Review of Systems: As Per HPI Past Medical History - Past Medical History Attestation: Yes The following information was validated with the patient. Source: patient Medical history: Reports: dialysis, renal disease, other Psychiatric history: Reports: no psych history - Social History Smoking Status: Unknown if ever smoked Smokeless Tobacco Status: No Alcohol use: Reports: none Drug use: Reports: none Physical Exam - General General appearance: alert, in no apparent distress - Head Head exam: atraumatic, normocephalic, normal inspection - Eye Eye exam: Present: normal appearance, PERRL, EOMI - ENT ENT exam: normal exam, normal oropharynx, mucous membranes moist - Neck Neck exam: Present: normal inspection, full ROM, trachea midline - Chest Chest inspection: Present: normal inspection, symmetric chest wall rise - Respiratory Respiratory exam: Present: normal lung sounds bilaterally - Cardiovascular Cardiovascular exam: Present: regular rate, normal rhythm, normal heart sounds - Abdominal Exam Abdominal exam: Present: soft, Non-Tender, normal bowel sounds. Absent: tenderness, distention, guarding, rebound, rigidity - Rectal Exam Rectal exam: Present: normal inspection, normal rectal tone, heme (-) stool, hemorrhoids - Male exam: Present: other (There is blood at urethral meatus.) - Extremities Exam Extremities exam: Present: normal inspection, full ROM. Absent: tenderness, pedal edema - Back Exam Back exam: Present: normal inspection, full ROM. Absent: tenderness - Neurological Exam Neurological exam: Present: alert, oriented X3 Course Course Narrative: Patient does have low hemoglobin. We did speak with urology poke with their physician business assistant who recommended holding off on catheterization at this time recommended CT the abdomen and pelvis without contrast. We will get basic labs getting CBC BMP as well as urinalysis will also get Hemoccult. Patient will also be typed and screened and jimenez give him one unit of blood at this time. Patient okay with this plan. Most likely disposition will be admission with urology consultation. Vital Signs Temperature 97.5 F L 12/31/18 10:25 Pulse Rate 97 12/31/18 10:25 Respiratory Rate 16 12/31/18 10:25 Blood Pressure 111/90 12/31/18 10:25 O2 Sat by Pulse Oximetry 100 12/31/18 10:25 Temperature 97.5 F L 12/31/18 10:25 Pulse Rate 98 12/31/18 12:54 Respiratory Rate 12 12/31/18 12:54 Blood Pressure 113/63 12/31/18 12:54 O2 Sat by Pulse Oximetry 100 12/31/18 12:54 Oxygen Delivery Oxygen Delivery Nasal Cannula Medical Decision Making - [facility] Narrative Medical decision making narrative: 48-year-old male presents to the emergency department for blood in the urine as well as low hemoglobin. 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 There was blood urethral meatus. Unable to get urine from I did consult with urology recommended CAT scan they said they will see the patient once he gets admitted. Patient's hemoglobin was 7.3 here as well. We will give one unit of blood per hospitalist recommendations. I did speak with nephrology and said they will consult with the patient as well. Patient did receive his full dialysis today. We did not place a catheter in the patient as urology said they will consider doing a later and possibly flushing out to get the blood clot that was found in his bladder. Patient is admitted to the hospital service the accepting physician is Dr. Smith . Abdomen/Pelvis CT 12/31/18 10:50 IMPRESSION: Polycystic kidney disease with numerous simple, hemorrhagic or complex cysts. In particular, there is a 5.4 cm hemorrhagic lesion in the anterior aspect of the left kidney, possibly with hemorrhage extending to the left renal collecting system. Hyperdense material in the dependent portion of the bladder, particularly on the right, likely related to blood products. Recommend follow-up to resolution to exclude bladder wall mass. No definite left or right hydronephrosis or obstructive calculus. Moderate fecal material throughout the colon. Large amount of fecal material in the rectum. Rectal wall thickening, possibly with mild stercoral colitis. Airspace opacity at the posterior left lung base, likely related to dependent atelectasis. Early pneumonia is considered less likely. Stable 1.4 cm left adrenal nodule, incompletely evaluated, likely represent an adenoma. Follow-up is recommended. D/ / Melvin Bell MD / Melvin Bell MD Interpreting Provider: Melvin Bell MD - Medical Records Medical records reviewed: Yes I reviewed the patient's medical records. - Lab Data Lab results reviewed: Yes I reviewed the patient's lab results. Result diagrams: 12/31/18 11:02 12/31/18 11:02 Lab Results 12/31/18 12/31/18 12/31/18 Range/Units 11:02 11:02 11:02 WBC 4.0 L (4.3-11.1) K/mcL RBC 2.30 L (4.19-5.50) M/mcL Hgb 7.3 L (12.9-16.9) g/dL Hct 24.0 L (37.5-50.1) % MCV 104.3 H (83.0-100.0) fL MCH 31.7 (28.0-33.3) pg MCHC 30.4 L (31.6-35.5) g/dL RDW 13.1 (11.5-14.5) % Plt Count 189 (140-400) K/mcL MPV 8.2 L (9.4-12.4) fL Immature Gran % 0.5 (0-4) % Seg Neutrophils % 53.3 % Lymphocytes % 26.6 % Monocytes % 15.8 % Eosinophils % 3.5 % Basophils % 0.3 % Neutrophils # 2.1 (1.6-8.9) K/mcL Lymphocytes # 1.1 (0.6-4.6) K/mcL Monocytes # 0.6 (0.0-1.3) K/mcL Eosinophils # 0.1 (0.0-0.6) K/mcL Basophils # 0.0 (0.0-0.2) K/mcL Sodium 144 (136-145) mEq/L Potassium 4.0 (3.5-5.1) mEq/L Chloride 102 (98-107) mEq/L Carbon Dioxide 34 H (23-29) mEq/L BUN 26 H (6-20) mg/dL Creatinine 3.47 H (0.70-1.30) mg/dL Est GFR ( Amer) 23 L (> 60) Est GFR (Non-Af Amer) 19 L (> 60) BUN/Creatinine Ratio 7 (6-26) Glucose 78 (70-105) mg/dL Calculated Osmolality 302 H (280-300) Calcium 7.6 L (8.6-10.3) mg/dL Blood Type A POSITIVE Antibody Screen NEGATIVE - Radiology Data Radiology results reviewed: Yes I reviewed the patient's radiology results. - EKG Data EKG #1 EKG attestation: Yes I reviewed and interpreted this EKG. EKG results narrative: EKG done at 1048 review myself and attending shows sinus rhythm at a rate of 94, OK 129, QRS 96, QTc 464. Is no acute ST changes no acute T-wave changes no other signs of ischemia. No signs of hypertrophy, heart strain, heart block. No WPW/Brugada/HOCM. EKG unchanged when compared with old EKG done 11/07/18
[2018-12-31 11:38] LABS: Calcium 7.6 mg/dL (8.6-10.3)
[2018-12-31] MEDS: 0.9 % Sodium Chloride 1,000 ML IVC SCH ×2 (13:00→20:12)
--- NOTE | 2018-12-31 13:54 | Internal Med History&Physical ---
<ArturAlix gomez - Last Filed: 12/31/18 15:35> Date of Encounter: 12/31/18 Time of Encounter: 01:30 Internal Medicine - H&P: HPI Chief complaint: Urethral bleeding History of present illness: HPI difficult to obtain due to patient's cerebral palsy resulting in difficulty with verbalization and was mainly obtained through chart review. He also has history of ESRD on dialysis, polycystic kidney disease, Hypertension, depression. Mr. Watters is a 48 year old male with a PMH of end stage renal disease, polycystic kidney disease, and cerebral palsy who came to the ED today for analysis of urethral bleeding. He was at the dialysis center earlier today and the facility noticed his hemoglobin dropped to 7.3 which was significantly lower from 2 days prior when he was normal. There was also bright red blood on his diaper. Patient was seen and evaluated at bedside. He is able to communicate simple yes or no answers through nodding or shaking of his head. Patient endorses having subjective fevers as well as hematuria and diarrhea. He denies any flank pain, dizziness, chest pain, SOB, nausea, vomiting, blurry vision, or diaphoresis. In the emergency department a CT abdomen/pelvis showed a hemorrhagic cyst. The patient's hemoglobin was 7.3, one unit of PRBC was administered, and urology was consulted. He completed dialysis today. Past Med Surg Social Fam HX - Past Medical History Medical history: dialysis, renal disease, other Additional medical history: Unable to obtain accurate history Psychiatric history: no psych history - Past Surgical History Additional surgical history: unknown - Social History Smoking Status: Unknown if ever smoked Smokeless Tobacco Status: No Alcohol use: none Drug use: none Internal Medicine - H&P: Meds Baclofen [Lioresal] 10 mg PO BID 03/24/18 [History] Cholecalciferol (D-3) [Vitamin D] 1,000 unit PO DAILY 03/24/18 [History] EPINEPHrine [Epipen] 0.3 mg IM ONCE PRN 03/24/18 [History] Epinastine HCl [Elestat] 1 drop BOTH EYES BID 03/24/18 [History] Losartan Potassium [Cozaar] 100 mg PO DAILY 03/24/18 [History] NIFEdipine [Nifedipine ER] 30 mg PO DAILY 03/24/18 [History] Ranitidine HCl [Acid Research Test Engine Evaluator] 150 mg PO BID 03/24/18 [History] Sertraline [Zoloft] 100 mg PO DAILY 03/24/18 [History] Tamsulosin [Flomax] 0.4 mg PO DAILY 03/24/18 [History] Travoprost [Travatan Z] 1 drop BOTH EYES HS 03/24/18 [History] traZODone [TraZODone] 50 mg PO HS 03/24/18 [History] BuPROPion SR (12 HR) [Wellbutrin SR] 150 mg PO DAILY 03/25/18 [History] Carbamide Peroxide drop BOTH EARS MO 09/26/18 [History] Folic Acid/Vit B Complex and C [Dialyvite Tablet] 1 each PO DAILY 09/26/18 [History] Sevelamer [Renvela] 2 tab PO TIDAC 09/26/18 [History] Acetaminophen [Tylenol] 650 mg PO Q4HR PRN 12/31/18 [History] Allergy/AdvReac Type Severity Reaction Status Date / Time No Known Allergies Allergy Verified 03/24/18 15:33 ROS unobtainable: other (Cerebral Palsy) All Systems PM: A 10-system review of systems was performed and is negative for pertinent findings except as documented above in the HPI. - Constitutional Constitutional: as per HPI - EENT Eyes: as per HPI Ears: as per HPI Nose, mouth and throat: as per HPI - Breasts Breasts: as per HPI - Cardiovascular Cardiovascular ROS IM: as per HPI - Respiratory Respiratory: as per HPI - Gastrointestinal Gastrointestinal: as per HPI - Genitourinary Genitourinary ROS male: as per HPI - Musculoskeletal Musculoskeletal ROS IM: as per HPI - Integumentary Integumentary IM: as per HPI - Neurological Neurological ROS: as per HPI - Psychiatric Psychiatric: as per HPI - Endocrine Endocrine IM: as per HPI - Hematologic/Lymphatic Hematologic/Lymphatic: as per HPI - Allergic/Immunologic Allergic/Immunologic: as per HPI - Constitutional Vitals: Temp Pulse Resp BP Pulse Ox 97.5 F L 98 12 113/63 100 12/31/18 10:25 12/31/18 12:54 12/31/18 12:54 12/31/18 12:54 12/31/18 12:54 General appearance: Present: no acute distress. Absent: answers questions appropriately Exam: alert - Head Head exam: Present: atraumatic, normocephalic - Respiratory Respiratory exam: Present: CTAB - Cardiovascular Cardiovascular exam: Present: RRR, +S1, +S2. Absent: irregular rhythm, JVD, systolic murmur, tachycardia - GI/Abdominal GI/Abdominal exam: Present: normal bowel sounds, soft. Absent: distended, tenderness - Extremities Exam Extremities exam: Absent: cyanotic, pedal edema - Neurological Exam Additional comments: spontaneously moves limbs. answers yes/no questions only. follows minimal commands. does not speak much. appears emaciated. - Skin Skin exam: Present: intact Internal Med - H&P Results - Labs CBC & Chem 7: 12/31/18 11:02 12/31/18 11:02 Labs: Short CBC 12/31/18 Range/Units 11:02 WBC 4.0 L (4.3-11.1) K/mcL Hgb 7.3 L (12.9-16.9) g/dL Hct 24.0 L (37.5-50.1) % Plt Count 189 (140-400) K/mcL Neutrophils # 2.1 (1.6-8.9) K/mcL BMP 12/31/18 11:02 Sodium 144 Potassium 4.0 Chloride 102 Carbon Dioxide 34 H BUN 26 H Creatinine 3.47 H Glucose 78 Calcium 7.6 L - Impressions ITS Impressions Abdomen/Pelvis CT 12/31/18 10:50 IMPRESSION: Polycystic kidney disease with numerous simple, hemorrhagic or complex cysts. In particular, there is a 5.4 cm hemorrhagic lesion in the anterior aspect of the left kidney, possibly with hemorrhage extending to the left renal collecting system. Hyperdense material in the dependent portion of the bladder, particularly on the right, likely related to blood products. Recommend follow-up to resolution to exclude bladder wall mass. No definite left or right hydronephrosis or obstructive calculus. Moderate fecal material throughout the colon. Large amount of fecal material in the rectum. Rectal wall thickening, possibly with mild stercoral colitis. Airspace opacity at the posterior left lung base, likely related to dependent atelectasis. Early pneumonia is considered less likely. Stable 1.4 cm left adrenal nodule, incompletely evaluated, likely represent an adenoma. Follow-up is recommended. D/ / Melvin Bell MD / Melvin Bell MD Interpreting Provider: Melvin Bell MD - Assessment and Plan (1) Anemia Current Visit: Yes Status: Chronic Assessment and plan: 48M history of polycystic kidney disease sent from dialysis for acute blood loss anemia. was found to have blood in his diaper. Hg 7.3, drop from 10.7 CT abdomen/pelvis showed numerous, simple hemorrhagic cysts ith 5.4cm hemorrhagic lesion in anterior aspect of left kidney extending into left renal collecting system. Plan: consult to urology-appreciate recs. consult to nephro for dialysis one unit of blood being transfused check H/H q6H, transfuse further if needed. vital signs currently stable-continue to monitor closely. Qualifiers: Anemia type: unspecified type Qualified Code(s): D64.9 - Anemia, unspecified (2) Cerebral palsy Current Visit: No Status: Chronic Qualifiers: Cerebral palsy type: other type Qualified Code(s): G80.8 - Other cerebral palsy (3) Hypertension Current Visit: No Status: Chronic Assessment and plan: continue losartan. Qualifiers: Hypertension type: secondary to other renal disorders Qualified Code(s): I15.1 - Hypertension secondary to other renal disorders; N28.89 - Other specified disorders of kidney and ureter (4) Depression Current Visit: No Status: Chronic Assessment and plan: continue home meds. Qualifiers: Depression Type: unspecified Qualified Code(s): F32.9 - Major depressive disorder, single episode, unspecified (5) End-stage renal disease on hemodialysis Current Visit: Yes Status: Chronic Assessment and plan: consult to nephrology for hemodialysis. (6) DVT prophylaxis Current Visit: Yes Status: Acute Assessment and plan: epcds - Time Spent With Patient Total time spent is greater than 50% in coordination of care (as documented) at patient's floor/unit and/or counseling patient: <Rhea Riggs - Last Filed: 01/01/19 06:19> Date of Encounter: 12/31/18 Internal Medicine - H&P: HPI History of present illness: Mr. Watters is a 48 year old male All Systems PM: A 10-system review of systems was performed and is negative for pertinent findings except as documented above in the HPI. - Constitutional Vitals: Temp Pulse Resp BP Pulse Ox 98.6 F 101 16 116/73 92 01/01/19 05:45 01/01/19 05:45 01/01/19 05:45 01/01/19 05:45 01/01/19 05:45 Internal Med - H&P Results - Labs CBC & Chem 7: 12/31/18 23:02 12/31/18 11:02 Labs: Short CBC 12/31/18 12/31/18 12/31/18 Range/Units 11:02 19:55 23:02 WBC 4.0 L (4.3-11.1) K/mcL Hgb 7.3 L 8.4 L 8.4 L (12.9-16.9) g/dL Hct 24.0 L 26.6 L 27.2 L (37.5-50.1) % Plt Count 189 (140-400) K/mcL Neutrophils # 2.1 (1.6-8.9) K/mcL BMP 12/31/18 11:02 Sodium 144 Potassium 4.0 Chloride 102 Carbon Dioxide 34 H BUN 26 H Creatinine 3.47 H Glucose 78 Calcium 7.6 L - Impressions ITS Impressions Abdomen/Pelvis CT 12/31/18 10:50 IMPRESSION: Polycystic kidney disease with numerous simple, hemorrhagic or complex cysts. In particular, there is a 5.4 cm hemorrhagic lesion in the anterior aspect of the left kidney, possibly with hemorrhage extending to the left renal collecting system. Hyperdense material in the dependent portion of the bladder, particularly on the right, likely related to blood products. Recommend follow-up to resolution to exclude bladder wall mass. No definite left or right hydronephrosis or obstructive calculus. Moderate fecal material throughout the colon. Large amount of fecal material in the rectum. Rectal wall thickening, possibly with mild stercoral colitis. Airspace opacity at the posterior left lung base, likely related to dependent atelectasis. Early pneumonia is considered less likely. Stable 1.4 cm left adrenal nodule, incompletely evaluated, likely represent an adenoma. Follow-up is recommended. D/ / Melvin Bell MD / Melvin Bell MD Interpreting Provider: Melvin Bell MD - Time Spent With Patient Total time spent is greater than 50% in coordination of care (as documented) at patient's floor/unit and/or counseling patient: - Attending Attestation I performed a history and physical examination of the patient and discussed his management with the resident. I reviewed the residents note and agree with the documented findings and plan of care.
[2018-12-31] MEDS ORDERED: *HR* EPINEPHrine 0.3 MG/0.3 ML (PEN) IM PRN (14:42)
[2018-12-31] MEDS ORDERED: 0.9 % Sodium Chloride 250 ML ONE (14:44)
[2018-12-31] MEDS ORDERED: Acetaminophen 325 MG TABLET PO PRN (15:35)
[2018-12-31] MEDS ORDERED: Naloxone 0.4 MG/ML INJ IVP PRN (15:35)
--- NOTE | 2018-12-31 16:36 | Electrocardiograph Report ---
[address] [address] Test Date: 2018-12-31 Pat Name: Adrian Watters Department: [id number] Room: 2A15 Gender: M Athletic Scout: : 1970 Requested By: Valeriy Hinson Order Number: [id number] Reading MD: Kenny Harris Measurements Intervals [place] Rate: 94 P: 55 AR: 129 QRS: 53 QRSD: 96 T: 51 QT: 371 QTc: 464 Interpretive Statements Sinus rhythm ST elev, probable normal early repol pattern Electronically Signed On 12-31-2018 16:34:48 EDT by Kenny Harris
[2018-12-31] MEDS: traZODone 50 MG TABLET PO SCH (20:09)
[2018-12-31 20:10] LABS: Hematocrit 26.6 % (37.5-50.1); Hemoglobin 8.4 g/dL (12.9-16.9)
[2018-12-31] MEDS: Baclofen 10 MG TABLET PO SCH (20:10)
[2018-12-31] MEDS: Latanoprost 2.5 ML BOTTLE BOTH EYES SCH (20:11)
[2018-12-31] MEDS ORDERED: Famotidine 20 MG TABLET PO SCH (21:00)
[2018-12-31 23:59] LABS: Hematocrit 27.2 % (37.5-50.1); Hemoglobin 8.4 g/dL (12.9-16.9)
[2019-01-01] MEDS: 0.9 % Sodium Chloride 1,000 ML IVC SCH (04:44)
[2019-01-01 06:50] LABS: Basophils % 0.4 %; Eosinophils # 0.1 K/mcL (0.0-0.6); Eosinophils % 2.1 %; Hematocrit 29.5 % (37.5-50.1); Hemoglobin 9.1 g/dL (12.9-16.9); Immature Granulocytes % 0.4 % (0-4); Lymphocytes # 0.9 K/mcL (0.6-4.6); Mean Corpuscular HGB Conc 30.8 g/dL (31.6-35.5); Mean Corpuscular Hemoglobin 31.7 pg (28.0-33.3); Mean Corpuscular Volume 102.8 fL (83.0-100.0); Mean Platelet Volume 8.2 fL (9.4-12.4); Monocytes # 0.7 K/mcL (0.0-1.3); Monocytes % 13.6 %; Neutrophils # 3.2 K/mcL (1.6-8.9); Platelet Count 195 K/mcL (140-400); Red Blood Count 2.87 M/mcL (4.19-5.50); Red Cell Distribution Width 14.6 % (11.5-14.5); Segmented Neutrophils % 65.5 %; White Blood Count 4.8 K/mcL (4.3-11.1)
[2019-01-01 07:11] LABS: Calcium 8.3 mg/dL (8.6-10.3); Phosphorous 4.2 mg/dL (2.7-4.5); Potassium 4.6 mEq/L (3.5-5.1)
[2019-01-01] MEDS ORDERED: Azithromycin 500 MG in D5% in Water 250 ML IVPB SCH (08:00)
[2019-01-01] MEDS: BuPROPion SR (12 HR) 150 MG TABLET PO SCH (08:59)
[2019-01-01] MEDS: NIFEdipine XL (24 HR) 30 MG TAB.ER.24 PO SCH (08:59)
[2019-01-01] MEDS: Baclofen 10 MG TABLET PO SCH ×2 (08:59→21:57)
[2019-01-01] MEDS ORDERED: cefTRIAXone 1,000 MG in Water for inj. (sterile) 10 ML IVP SCH (09:00)
--- NOTE | 2019-01-01 10:32 | Urology - Consult Note ---
<Pam Martinez N - Last Filed: 01/01/19 10:30> Date of Encounter: 01/01/19 Time of Encounter: 08:50 - Assessment and Plan (1) Gross hematuria Current Visit: Yes Status: Acute Assessment and plan: Patient is a 48-year-old male who presents with a history of gross hematuria and PCKD. Patient underwent reassuring gross hematuria workup approximately [address] Richter. Unfortunately, there is no urinalysis or urine specimen for my review. We will plan to manage patient conservatively for now as long he is voiding and renal function approaches baseline. Dr. Nielson will be in to reevaluate patient later this afternoon and possibly discuss outpatient cystoscopy. (2) PKD (polycystic kidney disease) Current Visit: Yes Status: Chronic Urology CN:HPI Consult date: 01/01/19 Reason for consult Urology: Gross Hematuria Requesting physician: Valeriy Hinson History of present illness: Patient is a 48-year-old male who presents with a history of gross hematuria. Patient has multiple comorbidities including end-stage renal disease requiring dialysis 3 times weekly, polycystic kidney disease, and cerebral palsy. U nfortunately, patient is unable to verbalize or communicate his past history, and there is no caregiver or family member present to obtain adequate history. Upon my review of patient's [facility] records, patient was previously established with Dr. Richter. Dr. Richter initially evaluated Mr. Watters in 2012 for gross hematuria. Patient underwent a reassuring cystoscopy and hematuria workup. At that time, hematuria was thought to be secondary to the polycystic kidney disease. Patient was most recently sent to the emergency department from dialysis secondary to anemia with a hemoglobin of 7.3. Patient reportedly noticed blood in his urine as well as in his stool. Patient underwent a CT of the abdomen and pelvis revealing polycystic kidney disease with numerous simple, hemorrhagic or complex cysts with a 5.4 cm hemorrhagic lesion in the anterior aspect of the left kidney, possibly with hemorrhage extending into the left renal collecting system. A hyperdense area was also visualized in the dependent portion of the right side of the bladder, possibly blood products. There was no hydronephrosis, ureteral or renal calculi identified. Currently, patient is lying in bed in no apparent distress. Patient's attends undergarment is secured and dry. Patient's nurse reports he is incontinent, and evaluating his urine has been difficult. Past Med Surg Social Fam HX - Past Medical History Medical history: dialysis, renal disease, other Additional medical history: Unable to obtain accurate history Psychiatric history: no psych history - Past Surgical History Additional surgical history: unknown - Social History Smoking Status: Unknown if ever smoked Smokeless Tobacco Status: No Alcohol use: none Drug use: none - Additional Family History Additional family history: Family history noncontributory secondary to patient's mental status. Medications and Allergies Baclofen [Lioresal] 10 mg PO BID 03/24/18 [History] Cholecalciferol (D-3) [Vitamin D] 1,000 unit PO DAILY 03/24/18 [History] EPINEPHrine [Epipen] 0.3 mg IM ONCE PRN 03/24/18 [History] Epinastine HCl [Elestat] 1 drop BOTH EYES BID 03/24/18 [History] Losartan Potassium [Cozaar] 100 mg PO DAILY 03/24/18 [History] NIFEdipine [Nifedipine ER] 30 mg PO DAILY 03/24/18 [History] Ranitidine HCl [Acid Scale Tester] 150 mg PO BID 03/24/18 [History] Sertraline [Zoloft] 100 mg PO QAM 03/24/18 [History] Tamsulosin [Flomax] 0.4 mg PO DAILY 03/24/18 [History] Travoprost [Travatan Z] 1 drop BOTH EYES HS 03/24/18 [History] traZODone [TraZODone] 50 mg PO HS 03/24/18 [History] BuPROPion SR (12 HR) [Wellbutrin SR] 150 mg PO DAILY 03/25/18 [History] Carbamide Peroxide 5 drop BOTH EARS MO 09/26/18 [History] Folic Acid/Vit B Complex and C [Dialyvite Tablet] 1 each PO DAILY 09/26/18 [History] Sevelamer [Renvela] 1 - 2 tab PO AD 09/26/18 [History] Acetaminophen [Tylenol] 650 mg PO Q4HR PRN 12/31/18 [History] Allergy/AdvReac Type Severity Reaction Status Date / Time No Known Allergies Allergy Verified 03/24/18 15:33 Review of Systems ROS unobtainable: due to mental status Exam Initial Vital Signs Temp Pulse Resp BP Pulse Ox 97.5 F L 97 16 111/90 100 12/31/18 10:25 12/31/18 10:25 12/31/18 10:25 12/31/18 10:25 12/31/18 10:25 - General physical appearance Present: no distress, no pain - Eyes Present: PERRL, conjunctiva is clear - ENT Present: normal nares, no congestion - Neck Present: no masses, trachea midline, no lymphadenopathy - Respiratory Present: normal respiratory effort - Cardiovascular Cardiovascular exam IM: RRR - Abdomen Abdomen: Present: soft, non tender. Absent: distended - Genitourinary other (No CVAT; no urine collection available for review) - Integumentary Present: no rash, no abnormal pigmentation - Neurologic Present: disoriented - Musculoskeletal Present: other (contracted bilateral lower extremities ) Urology Results - Labs 01/01/19 06:11 01/01/19 06:11 Abnormal lab results WBC 4.0 K/mcL (4.3-11.1) L 12/31/18 11:02 RBC 2.87 M/mcL (4.19-5.50) L 01/01/19 06:11 Hgb 9.1 g/dL (12.9-16.9) L 01/01/19 06:11 Hct 29.5 % (37.5-50.1) L 01/01/19 06:11 MCV 102.8 fL (83.0-100.0) H 01/01/19 06:11 MCHC 30.8 g/dL (31.6-35.5) L 01/01/19 06:11 RDW 14.6 % (11.5-14.5) H 01/01/19 06:11 MPV 8.2 fL (9.4-12.4) L 01/01/19 06:11 Carbon Dioxide 34 mEq/L (23-29) H 12/31/18 11:02 BUN 38 mg/dL (6-20) H 01/01/19 06:11 4.99 mg/dL (0.70-1.30) H 01/01/19 06:11 Est GFR ( Amer) 15 (> 60) L 01/01/19 06:11 Est GFR (Non-Af Amer) 13 (> 60) L 01/01/19 06:11 306 (280-300) H 01/01/19 06:11 Calcium 8.3 mg/dL (8.6-10.3) L 01/01/19 06:11 Crossmatch See Detail 12/31/18 11:02 Diabetes panel 12/31/18 01/01/19 Range/Units 11:02 06:11 Sodium 144 144 (136-145) mEq/L Potassium 4.0 4.6 (3.5-5.1) mEq/L Chloride 102 106 (98-107) mEq/L Carbon Dioxide 34 H 26 (23-29) mEq/L BUN 26 H 38 H (6-20) mg/dL Creatinine 3.47 H 4.99 H (0.70-1.30) mg/dL Glucose 78 81 (70-105) mg/dL Calcium 7.6 L 8.3 L (8.6-10.3) mg/dL Calcium panel 12/31/18 01/01/19 Range/Units 11:02 06:11 Calcium 7.6 L 8.3 L (8.6-10.3) mg/dL Phosphorus 4.2 (2.7-4.5) mg/dL Pituitary panel 12/31/18 01/01/19 Range/Units 11:02 06:11 Sodium 144 144 (136-145) mEq/L Potassium 4.0 4.6 (3.5-5.1) mEq/L Chloride 102 106 (98-107) mEq/L Carbon Dioxide 34 H 26 (23-29) mEq/L BUN 26 H 38 H (6-20) mg/dL Creatinine 3.47 H 4.99 H (0.70-1.30) mg/dL Glucose 78 81 (70-105) mg/dL Calcium 7.6 L 8.3 L (8.6-10.3) mg/dL Adrenal panel 12/31/18 01/01/19 Range/Units 11:02 06:11 Sodium 144 144 (136-145) mEq/L Potassium 4.0 4.6 (3.5-5.1) mEq/L Chloride 102 106 (98-107) mEq/L Carbon Dioxide 34 H 26 (23-29) mEq/L BUN 26 H 38 H (6-20) mg/dL Creatinine 3.47 H 4.99 H (0.70-1.30) mg/dL Glucose 78 81 (70-105) mg/dL Calcium 7.6 L 8.3 L (8.6-10.3) mg/dL All other labs normal. - Imaging CT scan - abdomen: report reviewed, image reviewed CT scan - pelvis: report reviewed, image reviewed Consult Discharge Plan - Plan Referrals: Shayy Powers, ONCOLOGY ACCOUNT SPECIALIST [Advanced Practice Nurse] - 01/06/19 11:00 am NONE,PCP [Primary Care Provider] - <Peter Nielson - Last Filed: 01/01/19 17:10> Date of Encounter: 01/01/19 - Assessment and Plan (1) Gross hematuria Current Visit: Yes Status: Acute Assessment and plan: Patient seen and examined by myself. Agree with physician assistants assessment and plan. No visualized gross hematuria during the hospitalization. I do not s uspect that his anemia is secondary to acute bleed from his urinary tract. I personally reviewed the CT and there is some hemorrhage from one of the left renal cysts. Does not appear excessive. He has developed low-grade temperatures today. Multiple potential etiologies. Will attempt to get a urine culture. Infected renal cyst is also possible but is difficult to diagnose and a polycystic kidney disease patient because of the multitude of cysts present. Unlikely will require urologic intervention during the hospitalization Exam Initial Vital Signs Temp Pulse Resp BP Pulse Ox 97.5 F L 97 16 111/90 100 12/31/18 10:25 12/31/18 10:25 12/31/18 10:25 12/31/18 10:25 12/31/18 10:25 Urology Results - Labs 01/01/19 11:57 01/01/19 06:11 Abnormal lab results WBC 4.0 K/mcL (4.3-11.1) L 12/31/18 11:02 RBC 2.87 M/mcL (4.19-5.50) L 01/01/19 06:11 Hgb 8.7 g/dL (12.9-16.9) L 01/01/19 11:57 Hct 27.4 % (37.5-50.1) L 01/01/19 11:57 MCV 102.8 fL (83.0-100.0) H 01/01/19 06:11 MCHC 30.8 g/dL (31.6-35.5) L 01/01/19 06:11 RDW 14.6 % (11.5-14.5) H 01/01/19 06:11 MPV 8.2 fL (9.4-12.4) L 01/01/19 06:11 Carbon Dioxide 34 mEq/L (23-29) H 12/31/18 11:02 BUN 38 mg/dL (6-20) H 01/01/19 06:11 4.99 mg/dL (0.70-1.30) H 01/01/19 06:11 Est GFR ( Amer) 15 (> 60) L 01/01/19 06:11 Est GFR (Non-Af Amer) 13 (> 60) L 01/01/19 06:11 306 (280-300) H 01/01/19 06:11 Calcium 8.3 mg/dL (8.6-10.3) L 01/01/19 06:11 Crossmatch See Detail 12/31/18 11:02 Diabetes panel 01/01/19 Range/Units 06:11 Sodium 144 (136-145) mEq/L Potassium 4.6 (3.5-5.1) mEq/L Chloride 106 (98-107) mEq/L Carbon Dioxide 26 (23-29) mEq/L BUN 38 H (6-20) mg/dL Creatinine 4.99 H (0.70-1.30) mg/dL Glucose 81 (70-105) mg/dL Calcium 8.3 L (8.6-10.3) mg/dL Calcium panel 01/01/19 Range/Units 06:11 Calcium 8.3 L (8.6-10.3) mg/dL Phosphorus 4.2 (2.7-4.5) mg/dL Pituitary panel 01/01/19 Range/Units 06:11 Sodium 144 (136-145) mEq/L Potassium 4.6 (3.5-5.1) mEq/L Chloride 106 (98-107) mEq/L Carbon Dioxide 26 (23-29) mEq/L BUN 38 H (6-20) mg/dL Creatinine 4.99 H (0.70-1.30) mg/dL Glucose 81 (70-105) mg/dL Calcium 8.3 L (8.6-10.3) mg/dL Adrenal panel 01/01/19 Range/Units 06:11 Sodium 144 (136-145) mEq/L Potassium 4.6 (3.5-5.1) mEq/L Chloride 106 (98-107) mEq/L Carbon Dioxide 26 (23-29) mEq/L BUN 38 H (6-20) mg/dL Creatinine 4.99 H (0.70-1.30) mg/dL Glucose 81 (70-105) mg/dL Calcium 8.3 L (8.6-10.3) mg/dL All other labs normal.
--- NOTE | 2019-01-01 10:38 | Internal Med Progress Note ---
Hospitalist Progress Note - Encounter Date of Encounter: 01/01/19 Time of Encounter: 10:34 - Subjective Interval History: I have seen and evaluated the patient at bedside. patient reports feeling ok, denies chest pain, abdominal pain, nausea or vomiting. denies productive cough. - Exam Vitals: Temp Pulse Resp BP Pulse Ox 98.0 F 100 16 137/79 91 01/01/19 07:03 01/01/19 07:03 01/01/19 07:03 01/01/19 07:03 01/01/19 07:03 Exam: Vitals: Reviewed General: Alert and oriented x3. No distress Cardiovascular: RRR, normal S1 & S2, no rubs, murmurs or gallops. Lungs: CTA b/l, no wheezes or crackles. Abdomen: Soft, non-tender, no rigidity. Extremities: contracted lower extremities Neurological: No focal neurological abnormalities Rest of the physical exam is non contributory - Assessment and Plan (1) Gross hematuria Current Visit: Yes Status: Acute Assessment and Plan: CT/CT abd pelvis wo no iv no oral IMPRESSION: Polycystic kidney disease with numerous simple, hemorrhagic or complex cysts. In particular, there is a 5.4 cm hemorrhagic lesion in the anterior aspect of the left kidney, possibly with hemorrhage extending to the left renal collecting system. Plan UA ordered urology consulted recommendations appreciated (2) End-stage renal disease on hemodialysis Current Visit: Yes Status: Chronic Assessment and Plan: avoid nephrotoxic medications. fluids restriction to 2 litters a day renal replacement therapy per nephrology recommendations (3) PKD (polycystic kidney disease) Current Visit: Yes Status: Chronic (4) Cerebral palsy Current Visit: No Status: Chronic Assessment and Plan: conservative management. frequent repositioning and daily PT/OT (5) Hypertension Current Visit: No Status: Chronic Assessment and Plan: Blood pressure is well controlled on losartan 100 mg by mouth daily and nifedipine 30mg/PO daily. (6) Depression Current Visit: No Status: Chronic Assessment and Plan: Patient is on sertraline 100 mg by mouth daily and bupropion 150 mg by mouth daily. DVT Prophylaxis: Intermittent pneumatic compression for DVT prophylaxis. No chemical DVT prophylaxis due to hematuria. - Summary of Assessment and Plan Summary of Assessment and Plan: Patient to remain in the hospital due to gross hematuria. - Time Spent with Patient Total time spent is greater than 50% in coordination of care (as documented) at patient's floor/unit and/or counseling patient: Greater than 35 minutes (40) Plan of Care Discussed with: nurse Internal Medicine: Result - Labs CBC & Chem 7: 01/01/19 06:11 01/01/19 06:11 Labs: Short CBC 12/31/18 12/31/18 12/31/18 Range/Units 11:02 19:55 23:02 WBC 4.0 L (4.3-11.1) K/mcL Hgb 7.3 L 8.4 L 8.4 L (12.9-16.9) g/dL Hct 24.0 L 26.6 L 27.2 L (37.5-50.1) % Plt Count 189 (140-400) K/mcL Neutrophils # 2.1 (1.6-8.9) K/mcL 01/01/19 Range/Units 06:11 WBC 4.8 (4.3-11.1) K/mcL Hgb 9.1 L (12.9-16.9) g/dL Hct 29.5 L (37.5-50.1) % Plt Count 195 (140-400) K/mcL Neutrophils # 3.2 (1.6-8.9) K/mcL BMP 12/31/18 01/01/19 11:02 06:11 Sodium 144 144 Potassium 4.0 4.6 Chloride 102 106 Carbon Dioxide 34 H 26 BUN 26 H 38 H Creatinine 3.47 H 4.99 H Glucose 78 81 Calcium 7.6 L 8.3 L - Impressions Impressions Abdomen/Pelvis CT 12/31/18 10:50 IMPRESSION: Polycystic kidney disease with numerous simple, hemorrhagic or complex cysts. In particular, there is a 5.4 cm hemorrhagic lesion in the anterior aspect of the left kidney, possibly with hemorrhage extending to the left renal collecting system. Hyperdense material in the dependent portion of the bladder, particularly on the right, likely related to blood products. Recommend follow-up to resolution to exclude bladder wall mass. No definite left or right hydronephrosis or obstructive calculus. Moderate fecal material throughout the colon. Large amount of fecal material in the rectum. Rectal wall thickening, possibly with mild stercoral colitis. Airspace opacity at the posterior left lung base, likely related to dependent atelectasis. Early pneumonia is considered less likely. Stable 1.4 cm left adrenal nodule, incompletely evaluated, likely represent an adenoma. Follow-up is recommended. D/ / Melvin Bell MD / Melvin Bell MD Interpreting Provider: Melvin Bell MD Consult Discharge Plan - Plan Referrals: NONE,PCP [Primary Care Provider] - (4) Cerebral palsy Qualifiers: Cerebral palsy type: other type Qualified Code(s): G80.8 - Other cerebral palsy (5) Hypertension Qualifiers: Hypertension type: secondary to other renal disorders Qualified Code(s): I15.1 - Hypertension secondary to other renal disorders; N28.89 - Other specifi ed disorders of kidney and ureter (6) Depression Qualifiers: Depression Type: unspecified Qualified Code(s): F32.9 - Major depressive disorder, single episode, unspecified
--- NOTE | 2019-01-01 12:17 | Nephrology Consult Note ---
Date of Encounter: 01/01/19 Time of Encounter: 11:15 Assessment and Plan (1) End-stage renal disease on hemodialysis Current Visit: Yes Status: Chronic Next HD is planned for Friday. He has known AD PKD and his pad machine offbearer Vonda was present from his fdc called Javed, and she had questions about some of his care at the dialysis unit, and I helped put her in touch with Daquan, the SW at the local [facility]. He typically has HD TTS and completed dialysis on , and so he does not need extra dialysis today (Friday). Appreciate urology. He has had prior PKD cystic ruptures with gross hematuria in the past. Appreciate Hospitalist/GI: anemia. He also has Anemia of CKD and I will continue thrice weekly EPO. Thank you for consult in the [facility]. I will follow with you. (2) PKD (polycystic kidney disease) Current Visit: Yes Status: Chronic The etiology of his ESRD and his gross hematuria may be secondary to a spontanously rupture renal cyst (3) Gross hematuria Current Visit: Yes Status: Resolved See above (4) Anemia Current Visit: Yes Status: Acute Goal Hgb is 10-11 in the setting of ESRD. 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 He was accompanied by one of his caretakers. Due to his history of cerebral palsy, he has very slow communication. This greatly limited his history of present illness, review of systems and etc. His pad machine offbearer reported that he gets occasional episodes of visible blood in the urine. Otherwise he has not had any major changes, she reported. He has not had nausea, vomiting, diarrhea, or missed any dialysis. He last completed dialysis on at the [facility] in [place], [place]. Family History: he has a brother but his brother is not known to have renal disease, according to the his pad machine offbearer. Past Med Surg Social Fam HX - Past Medical History Medical history: dialysis, renal disease, other Additional medical history: Unable to obtain accurate history Psychiatric history: no psych history - Past Surgical History Additional surgical history: unknown - Social History Smoking Status: Unknown if ever smoked Smokeless Tobacco Status: No Alcohol use: none Drug use: none Medications and Allergies Baclofen [Lioresal] 10 mg PO BID 03/24/18 [History] Cholecalciferol (D-3) [Vitamin D] 1,000 unit PO DAILY 03/24/18 [History] EPINEPHrine [Epipen] 0.3 mg IM ONCE PRN 03/24/18 [History] Epinastine HCl [Elestat] 1 drop BOTH EYES BID 03/24/18 [History] Losartan Potassium [Cozaar] 100 mg PO DAILY 03/24/18 [History] NIFEdipine [Nifedipine ER] 30 mg PO DAILY 03/24/18 [History] Ranitidine HCl [Acid Nutrition Club Ambassador] 150 mg PO BID 03/24/18 [History] Sertraline [Zoloft] 200 mg PO QAM 03/24/18 [History] Tamsulosin [Flomax] 0.4 mg PO DAILY 03/24/18 [History] Travoprost [Travatan Z] 1 drop BOTH EYES HS 03/24/18 [History] traZODone [TraZODone] 50 mg PO HS 03/24/18 [History] BuPROPion SR (12 HR) [Wellbutrin SR] 150 mg PO DAILY 03/25/18 [History] Carbamide Peroxide 5 drop BOTH EARS MO 09/26/18 [History] Folic Acid/Vit B Complex and C [Dialyvite Tablet] 1 each PO DAILY 09/26/18 [History] Sevelamer [Renvela] 1 - 2 tab PO AD 09/26/18 [History] Acetaminophen [Tylenol] 650 mg PO Q4HR PRN 12/31/18 [History] Allergy/AdvReac Type Severity Reaction Status Date / Time No Known Allergies Allergy Verified 03/24/18 15:33 Review of Systems All Systems: reviewed and no additional remarkable complaints except as stated (but limited d/t his cerebral palsy) Exam - Vital Signs Vital signs: Initial Vital Signs Temp Pulse Resp BP Pulse Ox 97.5 F L 97 16 111/90 100 12/31/18 10:25 12/31/18 10:25 12/31/18 10:25 12/31/18 10:25 12/31/18 10:25 Vital Signs - Last 8 Hours Temp Pulse Resp BP Pulse Ox 01/01/19 11:01 98.3 F 102 16 116/76 96 01/01/19 07:03 98.0 F 100 16 137/79 91 01/01/19 05:45 98.6 F 101 16 116/73 92 Intake and Output 12/31/18 01/01/19 01/01/19 23:59 07:59 15:59 Intake Total 1350 / 1700 1000 / 1060 60 / 1060 Balance 1350 / 1700 1000 / 1060 60 / 1060 Intake: IV Fluids 1000 / 1000 1000 / 1000 0.9 % Sodium Chloride 1,000 ML 1000 / 1000 1000 / 1000 @ 125 mls/hr IVC .Q8H KOREY Rx#: [id number] Oral 60 / 60 Blood Product 350 / 700 Rbcs Leuko Poor As-1 Unit 350 / 700 [id number] Other: Meal Dinner Breakfast Percent of Meal Consumed 5% 5% # Urine Diapers 1 # Bowel Movement Diapers 1 Weight 54.4 kg Patient Weight 01/01/19 23:59 Weight 54.4 kg - General Appearance General appearance: well-nourished, cachectic (very thin body size, breana of the LEs) EENT: ATNC, PERRL, mucous membranes moist Neck: supple Respiratory: clear Cardiology: no edema, regular rate, regular rhythm, normal S1, normal S2 - Dialysis Access Dialysis Vascular Access: Arteriovenous Graft (left upper extremity) thrill: Yes bruit: Yes Gastrointestinal: normoactive bowel sounds, no tenderness, no guarding Integumentary: warm and dry Neurologic: no asterixis Additional Comments: Lower extremity atrophy (chronic) Musculoskeletal: no cyanosis, no clubbing Psychiatric: mood/affect appropriate, cooperative Results - Lab Results 01/02/19 07:52 01/02/19 03:09 Most recent lab results 01/01/19 06:11 Calcium 8.3 L Phosphorus 4.2 Magnesium 2.0 Consult Discharge Plan - Plan Referrals: Shayy Powers, DIRECTOR GAME [Advanced Practice Nurse] - 01/06/19 11:00 am NONE,PCP [Primary Care Provider] -
[2019-01-01 12:29] LABS: Hematocrit 27.4 % (37.5-50.1); Hemoglobin 8.7 g/dL (12.9-16.9)
[2019-01-01] MEDS: Famotidine 20 MG TABLET PO SCH (21:56)
[2019-01-01] MEDS: traZODone 50 MG TABLET PO SCH (21:57)
[2019-01-01] MEDS: Latanoprost 2.5 ML BOTTLE BOTH EYES SCH (21:58)
[2019-01-02 03:53] LABS: Calcium 8.2 mg/dL (8.6-10.3); Potassium 4.7 mEq/L (3.5-5.1)
[2019-01-02] MEDS ORDERED: 0.9 % Sodium Chloride 1,000 ML PRIME SCH (07:30)
[2019-01-02 08:08] LABS: Basophils % 0.4 %; Eosinophils # 0.1 K/mcL (0.0-0.6); Eosinophils % 2.7 %; Hematocrit 25.9 % (37.5-50.1); Hemoglobin 7.8 g/dL (12.9-16.9); Immature Granulocytes % 0.2 % (0-4); Lymphocytes # 0.9 K/mcL (0.6-4.6); Lymphocytes % 19.5 %; Mean Corpuscular HGB Conc 30.1 g/dL (31.6-35.5); Mean Corpuscular Hemoglobin 31.5 pg (28.0-33.3); Mean Corpuscular Volume 104.4 fL (83.0-100.0); Mean Platelet Volume 9.2 fL (9.4-12.4); Monocytes # 0.5 K/mcL (0.0-1.3); Monocytes % 10.8 %; Platelet Count 184 K/mcL (140-400); Red Blood Count 2.48 M/mcL (4.19-5.50); Segmented Neutrophils % 66.4 %; White Blood Count 4.5 K/mcL (4.3-11.1)
[2019-01-02] MEDS: Baclofen 10 MG TABLET PO SCH ×2 (08:19→21:10)
[2019-01-02] MEDS: BuPROPion SR (12 HR) 150 MG TABLET PO SCH (08:19)
--- NOTE | 2019-01-02 09:41 | Nephrology Progress Note ---
Date of Encounter: 01/02/19 Time of Encounter: 08:20 - Assessment and Plan (1) End-stage renal disease on hemodialysis Current Visit: Yes Status: Chronic HD today: I reviewed the labs/vitals/med list/other progress notes/imaging for complex E/M and MDM to compose the HD orders for today. (2) PKD (polycystic kidney disease) Current Visit: Yes Status: Chronic The etiology of his ESRD and his gross hematuria may be secondary to a spontanously rupture renal cyst (3) Gross hematuria Current Visit: Yes Status: Resolved See above (4) Anemia Current Visit: Yes Status: Acute Goal Hgb is 10-11 in the setting of ESRD. Qualifiers: Anemia type: unspecified type Qualified Code(s): D64.9 - Anemia, unspecified Subjective Principal diagnosis: ESRD Interval history: The patient was seen and examined earlier today. He did not affirm any new major complaints such as nausea, vomiting, or diarrhea. Because he has cerebral palsy, this greatly diminishes his speech ability. Objective - Vital Signs Vital signs: Vital Signs Temp Pulse Resp BP Pulse Ox 01/02/19 06:49 98.3 F 91 16 133/76 97 01/02/19 03:44 97.7 F 88 17 114/73 95 01/01/19 23:28 98.1 F 99 16 118/58 96 01/01/19 19:31 98.6 F 106 17 123/63 95 01/01/19 15:22 98.8 F 106 16 116/70 95 01/01/19 11:01 98.3 F 102 16 116/76 96 Intake and Output 01/01/19 01/02/19 01/02/19 23:59 07:59 15:59 Intake Total 120 / 2460 240 / 240 Balance 120 / 2460 240 / 240 Intake: Oral 120 / 200 240 / 240 Other: Meal Dinner Breakfast Percent of Meal Consumed 60% 100% Stool Size Smear Large Stool Consistency loose formed Stool Color Brown Brown # Urine Diapers 1 1 1 # Bowel Movements 1 1 Weight 55.2 kg - General Appearance Exam: General appearance: well-nourished with small body habitus EENT: ATNC, PERRL, mucous membranes moist Neck: supple Respiratory: clear Cardiology: no edema, regular rate, regular rhythm, normal S1, normal S2 - Dialysis Access Dialysis Vascular Access: Arteriovenous Graft (left upper extremity) thrill: Yes bruit: Yes Gastrointestinal: normoactive bowel sounds, no tenderness, no guarding Integumentary: warm and dry Neurologic: no asterixis Additional Comments: Lower extremity atrophy (chronic) Musculoskeletal: no cyanosis, no clubbing Psychiatric: mood/affect appropriate, cooperative - Lab 01/02/19 07:52 01/02/19 03:09 Most recent lab results 01/02/19 03:09 Calcium 8.2 L Consult Discharge Plan - Plan Referrals: Shayy Powers INSPECTOR HAIRSPRING [Advanced Practice Nurse] - 01/06/19 11:00 am NONE,PCP [Primary Care Provider] -
--- NOTE | 2019-01-02 11:38 | Internal Med Progress Note ---
Hospitalist Progress Note - Encounter Date of Encounter: 01/02/19 Time of Encounter: 11:35 - Subjective Interval History: I have seen and evaluated the patient at bedside. this is a very pleasant man, denies abdominal pain, nausea, vomiting or chest pain. - Exam Vitals: Temp Pulse Resp BP Pulse Ox 98.6 F 91 16 114/67 97 01/02/19 08:45 01/02/19 06:49 01/02/19 08:45 01/02/19 11:15 01/02/19 06:49 Exam: Vitals: Reviewed General: Alert and oriented x2. In no distress Cardiovascular: RRR, normal S1 & S2, no rubs, murmurs or gallops. Lungs: CTA b/l, no wheezes or crackles. Abdomen:Soft, non-tender, no rigidity. Extremities: contracted lower extr Neurological: No focal neurological deficits Rest of the physical exam is non contributory - Assessment and Plan (1) Anemia Current Visit: Yes Status: Acute Assessment and Plan: Unclear whether drop in H&H is secondary to the hematuria versus a GI source. Patient is status post 1 packed RBCs transfused. Ferrous sulfate 325 by mouth twice a day. Occult blood test If H&H continues to drop will consult GI for possible EGD and colonoscopy. (2) Gross hematuria Current Visit: Yes Status: Resolved Assessment and Plan: per the nurses no hematuria reported. urology recommendation appreciated low grade fever yesterday UA ordered (3) End-stage renal disease on hemodialysis Current Visit: Yes Status: Chronic Assessment and Plan: avoid nephrotoxic medications Continue renal replacement therapy as scheduled. (4) PKD (polycystic kidney disease) Current Visit: Yes Status: Chronic (5) Cerebral palsy Current Visit: No Status: Chronic Assessment and Plan: Continue with conservative management. frequent repositioning Daily PT/OT (6) Hypertension Current Visit: No Status: Chronic Assessment and Plan: Blood pressures well controlled on losartan 100 mg by mouth daily, and nifedipine 30 mg by mouth daily.. (7) Depression Current Visit: No Status: Chronic Assessment and Plan: Patient is on bupropion 150 mg by mouth daily DVT Prophylaxis: Intermittent pneumatic compression for DVT prophylaxis. No chemical DVT prophylaxis due to hematuria - Summary of Assessment and Plan Summary of Assessment and Plan: Patient to remain in the hospital due to anemia, with drop in H&H. - Time Spent with Patient Total time spent is greater than 50% in coordination of care (as documented) at patient's floor/unit and/or counseling patient: Greater than 35 minutes (40) Plan of Care Discussed with: nurse Internal Medicine: Result - Labs CBC & Chem 7: 01/02/19 07:52 01/02/19 03:09 Labs: Short CBC 01/01/19 01/02/19 Range/Units 11:57 07:52 WBC 4.5 (4.3-11.1) K/mcL Hgb 8.7 L 7.8 L (12.9-16.9) g/dL Hct 27.4 L 25.9 L (37.5-50.1) % Plt Count 184 (140-400) K/mcL Neutrophils # 3.0 (1.6-8.9) K/mcL BMP 01/02/19 03:09 Sodium 144 Potassium 4.7 Chloride 106 Carbon Dioxide 25 BUN 54 H Creatinine 6.87 H Glucose 81 Calcium 8.2 L Consult Discharge Plan - Plan Referrals: Shayy Powers, ASSISTANT FACILITY MANAGER [Advanced Practice Nurse] - 01/06/19 11:00 am NONE,PCP [Primary Care Provider] - (1) Anemia Qualifiers: Anemia type: unspecified type Qualified Code(s): D64.9 - Anemia, unspecified (5) Cerebral palsy Qualifiers: Cerebral palsy type: other type Qualified Code(s): G80.8 - Other cerebral palsy (6) Hypertension Qualifiers: Hypertension type: secondary to other renal disorders Qualified Code(s): I15.1 - Hypertension secondary to other renal disorders; N28.89 - Other specified disorders of kidney and ureter (7) Depression Qualifiers: Depression Type: unspecified Qualified Code(s): F32.9 - Major depressive disorder, single episode, unspecified
[2019-01-02] MEDS: NIFEdipine XL (24 HR) 30 MG TAB.ER.24 PO SCH (12:33)
[2019-01-02] MEDS ORDERED: 0.9 % Sodium Chloride 1,000 ML ONE (12:58)
[2019-01-02 17:26] LABS: Bilirubin,Urine Large (Negative); Blood,Urine Large (Negative); Clarity,Urine Turbid (Clear); Color,Urine Red (Yellow); Glucose,Urine (UA) 100 mg/dL (Normal); Ketones,Urine >=160 mg/dL (Negative); Leukocyte Esterase,Urine Large (Negative); Nitrite,Urine Positive (Negative); PH,Urine 6.5 pH Units (5.0-8.0); Protein,Urine >=1000 mg/dL (Neg-Trace); Specific Gravity,Urine > 1.030 (1.010-1.025)
[2019-01-02 19:31] LABS: Hematocrit 26.4 % (37.5-50.1); Hemoglobin 8.3 g/dL (12.9-16.9); Mean Corpuscular HGB Conc 31.4 g/dL (31.6-35.5); Mean Corpuscular Hemoglobin 31.8 pg (28.0-33.3); Mean Corpuscular Volume 101.1 fL (83.0-100.0); Mean Platelet Volume 8.6 fL (9.4-12.4); Platelet Count 246 K/mcL (140-400); Red Blood Count 2.61 M/mcL (4.19-5.50); Red Cell Distribution Width 13.8 % (11.5-14.5); White Blood Count 6.1 K/mcL (4.3-11.1)
[2019-01-02] MEDS: 0.9 % Sodium Chloride 250 ML IVC PRN ×2 (20:17→23:24)
[2019-01-02] MEDS: Famotidine 20 MG TABLET PO SCH (21:10)
[2019-01-02] MEDS: traZODone 50 MG TABLET PO SCH (21:10)
[2019-01-02] MEDS: Latanoprost 2.5 ML BOTTLE BOTH EYES SCH (21:11)
[2019-01-03 00:47] LABS: Basophils % 0.4 %; Eosinophils # 0.1 K/mcL (0.0-0.6); Eosinophils % 2.8 %; Hematocrit 25.6 % (37.5-50.1); Hemoglobin 8.1 g/dL (12.9-16.9); Immature Granulocytes % 0.2 % (0-4); Lymphocytes # 1.4 K/mcL (0.6-4.6); Lymphocytes % 27.7 %; Mean Corpuscular HGB Conc 31.6 g/dL (31.6-35.5); Mean Corpuscular Hemoglobin 32.3 pg (28.0-33.3); Mean Platelet Volume 8.4 fL (9.4-12.4); Monocytes # 0.6 K/mcL (0.0-1.3); Monocytes % 11.2 %; Neutrophils # 2.9 K/mcL (1.6-8.9); Platelet Count 208 K/mcL (140-400); Red Blood Count 2.51 M/mcL (4.19-5.50); Red Cell Distribution Width 13.7 % (11.5-14.5); Segmented Neutrophils % 57.7 %; White Blood Count 5.1 K/mcL (4.3-11.1)
[2019-01-03 01:06] LABS: Calcium 7.9 mg/dL (8.6-10.3); Phosphorous 4.2 mg/dL (2.7-4.5); Potassium 4.1 mEq/L (3.5-5.1)
[2019-01-03 06:18] LABS: Basophils % 0.2 %; Eosinophils # 0.2 K/mcL (0.0-0.6); Eosinophils % 3.5 %; Hematocrit 24.6 % (37.5-50.1); Hemoglobin 7.8 g/dL (12.9-16.9); Immature Granulocytes % 0.2 % (0-4); Lymphocytes # 1.5 K/mcL (0.6-4.6); Lymphocytes % 30.2 %; Mean Corpuscular HGB Conc 31.7 g/dL (31.6-35.5); Mean Corpuscular Hemoglobin 32.2 pg (28.0-33.3); Mean Corpuscular Volume 101.7 fL (83.0-100.0); Mean Platelet Volume 8.3 fL (9.4-12.4); Monocytes # 0.5 K/mcL (0.0-1.3); Neutrophils # 2.7 K/mcL (1.6-8.9); Platelet Count 214 K/mcL (140-400); Red Blood Count 2.42 M/mcL (4.19-5.50); Red Cell Distribution Width 13.7 % (11.5-14.5); Segmented Neutrophils % 54.9 %; White Blood Count 4.8 K/mcL (4.3-11.1)
[2019-01-03] MEDS: cefTRIAXone 1,000 MG in Water for inj. (sterile) 10 ML IVP SCH (08:20)
[2019-01-03] MEDS: NIFEdipine XL (24 HR) 30 MG TAB.ER.24 PO SCH (08:21)
[2019-01-03] MEDS: BuPROPion SR (12 HR) 150 MG TABLET PO SCH (08:21)
[2019-01-03] MEDS: Baclofen 10 MG TABLET PO SCH ×2 (08:21→20:36)
[2019-01-03 12:25] LABS: Basophils % 0.2 %; Eosinophils # 0.1 K/mcL (0.0-0.6); Eosinophils % 2.7 %; Hematocrit 26.2 % (37.5-50.1); Hemoglobin 8.1 g/dL (12.9-16.9); Immature Granulocytes % 0.2 % (0-4); Lymphocytes % 20.7 %; Mean Corpuscular HGB Conc 30.9 g/dL (31.6-35.5); Mean Corpuscular Volume 103.6 fL (83.0-100.0); Mean Platelet Volume 8.5 fL (9.4-12.4); Monocytes # 0.5 K/mcL (0.0-1.3); Monocytes % 10.6 %; Neutrophils # 3.1 K/mcL (1.6-8.9); Platelet Count 226 K/mcL (140-400); Red Blood Count 2.53 M/mcL (4.19-5.50); Red Cell Distribution Width 13.6 % (11.5-14.5); Segmented Neutrophils % 65.6 %; White Blood Count 4.8 K/mcL (4.3-11.1)
--- NOTE | 2019-01-03 12:40 | Internal Med Progress Note ---
Hospitalist Progress Note - Encounter Date of Encounter: 01/03/19 Time of Encounter: 12:38 - Subjective Interval History: I have seen and evaluated the patient at bedside. patient in no distress, denies abdominal pain, chest pain, nausea or vomiting. denies shortness of breath - Exam Vitals: Temp Pulse Resp BP Pulse Ox 98.2 F 93 15 103/49 95 01/03/19 10:48 01/03/19 10:48 01/03/19 10:48 01/03/19 10:48 01/03/19 10:48 Exam: Vitals: Reviewed General: Alert and oriented x2. In no distress Cardiovascular: RRR, normal S1 & S2, no rubs, murmurs or gallops. Lungs: CTA b/l, no wheezes or crackles. Abdomen:Soft, non-tender, no rigidity. NABS in all 4 quadrants Extremities: contracted lower extr Neurological: No focal neurological deficits Rest of the physical exam is non contributory - Assessment and Plan (1) Anemia Current Visit: Yes Status: Acute Assessment and Plan: H&H stable. s/p 1 unit of PRBC transfused. continues to have gross hematuria FOBT negative continue ferrous sulfate 325 by mouth twice a day. will continue to follow and transfuse per protocol on Epoetin (2) Gross hematuria Current Visit: Yes Status: Acute Assessment and Plan: patient with a condom catheter and about 100cc of gross hematuria seen. Urology recommendations appreciated (3) End-stage renal disease on hemodialysis Current Visit: Yes Status: Chronic Assessment and Plan: avoid nephrotoxic medications renal replacement therapy as scheduled. (4) PKD (polycystic kidney disease) Current Visit: Yes Status: Chronic (5) Cerebral palsy Current Visit: No Status: Chronic Assessment and Plan: Continue with conservative management. frequent repositioning. Daily PT/OT (6) Hypertension Current Visit: No Status: Chronic Assessment and Plan: Blood pressure is well controlled and losartan 100 mg by mouth daily and nifedipine 30 mg by mouth daily. (7) Depression Current Visit: No Status: Chronic Assessment and Plan: Continue bupropion and sertraline. (8) UTI (urinary tract infection) Current Visit: No Status: Acute Assessment and Plan: On ceftriaxone 1 g IV daily. Urine culture: No growth. DVT Prophylaxis: Intermittent pneumatic compression for DVT prophylaxis. - Summary of Assessment and Plan Summary of Assessment and Plan: A shi to remain in the hospital due to gross hematuria. - Time Spent with Patient Total time spent is greater than 50% in coordination of care (as documented) at patient's floor/unit and/or counseling patient: Greater than 35 minutes (40) Plan of Care Discussed with: nurse Internal Medicine: Result - Labs CBC & Chem 7: 01/03/19 11:50 01/03/19 00:11 Labs: Short CBC 01/02/19 01/03/19 01/03/19 Range/Units 18:35 00:11 06:05 WBC 6.1 5.1 4.8 (4.3-11.1) K/mcL Hgb 8.3 L 8.1 L 7.8 L (12.9-16.9) g/dL Hct 26.4 L 25.6 L 24.6 L (37.5-50.1) % Plt Count 246 208 214 (140-400) K/mcL Neutrophils # 2.9 2.7 (1.6-8.9) K/mcL 01/03/19 Range/Units 11:50 WBC 4.8 (4.3-11.1) K/mcL Hgb 8.1 L (12.9-16.9) g/dL Hct 26.2 L (37.5-50.1) % Plt Count 226 (140-400) K/mcL Neutrophils # 3.1 (1.6-8.9) K/mcL BMP 01/03/19 00:11 Sodium 141 Potassium 4.1 Chloride 104 Carbon Dioxide 27 BUN 38 H Creatinine 5.12 H Glucose 90 Calcium 7.9 L Urine 01/02/19 Range/Units 11:19 Urine Color Red A (Yellow) Urine Clarity Turbid A (Clear) Urine pH 6.5 (5.0-8.0) pH Units Ur Specific [place] > 1.030 H (1.010-1.025) Urine Protein >=1000 H (Neg-Trace) mg/dL Urine Glucose (UA) 100 H (Normal) mg/dL Consult Discharge Plan - Plan Referrals: Shayy Powers, RADIOLOGIC TECHNOLOGIST MAMMOGRAM [Advanced Practice Nurse] - 01/06/19 11:00 am NONE,PCP [Primary Care Provider] - (1) Anemia Qualifiers: Anemia type: unspecified type Qualified Code(s): D64.9 - Anemia, unspecified (5) Cerebral palsy Qualifiers: Cerebral palsy type: other type Qualified Code(s): G80.8 - Other cerebral palsy (6) Hypertension Qualifiers: Hypertension type: secondary to other renal disorders Qualified Code(s): I15.1 - Hypertension secondary to other renal disorders; N28.89 - Other specif ied disorders of kidney and ureter (7) Depression Qualifiers: Depression Type: unspecified Qualified Code(s): F32.9 - Major depressive disorder, single episode, unspecified (8) UTI (urinary tract infection) Qualifiers: Urinary tract infection type: site unspecified Hematuria presence: without hematuria Qualified Code(s): N39.0 - Urinary tract infection, site not specified
[2019-01-03] MEDS: traZODone 50 MG TABLET PO SCH (20:37)
[2019-01-03] MEDS: Famotidine 20 MG TABLET PO SCH (20:37)
[2019-01-03] MEDS: Latanoprost 2.5 ML BOTTLE BOTH EYES SCH (20:38)
[2019-01-04 02:58] LABS: Basophils % 0.4 %; Eosinophils # 0.2 K/mcL (0.0-0.6); Eosinophils % 3.4 %; Hematocrit 24.8 % (37.5-50.1); Hemoglobin 7.6 g/dL (12.9-16.9); Immature Granulocytes % 0.2 % (0-4); Lymphocytes # 1.6 K/mcL (0.6-4.6); Lymphocytes % 27.8 %; Mean Corpuscular HGB Conc 30.6 g/dL (31.6-35.5); Mean Corpuscular Hemoglobin 31.8 pg (28.0-33.3); Mean Corpuscular Volume 103.8 fL (83.0-100.0); Mean Platelet Volume 8.6 fL (9.4-12.4); Monocytes # 0.6 K/mcL (0.0-1.3); Neutrophils # 3.2 K/mcL (1.6-8.9); Platelet Count 226 K/mcL (140-400); Red Blood Count 2.39 M/mcL (4.19-5.50); Red Cell Distribution Width 13.7 % (11.5-14.5); Segmented Neutrophils % 57.2 %; White Blood Count 5.6 K/mcL (4.3-11.1)
[2019-01-04 03:22] LABS: Calcium 7.7 mg/dL (8.6-10.3); Potassium 4.8 mEq/L (3.5-5.1)
[2019-01-04 03:26] LABS: Magnesium 2.2 mg/dL (1.6-2.6); Phosphorous 5.9 mg/dL (2.7-4.5)
[2019-01-04] MEDS ORDERED: Carbamide Peroxide 150 DROP/15 ML BOTTLE BOTH EARS SCH (09:00)
[2019-01-04] MEDS: NIFEdipine XL (24 HR) 30 MG TAB.ER.24 PO SCH (09:04)
[2019-01-04] MEDS: Baclofen 10 MG TABLET PO SCH ×2 (09:05→21:41)
[2019-01-04] MEDS: BuPROPion SR (12 HR) 150 MG TABLET PO SCH (09:05)
[2019-01-04] MEDS: cefTRIAXone 1,000 MG in Water for inj. (sterile) 10 ML IVP SCH (09:05)
--- NOTE | 2019-01-04 09:38 | Nephrology Progress Note ---
Date of Encounter: 01/04/19 Time of Encounter: 09:35 - Assessment and Plan (1) End-stage renal disease on hemodialysis Current Visit: Yes Status: Chronic HD tomorrow. TTS at [facility]. Last HD session Friday, without complication. (2) Anemia Current Visit: Yes Status: Acute Goal Hgb is 10-11 in the setting of ESRD. Qualifiers: Anemia type: unspecified type Qualified Code(s): D64.9 - Anemia, unspecified (3) PKD (polycystic kidney disease) Current Visit: Yes Status: Chronic The etiology of his ESRD and his gross hematuria may be secondary to a spontaneously rupture renal cyst (4) Gross hematuria Current Visit: Yes Status: Acute See above Subjective Principal diagnosis: ESRD Interval history: Pt seen and examined, doing well. Denies any needs, he is hard to understand due to his cerebral palsy. Objective - Vital Signs Vital signs: Vital Signs Temp Pulse Resp BP Pulse Ox 01/04/19 06:41 98.3 F 89 16 106/68 96 01/04/19 03:31 97.9 F 91 17 120/69 96 01/03/19 23:27 97.9 F 92 17 100/66 96 01/03/19 19:09 98.5 F 105 16 97/59 94 01/03/19 15:17 98.3 F 92 16 107/62 96 01/03/19 10:48 98.2 F 93 15 103/49 95 Intake and Output 01/03/19 01/04/19 01/04/19 23:59 07:59 15:59 Intake Total 130 / 610 Output Total 650 / 650 Balance 130 / 210 -650 / -650 Intake: IV Fluids Rocephin 1,000 MG In Water for inj. (sterile) 10 ML @ 600 mls/ hr IVP DAILY KOREY Rx#:[id number] Oral 120 / 600 Output: Urine 650 / 650 Other: Meal Dinner Percent of Meal Consumed 95% Stool Size Moderate Stool Consistency soft formed Stool Color Brown # Bowel Movement Diapers 1 Weight 55 kg - General Appearance General appearance: Present: well-developed, well-nourished EENT: Present: ATNC, hearing intact, vision intact Neck: Present: supple Respiratory: Present: clear Cardiology: Present: no edema, normal S1, normal S2 Dialysis Vascular Access: Arteriovenous Fistula thrill: Yes bruit: Yes Gastrointestinal: Present: normoactive bowel sounds, no tenderness, no guarding Integumentary: Present: no rash, warm and dry Neurologic: Present: alert and oriented x3 Musculoskeletal: Present: no deformities, no erythema Psychiatric: Present: mood/affect appropriate - Lab 01/04/19 02:14 01/04/19 02:14 Most recent lab results 01/04/19 01/04/19 02:14 02:14 Calcium 7.7 L Phosphorus 5.9 H Magnesium 2.2 Consult Discharge Plan - Plan Referrals: Shayy Powers, FAGOTER [Advanced Practice Nurse] - 01/06/19 11:00 am NONE,PCP [Primary Care Provider] -
--- NOTE | 2019-01-04 11:40 | Internal Med Progress Note ---
Hospitalist Progress Note - Encounter Date of Encounter: 01/04/19 Time of Encounter: 11:37 - Subjective Interval History: I have seen and evaluated the patient at bedside. patient reports no distress, condom cath with hematuria. denies abdominal pain, nausea, vomiting or chest pain. - Exam Vitals: Temp Pulse Resp BP Pulse Ox 98.2 F 93 16 109/64 95 01/04/19 10:47 01/04/19 10:47 01/04/19 10:47 01/04/19 10:47 01/04/19 10:47 Exam: Vitals: Reviewed General: Alert and oriented x2. In no distress Cardiovascular: RRR, normal S1 & S2, no rubs, murmurs or gallops. Lungs: CTA b/l, no wheezes or crackles. Abdomen: Soft, non-tender, no rigidity. NABS in all 4 quadrants Extremities: contracted lower extr Neurological: No focal neurological deficits Rest of the physical exam is non contributory - Assessment and Plan (1) Anemia Current Visit: Yes Status: Acute Assessment and Plan: H&H stable. s/p 1 unit of PRBC transfused. H&H slightly trending down Urology team consulted for re-evaluation as patient continues to have hematuria On ferrous sulfate 325 by mouth twice a day. will continue to follow and transfuse per protocol on Epoetin (2) Gross hematuria Current Visit: Yes Status: Acute Assessment and Plan: plan of care as above (3) End-stage renal disease on hemodialysis Current Visit: Yes Status: Chronic Assessment and Plan: renal replacement therapy as scheduled per nephrology recommendations. avoid nephrotoxic medications. (4) PKD (polycystic kidney disease) Current Visit: Yes Status: Chronic (5) Cerebral palsy Current Visit: No Status: Chronic Assessment and Plan: Plan conservative management with frequent repositioning. Daily PT/OT (6) Hypertension Current Visit: No Status: Chronic Assessment and Plan: BP has been running in the low side. will decrease losartan to 50mg/PO daily. continue nefedipine 30mg/PO daily (7) Depression Current Visit: No Status: Chronic Assessment and Plan: Continue bupropion 150mg/PO daily and sertraline 100mg/PO daily (8) UTI (urinary tract infection) Current Visit: No Status: Acute Assessment and Plan: continue ceftriaxone 1 g IV daily. Urine culture: No growth. DVT Prophylaxis: intermittent pneumatic compression no chemical dvt prophylaxis due to hematuria - Summary of Assessment and Plan Summary of Assessment and Plan: Patient to remain in the hospital due to worsening anemia and hematuria - Time Spent with Patient Total time spent is greater than 50% in coordination of care (as documented) at patient's floor/unit and/or counseling patient: Greater than 35 minutes (40) Plan of Care Discussed with: nurse Internal Medicine: Result - Labs CBC & Chem 7: 01/04/19 02:14 01/04/19 02:14 Labs: Short CBC 01/03/19 01/04/19 Range/Units 11:50 02:14 WBC 4.8 5.6 (4.3-11.1) K/mcL Hgb 8.1 L 7.6 L (12.9-16.9) g/dL Hct 26.2 L 24.8 L (37.5-50.1) % Plt Count 226 226 (140-400) K/mcL Neutrophils # 3.1 3.2 (1.6-8.9) K/mcL BMP 01/04/19 02:14 Sodium 142 Potassium 4.8 Chloride 106 Carbon Dioxide 23 BUN 66 H Creatinine 7.51 H Glucose 83 Calcium 7.7 L Consult Discharge Plan - Plan Referrals: Shayy Powers, HUMAN RESOURCES DEPARTMENT SUPERVISOR [Advanced Practice Nurse] - 01/06/19 11:00 am NONE,PCP [Primary Care Provider] - (1) Anemia Qualifiers: Anemia type: unspecified type Qualified Code(s): D64.9 - Anemia, unspecified (5) Cerebral palsy Qualifiers: Cerebral palsy type: other type Qualified Code(s): G80.8 - Other cerebral palsy (6) Hypertension Qualifiers: Hypertension type: secondary to other renal disorders Qualified Code(s): I15.1 - Hypertension secondary to other renal disorders; N28.89 - Other specified disorders of kidney and ureter (7) Depression Qualifiers: Depression Type: unspecified Qualified Code(s): F32.9 - Major depressive disorder, single episode, unspecified (8) UTI (urinary tract infection) Qualifiers: Urinary tract infection type: site unspecified Hematuria presence: without hematuria Qualified Code(s): N39.0 - Urinary tract infection, site not specified
--- NOTE | 2019-01-04 13:46 | Urology Progress Note ---
<Pam Martinez N - Last Filed: 01/04/19 13:43> Date of Encounter: 01/04/19 Time of Encounter: 11:50 - Assessment and Plan (1) Gross hematuria Current Visit: Yes Status: Acute Assessment and plan: Patient is a 48-year-old male who presents with polycystic kidney disease and gross hematuria. Vital signs are currently stable and afebrile. Current hemoglobin is 7.6, and it was 8.1 yesterday. Urine culture is negative. Initial CT suggestive of renal cystic bleed into the urinary tract. Urine is coke-colored and not bright red. Urine without clots. Patient is receiving dialysis for end-stage renal disease, and he does not produce a large volume of urine. Therefore, it may take longer to resolve hematuria. I reviewed the case with Dr. Dupree who does not feel the patient is bleeding acutely from the uri nary tract. I anticipate conservative management without urologic surgical intervention. Dr. Dupree will be in to reevaluate patient. (2) PKD (polycystic kidney disease) Current Visit: Yes Status: Chronic Progress Note Narrative: Patient seen and examined sitting upright in bed eating breakfast with PET FOOD DEBONER at bedside. Patient is in no apparent distress. Patient is nonverbal and unable t o answer pointed questions. Aguilera catheter is indwelling and draining coke colored urine into bedside bag. Objective Initial Vital Signs Temp Pulse Resp BP Pulse Ox 97.5 F L 97 16 111/90 100 12/31/18 10:25 12/31/18 10:25 12/31/18 10:25 12/31/18 10:25 12/31/18 10:25 - General physical appearance Present: no distress, no pain - Respiratory Present: normal expansion, normal respiratory effort - Abdomen Present: soft, non tender. Absent: distended - Genitourinary Urine Appearance: Present: Hematuria (Urine is coke-colored draining into bedside bag) - Integumentary Present: no rash, no abnormal pigmentation - Musculoskeletal Present: normal posture - Psychiatric Present: oriented to person. Absent: oriented to time, oriented to place, speech is normal, memory intact - Labs 01/04/19 02:14 01/04/19 02:14 Diabetes panel 01/04/19 Range/Units 02:14 Sodium 142 (136-145) mEq/L Potassium 4.8 (3.5-5.1) mEq/L Chloride 106 (98-107) mEq/L Carbon Dioxide 23 (23-29) mEq/L BUN 66 H (6-20) mg/dL Creatinine 7.51 H (0.70-1.30) mg/dL Glucose 83 (70-105) mg/dL Calcium 7.7 L (8.6-10.3) mg/dL Calcium panel 01/04/19 01/04/19 Range/Units 02:14 02:14 Calcium 7.7 L (8.6-10.3) mg/dL Phosphorus 5.9 H (2.7-4.5) mg/dL Pituitary panel 01/04/19 Range/Units 02:14 Sodium 142 (136-145) mEq/L Potassium 4.8 (3.5-5.1) mEq/L Chloride 106 (98-107) mEq/L Carbon Dioxide 23 (23-29) mEq/L BUN 66 H (6-20) mg/dL Creatinine 7.51 H (0.70-1.30) mg/dL Glucose 83 (70-105) mg/dL Calcium 7.7 L (8.6-10.3) mg/dL Adrenal panel 01/04/19 Range/Units 02:14 Sodium 142 (136-145) mEq/L Potassium 4.8 (3.5-5.1) mEq/L Chloride 106 (98-107) mEq/L Carbon Dioxide 23 (23-29) mEq/L BUN 66 H (6-20) mg/dL Creatinine 7.51 H (0.70-1.30) mg/dL Glucose 83 (70-105) mg/dL Calcium 7.7 L (8.6-10.3) mg/dL Consult Discharge Plan - Plan Referrals: Shayy Powers, WELLNESS RN [Advanced Practice Nurse] - 01/06/19 11:00 am NONE,PCP [Primary Care Provider] - <Hosea Dupree - Last Filed: 01/04/19 17:20> Date of Encounter: 01/04/19 - Assessment and Plan (1) Gross hematuria Current Visit: Yes Status: Acute Assessment and plan: Patient seen and examined independently. I am in agreement with the assessment and plan as outlined by our Urologic Surgery Department Physician Tub Attendant, Michelle. Urine output color of blood. I have reviewed the prior CT imaging which does document connection between the hemorrhagic cyst and the renal collecting system. Plan: Continue supportive therapy as long as urine remains the color of blood or bloodstained (dark) and no new active bleeding (bright red) returns. Would consider minimally invasive left nephrectomy if this beco mes a recurrent issue for this patient. (2) PKD (polycystic kidney disease) Current Visit: Yes Status: Chronic Objective Initial Vital Signs Temp Pulse Resp BP Pulse Ox 97.5 F L 97 16 111/90 100 12/31/18 10:25 12/31/18 10:25 12/31/18 10:25 12/31/18 10:25 12/31/18 10:25 - Labs 01/04/19 14:15 01/04/19 02:14 Diabetes panel 01/04/19 Range/Units 02:14 Sodium 142 (136-145) mEq/L Potassium 4.8 (3.5-5.1) mEq/L Chloride 106 (98-107) mEq/L Carbon Dioxide 23 (23-29) mEq/L BUN 66 H (6-20) mg/dL Creatinine 7.51 H (0.70-1.30) mg/dL Glucose 83 (70-105) mg/dL Calcium 7.7 L (8.6-10.3) mg/dL Calcium panel 01/04/19 01/04/19 Range/Units 02:14 02:14 Calcium 7.7 L (8.6-10.3) mg/dL Phosphorus 5.9 H (2.7-4.5) mg/dL Pituitary panel 01/04/19 Range/Units 02:14 Sodium 142 (136-145) mEq/L Potassium 4.8 (3.5-5.1) mEq/L Chloride 106 (98-107) mEq/L Carbon Dioxide 23 (23-29) mEq/L BUN 66 H (6-20) mg/dL Creatinine 7.51 H (0.70-1.30) mg/dL Glucose 83 (70-105) mg/dL Calcium 7.7 L (8.6-10.3) mg/dL Adrenal panel 01/04/19 Range/Units 02:14 Sodium 142 (136-145) mEq/L Potassium 4.8 (3.5-5.1) mEq/L Chloride 106 (98-107) mEq/L Carbon Dioxide 23 (23-29) mEq/L BUN 66 H (6-20) mg/dL Creatinine 7.51 H (0.70-1.30) mg/dL Glucose 83 (70-105) mg/dL Calcium 7.7 L (8.6-10.3) mg/dL
[2019-01-04 14:31] LABS: Basophils % 0.2 %; Eosinophils # 0.1 K/mcL (0.0-0.6); Eosinophils % 1.9 %; Hematocrit 25.8 % (37.5-50.1); Immature Granulocytes % 0.2 % (0-4); Lymphocytes # 1.2 K/mcL (0.6-4.6); Lymphocytes % 18.9 %; Mean Corpuscular Hemoglobin 32.4 pg (28.0-33.3); Mean Corpuscular Volume 104.5 fL (83.0-100.0); Mean Platelet Volume 8.3 fL (9.4-12.4); Monocytes # 0.4 K/mcL (0.0-1.3); Monocytes % 6.8 %; Neutrophils # 4.5 K/mcL (1.6-8.9); Platelet Count 241 K/mcL (140-400); Red Blood Count 2.47 M/mcL (4.19-5.50); Red Cell Distribution Width 13.6 % (11.5-14.5); White Blood Count 6.3 K/mcL (4.3-11.1)
[2019-01-04] MEDS: Famotidine 20 MG TABLET PO SCH (21:41)
[2019-01-04] MEDS: Latanoprost 2.5 ML BOTTLE BOTH EYES SCH (21:41)
[2019-01-04] MEDS: traZODone 50 MG TABLET PO SCH (21:41)
[2019-01-05] MEDS ORDERED: 0.9 % Sodium Chloride 250 ML IVC PRN (07:05)
[2019-01-05 07:12] LABS: Calcium 8.1 mg/dL (8.6-10.3); Potassium 5.2 mEq/L (3.5-5.1)
[2019-01-05 08:00] LABS: Basophils % 0.4 %; Eosinophils # 0.1 K/mcL (0.0-0.6); Eosinophils % 2.2 %; Hematocrit 26.4 % (37.5-50.1); Hemoglobin 7.9 g/dL (12.9-16.9); Immature Granulocytes % 0.4 % (0-4); Lymphocytes # 0.8 K/mcL (0.6-4.6); Lymphocytes % 15.7 %; Mean Corpuscular HGB Conc 29.9 g/dL (31.6-35.5); Mean Corpuscular Hemoglobin 31.2 pg (28.0-33.3); Mean Corpuscular Volume 104.3 fL (83.0-100.0); Mean Platelet Volume 8.4 fL (9.4-12.4); Monocytes # 0.3 K/mcL (0.0-1.3); Monocytes % 5.9 %; Neutrophils # 3.7 K/mcL (1.6-8.9); Platelet Count 251 K/mcL (140-400); Red Blood Count 2.53 M/mcL (4.19-5.50); Red Cell Distribution Width 13.7 % (11.5-14.5); Segmented Neutrophils % 75.4 %; White Blood Count 4.9 K/mcL (4.3-11.1)
[2019-01-05] MEDS: BuPROPion SR (12 HR) 150 MG TABLET PO SCH (08:01)
[2019-01-05] MEDS: cefTRIAXone 1,000 MG in Water for inj. (sterile) 10 ML IVP SCH (08:02)
[2019-01-05] MEDS: Baclofen 10 MG TABLET PO SCH ×2 (08:02→19:32)
[2019-01-05] MEDS: NIFEdipine XL (24 HR) 30 MG TAB.ER.24 PO SCH (08:07)
--- NOTE | 2019-01-05 08:54 | Nephrology Progress Note ---
Date of Encounter: 01/05/19 Time of Encounter: 08:52 - Assessment and Plan (1) End-stage renal disease on hemodialysis Current Visit: Yes Status: Chronic HD in progress for today. TTS at [facility]. (2) Anemia Current Visit: Yes Status: Acute Goal Hgb is 10-11 in the setting of ESRD. Qualifiers: Anemia type: unspecified type Qualified Code(s): D64.9 - Anemia, unspecified (3) PKD (polycystic kidney disease) Current Visit: Yes Status: Chronic The etiology of his ESRD and his gross hematuria may be secondary to a spontaneously rupture renal cyst (4) Gross hematuria Current Visit: Yes Status: Acute Appears resolving. Urology is following, appreciate recommendations. Subjective Principal diagnosis: ESRD Interval history: Pt seen and examined during HD, tolerating well. Denies any needs, he is hard to understand due to his cerebral palsy. Objective - Vital Signs Vital signs: Vital Signs Temp Pulse Resp BP Pulse Ox 01/05/19 07:06 97.7 F 79 18 114/68 98 01/05/19 06:01 98.1 F 78 16 120/71 98 01/05/19 00:19 98.9 F 80 16 141/60 95 01/04/19 21:00 95 01/04/19 20:22 98.2 F 86 16 133/66 96 01/04/19 16:20 98.6 F 85 19 107/67 98 01/04/19 10:47 98.2 F 93 16 109/64 95 Intake and Output 01/04/19 01/05/19 01/05/19 23:59 07:59 15:59 Intake Total 120 / 510 Output Total 300 / 300 Balance 120 / -140 -300 / -300 Intake: Oral 120 / 500 Output: Urine 300 / 300 Other: Stool Size Small Moderate Stool Consistency loose soft Stool Color Brown # Urine Diapers 1 # Bowel Movement Diapers 1 Weight 55 kg Patient Weight 01/05/19 23:59 Weight 55 kg - General Appearance General appearance: Present: well-developed, well-nourished EENT: Present: ATNC, hearing intact, vision intact Neck: Present: supple Respiratory: Present: clear Cardiology: Present: no edema, normal S1, normal S2 Dialysis Vascular Access: Arteriovenous Fistula thrill: Yes bruit: Yes Gastrointestinal: Present: normoactive bowel sounds, no tenderness, no guarding Integumentary: Present: no rash, warm and dry Neurologic: Present: alert and oriented x3 Musculoskeletal: Present: no deformities, no erythema Psychiatric: Present: mood/affect appropriate, cooperative - Lab 01/05/19 07:49 01/05/19 06:25 Most recent lab results 01/05/19 06:25 Calcium 8.1 L Consult Discharge Plan - Plan Referrals: Shayy Powers, HAT BLOCKER [Advanced Practice Nurse] - 01/06/19 11:00 am NONE,PCP [Primary Care Provider] -
[2019-01-05] MEDS ORDERED: Ondansetron 4 MG/2 ML VIAL IVP PRN (10:54)
--- NOTE | 2019-01-05 11:42 | Internal Med Progress Note ---
Hospitalist Progress Note - Encounter Date of Encounter: 01/05/19 Time of Encounter: 11:41 - Subjective Interval History: I have seen and evaluated the patient at bedside. Patient reports nausea and some abdominal discomfort. Per the nurse at the dialysis unit the patient had an episode of nonbilious, nonbloody vomitus. Patient denies chest pain, shor tness of breath - Exam Vitals: Temp Pulse Resp BP Pulse Ox 97.6 F 79 18 118/80 98 01/05/19 08:00 01/05/19 07:06 01/05/19 08:00 01/05/19 10:30 01/05/19 07:06 Exam: Vitals: Reviewed General: Alert and oriented x2. In mild distress due to nausea and abdominal discomfort Cardiovascular: RRR, normal S1 & S2, no rubs, murmurs or gallops. Lungs: CTA b/l, no wheezes or crackles. Abdomen: Soft, non-tender, no rigidity. NABS in all 4 quadrants Extremities: contracted lower extr Neurological: No focal neurological deficits Rest of the physical exam is non contributory - Assessment and Plan (1) Anemia Current Visit: Yes Status: Acute Assessment and Plan: H&H remains stable. We will continue to monitor and transfuse per protocol. Patient is on Epoetin césar and ferrous sulfate. (2) Gross hematuria Current Visit: Yes Status: Acute Assessment and Plan: Urine is coke-colored and not bright red. Urine without clots. urology recommended conservative management for now. recommendations appreciated (3) End-stage renal disease on hemodialysis Current Visit: Yes Status: Chronic Assessment and Plan: renal replacement therapy as scheduled per nephrology recommendations. continue to avoid nephrotoxic medications. (4) PKD (polycystic kidney disease) Current Visit: Yes Status: Chronic (5) Cerebral palsy Current Visit: No Status: Chronic Assessment and Plan: continue with frequent repositioning. Daily PT/OT (6) Hypertension Current Visit: No Status: Chronic Assessment and Plan: BP better controlled On losartan to 50mg/PO daily. and nefedipine 30mg/PO daily (7) Depression Current Visit: No Status: Chronic Assessment and Plan: patient is on bupropion 150mg/PO daily and sertraline 100mg/PO daily. Home dose (8) UTI (urinary tract infection) Current Visit: No Status: Acute Assessment and Plan: continue ceftriaxone 1 g IV daily for at least 2 more days Urine culture: No growth. (9) Hyperkalemia Current Visit: No Status: Acute Assessment and Plan: patient scheduled for HD today. will repeat potassium level 1 hour after HD DVT Prophylaxis: intermittent pneumatic compression no chemical dvt prophylaxis due to hematuria - Summary of Assessment and Plan Summary of Assessment and Plan: Patient to remain in the hospital. shared services manager is arranging placement. - Time Spent with Patient Total time spent is greater than 50% in coordination of care (as documented) at patient's floor/unit and/or counseling patient: Greater than 35 minutes Plan of Care Discussed with: nurse Internal Medicine: Result - Labs CBC & Chem 7: 01/05/19 07:49 01/05/19 06:25 Labs: Short CBC 01/04/19 01/05/19 Range/Units 14:15 07:49 WBC 6.3 4.9 (4.3-11.1) K/mcL Hgb 8.0 L 7.9 L (12.9-16.9) g/dL Hct 25.8 L 26.4 L (37.5-50.1) % Plt Count 241 251 (140-400) K/mcL Neutrophils # 4.5 3.7 (1.6-8.9) K/mcL BMP 01/05/19 06:25 Sodium 143 Potassium 5.2 H Chloride 105 Carbon Dioxide 25 BUN 83 H Creatinine 9.38 H Glucose 84 Calcium 8.1 L Consult Discharge Plan - Plan Referrals: Shayy Powers, CAR LUBRICATOR [Advanced Practice Nurse] - 01/06/19 11:00 am NONE,PCP [Primary Care Provider] - (1) Anemia Qualifiers: Anemia type: unspecified type Qualified Code(s): D64.9 - Anemia, unspecified (5) Cerebral palsy Qualifiers: Cerebral palsy type: other type Qualified Code(s): G80.8 - Other cerebral palsy (6) Hypertension Qualifiers: Hypertension type: secondary to other renal disorders Qualified Code(s): I15.1 - Hypertension secondary to other renal disorders; N28.89 - Other specified disorders of kidney and ureter (7) Depression Qualifiers: Depression Type: unspecified Qualified Code(s): F32.9 - Major depressive disorder, single episode, unspecified (8) UTI (urinary tract infection) Qualifiers: Urinary tract infection type: site unspecified Hematuria presence: without hematuria Qualified Code(s): N39.0 - Urinary tract infection, site not specifi ed
[2019-01-05] MEDS: Latanoprost 2.5 ML BOTTLE BOTH EYES SCH (19:32)
[2019-01-05] MEDS: traZODone 50 MG TABLET PO SCH (19:32)
[2019-01-05] MEDS: Famotidine 20 MG TABLET PO SCH (19:32)
[2019-01-06 06:41] LABS: Calcium 8.5 mg/dL (8.6-10.3); Potassium 4.8 mEq/L (3.5-5.1)
[2019-01-06] MEDS: NIFEdipine XL (24 HR) 30 MG TAB.ER.24 PO SCH (07:39)
[2019-01-06] MEDS: cefTRIAXone 1,000 MG in Water for inj. (sterile) 10 ML IVP SCH (07:39)
[2019-01-06] MEDS: BuPROPion SR (12 HR) 150 MG TABLET PO SCH (07:39)
[2019-01-06] MEDS: Baclofen 10 MG TABLET PO SCH (07:40)
--- NOTE | 2019-01-06 09:32 | Nephrology Progress Note ---
Date of Encounter: 01/06/19 Time of Encounter: 09:31 - Assessment and Plan (1) End-stage renal disease on hemodialysis Current Visit: Yes Status: Chronic HD completed yesterday. TTS at [facility]. (2) Anemia Current Visit: Yes Status: Acute Goal Hgb is 10-11 in the setting of ESRD. Qualifiers: Anemia type: unspecified type Qualified Code(s): D64.9 - Anemia, unspecified (3) PKD (polycystic kidney disease) Current Visit: Yes Status: Chronic The etiology of his ESRD and his gross hematuria may be secondary to a spontaneously rupture renal cyst (4) Gross hematuria Current Visit: Yes Status: Acute Appears resolving. Urology is following, appreciate recommendations. Subjective Principal diagnosis: ESRD Interval history: Pt seen and examined. Doing well. Denies any needs, he is hard to understand due to his cerebral palsy. Objective - Vital Signs Vital signs: Vital Signs Temp Pulse Resp BP Pulse Ox 01/06/19 07:07 99.2 F 86 16 106/69 97 01/06/19 03:34 99 F 97 16 119/73 98 01/06/19 00:17 98.5 F 90 16 122/73 94 01/05/19 18:38 99 F 96 16 125/68 97 01/05/19 15:18 98.2 F 90 18 118/72 98 01/05/19 11:39 97.8 F 83 18 114/73 98 01/05/19 11:32 97.7 F 18 115/83 01/05/19 11:15 135/88 01/05/19 11:00 136/81 01/05/19 10:45 124/82 01/05/19 10:30 118/80 01/05/19 10:15 122/79 01/05/19 10:00 113/79 01/05/19 09:45 124/83 Intake and Output 01/05/19 01/06/19 01/06/19 23:59 07:59 15:59 Intake Total 0 / 610 0 / 0 Output Total 0 / 2900 Balance 0 / -2290 0 / 0 Intake: Oral 0 / 0 0 / 0 Output: Urine 0 / 300 Other: # Voids 0 # Urine Diapers 1 Weight 49.5 kg Patient Weight 01/06/19 23:59 Weight 49.5 kg - General Appearance General appearance: Present: well-developed, well-nourished EENT: Present: ATNC, hearing intact, vision intact Neck: Present: supple Respiratory: Present: clear Cardiology: Present: no edema, normal S1, normal S2 Dialysis Vascular Access: Arteriovenous Fistula thrill: Yes bruit: Yes Gastrointestinal: Present: normoactive bowel sounds, no tenderness, no guarding Integumentary: Present: no rash, warm and dry Neurologic: Present: alert and oriented x3 Musculoskeletal: Present: no deformities, no erythema Psychiatric: Present: mood/affect appropriate, cooperative - Lab 01/05/19 07:49 01/06/19 05:50 Most recent lab results 01/06/19 05:50 Calcium 8.5 L Consult Discharge Plan - Plan Referrals: Shayy Powers TRANSITION PROGRAM MANAGER [Advanced Practice Nurse] - 01/06/19 11:00 am (Ecf) Hosea Dupree [Partnered Physician] - 01/19/19 10:30 am (Please follow up as schedule...) NONE,PCP [Primary Care Provider] - Prescriptions: Ferrous Sulfate 325 mg PO BIDWM #30 tablet
--- NOTE | 2019-01-06 12:15 | Discharge Summary ---
Orders not resulted at time of discharge: Pending orders 01/01/19 07:47 Sputum Culture [Culture,Sputum with Gram Stain] [] Stat 01/07/19 04:00 BMP [Basic Metabolic Panel] AM 0400 01/08/19 04:00 BMP [Basic Metabolic Panel] AM 0400 Date of Encounter: 01/06/19 Time of Encounter: 12:13 - Discharge Diagnosis (1) Hematuria Priority: Primary Status: Acute Qualifiers: Hematuria type: gross Qualified Code(s): R31.0 - Gross hematuria (2) Polycystic kidney disease Priority: Secondary Status: Acute (3) End-stage renal disease on hemodialysis Priority: Secondary Status: Chronic (4) Cerebral palsy Priority: Secondary Status: Chronic Qualifiers: Cerebral palsy type: other type Qualified Code(s): G80.8 - Other cerebral palsy Hospital course: Mr. Watters is a 48 year old male with history of end-stage renal disease and polycystic kidney disease as well as cerebral palsy who presented with gross hematuria. Urology was consulted and believes that a cyst ruptured causing blood to flow into the urine. Hemoglobin was stable during admission. Urology preferred conservative management. Patient was discharged with urology and PCP follow-up. Discharge discussed with: patient, nurse, social work Time spent discussing smoking cessation with patient: 3 to 10 minutes - Time Spent with Patient Total time spent providing and/or coordinating discharge services: 32 minutes - Discharge Medications Prescriptions: New Ferrous Sulfate 325 mg PO BIDWM #30 tablet Continued Travoprost [Travatan Z] 1 drop BOTH EYES HS Epinastine HCl [Elestat] 1 drop BOTH EYES BID Sertraline [Zoloft] 200 mg PO QAM Ranitidine HCl [Acid Tender Labor] 150 mg PO BID Cholecalciferol (D-3) [Vitamin D] 1,000 unit PO DAILY Baclofen [Lioresal] 10 mg PO BID Tamsulosin [Flomax] 0.4 mg PO DAILY NIFEdipine [Nifedipine ER] 30 mg PO DAILY Losartan Potassium [Cozaar] 100 mg PO DAILY EPINEPHrine [Epipen] 0.3 mg IM ONCE PRN PRN Reason: Anaphylaxis traZODone [TraZODone] 50 mg PO HS BuPROPion SR (12 HR) [Wellbutrin SR] 150 mg PO DAILY Carbamide Peroxide [Debrox] 5 drop BOTH EARS MO Sevelamer [Renvela] 1 - 2 tab PO AD Folic Acid/Vit B Complex and C [Dialyvite Tablet] 1 each PO DAILY Acetaminophen [Tylenol] 650 mg PO Q4HR PRN PRN Reason: Pain Home Medications: Baclofen [Lioresal] 10 mg PO BID 03/24/18 [History] Cholecalciferol (D-3) [Vitamin D] 1,000 unit PO DAILY 03/24/18 [History] EPINEPHrine [Epipen] 0.3 mg IM ONCE PRN 03/24/18 [History] Epinastine HCl [Elestat] 1 drop BOTH EYES BID 03/24/18 [History] Losartan Potassium [Cozaar] 100 mg PO DAILY 03/24/18 [History] NIFEdipine [Nifedipine ER] 30 mg PO DAILY 03/24/18 [History] Ranitidine HCl [Acid Tender Labor] 150 mg PO BID 03/24/18 [History] Sertraline [Zoloft] 200 mg PO QAM 03/24/18 [History] Tamsulosin [Flomax] 0.4 mg PO DAILY 03/24/18 [History] Travoprost [Travatan Z] 1 drop BOTH EYES HS 03/24/18 [History] traZODone [TraZODone] 50 mg PO HS 03/24/18 [History] BuPROPion SR (12 HR) [Wellbutrin SR] 150 mg PO DAILY 03/25/18 [History] Carbamide Peroxide [Debrox] 5 drop BOTH EARS MO 09/26/18 [History] Folic Acid/Vit B Complex and C [Dialyvite Tablet] 1 each PO DAILY 09/26/18 [History] Sevelamer [Renvela] 1 - 2 tab PO AD 09/26/18 [History] Acetaminophen [Tylenol] 650 mg PO Q4HR PRN 12/31/18 [History] Ferrous Sulfate 325 mg PO BIDWM #30 tablet 01/06/19 [Rx] Allergies/Adverse Reactions: Allergy/AdvReac Type Severity Reaction Status Date / Time No Known Allergies Allergy Verified 03/24/18 15:33 Date of admission: 01/01/19 11:30 Primary care physician: PCP NONE Consults: 12/31/18 10:50 Consult to Urology [CONS] Stat Consulting Provider: Urology Lita Reason for Consult: new hematuria Call Completed: Yes 12/31/18 15:42 Consult to Nephrology [CONS] Routine Consulting Provider: Kidney Lita/PEDRO/JED/RAH Reason for Consult: ESRD on hemodialysis, called from ED Call Completed: Yes 12/31/18 16:23 Consult to Warp Spinner [CONS] Routine Reason for SW Consult: pt is from a long-term 01/01/19 11:26 Consult to Occupational Therapy [CONS] Routine Comment: Evaluate, develop and implement POC Reason for Consult: bedridden Does patient have active BEDREST order?: No Is patient medically & hemodynamically stable?: Yes 01/01/19 11:27 Consult to Physical Therapy [CONS] Routine Comment: Evaluate, develop and implement POC Reason for Consult: bedridden Does patient have active BEDREST order?: No Is patient medically & hemodynamically stable?: Yes 01/02/19 07:30 Consult to Dialysis [CONS] ONCE 01/04/19 08:18 Consult to Nurse Navigator [CONS] Routine Comment: hd 01/05/19 07:15 Consult to Dialysis [CONS] ONCE - Constitutional Vitals: Temp Pulse Resp BP Pulse Ox 98.1 F 102 16 94/52 96 01/06/19 11:15 01/06/19 11:15 01/06/19 11:15 01/06/19 11:15 01/06/19 11:15 General appearance: Present: no acute distress. Absent: answers questions appropriately Exam: General: Ill-appearing and in no acute distress HEENT: No erythema of posterior pharynx. No exudates. Lymphatics: No mandibular or cervical lymphadenopathy Cardiovascular: RRR. No murmurs. No chest wall tenderness. Lungs: Clear to auscelltation bilaterally. Regular chest rise. Abdomen: Non-tender. No rebound or gaurding. Nl bowel sounds. Extremities: No edema. 2+ pulses radial and pedal pulses Skin: No rahses, abrasions, or contusions. Nl cap refill. Psych: Attention kimited but at patient's baseline. Neuro: Grossly 5/5 strength. Moving all extremities appropriately - Patient Status Disposition: Transfer Intermediate Care Fac Condition: Good Overall status at discharge: patient is back to baseline - Discharge Instructions Follow Up With: Shayy Powers, LATHE TURNER [Advanced Practice Nurse] - 01/06/19 11:00 am NONE,PCP [Primary Care Provider] - - Diet and Activity Activity: increase activity as tolerated Diet: advance to your usual diet
[2019-01-06 15:43] VITALS: BP 123/77
== END 2019-01-06 15:53 | DRG 696 ==
LOC: 2ANU 10:17 → EMEROOARM 10:17 → SUATTDRO 13:39 → 2ANU 16:07 → SUATTDRO 01-01 11:30
PROVIDERS: ADMIT Internal Medicine Nephrology; ATTEND Internal Medicine

== ENCOUNTER 2019-07-05 08:03 | Inpatient (IN) ==
[2019-07-05] MEDS ORDERED: Aspirin 81 MG TAB.CHEW PO ONE (08:11)
[2019-07-05 08:34] LABS: Basophils % 0.4 %; Eosinophils # 0.1 K/mcL (0.0-0.6); Eosinophils % 2.4 %; Hematocrit 37.1 % (37.5-50.1); Hemoglobin 11.3 g/dL (12.9-16.9); Immature Granulocytes % 0.2 % (0-4); Lymphocytes % 18.3 %; Mean Corpuscular HGB Conc 30.5 g/dL (31.6-35.5); Mean Corpuscular Hemoglobin 31.1 pg (28.0-33.3); Mean Corpuscular Volume 102.2 fL (83.0-100.0); Mean Platelet Volume 8.9 fL (9.4-12.4); Monocytes # 0.5 K/mcL (0.0-1.3); Monocytes % 9.4 %; Neutrophils # 3.8 K/mcL (1.6-8.9); Platelet Count 136 K/mcL (140-400); Red Blood Count 3.63 M/mcL (4.19-5.50); Red Cell Distribution Width 14.6 % (11.5-14.5); Segmented Neutrophils % 69.3 %; White Blood Count 5.5 K/mcL (4.3-11.1)
[2019-07-05 08:43] LABS: INR 0.9; Prothrombin Time 10.3 Seconds (9.4-12.1)
[2019-07-05 08:45] LABS: Activated Partial Thrombo Time 37.1 Seconds (26.0-36.0)
[2019-07-05 08:51] LABS: BUN/Creatinine Ratio 10 (6-26); Blood Urea Nitrogen 66 mg/dL (6-20); Calcium 9.3 mg/dL (8.6-10.3); Carbon Dioxide 31 mEq/L (23-29); Chloride 100 mEq/L (98-107); Glucose 100 mg/dL (70-105); Osmolality,Calculated 315 (280-300); Potassium 4.2 mEq/L (3.5-5.1); Sodium 143 mEq/L (136-145); eGFR For African Americans 11 (> 60); eGFR For Non-African Americans 9 (> 60)
[2019-07-05 08:52] LABS: Troponin I < 0.03 ng/mL (< 0.04)
[2019-07-05] MEDS ORDERED: Naloxone 0.4 MG/ML INJ IVP PRN (12:28)
[2019-07-05] MEDS ORDERED: Acetaminophen 325 MG TABLET PO PRN ×2 (12:28→12:33)
[2019-07-05] MEDS ORDERED: Ondansetron ODT 4 MG TAB.RAPDIS SL PRN (12:28)
[2019-07-05] MEDS ORDERED: Mag Hydrox/Al Hydrox/Simeth 30 ML UDC PO PRN (13:10)
[2019-07-05] MEDS ORDERED: MOM Conc 10 ML UD.LIQ PO PRN (13:10)
[2019-07-05] MEDS: *HR* Heparin 5,000 UNIT/ML VIAL SQ SCH (17:48)
[2019-07-05] MEDS: traZODone 50 MG TABLET PO SCH (22:00)
[2019-07-05] MEDS: Baclofen 10 MG TABLET PO SCH (22:00)
[2019-07-06 01:22] LABS: Basophils % 0.7 %; Eosinophils # 0.2 K/mcL (0.0-0.6); Hematocrit 34.1 % (37.5-50.1); Immature Granulocytes % 0.2 % (0-4); Lymphocytes # 1.4 K/mcL (0.6-4.6); Lymphocytes % 23.1 %; Mean Corpuscular HGB Conc 32.3 g/dL (31.6-35.5); Mean Corpuscular Hemoglobin 31.4 pg (28.0-33.3); Mean Corpuscular Volume 97.4 fL (83.0-100.0); Monocytes # 0.6 K/mcL (0.0-1.3); Monocytes % 10.1 %; Neutrophils # 3.8 K/mcL (1.6-8.9); Platelet Count 158 K/mcL (140-400); Red Cell Distribution Width 14.6 % (11.5-14.5); Segmented Neutrophils % 62.9 %; White Blood Count 6.1 K/mcL (4.3-11.1)
[2019-07-06 01:32] LABS: Calcium 8.5 mg/dL (8.6-10.3); Potassium 4.4 mEq/L (3.5-5.1)
[2019-07-06] MEDS: Latanoprost 2.5 ML BOTTLE BOTH EYES SCH ×2 (05:39→21:50)
[2019-07-06] MEDS: *HR* Heparin 5,000 UNIT/ML VIAL SQ SCH ×2 (05:43→18:38)
[2019-07-06] MEDS: Famotidine 20 MG TABLET PO SCH (09:17)
[2019-07-06] MEDS: Baclofen 10 MG TABLET PO SCH ×2 (09:17→21:50)
[2019-07-06] MEDS: BuPROPion SR (12 HR) 150 MG TABLET PO SCH (09:17)
[2019-07-06] MEDS: NIFEdipine XL (24 HR) 30 MG TAB.ER.24 PO SCH (09:17)
[2019-07-06] MEDS ORDERED: GI Cocktail 40 ML EACH PO ONE (12:48)
[2019-07-06] MEDS ORDERED: Bismuth Subsalicylate 120 ML ORAL SUSPENSION PO PRN (14:55)
[2019-07-06] MEDS: traZODone 50 MG TABLET PO SCH (21:50)
[2019-07-07] MEDS: *HR* Heparin 5,000 UNIT/ML VIAL SQ SCH (05:47)
[2019-07-07] MEDS: NIFEdipine XL (24 HR) 30 MG TAB.ER.24 PO SCH (07:59)
[2019-07-07] MEDS: BuPROPion SR (12 HR) 150 MG TABLET PO SCH (07:59)
[2019-07-07] MEDS: Baclofen 10 MG TABLET PO SCH (07:59)
[2019-07-07] MEDS: Famotidine 20 MG TABLET PO SCH (07:59)
[2019-07-07 08:34] LABS: Hematocrit 33.4 % (37.5-50.1); Hemoglobin 10.4 g/dL (12.9-16.9); Mean Corpuscular HGB Conc 31.1 g/dL (31.6-35.5); Mean Corpuscular Hemoglobin 31.3 pg (28.0-33.3); Mean Corpuscular Volume 100.6 fL (83.0-100.0); Mean Platelet Volume 8.6 fL (9.4-12.4); Platelet Count 138 K/mcL (140-400); Red Blood Count 3.32 M/mcL (4.19-5.50); Red Cell Distribution Width 14.2 % (11.5-14.5); White Blood Count 4.9 K/mcL (4.3-11.1)
[2019-07-07 08:53] LABS: Calcium 9.1 mg/dL (8.6-10.3); Potassium 5.1 mEq/L (3.5-5.1)
[2019-07-07] MEDS ORDERED: 0.9 % Sodium Chloride 250 ML IVC PRN (12:15)
[2019-07-07] MEDS ORDERED: 0.9 % Sodium Chloride 1,000 ML PRIME SCH (12:15)
[2019-07-07 18:56] VITALS: BP 112/68
== END 2019-07-07 19:17 | disposition home or self-care (01) | DRG 313 ==
LOC: SUATTDRO → EMEROOARM 08:03 → 2ANU 08:03 → SUATTDRO 13:52 → 2ANU 14:30
PROVIDERS: ADMIT Internal Medicine; ATTEND Internal Medicine

== ENCOUNTER 2020-04-11 11:25 | Observation (INO) ==
[2020-04-11 12:08] LABS: Basophils % 0.3 %; Eosinophils # 0.1 K/mcL (0.0-0.6); Eosinophils % 0.7 %; Hematocrit 39.8 % (37.5-50.1); Hemoglobin 12.3 g/dL (12.9-16.9); Immature Granulocytes % 0.3 % (0-4); Lymphocytes % 14.5 %; Mean Corpuscular HGB Conc 30.9 g/dL (31.6-35.5); Mean Corpuscular Hemoglobin 34.7 pg (28.0-33.3); Mean Corpuscular Volume 112.4 fL (83.0-100.0); Mean Platelet Volume 8.9 fL (9.4-12.4); Monocytes # 0.8 K/mcL (0.0-1.3); Monocytes % 10.4 %; Neutrophils # 5.3 K/mcL (1.6-8.9); Platelet Count 170 K/mcL (140-400); Red Blood Count 3.54 M/mcL (4.19-5.50); Red Cell Distribution Width 13.2 % (11.5-14.5); Segmented Neutrophils % 73.8 %; White Blood Count 7.2 K/mcL (4.3-11.1)
[2020-04-11 12:13] LABS: INR 0.9; Prothrombin Time 10.7 Seconds (9.4-12.1)
[2020-04-11 12:16] LABS: Activated Partial Thrombo Time 29.9 Seconds (26.0-36.0)
[2020-04-11] MEDS ORDERED: Ondansetron 4 MG/2 ML VIAL IVP ONE (12:34)
[2020-04-11] MEDS ORDERED: Ondansetron 4 MG/2 ML VIAL ONE (12:35)
[2020-04-11 12:37] LABS: Macrocytosis Present (Not Present); Platelet Estimate Normal (Normal)
[2020-04-11 12:53] LABS: Alanine Aminotransferase 11 Units/L (7-52); Albumin 4.8 g/dL (3.5-5.7); Albumin/Globulin Ratio 1.6 (1.1-2.2); Alkaline Phosphatase 108 Units/L (34-104); Aspartate Amino Transferase 8 Units/L (13-39); BUN/Creatinine Ratio 9 (6-26); Bilirubin,Total 0.4 mg/dL (0.3-1.0); Blood Urea Nitrogen 58 mg/dL (6-20); Calcium 9.5 mg/dL (8.6-10.3); Carbon Dioxide 25 mEq/L (23-29); Chloride 101 mEq/L (98-107); Glucose 109 mg/dL (70-105); Osmolality,Calculated 305 (280-300); Potassium 3.9 mEq/L (3.5-5.1); Sodium 139 mEq/L (136-145); Total Protein 7.8 g/dL (6.4-8.9); Troponin I < 0.03 ng/mL (< 0.04); eGFR For African Americans 11 (> 60); eGFR For Non-African Americans 9 (> 60)
[2020-04-11] MEDS ORDERED: 0.9 % Sodium Chloride 1,000 ML IVC ONE (14:31)
[2020-04-11] MEDS ORDERED: Naloxone 0.4 MG/ML INJ IVP PRN (17:14)
[2020-04-11] MEDS ORDERED: Mag Hydrox/Al Hydrox/Simeth 30 ML UDC PO PRN (17:16)
[2020-04-11] MEDS ORDERED: MOM Conc 10 ML UD.LIQ PO PRN (17:16)
[2020-04-11] MEDS ORDERED: Bismuth Subsalicylate 120 ML ORAL SUSPENSION PO PRN (17:16)
[2020-04-11] MEDS: Ondansetron 4 MG/2 ML VIAL IVP PRN (17:32)
[2020-04-11] MEDS: 0.9 % Sodium Chloride 1,000 ML IVC SCH (17:32)
[2020-04-11] MEDS: *HR* Heparin 5,000 UNIT/ML VIAL SQ SCH (19:29)
[2020-04-11] MEDS: Latanoprost 2.5 ML BOTTLE BOTH EYES SCH (19:29)
[2020-04-11] MEDS: EYE OP SCH (19:36)
[2020-04-11] MEDS: AZELASTINE HCL 0.05% OP SCH (19:36)
[2020-04-12] MEDS: 0.9 % Sodium Chloride 1,000 ML IVC SCH (00:28)
[2020-04-12 00:34] LABS: Bacteria,Urine Few per hpf (None-Few); Bilirubin,Urine Negative (Negative); Blood,Urine Large (Negative); Clarity,Urine Ex.Turbid (Clear); Color,Urine Yellow (Yellow); Glucose,Urine (UA) Normal (Normal); Ketones,Urine Negative (Negative); Leukocyte Esterase,Urine Large (Negative); Nitrite,Urine Negative (Negative); Protein,Urine 200 mg/dL (Neg-Trace); RBC,Urine TNTC per hpf (0-3); Specific Gravity,Urine 1.011 (1.010-1.025); Urobilinogen,Urine Normal (Normal); WBC,Urine TNTC per hpf (0-3)
[2020-04-12] MEDS: *HR* Heparin 5,000 UNIT/ML VIAL SQ SCH ×2 (05:37→16:52)
[2020-04-12 06:33] LABS: Calcium 9.2 mg/dL (8.6-10.3); Magnesium 2.4 mg/dL (1.6-2.6); Potassium 4.8 mEq/L (3.5-5.1)
[2020-04-12] MEDS: NIFEdipine XL (24 HR) 30 MG TAB.ER.24 PO SCH (09:06)
[2020-04-12] MEDS: Cholecalciferol (D-3) 1,000 UNIT (25MCG) TABLET PO SCH (09:07)
[2020-04-12] MEDS: Renal Vitamin 1 CAP CAPSULE PO SCH (09:07)
[2020-04-12] MEDS: AZELASTINE HCL 0.05% OP SCH ×2 (09:08→20:01)
[2020-04-12] MEDS: EYE OP SCH ×2 (09:08→20:01)
[2020-04-12] MEDS: BuPROPion SR (12 HR) 150 MG TABLET PO SCH (16:52)
[2020-04-12] MEDS ORDERED: cefTRIAXone 1,000 MG in 0.9 % Sodium Chloride Mini Bag 100 ML IVPB ONE (17:00)
[2020-04-12] MEDS: Baclofen 10 MG TABLET PO SCH (20:00)
[2020-04-12] MEDS: Latanoprost 2.5 ML BOTTLE BOTH EYES SCH (20:00)
[2020-04-13 04:41] LABS: Basophils % 0.3 %; Eosinophils # 0.1 K/mcL (0.0-0.6); Eosinophils % 1.8 %; Hematocrit 35.8 % (37.5-50.1); Hemoglobin 11.2 g/dL (12.9-16.9); Lymphocytes # 1.5 K/mcL (0.6-4.6); Lymphocytes % 24.8 %; Mean Corpuscular HGB Conc 31.3 g/dL (31.6-35.5); Mean Corpuscular Hemoglobin 34.9 pg (28.0-33.3); Mean Corpuscular Volume 111.5 fL (83.0-100.0); Mean Platelet Volume 9.1 fL (9.4-12.4); Monocytes # 0.6 K/mcL (0.0-1.3); Monocytes % 10.3 %; Neutrophils # 3.8 K/mcL (1.6-8.9); Platelet Count 164 K/mcL (140-400); Red Blood Count 3.21 M/mcL (4.19-5.50); Red Cell Distribution Width 12.7 % (11.5-14.5); Segmented Neutrophils % 62.8 %
[2020-04-13 05:04] LABS: Calcium 9.4 mg/dL (8.6-10.3); Potassium 4.8 mEq/L (3.5-5.1)
[2020-04-13 05:25] LABS: Platelet Estimate Normal (Normal)
[2020-04-13] MEDS: *HR* Heparin 5,000 UNIT/ML VIAL SQ SCH ×2 (05:29→17:42)
[2020-04-13] MEDS ORDERED: 0.9 % Sodium Chloride 250 ML IVC PRN (06:40)
[2020-04-13] MEDS ORDERED: 0.9 % Sodium Chloride 1,000 ML PRIME SCH (06:45)
[2020-04-13] MEDS: BuPROPion SR (12 HR) 150 MG TABLET PO SCH (07:34)
[2020-04-13] MEDS: Baclofen 10 MG TABLET PO SCH ×2 (07:34→21:34)
[2020-04-13] MEDS: Renal Vitamin 1 CAP CAPSULE PO SCH (07:34)
[2020-04-13] MEDS: Cholecalciferol (D-3) 1,000 UNIT (25MCG) TABLET PO SCH (07:35)
[2020-04-13] MEDS: EYE OP SCH (07:35)
[2020-04-13] MEDS: AZELASTINE HCL 0.05% OP SCH (07:35)
[2020-04-13] MEDS ORDERED: *HR* Metoprolol 5 MG/5 ML VIAL IVP ONE (10:41)
[2020-04-13] MEDS: Ondansetron 4 MG/2 ML VIAL IVP PRN (12:09)
[2020-04-13] MEDS: NIFEdipine XL (24 HR) 30 MG TAB.ER.24 PO SCH (12:26)
[2020-04-13] MEDS ORDERED: 0.9 % Sodium Chloride 1,000 ML IVC SCH (17:15)
[2020-04-13] MEDS: Cefepime HCl 1,000 MG in Water for inj. (sterile) 10 ML IVP SCH (17:37)
[2020-04-13] MEDS: 0.9 % Sodium Chloride 1,000 ML IVC SCH (17:38)
[2020-04-13 18:07] LABS: Albumin 4.1 g/dL (3.5-5.7); Albumin/Globulin Ratio 1.6 (1.1-2.2); Bilirubin,Indirect 0.4 mg/dL (0.0-1.0); Bilirubin,Total 0.4 mg/dL (0.3-1.0); Globulin 2.5 g/dL (2.4-3.5); Total Protein 6.6 g/dL (6.4-8.9)
[2020-04-13] MEDS: Latanoprost 2.5 ML BOTTLE BOTH EYES SCH (21:34)
[2020-04-14 01:15] LABS: Basophils % 0.2 %; Eosinophils % 0.2 %; Hemoglobin 11.1 g/dL (12.9-16.9); Immature Granulocytes % 0.3 % (0-4); Lymphocytes # 0.8 K/mcL (0.6-4.6); Lymphocytes % 7.8 %; Mean Corpuscular HGB Conc 32.6 g/dL (31.6-35.5); Mean Corpuscular Hemoglobin 35.8 pg (28.0-33.3); Mean Corpuscular Volume 109.7 fL (83.0-100.0); Monocytes # 0.7 K/mcL (0.0-1.3); Monocytes % 7.2 %; Neutrophils # 8.2 K/mcL (1.6-8.9); Platelet Count 164 K/mcL (140-400); Red Cell Distribution Width 12.9 % (11.5-14.5); Segmented Neutrophils % 84.3 %; White Blood Count 9.7 K/mcL (4.3-11.1)
[2020-04-14 01:35] LABS: Potassium 4.4 mEq/L (3.5-5.1)
[2020-04-14] MEDS: Cefepime HCl 1,000 MG in Water for inj. (sterile) 10 ML IVP SCH (05:57)
[2020-04-14] MEDS: *HR* Heparin 5,000 UNIT/ML VIAL SQ SCH ×2 (06:00→17:48)
[2020-04-14] MEDS: 0.9 % Sodium Chloride 1,000 ML IVC SCH ×2 (06:04→21:05)
[2020-04-14] MEDS: Renal Vitamin 1 CAP CAPSULE PO SCH (09:51)
[2020-04-14] MEDS: Cholecalciferol (D-3) 1,000 UNIT (25MCG) TABLET PO SCH (09:51)
[2020-04-14] MEDS: BuPROPion SR (12 HR) 150 MG TABLET PO SCH (09:51)
[2020-04-14] MEDS: Baclofen 10 MG TABLET PO SCH ×2 (09:52→21:06)
[2020-04-14] MEDS: NIFEdipine XL (24 HR) 30 MG TAB.ER.24 PO SCH (09:53)
[2020-04-14] MEDS: MetroNIDAZOLE 500 MG/100 ML 500 MG/100 ML BAG IVPB SCH (17:41)
[2020-04-14] MEDS ORDERED: Milk and Molasses Enema 200 ML RC ONE (19:35)
[2020-04-14] MEDS ORDERED: *HR* Promethazine 25 MG/ML VIAL IVP ONE (19:49)
[2020-04-14] MEDS ORDERED: Promethazine 12.5 MG in 0.9 % Sodium Chloride 50 ML IVPB PRN (19:49)
[2020-04-14] MEDS: Latanoprost 2.5 ML BOTTLE BOTH EYES SCH (21:06)
[2020-04-15] MEDS: MetroNIDAZOLE 500 MG/100 ML 500 MG/100 ML BAG IVPB SCH ×3 (00:19→16:56)
[2020-04-15] MEDS ORDERED: Milk and Molasses Enema 200 ML RC ONE ×4 (01:00→06:28)
[2020-04-15] MEDS ORDERED: Cefepime HCl 1,000 MG in Water for inj. (sterile) 10 ML IVP SCH (06:00)
[2020-04-15 06:27] LABS: Calcium 8.6 mg/dL (8.6-10.3); Potassium 4.4 mEq/L (3.5-5.1)
[2020-04-15] MEDS: *HR* Heparin 5,000 UNIT/ML VIAL SQ SCH ×2 (06:56→16:57)
[2020-04-15 07:10] LABS: Basophils % 0.4 %; Eosinophils # 0.1 K/mcL (0.0-0.6); Eosinophils % 2.7 %; Hematocrit 31.2 % (37.5-50.1); Hemoglobin 10.1 g/dL (12.9-16.9); Immature Granulocytes % 0.2 % (0-4); Lymphocytes # 0.7 K/mcL (0.6-4.6); Lymphocytes % 13.4 %; Mean Corpuscular HGB Conc 32.4 g/dL (31.6-35.5); Mean Corpuscular Hemoglobin 36.1 pg (28.0-33.3); Mean Platelet Volume 8.7 fL (9.4-12.4); Monocytes # 0.6 K/mcL (0.0-1.3); Platelet Count 140 K/mcL (140-400); Red Cell Distribution Width 13.1 % (11.5-14.5); Segmented Neutrophils % 72.3 %; White Blood Count 5.2 K/mcL (4.3-11.1)
[2020-04-15 07:17] LABS: Mean Corpuscular Volume 111.4 fL (83.0-100.0); Neutrophils # 3.8 K/mcL (1.6-8.9)
[2020-04-15 07:58] LABS: Anisocytosis 1+ (Not Present); Macrocytosis Present (Not Present); Platelet Estimate Normal (Normal)
[2020-04-15] MEDS ORDERED: *HR* Heparin 10,000 UNIT/10 ML VIAL IV PRN (08:37)
[2020-04-15] MEDS ORDERED: 0.9 % Sodium Chloride 250 ML IVC PRN (08:37)
[2020-04-15] MEDS: Renal Vitamin 1 CAP CAPSULE PO SCH (09:37)
[2020-04-15] MEDS: Cholecalciferol (D-3) 1,000 UNIT (25MCG) TABLET PO SCH (09:37)
[2020-04-15] MEDS: Baclofen 10 MG TABLET PO SCH ×2 (09:37→19:49)
[2020-04-15] MEDS: NIFEdipine XL (24 HR) 30 MG TAB.ER.24 PO SCH (09:37)
[2020-04-15] MEDS: BuPROPion SR (12 HR) 150 MG TABLET PO SCH (09:37)
[2020-04-15] MEDS: 0.9 % Sodium Chloride 1,000 ML IVC SCH (09:40)
[2020-04-15] MEDS: Ondansetron 4 MG/2 ML VIAL IVP PRN (16:56)
[2020-04-15] MEDS: Latanoprost 2.5 ML BOTTLE BOTH EYES SCH (19:52)
[2020-04-16] MEDS: *HR* Heparin 5,000 UNIT/ML VIAL SQ SCH ×2 (05:34→16:24)
[2020-04-16] MEDS ORDERED: Cefepime HCl 500 MG in Water for inj. (sterile) 10 ML IVP SCH (06:00)
[2020-04-16] MEDS: Renal Vitamin 1 CAP CAPSULE PO SCH (08:38)
[2020-04-16] MEDS: BuPROPion SR (12 HR) 150 MG TABLET PO SCH (08:39)
[2020-04-16] MEDS: Baclofen 10 MG TABLET PO SCH ×2 (08:39→20:15)
[2020-04-16] MEDS: Amoxicillin/Clavulanate 500 MG TABLET PO SCH (08:39)
[2020-04-16] MEDS: Cholecalciferol (D-3) 1,000 UNIT (25MCG) TABLET PO SCH (08:39)
[2020-04-16] MEDS: NIFEdipine XL (24 HR) 30 MG TAB.ER.24 PO SCH (08:39)
[2020-04-16] MEDS: Latanoprost 2.5 ML BOTTLE BOTH EYES SCH (20:15)
[2020-04-17] MEDS: *HR* Heparin 5,000 UNIT/ML VIAL SQ SCH (05:38)
[2020-04-17] MEDS: BuPROPion SR (12 HR) 150 MG TABLET PO SCH (10:21)
[2020-04-17] MEDS: Renal Vitamin 1 CAP CAPSULE PO SCH (10:21)
[2020-04-17] MEDS: NIFEdipine XL (24 HR) 30 MG TAB.ER.24 PO SCH (10:21)
[2020-04-17] MEDS: Amoxicillin/Clavulanate 500 MG TABLET PO SCH (10:22)
[2020-04-17] MEDS: Baclofen 10 MG TABLET PO SCH (10:22)
[2020-04-17] MEDS: Cholecalciferol (D-3) 1,000 UNIT (25MCG) TABLET PO SCH (10:22)
[2020-04-17 11:06] VITALS: BP 156/83
== END 2020-04-17 13:08 | disposition home or self-care (01) ==
LOC: EMEROOARM 11:25 → 2ANU 11:25 → SUATTDRO 15:04 → 2ANU 15:48
PROVIDERS: ADMIT Internal Medicine; ATTEND Student in an Organized Health Care Education/Training Program

== ENCOUNTER 2020-08-01 11:39 | Inpatient (IN) ==
[2020-08-01 12:18] LABS: Hematocrit 37.5 % (37.5-50.1); Mean Platelet Volume 8.9 fL (9.4-12.4)
[2020-08-01 12:19] LABS: Basophils % 0.1 %; Immature Granulocytes % 0.7 % (0-4); Lymphocytes # 0.5 K/mcL (0.6-4.6); Lymphocytes % 2.1 %; Mean Corpuscular Hemoglobin 34.2 pg (28.0-33.3); Mean Corpuscular Volume 106.8 fL (83.0-100.0); Monocytes # 1.1 K/mcL (0.0-1.3); Monocytes % 4.4 %; Neutrophils # 22.4 K/mcL (1.6-8.9); Platelet Count 257 K/mcL (140-400); Red Blood Count 3.51 M/mcL (4.19-5.50); Segmented Neutrophils % 92.7 %; White Blood Count 24.2 K/mcL (4.3-11.1)
[2020-08-01] MEDS ORDERED: 0.9 % Sodium Chloride 1,000 ML IVC ONE (12:32)
[2020-08-01 12:41] LABS: Acetaminophen < 10 mcg/mL (10-20); Alanine Aminotransferase 4 Units/L (7-52); Albumin 4.2 g/dL (3.5-5.7); Albumin/Globulin Ratio 1.2 (1.1-2.2); Alkaline Phosphatase 128 Units/L (34-104); Aspartate Amino Transferase 7 Units/L (13-39); BUN/Creatinine Ratio 7 (6-26); Bilirubin,Total 0.3 mg/dL (0.3-1.0); Blood Urea Nitrogen 48 mg/dL (6-20); Calcium 9.2 mg/dL (8.6-10.3); Carbon Dioxide 28 mEq/L (23-29); Chloride 97 mEq/L (98-107); Ethanol < 10 mg/dL (Less than 10); Globulin 3.5 g/dL (2.4-3.5); Glucose 122 mg/dL (70-105); Osmolality,Calculated 304 (280-300); Potassium 3.3 mEq/L (3.5-5.1); Salicylate < 2.5 mg/dL (15.0-30.0); Sodium 140 mEq/L (136-145); Total Protein 7.7 g/dL (6.4-8.9); eGFR For African Americans 11 (> 60); eGFR For Non-African Americans 9 (> 60)
[2020-08-01 12:45] LABS: Troponin I 0.04 ng/mL (< 0.04)
[2020-08-01 13:19] LABS: Platelet Estimate Normal (Normal)
[2020-08-01] MEDS ORDERED: cefTRIAXone 1,000 MG in Water for inj. (sterile) 10 ML IVP ONE (13:45)
[2020-08-01] MEDS ORDERED: Naloxone 0.4 MG/ML INJ IVP PRN (14:35)
[2020-08-01] MEDS ORDERED: EPINEPHRINE 0.3 MG IM PRN (16:25)
[2020-08-01 19:00] LABS: Adenovirus Not Detected (Not Detect); Bordetella Pertussis Not Detected (Not Detect); Chlamydophila pneumoniae Not Detected (Not Detect); Coronavirus 229E Not Detected (Not Detect); Coronavirus HKU1 Not Detected (Not Detect); Coronavirus NL63 Not Detected (Not Detect); Coronavirus OC43 Not Detected (Not Detect); Human Metapneumovirus Not Detected (Not Detect); Human Rhinovirus/Enterovirus Not Detected (Not Detect); Influenza A Subtype 2009 H1 Not Detected (Not Detect); Influenza B Not Detected (Not Detect); Mycoplasma pneumoniae Not Detected (Not Detect); Parainfluenza Virus 1 Not Detected (Not Detect); Parainfluenza Virus 2 Not Detected (Not Detect); Parainfluenza Virus 3 Not Detected (Not Detect); Parainfluenza Virus 4 Not Detected (Not Detect); Respiratory Syncytial Virus Not Detected (Not Detect); SARS-CoV-2 Not Detected (Not Detect)
[2020-08-01 19:36] LABS: Hemoglobin 9.6 g/dL (12.9-16.9)
[2020-08-01] MEDS ORDERED: AZELASTINE HCL BOTH EYES SCH (21:00)
[2020-08-01] MEDS ORDERED: Ringers Solution, Lactated 500 ML IVC ONE (21:13)
[2020-08-01] MEDS: Baclofen 10 MG TABLET PO SCH (21:34)
[2020-08-01] MEDS: Mirtazapine 15 MG TABLET PO SCH (21:34)
[2020-08-01] MEDS: traZODone 50 MG TABLET PO SCH (21:34)
[2020-08-01] MEDS: Latanoprost 2.5 ML BOTTLE BOTH EYES SCH (21:34)
[2020-08-02 01:04] LABS: Basophils % 0.2 %; Hematocrit 26.6 % (37.5-50.1); Hemoglobin 8.3 g/dL (12.9-16.9); Immature Granulocytes % 0.7 % (0-4); Lymphocytes # 0.6 K/mcL (0.6-4.6); Lymphocytes % 3.5 %; Mean Corpuscular HGB Conc 31.2 g/dL (31.6-35.5); Mean Corpuscular Hemoglobin 33.5 pg (28.0-33.3); Mean Corpuscular Volume 107.3 fL (83.0-100.0); Mean Platelet Volume 9.1 fL (9.4-12.4); Monocytes # 1.2 K/mcL (0.0-1.3); Monocytes % 6.5 %; Neutrophils # 15.9 K/mcL (1.6-8.9); Platelet Count 207 K/mcL (140-400); Red Blood Count 2.48 M/mcL (4.19-5.50); Red Cell Distribution Width 12.1 % (11.5-14.5); Segmented Neutrophils % 89.1 %; White Blood Count 17.9 K/mcL (4.3-11.1)
[2020-08-02 01:22] LABS: Calcium 7.9 mg/dL (8.6-10.3); Potassium 3.6 mEq/L (3.5-5.1)
[2020-08-02 05:08] LABS: Hematocrit 25.8 % (37.5-50.1); Hemoglobin 8.1 g/dL (12.9-16.9)
[2020-08-02] MEDS: SODIUM ZIRCONIUM CYCLOSILICATE 5 GM POWD.PACK PO SCH (08:56)
[2020-08-02] MEDS: ARIPiprazole 2 MG TABLET PO SCH (08:57)
[2020-08-02] MEDS: Vitamin B Complex/Vit C/Vit E 1 EACH TABLET PO SCH (08:57)
[2020-08-02] MEDS: BuPROPion SR (12 HR) 150 MG TABLET PO SCH (08:57)
[2020-08-02] MEDS: NIFEdipine XL (24 HR) 30 MG TAB.ER.24 PO SCH (08:57)
[2020-08-02] MEDS: Cholecalciferol (D-3) 1,000 UNIT (25MCG) TABLET PO SCH (08:57)
[2020-08-02] MEDS: Baclofen 10 MG TABLET PO SCH ×2 (08:57→20:24)
[2020-08-02] MEDS ORDERED: Famotidine 20 MG TABLET PO SCH (09:00)
[2020-08-02] MEDS ORDERED: polyethylene glycoL 3350 17 GM POWD.PACK PO PRN (16:25)
[2020-08-02] MEDS ORDERED: Perflutren Lipid Microsphere 1.3 ML in 0.9 % Sodium Chloride 8.7 ML IVP PRN (16:27)
[2020-08-02] MEDS: cefTRIAXone 2,000 MG in Water for inj. (sterile) 20 ML IVP SCH (17:10)
[2020-08-02] MEDS: Mirtazapine 15 MG TABLET PO SCH (20:23)
[2020-08-02] MEDS: traZODone 50 MG TABLET PO SCH (20:24)
[2020-08-02] MEDS: Latanoprost 2.5 ML BOTTLE BOTH EYES SCH (20:27)
[2020-08-03] MEDS ORDERED: 0.9 % Sodium Chloride 250 ML IVC PRN (06:55)
[2020-08-03] MEDS ORDERED: 0.9 % Sodium Chloride 1,000 ML PRIME SCH (07:00)
[2020-08-03 07:25] LABS: Basophils % 0.2 %; Eosinophils % 0.4 %; Hemoglobin 8.8 g/dL (12.9-16.9); Immature Granulocytes % 0.4 % (0-4); Lymphocytes # 0.6 K/mcL (0.6-4.6); Lymphocytes % 5.3 %; Mean Corpuscular HGB Conc 31.4 g/dL (31.6-35.5); Mean Corpuscular Hemoglobin 34.4 pg (28.0-33.3); Mean Corpuscular Volume 109.4 fL (83.0-100.0); Mean Platelet Volume 9.2 fL (9.4-12.4); Monocytes # 0.8 K/mcL (0.0-1.3); Monocytes % 7.7 %; Neutrophils # 9.4 K/mcL (1.6-8.9); Platelet Count 206 K/mcL (140-400); Red Blood Count 2.56 M/mcL (4.19-5.50); Red Cell Distribution Width 12.3 % (11.5-14.5); White Blood Count 10.9 K/mcL (4.3-11.1)
[2020-08-03 08:01] LABS: Calcium 8.1 mg/dL (8.6-10.3); Potassium 4.1 mEq/L (3.5-5.1)
[2020-08-03 08:56] LABS: Troponin I 0.03 ng/mL (< 0.04)
[2020-08-03] MEDS: Cholecalciferol (D-3) 1,000 UNIT (25MCG) TABLET PO SCH (09:13)
[2020-08-03] MEDS: ARIPiprazole 2 MG TABLET PO SCH (09:13)
[2020-08-03] MEDS: BuPROPion SR (12 HR) 150 MG TABLET PO SCH (09:13)
[2020-08-03] MEDS: Baclofen 10 MG TABLET PO SCH ×2 (09:14→21:40)
[2020-08-03] MEDS: Vitamin B Complex/Vit C/Vit E 1 EACH TABLET PO SCH (09:14)
[2020-08-03] MEDS: NIFEdipine XL (24 HR) 30 MG TAB.ER.24 PO SCH (09:14)
[2020-08-03] MEDS: cefTRIAXone 2,000 MG in Water for inj. (sterile) 20 ML IVP SCH (17:39)
[2020-08-03] MEDS ORDERED: Famotidine 20 MG TABLET PO SCH (21:00)
[2020-08-03] MEDS: traZODone 50 MG TABLET PO SCH (21:41)
[2020-08-03] MEDS: Mirtazapine 15 MG TABLET PO SCH (21:41)
[2020-08-03] MEDS: Latanoprost 2.5 ML BOTTLE BOTH EYES SCH (21:43)
[2020-08-04 05:40] LABS: Basophils % 0.2 %; Eosinophils % 0.3 %; Hematocrit 25.5 % (37.5-50.1); Immature Granulocytes % 0.5 % (0-4); Lymphocytes # 0.9 K/mcL (0.6-4.6); Lymphocytes % 13.9 %; Mean Corpuscular HGB Conc 31.4 g/dL (31.6-35.5); Mean Corpuscular Hemoglobin 33.8 pg (28.0-33.3); Mean Corpuscular Volume 107.6 fL (83.0-100.0); Monocytes # 0.8 K/mcL (0.0-1.3); Monocytes % 12.7 %; Neutrophils # 4.7 K/mcL (1.6-8.9); Platelet Count 211 K/mcL (140-400); Red Blood Count 2.37 M/mcL (4.19-5.50); Red Cell Distribution Width 12.2 % (11.5-14.5); Segmented Neutrophils % 72.4 %
[2020-08-04 05:41] LABS: White Blood Count 6.5 K/mcL (4.3-11.1)
[2020-08-04 06:02] LABS: Calcium 8.2 mg/dL (8.6-10.3); Potassium 3.9 mEq/L (3.5-5.1)
[2020-08-04] MEDS: ARIPiprazole 2 MG TABLET PO SCH (08:36)
[2020-08-04] MEDS: Vitamin B Complex/Vit C/Vit E 1 EACH TABLET PO SCH (08:36)
[2020-08-04] MEDS: BuPROPion SR (12 HR) 150 MG TABLET PO SCH (08:36)
[2020-08-04] MEDS: Baclofen 10 MG TABLET PO SCH (08:36)
[2020-08-04] MEDS: Cholecalciferol (D-3) 1,000 UNIT (25MCG) TABLET PO SCH (08:36)
[2020-08-04] MEDS: NIFEdipine XL (24 HR) 30 MG TAB.ER.24 PO SCH (08:36)
[2020-08-04] MEDS: SODIUM ZIRCONIUM CYCLOSILICATE 5 GM POWD.PACK PO SCH (08:37)
[2020-08-04] MEDS ORDERED: levoFLOXacin 250 MG TABLET PO SCH (13:00)
[2020-08-04 15:34] VITALS: BP 119/73
== END 2020-08-04 18:40 | disposition home or self-care (01) | DRG 871 ==
LOC: EMEROOARM 11:39 → 2ANU 11:39
PROVIDERS: ADMIT Internal Medicine; ATTEND Internal Medicine

== ENCOUNTER 2020-08-21 14:48 | Inpatient (IN) ==
[2020-08-21 15:38] LABS: Amorphous Sediment,Urine Few per hpf (None-Few); Bilirubin,Urine Negative (Negative); Blood,Urine Large (Negative); Clarity,Urine Turbid (Clear); Color,Urine Brown (Yellow); Glucose,Urine (UA) Normal (Normal); Ketones,Urine Negative (Negative); Leukocyte Esterase,Urine Large (Negative); Mucus,Urine Few per lpf (None-Few); Nitrite,Urine Negative (Negative); Protein,Urine 200 mg/dL (Neg-Trace); RBC,Urine 50-100 per hpf (0-3); Specific Gravity,Urine 1.012 (1.010-1.025); Urobilinogen,Urine Normal (Normal); WBC,Urine 50-100 per hpf (0-3)
[2020-08-21 16:05] LABS: Hemoglobin 8.2 g/dL (12.9-16.9)
[2020-08-21] MEDS ORDERED: 0.9 % Sodium Chloride 1,000 ML IVC ONE (16:35)
[2020-08-21] MEDS ORDERED: cefTRIAXone 1,000 MG in 0.9 % Sodium Chloride Mini Bag 100 ML IVPB ONE (16:37)
[2020-08-21] MEDS ORDERED: Acetaminophen 325 MG TABLET PO PRN (16:54)
[2020-08-21] MEDS ORDERED: Naloxone 0.4 MG/ML INJ IVP PRN (16:54)
[2020-08-21] MEDS ORDERED: Ondansetron 4 MG/2 ML VIAL IVP PRN (16:54)
[2020-08-21 17:21] LABS: Basophils % 0.3 %; Eosinophils # 0.1 K/mcL (0.0-0.6); Eosinophils % 0.9 %; Hematocrit 26.9 % (37.5-50.1); Hemoglobin 8.4 g/dL (12.9-16.9); Immature Granulocytes % 0.2 % (0-4); Lymphocytes % 16.7 %; Mean Corpuscular HGB Conc 31.2 g/dL (31.6-35.5); Mean Corpuscular Hemoglobin 32.7 pg (28.0-33.3); Mean Corpuscular Volume 104.7 fL (83.0-100.0); Mean Platelet Volume 8.5 fL (9.4-12.4); Monocytes # 0.6 K/mcL (0.0-1.3); Monocytes % 9.7 %; Neutrophils # 4.2 K/mcL (1.6-8.9); Platelet Count 278 K/mcL (140-400); Red Blood Count 2.57 M/mcL (4.19-5.50); Red Cell Distribution Width 13.1 % (11.5-14.5); Segmented Neutrophils % 72.2 %; White Blood Count 5.9 K/mcL (4.3-11.1)
[2020-08-21 17:40] LABS: Albumin 3.4 g/dL (3.5-5.7); Albumin/Globulin Ratio 1.2 (1.1-2.2); Bilirubin,Total 0.2 mg/dL (0.3-1.0); Calcium 7.8 mg/dL (8.6-10.3); Globulin 2.9 g/dL (2.4-3.5); Potassium 3.2 mEq/L (3.5-5.1); Total Protein 6.3 g/dL (6.4-8.9)
[2020-08-21] MEDS ORDERED: Carbamide Peroxide 150 DROP/15 ML BOTTLE BOTH EARS SCH (21:15)
[2020-08-22 06:12] LABS: Basophils % 0.5 %; Eosinophils # 0.1 K/mcL (0.0-0.6); Eosinophils % 1.3 %; Hematocrit 23.7 % (37.5-50.1); Hemoglobin 7.4 g/dL (12.9-16.9); Immature Granulocytes % 0.5 % (0-4); Lymphocytes # 0.8 K/mcL (0.6-4.6); Lymphocytes % 14.8 %; Mean Corpuscular HGB Conc 31.2 g/dL (31.6-35.5); Mean Corpuscular Hemoglobin 32.9 pg (28.0-33.3); Mean Corpuscular Volume 105.3 fL (83.0-100.0); Mean Platelet Volume 8.6 fL (9.4-12.4); Monocytes # 0.5 K/mcL (0.0-1.3); Monocytes % 8.4 %; Neutrophils # 4.2 K/mcL (1.6-8.9); Platelet Count 277 K/mcL (140-400); Red Blood Count 2.25 M/mcL (4.19-5.50); Segmented Neutrophils % 74.5 %; White Blood Count 5.6 K/mcL (4.3-11.1)
[2020-08-22 06:41] LABS: Albumin 3.1 g/dL (3.5-5.7); Albumin/Globulin Ratio 1.1 (1.1-2.2); Bilirubin,Indirect 0.2 mg/dL (0.0-1.0); Bilirubin,Total 0.2 mg/dL (0.3-1.0); Calcium 7.6 mg/dL (8.6-10.3); Globulin 2.9 g/dL (2.4-3.5); Magnesium 2.3 mg/dL (1.6-2.6); Potassium 3.6 mEq/L (3.5-5.1)
[2020-08-22 06:54] LABS: Folate > 22.3 ng/mL (3.0-16.0); Vitamin B12 > 1500 pg/mL (250-1100)
[2020-08-22] MEDS ORDERED: 0.9 % Sodium Chloride 250 ML IVC PRN (07:27)
[2020-08-22] MEDS ORDERED: *HR* Heparin 10,000 UNIT/10 ML VIAL IV PRN (07:27)
[2020-08-22] MEDS ORDERED: 0.9 % Sodium Chloride 1,000 ML PRIME SCH (07:30)
[2020-08-22] MEDS ORDERED: Famotidine 20 MG TABLET PO SCH (09:00)
[2020-08-22] MEDS ORDERED: cefTRIAXone 1,000 MG in 0.9 % Sodium Chloride Mini Bag 100 ML IVPB SCH (09:00)
[2020-08-22] MEDS: Baclofen 10 MG TABLET PO SCH ×2 (11:37→20:26)
[2020-08-22] MEDS: ARIPiprazole 2 MG TABLET PO SCH (11:56)
[2020-08-22] MEDS: BuPROPion SR (12 HR) 150 MG TABLET PO SCH (11:57)
[2020-08-22] MEDS: Vitamin B Complex/Vit C/Vit E 1 EACH TABLET PO SCH (11:58)
[2020-08-22] MEDS: Cholecalciferol (D-3) 1,000 UNIT (25MCG) TABLET PO SCH (11:58)
[2020-08-22] MEDS: NIFEdipine XL (24 HR) 30 MG TAB.ER.24 PO SCH (11:58)
[2020-08-22] MEDS: (Azelastine Hcl 1 DROP) OP SCH ×2 (14:37→20:18)
[2020-08-22] MEDS ORDERED: Chloraseptic Spray 177 ML BOTTLE MM PRN (17:56)
[2020-08-22] MEDS: Mirtazapine 15 MG TABLET PO SCH (20:25)
[2020-08-22] MEDS: traZODone 50 MG TABLET PO SCH (20:25)
[2020-08-22] MEDS: Latanoprost 2.5 ML BOTTLE BOTH EYES SCH (20:42)
[2020-08-23 05:57] LABS: Basophils % 0.6 %; Eosinophils # 0.1 K/mcL (0.0-0.6); Hematocrit 30.8 % (37.5-50.1); Hemoglobin 9.5 g/dL (12.9-16.9); Immature Granulocytes % 0.4 % (0-4); Lymphocytes # 1.1 K/mcL (0.6-4.6); Lymphocytes % 22.5 %; Mean Corpuscular HGB Conc 30.8 g/dL (31.6-35.5); Mean Corpuscular Hemoglobin 31.1 pg (28.0-33.3); Mean Platelet Volume 8.4 fL (9.4-12.4); Monocytes # 0.6 K/mcL (0.0-1.3); Monocytes % 11.9 %; Neutrophils # 3.1 K/mcL (1.6-8.9); Platelet Count 290 K/mcL (140-400); Red Blood Count 3.05 M/mcL (4.19-5.50); Red Cell Distribution Width 15.8 % (11.5-14.5); Segmented Neutrophils % 63.6 %; White Blood Count 4.9 K/mcL (4.3-11.1)
[2020-08-23 06:28] LABS: Calcium 8.5 mg/dL (8.6-10.3); Potassium 3.1 mEq/L (3.5-5.1)
[2020-08-23 06:39] LABS: Magnesium 2.1 mg/dL (1.6-2.6)
[2020-08-23] MEDS: Vitamin B Complex/Vit C/Vit E 1 EACH TABLET PO SCH (08:23)
[2020-08-23] MEDS: Famotidine 20 MG TABLET PO SCH (08:23)
[2020-08-23] MEDS: Cholecalciferol (D-3) 1,000 UNIT (25MCG) TABLET PO SCH (08:23)
[2020-08-23] MEDS: Baclofen 10 MG TABLET PO SCH ×2 (08:23→20:31)
[2020-08-23] MEDS: ARIPiprazole 2 MG TABLET PO SCH (08:23)
[2020-08-23] MEDS: BuPROPion SR (12 HR) 150 MG TABLET PO SCH (08:23)
[2020-08-23] MEDS: NIFEdipine XL (24 HR) 30 MG TAB.ER.24 PO SCH (08:23)
[2020-08-23] MEDS: (Azelastine Hcl 1 DROP) OP SCH (08:24)
[2020-08-23] MEDS ORDERED: Potassium Chloride Elixir 20 MEQ/15 ML UDC PO ONE (10:59)
[2020-08-23] MEDS: Mirtazapine 15 MG TABLET PO SCH (20:31)
[2020-08-23] MEDS: traZODone 50 MG TABLET PO SCH (20:32)
[2020-08-23] MEDS: Latanoprost 2.5 ML BOTTLE BOTH EYES SCH (20:34)
[2020-08-24 05:50] LABS: Basophils % 0.4 %; Eosinophils # 0.1 K/mcL (0.0-0.6); Eosinophils % 2.7 %; Immature Granulocytes % 0.4 % (0-4); Lymphocytes # 1.2 K/mcL (0.6-4.6); Lymphocytes % 21.8 %; Mean Corpuscular Hemoglobin 31.6 pg (28.0-33.3); Mean Corpuscular Volume 101.8 fL (83.0-100.0); Mean Platelet Volume 8.6 fL (9.4-12.4); Monocytes # 0.6 K/mcL (0.0-1.3); Monocytes % 12.1 %; Neutrophils # 3.3 K/mcL (1.6-8.9); Platelet Count 257 K/mcL (140-400); Red Blood Count 2.85 M/mcL (4.19-5.50); Red Cell Distribution Width 15.4 % (11.5-14.5); Segmented Neutrophils % 62.6 %; White Blood Count 5.3 K/mcL (4.3-11.1)
[2020-08-24 06:06] LABS: Calcium 8.2 mg/dL (8.6-10.3); Potassium 3.3 mEq/L (3.5-5.1)
[2020-08-24] MEDS ORDERED: *HR* Heparin 10,000 UNIT/10 ML VIAL IV PRN (07:42)
[2020-08-24] MEDS ORDERED: 0.9 % Sodium Chloride 250 ML IVC PRN (07:42)
[2020-08-24] MEDS ORDERED: 0.9 % Sodium Chloride 1,000 ML PRIME SCH (07:45)
[2020-08-24] MEDS: Vitamin B Complex/Vit C/Vit E 1 EACH TABLET PO SCH (08:13)
[2020-08-24] MEDS: BuPROPion SR (12 HR) 150 MG TABLET PO SCH (08:13)
[2020-08-24] MEDS: Famotidine 20 MG TABLET PO SCH (08:13)
[2020-08-24] MEDS: Cholecalciferol (D-3) 1,000 UNIT (25MCG) TABLET PO SCH (08:13)
[2020-08-24] MEDS: Baclofen 10 MG TABLET PO SCH (08:13)
[2020-08-24] MEDS: NIFEdipine XL (24 HR) 30 MG TAB.ER.24 PO SCH (08:13)
[2020-08-24] MEDS: ARIPiprazole 2 MG TABLET PO SCH (08:13)
[2020-08-24 13:33] VITALS: BP 95/68
== END 2020-08-24 15:56 | disposition home health service (06) | DRG 689 ==
LOC: SUATTDRO → 3BNU 14:48 → EMEROOARM 14:48 → SUATTDRO 18:29 → 3BNU 19:32 → SUATTDRO 08-22 15:54
PROVIDERS: ADMIT Pharmacist; ATTEND Internal Medicine

== ENCOUNTER 2020-10-26 21:50 | Observation (INO) ==
[2020-10-26] MEDS ORDERED: Calcium Gluconate 1gm/50mL 1 GM/50 ML BAG IVPB ONE (22:25)
[2020-10-26 22:36] LABS: Bilirubin,Urine Negative (Negative); Blood,Urine Large (Negative); Clarity,Urine Turbid (Clear); Color,Urine Yellow (Yellow); Glucose,Urine (UA) Normal (Normal); Ketones,Urine Negative (Negative); Leukocyte Esterase,Urine Large (Negative); Mucus,Urine Few per lpf (None-Few); Nitrite,Urine Negative (Negative); Protein,Urine 100 mg/dL (Neg-Trace); RBC,Urine 30-50 per hpf (0-3); Specific Gravity,Urine 1.012 (1.010-1.025); Urobilinogen,Urine Normal (Normal)
[2020-10-26 22:47] LABS: Basophils % 0.3 %; Eosinophils # 0.1 K/mcL (0.0-0.6); Hematocrit 46.6 % (37.5-50.1); Hemoglobin 14.8 g/dL (12.9-16.9); Immature Granulocytes % 0.5 % (0-4); Lymphocytes # 1.1 K/mcL (0.6-4.6); Lymphocytes % 18.6 %; Mean Corpuscular HGB Conc 31.8 g/dL (31.6-35.5); Mean Corpuscular Hemoglobin 33.3 pg (28.0-33.3); Mean Corpuscular Volume 104.7 fL (83.0-100.0); Mean Platelet Volume 8.7 fL (9.4-12.4); Monocytes # 0.7 K/mcL (0.0-1.3); Monocytes % 11.9 %; Platelet Count 156 K/mcL (140-400); Red Blood Count 4.45 M/mcL (4.19-5.50); Red Cell Distribution Width 16.3 % (11.5-14.5); Segmented Neutrophils % 67.7 %; White Blood Count 5.9 K/mcL (4.3-11.1)
[2020-10-26 23:04] LABS: INR 1.1; Prothrombin Time 12.5 Seconds (9.4-12.1)
[2020-10-26 23:15] LABS: Alanine Aminotransferase 9 Units/L (7-52); Albumin 4.3 g/dL (3.5-5.7); Albumin/Globulin Ratio 1.4 (1.1-2.2); Alkaline Phosphatase 158 Units/L (34-104); Aspartate Amino Transferase 9 Units/L (13-39); BUN/Creatinine Ratio 10 (6-26); Bilirubin,Indirect 0.4 mg/dL (0.0-1.0); Bilirubin,Total 0.4 mg/dL (0.3-1.0); Blood Urea Nitrogen 78 mg/dL (6-20); Calcium 8.7 mg/dL (8.6-10.3); Carbon Dioxide 21 mEq/L (23-29); Chloride 96 mEq/L (98-107); Globulin 3.1 g/dL (2.4-3.5); Glucose 154 mg/dL (70-105); Lipase 47 Units/L (11-82); Magnesium 2.4 mg/dL (1.6-2.6); Osmolality,Calculated 306 (280-300); Phosphorous 6.3 mg/dL (2.7-4.5); Potassium 4.3 mEq/L (3.5-5.1); Sodium 135 mEq/L (136-145); Total Protein 7.4 g/dL (6.4-8.9); eGFR For African Americans 10 (> 60); eGFR For Non-African Americans 8 (> 60)
[2020-10-26 23:43] LABS: Troponin I < 0.03 ng/mL (< 0.04)
[2020-10-27 00:18] LABS: Adenovirus Not Detected (Not Detect); Bordetella Pertussis Not Detected (Not Detect); Chlamydophila pneumoniae Not Detected (Not Detect); Coronavirus 229E Not Detected (Not Detect); Coronavirus HKU1 Not Detected (Not Detect); Coronavirus NL63 Not Detected (Not Detect); Coronavirus OC43 Not Detected (Not Detect); Human Metapneumovirus Not Detected (Not Detect); Human Rhinovirus/Enterovirus Not Detected (Not Detect); Influenza A Subtype 2009 H1 Not Detected (Not Detect); Influenza B Not Detected (Not Detect); Mycoplasma pneumoniae Not Detected (Not Detect); Parainfluenza Virus 1 Not Detected (Not Detect); Parainfluenza Virus 2 Not Detected (Not Detect); Parainfluenza Virus 3 Not Detected (Not Detect); Parainfluenza Virus 4 Not Detected (Not Detect); Respiratory Syncytial Virus Not Detected (Not Detect); SARS-CoV-2 Not Detected (Not Detect)
[2020-10-27] MEDS ORDERED: cefTRIAXone 1,000 MG in 0.9 % Sodium Chloride Mini Bag 100 ML IVPB ONE (00:55)
[2020-10-27] MEDS ORDERED: Naloxone 0.4 MG/ML INJ IVP PRN (03:00)
[2020-10-27] MEDS ORDERED: Ondansetron 4 MG/2 ML VIAL IVP PRN (03:00)
[2020-10-27] MEDS ORDERED: Acetaminophen 325 MG TABLET PO PRN (03:00)
[2020-10-27 03:54] LABS: Basophils % 0.3 %; Eosinophils # 0.2 K/mcL (0.0-0.6); Eosinophils % 2.6 %; Hematocrit 46.4 % (37.5-50.1); Hemoglobin 14.6 g/dL (12.9-16.9); Immature Granulocytes % 0.2 % (0-4); Lymphocytes # 1.6 K/mcL (0.6-4.6); Lymphocytes % 25.6 %; Mean Corpuscular HGB Conc 31.5 g/dL (31.6-35.5); Mean Corpuscular Hemoglobin 33.6 pg (28.0-33.3); Mean Corpuscular Volume 106.9 fL (83.0-100.0); Mean Platelet Volume 9.2 fL (9.4-12.4); Monocytes % 15.8 %; Neutrophils # 3.4 K/mcL (1.6-8.9); Platelet Count 146 K/mcL (140-400); Red Blood Count 4.34 M/mcL (4.19-5.50); Red Cell Distribution Width 16.4 % (11.5-14.5); Segmented Neutrophils % 55.5 %; White Blood Count 6.1 K/mcL (4.3-11.1)
[2020-10-27 04:00] LABS: INR 1.1; Prothrombin Time 12.5 Seconds (9.4-12.1)
[2020-10-27 04:02] LABS: Calcium 8.9 mg/dL (8.6-10.3); Magnesium 2.6 mg/dL (1.6-2.6); Potassium 4.6 mEq/L (3.5-5.1)
[2020-10-27] MEDS: *HR* Heparin 5,000 UNIT/ML VIAL SQ SCH ×2 (05:56→17:04)
[2020-10-27] MEDS ORDERED: Bismuth Subsalicylate 120 ML ORAL SUSPENSION PO PRN (11:46)
[2020-10-27] MEDS ORDERED: SODIUM ZIRCONIUM CYCLOSILICATE 5 GM POWD.PACK PO SCH (11:48)
[2020-10-27] MEDS: Baclofen 10 MG TABLET PO SCH ×2 (12:39→21:56)
[2020-10-27] MEDS: BuPROPion SR (12 HR) 150 MG TABLET PO SCH (12:39)
[2020-10-27] MEDS ORDERED: Latanoprost 2.5 ML BOTTLE BOTH EYES SCH (21:00)
[2020-10-27] MEDS ORDERED: Mirtazapine 15 MG TABLET PO SCH (21:00)
[2020-10-27] MEDS ORDERED: AZELASTINE HCL BOTH EYES SCH (21:00)
[2020-10-27] MEDS ORDERED: traZODone 50 MG TABLET PO SCH (21:00)
[2020-10-28] MEDS ORDERED: cefTRIAXone 1,000 MG in 0.9 % Sodium Chloride Mini Bag 100 ML IVPB SCH
[2020-10-28] MEDS: *HR* Heparin 5,000 UNIT/ML VIAL SQ SCH (06:03)
[2020-10-28 06:42] LABS: Hematocrit 49.2 % (37.5-50.1); Hemoglobin 15.3 g/dL (12.9-16.9); Mean Corpuscular HGB Conc 31.1 g/dL (31.6-35.5); Mean Corpuscular Hemoglobin 32.8 pg (28.0-33.3); Mean Corpuscular Volume 105.6 fL (83.0-100.0); Mean Platelet Volume 8.9 fL (9.4-12.4); Platelet Count 161 K/mcL (140-400); Red Blood Count 4.66 M/mcL (4.19-5.50); Red Cell Distribution Width 16.3 % (11.5-14.5); White Blood Count 7.5 K/mcL (4.3-11.1)
[2020-10-28] MEDS ORDERED: 0.9 % Sodium Chloride 250 ML IVC PRN (07:06)
[2020-10-28] MEDS ORDERED: 0.9 % Sodium Chloride 1,000 ML ONE (07:06)
[2020-10-28] MEDS ORDERED: 0.9 % Sodium Chloride 1,000 ML PRIME SCH (07:15)
[2020-10-28 07:28] VITALS: O2SAT 95
[2020-10-28] MEDS: BuPROPion SR (12 HR) 150 MG TABLET PO SCH (08:23)
[2020-10-28] MEDS: Baclofen 10 MG TABLET PO SCH (08:23)
[2020-10-28] MEDS ORDERED: NIFEdipine XL (24 HR) 30 MG TAB.ER.24 PO SCH (09:00)
[2020-10-28] MEDS ORDERED: Famotidine 20 MG TABLET PO SCH (09:00)
[2020-10-28] MEDS ORDERED: ARIPiprazole 2 MG TABLET PO SCH (09:00)
[2020-10-28 10:40] LABS: Magnesium 2.8 mg/dL (1.6-2.6); Potassium 6.6 mEq/L (3.5-5.1)
[2020-10-28 10:43] LABS: Hepatitis B Surface Antibody < 3.10 mIU/mL
[2020-10-28 10:54] LABS: Hepatitis B Surface Antigen Nonreactive (Nonreactive)
[2020-10-28 15:41] VITALS: BP 96/69; PULSE 93; TEMP 98.1
== END 2020-10-28 17:22 ==
LOC: 2ANU 21:50 → EMEROOARM 21:50 → SUATTDRO 10-27 01:39 → 2ANU 10-27 02:15
PROVIDERS: ADMIT Student in an Organized Health Care Education/Training Program; ATTEND Internal Medicine

== ENCOUNTER 2020-12-06 17:13 | Inpatient (IN) ==
[2020-12-06] MEDS ORDERED: Isovue-370 500 ML BOTTLE IVP ONE (19:03)
[2020-12-06 20:35] LABS: Hemoglobin 12.6 g/dL (12.9-16.9); Mean Corpuscular HGB Conc 32.3 g/dL (31.6-35.5); Mean Corpuscular Hemoglobin 32.4 pg (28.0-33.3); Mean Corpuscular Volume 100.3 fL (83.0-100.0); Mean Platelet Volume 8.7 fL (9.4-12.4); Platelet Count 178 K/mcL (140-400); Red Blood Count 3.89 M/mcL (4.19-5.50); White Blood Count 11.1 K/mcL (4.3-11.1)
[2020-12-06 20:42] LABS: INR 0.9; Prothrombin Time 10.7 Seconds (9.4-12.1)
[2020-12-06 20:43] LABS: Bilirubin,Urine Large (Negative); Blood,Urine Large (Negative); Clarity,Urine Turbid (Clear); Color,Urine Red (Yellow); Glucose,Urine (UA) Normal (Normal); Ketones,Urine Trace mg/dL (Negative); Leukocyte Esterase,Urine Large (Negative); Nitrite,Urine Positive (Negative); PH,Urine 8.5 pH Units (5.0-8.0); Protein,Urine >=300 mg/dL (Neg-Trace); Urobilinogen,Urine Normal (Normal)
[2020-12-06 20:56] LABS: Albumin 3.9 g/dL (3.5-5.7); Albumin/Globulin Ratio 1.2 (1.1-2.2); Bilirubin,Indirect 0.3 mg/dL (0.0-1.0); Bilirubin,Total 0.3 mg/dL (0.3-1.0); Calcium 9.9 mg/dL (8.6-10.3); Globulin 3.3 g/dL (2.4-3.5); Potassium 3.9 mEq/L (3.5-5.1); Total Protein 7.2 g/dL (6.4-8.9)
[2020-12-06] MEDS ORDERED: cefTRIAXone 1,000 MG in Water for inj. (sterile) 10 ML IVP ONE (22:20)
[2020-12-07] MEDS ORDERED: Naloxone 0.4 MG/ML INJ IVP PRN (01:33)
[2020-12-07] MEDS ORDERED: Acetaminophen 325 MG TABLET PO PRN (01:33)
[2020-12-07] MEDS: 0.9 % Sodium Chloride 1,000 ML IVC SCH (02:04)
[2020-12-07 05:48] LABS: Basophils % 0.4 %; Eosinophils # 0.7 K/mcL (0.0-0.6); Eosinophils % 9.1 %; Hematocrit 35.2 % (37.5-50.1); Hemoglobin 11.3 g/dL (12.9-16.9); Immature Granulocytes % 0.4 % (0-4); Lymphocytes # 0.9 K/mcL (0.6-4.6); Lymphocytes % 11.2 %; Mean Corpuscular HGB Conc 32.1 g/dL (31.6-35.5); Mean Corpuscular Hemoglobin 32.1 pg (28.0-33.3); Mean Platelet Volume 8.9 fL (9.4-12.4); Monocytes # 0.7 K/mcL (0.0-1.3); Monocytes % 9.1 %; Neutrophils # 5.7 K/mcL (1.6-8.9); Platelet Count 157 K/mcL (140-400); Red Blood Count 3.52 M/mcL (4.19-5.50); Segmented Neutrophils % 69.8 %; White Blood Count 8.2 K/mcL (4.3-11.1)
[2020-12-07 05:58] LABS: Prothrombin Time 11.7 Seconds (9.4-12.1)
[2020-12-07 06:09] LABS: Calcium 9.1 mg/dL (8.6-10.3); Magnesium 2.5 mg/dL (1.6-2.6); Potassium 3.8 mEq/L (3.5-5.1)
[2020-12-07] MEDS ORDERED: 0.9 % Sodium Chloride 250 ML IVC PRN (07:39)
[2020-12-07 07:50] LABS: Hepatitis B Surface Antibody 4.16 mIU/mL
[2020-12-07 08:00] LABS: Hepatitis B Surface Antigen Nonreactive (Nonreactive)
[2020-12-07] MEDS ORDERED: cefTRIAXone 1,000 MG in 0.9 % Sodium Chloride Mini Bag 100 ML IVPB SCH ×2 (09:00→16:00)
[2020-12-07] MEDS ORDERED: Bismuth Subsalicylate 120 ML ORAL SUSPENSION PO PRN (15:56)
[2020-12-07] MEDS ORDERED: MOM Conc 10 ML UD.LIQ PO PRN (15:56)
[2020-12-07] MEDS ORDERED: Mag Hydrox/Al Hydrox/Simeth 30 ML UDC PO PRN (15:56)
[2020-12-07] MEDS ORDERED: Chloraseptic Spray 177 ML BOTTLE MM PRN (15:56)
[2020-12-07] MEDS: Baclofen 10 MG TABLET PO SCH (20:06)
[2020-12-07] MEDS: traZODone 50 MG TABLET PO SCH (20:06)
[2020-12-07] MEDS: Mirtazapine 15 MG TABLET PO SCH (20:06)
[2020-12-07] MEDS: Latanoprost 2.5 ML BOTTLE BOTH EYES SCH (20:09)
[2020-12-07] MEDS ORDERED: AZELASTINE HCL BOTH EYES SCH (21:00)
[2020-12-08] MEDS: Cholecalciferol (D-3) 1,000 UNIT (25MCG) TABLET PO SCH (08:13)
[2020-12-08] MEDS: ARIPiprazole 2 MG TABLET PO SCH (08:13)
[2020-12-08] MEDS: NIFEdipine XL (24 HR) 30 MG TAB.ER.24 PO SCH (08:13)
[2020-12-08] MEDS: BuPROPion SR (12 HR) 150 MG TABLET PO SCH (08:13)
[2020-12-08] MEDS: Famotidine 20 MG TABLET PO SCH (08:13)
[2020-12-08] MEDS: Baclofen 10 MG TABLET PO SCH ×2 (08:13→20:41)
[2020-12-08] MEDS: Vitamin B Complex/Vit C/Vit E 1 EACH TABLET PO SCH (08:13)
[2020-12-08 08:35] LABS: Hematocrit 37.4 % (37.5-50.1); Hemoglobin 12.2 g/dL (12.9-16.9); Mean Corpuscular HGB Conc 32.6 g/dL (31.6-35.5); Mean Corpuscular Hemoglobin 33.5 pg (28.0-33.3); Mean Corpuscular Volume 102.7 fL (83.0-100.0); Platelet Count 162 K/mcL (140-400); Red Blood Count 3.64 M/mcL (4.19-5.50); White Blood Count 11.7 K/mcL (4.3-11.1)
[2020-12-08 08:56] LABS: Calcium 8.1 mg/dL (8.6-10.3); Potassium 4.1 mEq/L (3.5-5.1)
[2020-12-08] MEDS ORDERED: 0.9 % Sodium Chloride 1,000 ML IVC SCH (11:30)
[2020-12-08] MEDS ORDERED: Dextrose Gel 15 GM/37.5 ML TUBE PO PRN ×2 (14:08)
[2020-12-08] MEDS ORDERED: *HR* Dextrose 50 % in Water (Vial) 50 ML VIAL IVP PRN (14:08)
[2020-12-08] MEDS ORDERED: D5% in Water 1,000 ML IVC PRN (14:08)
[2020-12-08] MEDS: 0.9 % Sodium Chloride 1,000 ML IVC SCH (14:15)
[2020-12-08] MEDS: SODIUM ZIRCONIUM CYCLOSILICATE 5 GM POWD.PACK PO SCH (16:27)
[2020-12-08] MEDS: Piperacillin/Tazobactam 3.375 GM in 0.9 % Sodium Chloride Mini Bag 100 ML IVPB SCH (16:27)
[2020-12-08] MEDS: Mirtazapine 15 MG TABLET PO SCH (20:40)
[2020-12-08] MEDS: traZODone 50 MG TABLET PO SCH (20:41)
[2020-12-08] MEDS: Latanoprost 2.5 ML BOTTLE BOTH EYES SCH (21:16)
[2020-12-08] MEDS: 0.9 % Sodium Chloride 1,000 ML PRIME SCH (23:08)
[2020-12-09] MEDS ORDERED: Albumin 25% 25gram/100mL 25 GM/100 ML IV.SOLN IVPB ONE (00:04)
[2020-12-09] MEDS: Piperacillin/Tazobactam 3.375 GM in 0.9 % Sodium Chloride Mini Bag 100 ML IVPB SCH ×2 (05:00→16:30)
[2020-12-09 08:13] LABS: Hematocrit 32.4 % (37.5-50.1); Mean Corpuscular HGB Conc 30.6 g/dL (31.6-35.5); Mean Corpuscular Hemoglobin 32.4 pg (28.0-33.3); Mean Corpuscular Volume 105.9 fL (83.0-100.0); Mean Platelet Volume 8.9 fL (9.4-12.4); Platelet Count 140 K/mcL (140-400); Red Blood Count 3.06 M/mcL (4.19-5.50); Red Cell Distribution Width 13.2 % (11.5-14.5); White Blood Count 9.6 K/mcL (4.3-11.1)
[2020-12-09 08:14] LABS: Hemoglobin 9.9 g/dL (12.9-16.9)
[2020-12-09] MEDS: Famotidine 20 MG TABLET PO SCH ×2 (08:16→17:07)
[2020-12-09] MEDS: Baclofen 10 MG TABLET PO SCH ×2 (08:16→20:53)
[2020-12-09] MEDS: Vitamin B Complex/Vit C/Vit E 1 EACH TABLET PO SCH (08:16)
[2020-12-09] MEDS: Cholecalciferol (D-3) 1,000 UNIT (25MCG) TABLET PO SCH (08:16)
[2020-12-09] MEDS: NIFEdipine XL (24 HR) 30 MG TAB.ER.24 PO SCH (08:16)
[2020-12-09] MEDS: ARIPiprazole 2 MG TABLET PO SCH (08:17)
[2020-12-09] MEDS: BuPROPion SR (12 HR) 150 MG TABLET PO SCH (08:17)
[2020-12-09 08:30] LABS: Calcium 7.3 mg/dL (8.6-10.3)
[2020-12-09] MEDS ORDERED: 0.9 % Sodium Chloride 250 ML IVC PRN (08:33)
[2020-12-09] MEDS ORDERED: 0.9 % Sodium Chloride 1,000 ML IVC SCH (13:55)
[2020-12-09] MEDS: 0.9 % Sodium Chloride 1,000 ML PRIME SCH ×2 (16:32→17:20)
[2020-12-09] MEDS ORDERED: Piperacillin/Tazobactam 3.375 GM VIAL ONE (16:46)
[2020-12-09] MEDS: 0.9 % Sodium Chloride 1,000 ML IVC SCH ×3 (17:21→21:42)
[2020-12-09] MEDS: traZODone 50 MG TABLET PO SCH (20:53)
[2020-12-09] MEDS: Mirtazapine 15 MG TABLET PO SCH (20:53)
[2020-12-09] MEDS: Latanoprost 2.5 ML BOTTLE BOTH EYES SCH (21:11)
[2020-12-10 02:05] LABS: Hematocrit 30.4 % (37.5-50.1); Hemoglobin 9.8 g/dL (12.9-16.9); Mean Corpuscular HGB Conc 32.2 g/dL (31.6-35.5); Mean Corpuscular Hemoglobin 33.2 pg (28.0-33.3); Mean Corpuscular Volume 103.1 fL (83.0-100.0); Mean Platelet Volume 8.6 fL (9.4-12.4); Platelet Count 155 K/mcL (140-400); Red Blood Count 2.95 M/mcL (4.19-5.50); Red Cell Distribution Width 12.9 % (11.5-14.5); White Blood Count 8.1 K/mcL (4.3-11.1)
[2020-12-10 02:25] LABS: Calcium 7.8 mg/dL (8.6-10.3)
[2020-12-10] MEDS: Ondansetron 4 MG/2 ML VIAL IVP PRN (03:29)
[2020-12-10] MEDS: Piperacillin/Tazobactam 3.375 GM in 0.9 % Sodium Chloride Mini Bag 100 ML IVPB SCH ×2 (03:53→16:54)
[2020-12-10] MEDS: BuPROPion SR (12 HR) 150 MG TABLET PO SCH (08:28)
[2020-12-10] MEDS: NIFEdipine XL (24 HR) 30 MG TAB.ER.24 PO SCH (08:28)
[2020-12-10] MEDS: Cholecalciferol (D-3) 1,000 UNIT (25MCG) TABLET PO SCH (08:28)
[2020-12-10] MEDS: ARIPiprazole 2 MG TABLET PO SCH (08:28)
[2020-12-10] MEDS: Baclofen 10 MG TABLET PO SCH ×2 (08:29→21:25)
[2020-12-10] MEDS: Vitamin B Complex/Vit C/Vit E 1 EACH TABLET PO SCH (08:29)
[2020-12-10] MEDS: 0.9 % Sodium Chloride 1,000 ML IVC SCH (13:18)
[2020-12-10] MEDS: 0.9 % Sodium Chloride 1,000 ML PRIME SCH (16:53)
[2020-12-10] MEDS: SODIUM ZIRCONIUM CYCLOSILICATE 5 GM POWD.PACK PO SCH (19:32)
[2020-12-10] MEDS: Mirtazapine 15 MG TABLET PO SCH (21:25)
[2020-12-10] MEDS: traZODone 50 MG TABLET PO SCH (21:25)
[2020-12-10] MEDS: Latanoprost 2.5 ML BOTTLE BOTH EYES SCH (21:29)
[2020-12-11 01:10] LABS: Hematocrit 33.4 % (37.5-50.1); Hemoglobin 10.2 g/dL (12.9-16.9); Mean Corpuscular HGB Conc 30.5 g/dL (31.6-35.5); Mean Corpuscular Hemoglobin 32.6 pg (28.0-33.3); Mean Corpuscular Volume 106.7 fL (83.0-100.0); Mean Platelet Volume 8.5 fL (9.4-12.4); Platelet Count 155 K/mcL (140-400); Red Blood Count 3.13 M/mcL (4.19-5.50); Red Cell Distribution Width 12.9 % (11.5-14.5); White Blood Count 6.7 K/mcL (4.3-11.1)
[2020-12-11 01:35] LABS: Calcium 7.4 mg/dL (8.6-10.3); Potassium 4.1 mEq/L (3.5-5.1)
[2020-12-11] MEDS: Piperacillin/Tazobactam 3.375 GM in 0.9 % Sodium Chloride Mini Bag 100 ML IVPB SCH ×2 (03:57→15:14)
[2020-12-11] MEDS: ARIPiprazole 2 MG TABLET PO SCH (08:12)
[2020-12-11] MEDS: Cholecalciferol (D-3) 1,000 UNIT (25MCG) TABLET PO SCH (08:13)
[2020-12-11] MEDS: Vitamin B Complex/Vit C/Vit E 1 EACH TABLET PO SCH (08:13)
[2020-12-11] MEDS: NIFEdipine XL (24 HR) 30 MG TAB.ER.24 PO SCH (08:13)
[2020-12-11] MEDS: Baclofen 10 MG TABLET PO SCH ×2 (08:13→21:14)
[2020-12-11] MEDS: BuPROPion SR (12 HR) 150 MG TABLET PO SCH (08:13)
[2020-12-11] MEDS: 0.9 % Sodium Chloride 1,000 ML IVC SCH (11:19)
[2020-12-11] MEDS: SODIUM ZIRCONIUM CYCLOSILICATE 5 GM POWD.PACK PO SCH (15:15)
[2020-12-11] MEDS ORDERED: Carbamide Peroxide 150 DROP/15 ML BOTTLE BOTH EARS SCH (15:56)
[2020-12-11] MEDS: traZODone 50 MG TABLET PO SCH (21:13)
[2020-12-11] MEDS: Mirtazapine 15 MG TABLET PO SCH (21:13)
[2020-12-11] MEDS: SODIUM CHLORIDE 0.9% IVPB SCH (21:14)
[2020-12-11] MEDS: COLISTIN IVPB SCH (21:14)
[2020-12-11 21:22] LABS: Campylobacter by PCR Not detected (Not detect)
[2020-12-11 21:25] LABS: Adenovirus F 40/41 PCR Not detected (Not detect); Astrovirus PCR Not detected (Not detect); C.difficile Toxin A/B Gene PCR DETECTED (Not detect); Cryptosporidium by PCR Not detected (Not detect); Cyclospora cayetanensis PCR Not detected (Not detect); E. coli O157 by PCR Not detected (Not detect); Entamoeba histolytica PCR Not detected (Not detect); Enteroaggregative E.coli(EAEC) Not detected (Not detect); Enteropathogenic E.coli(EPEC) Not detected (Not detect); Enterotoxigenic E.coli (ETEC) Not detected (Not detect); Giardia lamblia PCR Not detected (Not detect); Norovirus GI/GII PCR Not detected (Not detect); Plesiomonas shigelloides PCR Not detected (Not detect); Salmonella PCR Not detected (Not detect); Shig/EnteroinvasiveE coli EIEC Not detected (Not detect); Shigalike tox-prod E coli STEC Not detected (Not detect); Vibrio PCR Not detected (Not detect); Vibrio cholerae PCR Not detected (Not detect); Yersinia enterocolitica PCR Not detected (Not detect)
[2020-12-11 21:26] LABS: Rotavirus A PCR Not detected (Not detect); Sapovirus PCR Not detected (Not detect)
[2020-12-12 02:20] LABS: Basophils % 0.7 %; Eosinophils # 0.4 K/mcL (0.0-0.6); Hemoglobin 9.3 g/dL (12.9-16.9); Immature Granulocytes % 0.2 % (0-4); Lymphocytes # 1.1 K/mcL (0.6-4.6); Lymphocytes % 19.3 %; Mean Corpuscular HGB Conc 32.1 g/dL (31.6-35.5); Mean Corpuscular Hemoglobin 33.6 pg (28.0-33.3); Mean Corpuscular Volume 104.7 fL (83.0-100.0); Mean Platelet Volume 8.6 fL (9.4-12.4); Monocytes # 0.6 K/mcL (0.0-1.3); Monocytes % 10.4 %; Neutrophils # 3.7 K/mcL (1.6-8.9); Platelet Count 156 K/mcL (140-400); Red Blood Count 2.77 M/mcL (4.19-5.50); Red Cell Distribution Width 12.8 % (11.5-14.5); Segmented Neutrophils % 63.4 %; White Blood Count 5.9 K/mcL (4.3-11.1)
[2020-12-12 02:38] LABS: Potassium 4.1 mEq/L (3.5-5.1)
[2020-12-12] MEDS ORDERED: 0.9 % Sodium Chloride 250 ML IVC PRN (07:15)
[2020-12-12] MEDS ORDERED: Albumin 25% 25gram/100mL 25 GM/100 ML IV.SOLN IVPB PRN (07:15)
[2020-12-12] MEDS ORDERED: 0.9 % Sodium Chloride 1,000 ML PRIME SCH (07:15)
[2020-12-12] MEDS ORDERED: 0.9 % Sodium Chloride 2,000 ML ONE (07:20)
[2020-12-12] MEDS: Cholecalciferol (D-3) 1,000 UNIT (25MCG) TABLET PO SCH (11:35)
[2020-12-12] MEDS: BuPROPion SR (12 HR) 150 MG TABLET PO SCH (11:36)
[2020-12-12] MEDS: ARIPiprazole 2 MG TABLET PO SCH (11:36)
[2020-12-12] MEDS: metroNIDAZOLE 500 MG TABLET PO SCH ×3 (11:36→20:45)
[2020-12-12] MEDS: Vitamin B Complex/Vit C/Vit E 1 EACH TABLET PO SCH (11:36)
[2020-12-12] MEDS: NIFEdipine XL (24 HR) 30 MG TAB.ER.24 PO SCH (11:37)
[2020-12-12] MEDS: Baclofen 10 MG TABLET PO SCH ×2 (11:37→20:45)
[2020-12-12] MEDS: SODIUM CHLORIDE 0.9% IVPB SCH (11:37)
[2020-12-12] MEDS: COLISTIN IVPB SCH (11:37)
[2020-12-12] MEDS: Vancomycin Oral Soln 125 MG/2.5 ML UDC PO SCH ×3 (13:44→20:45)
[2020-12-12] MEDS: Famotidine 20 MG TABLET PO SCH (16:36)
[2020-12-12] MEDS: Lactobacillus 1 EACH CAP.SPRINK PO SCH (20:45)
[2020-12-12] MEDS: Mirtazapine 15 MG TABLET PO SCH (20:45)
[2020-12-12] MEDS: traZODone 50 MG TABLET PO SCH (20:45)
[2020-12-12] MEDS: Latanoprost 2.5 ML BOTTLE BOTH EYES SCH ×2 (20:46→21:06)
[2020-12-13 01:59] LABS: Basophils % 0.5 %; Eosinophils # 0.5 K/mcL (0.0-0.6); Eosinophils % 7.9 %; Hematocrit 30.4 % (37.5-50.1); Hemoglobin 9.5 g/dL (12.9-16.9); Immature Granulocytes % 0.2 % (0-4); Lymphocytes # 0.8 K/mcL (0.6-4.6); Lymphocytes % 13.6 %; Mean Corpuscular HGB Conc 31.3 g/dL (31.6-35.5); Mean Corpuscular Hemoglobin 32.3 pg (28.0-33.3); Mean Corpuscular Volume 103.4 fL (83.0-100.0); Mean Platelet Volume 8.8 fL (9.4-12.4); Monocytes # 0.6 K/mcL (0.0-1.3); Monocytes % 9.8 %; Platelet Count 163 K/mcL (140-400); Red Blood Count 2.94 M/mcL (4.19-5.50); Red Cell Distribution Width 12.8 % (11.5-14.5); White Blood Count 5.9 K/mcL (4.3-11.1)
[2020-12-13 02:19] LABS: Calcium 7.5 mg/dL (8.6-10.3); Potassium 3.4 mEq/L (3.5-5.1)
[2020-12-13] MEDS: Cholecalciferol (D-3) 1,000 UNIT (25MCG) TABLET PO SCH (09:40)
[2020-12-13] MEDS: Vitamin B Complex/Vit C/Vit E 1 EACH TABLET PO SCH (09:40)
[2020-12-13] MEDS: ARIPiprazole 2 MG TABLET PO SCH (09:40)
[2020-12-13] MEDS: metroNIDAZOLE 500 MG TABLET PO SCH (09:40)
[2020-12-13] MEDS: NIFEdipine XL (24 HR) 30 MG TAB.ER.24 PO SCH (09:40)
[2020-12-13] MEDS: BuPROPion SR (12 HR) 150 MG TABLET PO SCH (09:40)
[2020-12-13] MEDS: Lactobacillus 1 EACH CAP.SPRINK PO SCH ×2 (09:40→20:30)
[2020-12-13] MEDS: Vancomycin Oral Soln 125 MG/2.5 ML UDC PO SCH ×4 (09:41→20:30)
[2020-12-13] MEDS: Baclofen 10 MG TABLET PO SCH ×2 (09:41→20:30)
[2020-12-13] MEDS: SODIUM ZIRCONIUM CYCLOSILICATE 5 GM POWD.PACK PO SCH (14:05)
[2020-12-13] MEDS: SODIUM CHLORIDE 0.9% IVPB SCH (15:48)
[2020-12-13] MEDS: COLISTIN IVPB SCH (15:48)
[2020-12-13] MEDS ORDERED: 0.9 % Sodium Chloride 250 ML IVC PRN (18:57)
[2020-12-13] MEDS: Latanoprost 2.5 ML BOTTLE BOTH EYES SCH (20:30)
[2020-12-13] MEDS: traZODone 50 MG TABLET PO SCH (20:30)
[2020-12-13] MEDS: Mirtazapine 15 MG TABLET PO SCH (20:30)
[2020-12-13] MEDS: Ondansetron 4 MG/2 ML VIAL IVP PRN (23:41)
[2020-12-14] MEDS ORDERED: 0.9 % Sodium Chloride 1,000 ML PRIME SCH (00:01)
[2020-12-14 06:21] LABS: Hematocrit 30.5 % (37.5-50.1); Hemoglobin 9.4 g/dL (12.9-16.9); Mean Corpuscular HGB Conc 30.8 g/dL (31.6-35.5); Mean Corpuscular Hemoglobin 32.4 pg (28.0-33.3); Mean Corpuscular Volume 105.2 fL (83.0-100.0); Mean Platelet Volume 8.5 fL (9.4-12.4); Platelet Count 170 K/mcL (140-400); Red Cell Distribution Width 12.5 % (11.5-14.5); White Blood Count 6.7 K/mcL (4.3-11.1)
[2020-12-14 06:41] LABS: Calcium 7.5 mg/dL (8.6-10.3); Potassium 3.8 mEq/L (3.5-5.1)
[2020-12-14] MEDS: Vancomycin Oral Soln 125 MG/2.5 ML UDC PO SCH ×4 (09:01→21:07)
[2020-12-14] MEDS: Lactobacillus 1 EACH CAP.SPRINK PO SCH ×2 (14:51→21:06)
[2020-12-14] MEDS: ARIPiprazole 2 MG TABLET PO SCH (14:53)
[2020-12-14] MEDS: Vitamin B Complex/Vit C/Vit E 1 EACH TABLET PO SCH (14:53)
[2020-12-14] MEDS: BuPROPion SR (12 HR) 150 MG TABLET PO SCH (14:53)
[2020-12-14] MEDS: NIFEdipine XL (24 HR) 30 MG TAB.ER.24 PO SCH (14:53)
[2020-12-14] MEDS: Baclofen 10 MG TABLET PO SCH ×2 (14:54→21:06)
[2020-12-14] MEDS: Cholecalciferol (D-3) 1,000 UNIT (25MCG) TABLET PO SCH (14:54)
[2020-12-14] MEDS: SODIUM CHLORIDE 0.9% IVPB SCH (15:05)
[2020-12-14] MEDS: COLISTIN IVPB SCH (15:05)
[2020-12-14] MEDS: Famotidine 20 MG TABLET PO SCH (16:57)
[2020-12-14] MEDS: traZODone 50 MG TABLET PO SCH (21:06)
[2020-12-14] MEDS: Mirtazapine 15 MG TABLET PO SCH (21:06)
[2020-12-14] MEDS: Latanoprost 2.5 ML BOTTLE BOTH EYES SCH (21:07)
[2020-12-15 07:40] LABS: Calcium 7.9 mg/dL (8.6-10.3); Potassium 3.7 mEq/L (3.5-5.1)
[2020-12-15] MEDS: NIFEdipine XL (24 HR) 30 MG TAB.ER.24 PO SCH (09:41)
[2020-12-15] MEDS: Baclofen 10 MG TABLET PO SCH (09:42)
[2020-12-15] MEDS: ARIPiprazole 2 MG TABLET PO SCH (09:42)
[2020-12-15] MEDS: BuPROPion SR (12 HR) 150 MG TABLET PO SCH (09:42)
[2020-12-15] MEDS: Cholecalciferol (D-3) 1,000 UNIT (25MCG) TABLET PO SCH (09:42)
[2020-12-15] MEDS: Vitamin B Complex/Vit C/Vit E 1 EACH TABLET PO SCH (09:43)
[2020-12-15] MEDS: Lactobacillus 1 EACH CAP.SPRINK PO SCH (09:43)
[2020-12-15] MEDS: Vancomycin Oral Soln 125 MG/2.5 ML UDC PO SCH (09:43)
[2020-12-15] MEDS ORDERED: COLISTIN IVPB SCH (10:00)
[2020-12-15] MEDS ORDERED: SODIUM CHLORIDE 0.9% IVPB SCH (10:00)
[2020-12-15 11:22] VITALS: BP 93/61
== END 2020-12-15 12:44 | disposition home health service (06) | DRG 698 ==
LOC: 3ANU 17:13 → EMEROOARM 17:13 → 3ANU 12-07 01:20 → SUATTDRO 12-07 16:49
PROVIDERS: ADMIT Student in an Organized Health Care Education/Training Program; ATTEND Internal Medicine

== ENCOUNTER 2021-01-10 10:48 | Inpatient (IN) ==
[2021-01-10] MEDS ORDERED: 0.9 % Sodium Chloride 1,000 ML IVC ONE (10:57)
[2021-01-10] MEDS ORDERED: 0.9 % Sodium Chloride 1,000 ML ONE (11:06)
[2021-01-10 11:41] LABS: Hematocrit 26.5 % (37.5-50.1); Hemoglobin 8.1 g/dL (12.9-16.9); Mean Corpuscular HGB Conc 30.6 g/dL (31.6-35.5); Mean Corpuscular Hemoglobin 31.2 pg (28.0-33.3); Mean Corpuscular Volume 101.9 fL (83.0-100.0); Mean Platelet Volume 10.6 fL (9.4-12.4); Nucleated Red Blood Cells 0.4 /100 WBC (0); Platelet Count 229 K/mcL (140-400); Red Cell Distribution Width 14.7 % (11.5-14.5); White Blood Count 10.2 K/mcL (4.3-11.1)
[2021-01-10 11:41] LABS: VBG HCO3 25 mEq/L (21-27); VBG PCO2 36 mmHg (41-51); VBG PH 7.45 pH Units (7.32-7.42); VBG PO2 105 mmHg (25-50)
[2021-01-10 11:57] LABS: Eosinophils # 0.4 K/mcL (0.0-0.6); Lymphocytes # 0.6 K/mcL (0.6-4.6); Monocytes # 0.8 K/mcL (0.0-1.3); Neutrophils # 8.4 K/mcL (1.6-8.9); Platelet Estimate Normal (Normal)
[2021-01-10 12:06] LABS: Alanine Aminotransferase 16 Units/L (7-52); Albumin/Globulin Ratio 0.9 (1.1-2.2); Alkaline Phosphatase 96 Units/L (34-104); Aspartate Amino Transferase 18 Units/L (13-39); BUN/Creatinine Ratio 13 (6-26); Bilirubin,Direct 0.1 mg/dL (0.0-0.2); Bilirubin,Indirect 0.3 mg/dL (0.0-1.0); Bilirubin,Total 0.4 mg/dL (0.3-1.0); Blood Urea Nitrogen 86 mg/dL (6-20); Calcium 8.5 mg/dL (8.6-10.3); Carbon Dioxide 24 mEq/L (23-29); Chloride 102 mEq/L (98-107); Creatine Kinase 317 Units/L (30-223); Ethanol < 10 mg/dL (Less than 10); Globulin 3.4 g/dL (2.4-3.5); Glucose 177 mg/dL (70-105); Lipase 3 Units/L (11-82); Osmolality,Calculated 325 (280-300); Potassium 3.9 mEq/L (3.5-5.1); Sodium 142 mEq/L (136-145); Total Protein 6.4 g/dL (6.4-8.9); Troponin I < 0.03 ng/mL (< 0.04); eGFR For African Americans 11 (> 60); eGFR For Non-African Americans 9 (> 60)
[2021-01-10 12:16] LABS: Thyroid Stimulating Hormone 1.389 mcIU/mL (0.340-5.600)
[2021-01-10] MEDS ORDERED: Perflutren Lipid Microsphere 1.3 ML in 0.9 % Sodium Chloride 8.7 ML IVP PRN (13:28)
[2021-01-10 14:04] LABS: Bacteria,Urine Moderate per hpf (None-Few); Bilirubin,Urine Negative (Negative); Blood,Urine Large (Negative); Clarity,Urine Ex.Turbid (Clear); Color,Urine Light-Orange (Yellow); Glucose,Urine (UA) Normal (Normal); Ketones,Urine Negative (Negative); Leukocyte Esterase,Urine Large (Negative); Nitrite,Urine Negative (Negative); Protein,Urine >=300 mg/dL (Neg-Trace); RBC,Urine TNTC per hpf (0-3); Specific Gravity,Urine 1.013 (1.010-1.025); Urobilinogen,Urine Normal (Normal); WBC,Urine TNTC per hpf (0-3)
[2021-01-10 14:05] LABS: Amphetamine Screen,Urine Negative ng/mL (Cutoff=1000); Barbiturate Screen,Urine Negative ng/mL (Cutoff=200); Benzodiazepines Screen,Urine Negative ng/mL (Cutoff=200); Cannabinoid Screen,Urine Negative ng/mL (Cutoff = 50); Cocaine Screen,Urine Negative ng/mL (Cutoff= 300); Opiate Screen,Urine Negative ng/mL (Cutoff=300); Phencyclidine Screen,Urine Negative ng/mL (Cutoff=25)
[2021-01-10] MEDS ORDERED: 0.9 % Sodium Chloride 1,000 ML IVC SCH ×2 (15:15→16:15)
[2021-01-10] MEDS ORDERED: Naloxone 0.4 MG/ML INJ IVP PRN ×3 (15:36→18:05)
[2021-01-10] MEDS ORDERED: Ondansetron 4 MG/2 ML VIAL IVP PRN ×2 (15:36→17:29)
[2021-01-10] MEDS ORDERED: Piperacillin/Tazobactam 3.375 GM in 0.9 % Sodium Chloride Mini Bag 100 ML IVPB SCH (16:00)
[2021-01-10] MEDS ORDERED: Dextrose Gel 15 GM/37.5 ML TUBE PO PRN ×2 (16:03)
[2021-01-10] MEDS ORDERED: D5% in Water 1,000 ML IVC PRN (16:03)
[2021-01-10] MEDS ORDERED: Ondansetron 4 MG/2 ML VIAL ONE (16:17)
[2021-01-10] MEDS ORDERED: *HR* Etomidate 20 MG/10 ML AMPUL IVP ONE (16:17)
[2021-01-10] MEDS ORDERED: *HR* FentaNYL (PF) 250 MCG/5 ML VIAL ONE (16:17)
[2021-01-10] MEDS ORDERED: *HR* Rocuronium Bromide 50 MG/5 ML VIAL ONE (16:17)
[2021-01-10] MEDS ORDERED: Lidocaine 2% Syringe 100 MG/5 ML ONE (16:22)
[2021-01-10] MEDS ORDERED: Heparin 1,000 UNITS/500 mL 500 ML ONE (16:48)
[2021-01-10] MEDS ORDERED: levoFLOXacin 750 MG/150 ML 750 MG/150 ML BAG IVPB SCH (17:00)
[2021-01-10] MEDS ORDERED: *HR* EPINEPHrine 1 MG/10 ML SYRINGE ONE (17:10)
[2021-01-10] MEDS ORDERED: *HR* FentaNYL (PF) 100 MCG/2 ML VIAL IVP PRN ×2 (17:29→18:12)
[2021-01-10] MEDS ORDERED: Albuterol 2.5 MG/3 ML NEBULIZER IH PRN (17:29)
[2021-01-10] MEDS ORDERED: ceFAZolin 2,000 MG in Water for inj. (sterile) 20 ML IVP ONE (17:48)
[2021-01-10 20:13] LABS: Glucose,Pericardial Fluid < 10 mg/dL (No Ref Range)
[2021-01-10 20:22] LABS: ABG Base Excess 0 mEq/L (-2 to 3); ABG HCO3 27 mEq/L (21-27); ABG Oxygen Saturation 96 % (95-98); ABG PCO2 54 mmHg (35-45); ABG PH 7.31 pH Units (7.32-7.45); ABG PO2 94 mmHg (85-104); ABG TCO2 29 mEq/L (20-26)
[2021-01-10] MEDS: Insulin LISPRO 300 UNITS/3 ML VIAL SUBQ SCH (20:35)
[2021-01-10] MEDS: traZODone 50 MG TABLET PO SCH (20:36)
[2021-01-10 21:41] LABS: Basophils % 0.2 %; Eosinophils % 0.1 %; Hematocrit 23.9 % (37.5-50.1); Hemoglobin 7.3 g/dL (12.9-16.9); Immature Granulocytes % 1.1 % (0-4); Lymphocytes # 0.4 K/mcL (0.6-4.6); Lymphocytes % 3.3 %; Mean Corpuscular HGB Conc 30.5 g/dL (31.6-35.5); Mean Corpuscular Hemoglobin 31.2 pg (28.0-33.3); Mean Corpuscular Volume 102.1 fL (83.0-100.0); Mean Platelet Volume 10.4 fL (9.4-12.4); Monocytes # 0.5 K/mcL (0.0-1.3); Monocytes % 3.9 %; Neutrophils # 11.2 K/mcL (1.6-8.9); Nucleated Red Blood Cells 0.2 /100 WBC (0); Platelet Count 218 K/mcL (140-400); Red Blood Count 2.34 M/mcL (4.19-5.50); Red Cell Distribution Width 14.7 % (11.5-14.5); Segmented Neutrophils % 91.4 %; White Blood Count 12.2 K/mcL (4.3-11.1)
[2021-01-10 21:48] LABS: INR 1.4; Prothrombin Time 15.9 Seconds (9.4-12.1)
[2021-01-10] MEDS: Albumin 25% 25gram/100mL 25 GM/100 ML IV.SOLN IVC SCH ×2 (21:49→22:26)
[2021-01-10 21:51] LABS: Activated Partial Thrombo Time 26.2 Seconds (26.0-36.0)
[2021-01-10 22:21] LABS: Basophilic Stippling 1+ (Not Present)
[2021-01-10 22:34] LABS: Calcium 8.3 mg/dL (8.6-10.3); Potassium 4.7 mEq/L (3.5-5.1)
[2021-01-10 22:42] LABS: Appearance of Body Fluid Cloudy (Clear); Volume of Body Fluid 80 mL
[2021-01-11] MEDS: Insulin LISPRO 300 UNITS/3 ML VIAL SUBQ SCH ×4 (03:19→18:31)
[2021-01-11 03:45] LABS: ABG Base Excess -1 mEq/L (-2 to 3); ABG HCO3 26 mEq/L (21-27); ABG Oxygen Saturation 99 % (95-98); ABG PCO2 52 mmHg (35-45); ABG PH 7.31 pH Units (7.32-7.45); ABG PO2 131 mmHg (85-104); ABG TCO2 28 mEq/L (20-26)
[2021-01-11 03:53] LABS: Hemoglobin 6.9 g/dL (12.9-16.9); Mean Corpuscular HGB Conc 31.4 g/dL (31.6-35.5); Mean Corpuscular Hemoglobin 31.8 pg (28.0-33.3); Mean Corpuscular Volume 101.4 fL (83.0-100.0); Mean Platelet Volume 10.7 fL (9.4-12.4); Nucleated Red Blood Cells 0.3 /100 WBC (0); Platelet Count 211 K/mcL (140-400); Red Blood Count 2.17 M/mcL (4.19-5.50)
[2021-01-11 04:14] LABS: Calcium 8.3 mg/dL (8.6-10.3); Magnesium 2.4 mg/dL (1.6-2.6); Phosphorous 6.2 mg/dL (2.7-4.5); Potassium 5.2 mEq/L (3.5-5.1)
[2021-01-11 05:04] LABS: Basophilic Stippling 1+ (Not Present); Lymphocytes # 0.7 K/mcL (0.6-4.6); Monocytes # 0.9 K/mcL (0.0-1.3); Neutrophils # 9.5 K/mcL (1.6-8.9); Platelet Estimate Normal (Normal)
[2021-01-11] MEDS ORDERED: 0.9 % Sodium Chloride 250 ML ONE (06:25)
[2021-01-11] MEDS ORDERED: Albumin 25% 25gram/100mL 25 GM/100 ML IV.SOLN IVPB PRN (07:38)
[2021-01-11] MEDS ORDERED: 0.9 % Sodium Chloride 250 ML IVC PRN (07:38)
[2021-01-11] MEDS ORDERED: 0.9 % Sodium Chloride 1,000 ML PRIME SCH (07:45)
[2021-01-11 10:30] LABS: Hematocrit 24.6 % (37.5-50.1); Hemoglobin 7.7 g/dL (12.9-16.9)
[2021-01-11 11:04] LABS: Hepatitis B Surface Antibody 107.15 mIU/mL
[2021-01-11 11:15] LABS: Hepatitis B Surface Antigen Nonreactive (Nonreactive)
[2021-01-11] MEDS: BuPROPion SR (12 HR) 150 MG TABLET PO SCH (11:34)
[2021-01-11] MEDS: ARIPiprazole 2 MG TABLET PO SCH (11:34)
[2021-01-11] MEDS: *HR* Dextrose 50 % in Water (Vial) 50 ML VIAL IVP PRN (18:30)
[2021-01-11] MEDS: traZODone 50 MG TABLET PO SCH (21:31)
[2021-01-11] MEDS: Mirtazapine 15 MG TABLET PO SCH (21:31)
[2021-01-11] MEDS: Baclofen 10 MG TABLET PO SCH (21:31)
[2021-01-11] MEDS: Latanoprost 2.5 ML BOTTLE BOTH EYES SCH (21:32)
[2021-01-12] MEDS: *HR* Dextrose 50 % in Water (Vial) 50 ML VIAL IVP PRN (00:02)
[2021-01-12] MEDS: Insulin LISPRO 300 UNITS/3 ML VIAL SUBQ SCH ×5 (00:15→23:01)
[2021-01-12 04:38] LABS: Basophils % 0.2 %; Eosinophils % 0.4 %; Hemoglobin 8.9 g/dL (12.9-16.9); Immature Granulocytes % 2.1 % (0-4); Lymphocytes # 0.7 K/mcL (0.6-4.6); Mean Corpuscular HGB Conc 30.7 g/dL (31.6-35.5); Mean Platelet Volume 10.2 fL (9.4-12.4); Monocytes # 0.5 K/mcL (0.0-1.3); Monocytes % 5.2 %; Neutrophils # 8.6 K/mcL (1.6-8.9); Nucleated Red Blood Cells 0.4 /100 WBC (0); Platelet Count 219 K/mcL (140-400); Red Blood Count 2.87 M/mcL (4.19-5.50); Segmented Neutrophils % 85.1 %; White Blood Count 10.1 K/mcL (4.3-11.1)
[2021-01-12 05:09] LABS: Calcium 8.5 mg/dL (8.6-10.3); Magnesium 2.1 mg/dL (1.6-2.6); Potassium 3.4 mEq/L (3.5-5.1)
[2021-01-12 05:24] LABS: Platelet Estimate Normal (Normal)
[2021-01-12] MEDS ORDERED: Vancomycin 500 MG in 0.9 % Sodium Chloride Mini Bag 100 ML IVPB ONE (06:00)
[2021-01-12] MEDS: Piperacillin/Tazobactam 3.375 GM in 0.9 % Sodium Chloride Mini Bag 100 ML IVPB SCH ×2 (06:26→17:52)
[2021-01-12] MEDS: Famotidine 20 MG TABLET PO SCH (08:45)
[2021-01-12] MEDS: Baclofen 10 MG TABLET PO SCH ×2 (08:46→20:10)
[2021-01-12] MEDS: ARIPiprazole 2 MG TABLET PO SCH (08:46)
[2021-01-12] MEDS: BuPROPion SR (12 HR) 150 MG TABLET PO SCH (08:46)
[2021-01-12] MEDS: Cholecalciferol (D-3) 1,000 UNIT (25MCG) TABLET PO SCH (08:46)
[2021-01-12] MEDS ORDERED: levoFLOXacin 500 MG/100 ML 500 MG/100 ML BAG IVPB SCH (17:00)
[2021-01-12] MEDS: traZODone 50 MG TABLET PO SCH (20:10)
[2021-01-12] MEDS: Mirtazapine 15 MG TABLET PO SCH (20:10)
[2021-01-12] MEDS: Latanoprost 2.5 ML BOTTLE BOTH EYES SCH (20:11)
[2021-01-13 01:51] LABS: Basophils % 0.3 %; Eosinophils # 0.1 K/mcL (0.0-0.6); Eosinophils % 1.4 %; Hematocrit 25.6 % (37.5-50.1); Hemoglobin 7.9 g/dL (12.9-16.9); Immature Granulocytes % 2.1 % (0-4); Lymphocytes # 0.9 K/mcL (0.6-4.6); Lymphocytes % 11.2 %; Mean Corpuscular HGB Conc 30.9 g/dL (31.6-35.5); Mean Corpuscular Hemoglobin 30.9 pg (28.0-33.3); Monocytes # 0.6 K/mcL (0.0-1.3); Monocytes % 7.7 %; Platelet Count 200 K/mcL (140-400); Red Blood Count 2.56 M/mcL (4.19-5.50); Red Cell Distribution Width 15.8 % (11.5-14.5); Segmented Neutrophils % 77.3 %; White Blood Count 7.8 K/mcL (4.3-11.1)
[2021-01-13 02:10] LABS: Magnesium 2.3 mg/dL (1.6-2.6); Phosphorous 4.1 mg/dL (2.7-4.5); Potassium 3.6 mEq/L (3.5-5.1)
[2021-01-13] MEDS: Insulin LISPRO 300 UNITS/3 ML VIAL SUBQ SCH ×3 (05:08→17:52)
[2021-01-13] MEDS: Piperacillin/Tazobactam 3.375 GM in 0.9 % Sodium Chloride Mini Bag 100 ML IVPB SCH ×2 (05:08→18:08)
[2021-01-13] MEDS ORDERED: 0.9 % Sodium Chloride 250 ML IVC PRN (07:50)
[2021-01-13] MEDS: Cholecalciferol (D-3) 1,000 UNIT (25MCG) TABLET PO SCH (07:52)
[2021-01-13] MEDS: ARIPiprazole 2 MG TABLET PO SCH (07:53)
[2021-01-13] MEDS: BuPROPion SR (12 HR) 150 MG TABLET PO SCH (07:54)
[2021-01-13] MEDS: Baclofen 10 MG TABLET PO SCH ×2 (07:54→20:16)
[2021-01-13] MEDS: Famotidine 20 MG TABLET PO SCH (07:54)
[2021-01-13] MEDS ORDERED: Perflutren Lipid Microsphere 1.3 ML in 0.9 % Sodium Chloride 8.7 ML IVP PRN (15:33)
[2021-01-13] MEDS: traZODone 50 MG TABLET PO SCH (20:16)
[2021-01-13] MEDS: Latanoprost 2.5 ML BOTTLE BOTH EYES SCH (20:17)
[2021-01-13] MEDS: Mirtazapine 15 MG TABLET PO SCH (20:17)
[2021-01-14] MEDS: Insulin LISPRO 300 UNITS/3 ML VIAL SUBQ SCH ×4 (00:19→17:18)
[2021-01-14] MEDS: Piperacillin/Tazobactam 3.375 GM in 0.9 % Sodium Chloride Mini Bag 100 ML IVPB SCH ×2 (05:05→17:57)
[2021-01-14 07:53] LABS: Calcium 8.2 mg/dL (8.6-10.3); Magnesium 2.1 mg/dL (1.6-2.6); Phosphorous 3.1 mg/dL (2.7-4.5)
[2021-01-14] MEDS: Cholecalciferol (D-3) 1,000 UNIT (25MCG) TABLET PO SCH (08:33)
[2021-01-14] MEDS: ARIPiprazole 2 MG TABLET PO SCH (08:33)
[2021-01-14] MEDS: Baclofen 10 MG TABLET PO SCH ×2 (08:34→20:13)
[2021-01-14] MEDS: Famotidine 20 MG TABLET PO SCH (08:34)
[2021-01-14] MEDS: BuPROPion SR (12 HR) 150 MG TABLET PO SCH (08:34)
[2021-01-14 08:47] LABS: Basophils % 0.2 %; Eosinophils # 0.1 K/mcL (0.0-0.6); Eosinophils % 1.2 %; Hematocrit 26.8 % (37.5-50.1); Hemoglobin 8.3 g/dL (12.9-16.9); Immature Granulocytes % 1.7 % (0-4); Lymphocytes # 1.2 K/mcL (0.6-4.6); Lymphocytes % 14.3 %; Mean Corpuscular Hemoglobin 31.2 pg (28.0-33.3); Mean Corpuscular Volume 100.8 fL (83.0-100.0); Monocytes # 0.6 K/mcL (0.0-1.3); Monocytes % 7.4 %; Neutrophils # 6.3 K/mcL (1.6-8.9); Platelet Count 217 K/mcL (140-400); Red Blood Count 2.66 M/mcL (4.19-5.50); Red Cell Distribution Width 15.4 % (11.5-14.5); Segmented Neutrophils % 75.2 %; White Blood Count 8.4 K/mcL (4.3-11.1)
[2021-01-14] MEDS: Mirtazapine 15 MG TABLET PO SCH (20:12)
[2021-01-14] MEDS: Latanoprost 2.5 ML BOTTLE BOTH EYES SCH (20:13)
[2021-01-14] MEDS: traZODone 50 MG TABLET PO SCH (20:13)
[2021-01-15] MEDS: Insulin LISPRO 300 UNITS/3 ML VIAL SUBQ SCH ×4 (02:58→17:22)
[2021-01-15 03:11] LABS: Hematocrit 25.5 % (37.5-50.1)
[2021-01-15 03:31] LABS: Calcium 7.9 mg/dL (8.6-10.3); Magnesium 2.2 mg/dL (1.6-2.6); Phosphorous 4.1 mg/dL (2.7-4.5); Potassium 4.1 mEq/L (3.5-5.1)
[2021-01-15 05:09] LABS: Acinetobacter baumannii by PCR Not Detected (Not Detect); Candida albicans by PCR Not Detected (Not Detect); Candida glabrata by PCR Not Detected (Not Detect); Candida krusei by PCR Not Detected (Not Detect); Candida parapsilosis by PCR Not Detected (Not Detect); Candida tropicalis by PCR Not Detected (Not Detect); Enterobacter cloacae Cmplx PCR Not Detected (Not Detect); Enterobacteriaceae by PCR Not Detected (Not Detect); Enterococcus by PCR Not Detected (Not Detect); Escherichia coli by PCR Not Detected (Not Detect); Klebsiella oxytoca by PCR Not Detected (Not Detect); Klebsiella pneumoniae by PCR Not Detected (Not Detect); Proteus by PCR Not Detected (Not Detect); Pseudomonas aeruginosa by PCR Not Detected (Not Detect); Serratia marcescens by PCR Not Detected (Not Detect); Staphylococcus aureus by PCR DETECTED (Not Detect); Staphylococcus by PCR Not Detected (Not Detect); Streptococcus agalactiae(B)PCR Not Detected (Not Detect); Streptococcus by PCR Not Detected (Not Detect); Streptococcus pneumoniae PCR Not Detected (Not Detect); Streptococcus pyogenes (A) PCR Not Detected (Not Detect); mecA Methicillin-Resist Gene Not Detected (Not Detect)
[2021-01-15] MEDS: Piperacillin/Tazobactam 3.375 GM in 0.9 % Sodium Chloride Mini Bag 100 ML IVPB SCH (05:13)
[2021-01-15] MEDS: Cholecalciferol (D-3) 1,000 UNIT (25MCG) TABLET PO SCH (08:42)
[2021-01-15] MEDS: ARIPiprazole 2 MG TABLET PO SCH (08:42)
[2021-01-15] MEDS: BuPROPion SR (12 HR) 150 MG TABLET PO SCH (08:42)
[2021-01-15] MEDS: Famotidine 20 MG TABLET PO SCH (08:43)
[2021-01-15] MEDS: Baclofen 10 MG TABLET PO SCH ×2 (08:43→20:49)
[2021-01-15] MEDS ORDERED: Carbamide Peroxide 150 DROP/15 ML BOTTLE BOTH EARS SCH (09:00)
[2021-01-15] MEDS ORDERED: CeFAZolin 2,000 MG/120 ML BAG IVPB SCH (16:15)
[2021-01-15] MEDS: ceFAZolin 2,000 MG in 0.9 % Sodium Chloride 100 ML IVPB SCH (17:32)
[2021-01-15] MEDS: *HR* Heparin 5,000 UNIT/ML VIAL SQ SCH (18:14)
[2021-01-15] MEDS: Mirtazapine 15 MG TABLET PO SCH (20:49)
[2021-01-15] MEDS: traZODone 50 MG TABLET PO SCH (20:49)
[2021-01-15] MEDS: Latanoprost 2.5 ML BOTTLE BOTH EYES SCH (20:58)
[2021-01-16] MEDS: Insulin LISPRO 300 UNITS/3 ML VIAL SUBQ SCH ×5 (00:07→23:58)
[2021-01-16] MEDS: *HR* Heparin 5,000 UNIT/ML VIAL SQ SCH ×2 (03:44→18:28)
[2021-01-16 06:39] LABS: Hematocrit 27.5 % (37.5-50.1); Hemoglobin 8.3 g/dL (12.9-16.9)
[2021-01-16 07:01] LABS: Calcium 7.8 mg/dL (8.6-10.3); Magnesium 2.4 mg/dL (1.6-2.6); Phosphorous 5.1 mg/dL (2.7-4.5); Potassium 4.2 mEq/L (3.5-5.1)
[2021-01-16] MEDS ORDERED: 0.9 % Sodium Chloride 250 ML IVC PRN (07:23)
[2021-01-16] MEDS ORDERED: Albumin 25% 25gram/100mL 25 GM/100 ML IV.SOLN IVPB PRN (07:23)
[2021-01-16] MEDS ORDERED: 0.9 % Sodium Chloride 1,000 ML PRIME SCH (07:30)
[2021-01-16] MEDS: BuPROPion SR (12 HR) 150 MG TABLET PO SCH (07:57)
[2021-01-16] MEDS: Cholecalciferol (D-3) 1,000 UNIT (25MCG) TABLET PO SCH (07:57)
[2021-01-16] MEDS: ARIPiprazole 2 MG TABLET PO SCH (07:57)
[2021-01-16] MEDS: Baclofen 10 MG TABLET PO SCH ×2 (07:58→20:14)
[2021-01-16] MEDS: Famotidine 20 MG TABLET PO SCH (07:58)
[2021-01-16] MEDS: ceFAZolin 2,000 MG in 0.9 % Sodium Chloride 100 ML IVPB SCH (09:27)
[2021-01-16] MEDS ORDERED: ceFAZolin 2,000 MG in 0.9 % Sodium Chloride 100 ML IVPB SCH (18:00)
[2021-01-16] MEDS: Mirtazapine 15 MG TABLET PO SCH (20:14)
[2021-01-16] MEDS: traZODone 50 MG TABLET PO SCH (20:14)
[2021-01-16] MEDS: Latanoprost 2.5 ML BOTTLE BOTH EYES SCH (20:15)
[2021-01-17] MEDS: Insulin LISPRO 300 UNITS/3 ML VIAL SUBQ SCH ×3 (05:14→19:39)
[2021-01-17] MEDS: *HR* Heparin 5,000 UNIT/ML VIAL SQ SCH ×2 (05:47→20:01)
[2021-01-17 06:44] LABS: Hematocrit 28.5 % (37.5-50.1); Hemoglobin 8.7 g/dL (12.9-16.9); Mean Corpuscular HGB Conc 30.5 g/dL (31.6-35.5); Mean Corpuscular Hemoglobin 31.2 pg (28.0-33.3); Mean Corpuscular Volume 102.2 fL (83.0-100.0); Platelet Count 267 K/mcL (140-400); Red Blood Count 2.79 M/mcL (4.19-5.50); Red Cell Distribution Width 14.7 % (11.5-14.5)
[2021-01-17 07:00] LABS: Calcium 8.2 mg/dL (8.6-10.3); Potassium 4.3 mEq/L (3.5-5.1)
[2021-01-17] MEDS: ARIPiprazole 2 MG TABLET PO SCH (08:16)
[2021-01-17] MEDS: BuPROPion SR (12 HR) 150 MG TABLET PO SCH (08:16)
[2021-01-17] MEDS: Cholecalciferol (D-3) 1,000 UNIT (25MCG) TABLET PO SCH (08:16)
[2021-01-17] MEDS: Baclofen 10 MG TABLET PO SCH ×2 (08:16→20:01)
[2021-01-17] MEDS: Famotidine 20 MG TABLET PO SCH (08:17)
[2021-01-17] MEDS ORDERED: *HR* Heparin 10,000 UNIT/10 ML VIAL IV PRN (08:49)
[2021-01-17] MEDS ORDERED: 0.9 % Sodium Chloride 250 ML IVC PRN (08:49)
[2021-01-17] MEDS ORDERED: 0.9 % Sodium Chloride 1,000 ML PRIME SCH (09:00)
[2021-01-17 10:13] LABS: Acinetobacter baumannii by PCR Not Detected (Not Detect); Candida albicans by PCR Not Detected (Not Detect); Candida glabrata by PCR Not Detected (Not Detect); Candida krusei by PCR Not Detected (Not Detect); Candida parapsilosis by PCR Not Detected (Not Detect); Candida tropicalis by PCR Not Detected (Not Detect); Enterobacter cloacae Cmplx PCR Not Detected (Not Detect); Enterobacteriaceae by PCR Not Detected (Not Detect); Enterococcus by PCR Not Detected (Not Detect); Escherichia coli by PCR Not Detected (Not Detect); Klebsiella oxytoca by PCR Not Detected (Not Detect); Klebsiella pneumoniae by PCR Not Detected (Not Detect); Proteus by PCR Not Detected (Not Detect); Pseudomonas aeruginosa by PCR Not Detected (Not Detect); Serratia marcescens by PCR Not Detected (Not Detect); Staphylococcus aureus by PCR Not Detected (Not Detect); Staphylococcus by PCR DETECTED (Not Detect); Streptococcus agalactiae(B)PCR Not Detected (Not Detect); Streptococcus by PCR Not Detected (Not Detect); Streptococcus pneumoniae PCR Not Detected (Not Detect); Streptococcus pyogenes (A) PCR Not Detected (Not Detect); mecA Methicillin-Resist Gene DETECTED (Not Detect)
[2021-01-17] MEDS ORDERED: Heparin 1,000 UNITS/500 mL 500 ML ONE (10:36)
[2021-01-17] MEDS ORDERED: Lidocaine/EPI 1:100k 1% 50 ML VIAL ONE (10:36)
[2021-01-17] MEDS ORDERED: *HR* Heparin 5,000 UNIT/ML VIAL ONE (13:30)
[2021-01-17] MEDS: Latanoprost 2.5 ML BOTTLE BOTH EYES SCH (20:01)
[2021-01-17] MEDS: Mirtazapine 15 MG TABLET PO SCH (20:01)
[2021-01-17] MEDS: traZODone 50 MG TABLET PO SCH (20:01)
[2021-01-18] MEDS: Insulin LISPRO 300 UNITS/3 ML VIAL SUBQ SCH ×2 (00:56→10:58)
[2021-01-18 01:46] LABS: Hematocrit 28.4 % (37.5-50.1); Hemoglobin 8.8 g/dL (12.9-16.9); Mean Corpuscular Hemoglobin 31.5 pg (28.0-33.3); Mean Corpuscular Volume 101.8 fL (83.0-100.0); Mean Platelet Volume 9.7 fL (9.4-12.4); Platelet Count 263 K/mcL (140-400); Red Blood Count 2.79 M/mcL (4.19-5.50); Red Cell Distribution Width 14.6 % (11.5-14.5); White Blood Count 9.8 K/mcL (4.3-11.1)
[2021-01-18 02:08] LABS: Calcium 8.4 mg/dL (8.6-10.3); Potassium 4.3 mEq/L (3.5-5.1)
[2021-01-18] MEDS: *HR* Heparin 5,000 UNIT/ML VIAL SQ SCH (04:30)
[2021-01-18] MEDS ORDERED: *HR* FentaNYL (PF) 100 MCG/2 ML VIAL IVP PRN ×2 (07:14→18:46)
[2021-01-18] MEDS ORDERED: *HR* HYDROmorphone PF 0.5 MG/0.5 ML SYRINGE IVP PRN ×3 (07:14→18:46)
[2021-01-18] MEDS ORDERED: Ondansetron 4 MG/2 ML VIAL IVP PRN ×3 (08:46→18:46)
[2021-01-18 10:55] LABS: Adenovirus Not Detected (Not Detect); Bordetella Pertussis Not Detected (Not Detect); Chlamydophila pneumoniae Not Detected (Not Detect); Coronavirus 229E Not Detected (Not Detect); Coronavirus HKU1 Not Detected (Not Detect); Coronavirus NL63 Not Detected (Not Detect); Coronavirus OC43 Not Detected (Not Detect); Human Metapneumovirus Not Detected (Not Detect); Human Rhinovirus/Enterovirus DETECTED (Not Detect); Influenza A Subtype 2009 H1 Not Detected (Not Detect); Influenza B Not Detected (Not Detect); Mycoplasma pneumoniae Not Detected (Not Detect); Parainfluenza Virus 1 Not Detected (Not Detect); Parainfluenza Virus 2 Not Detected (Not Detect); Parainfluenza Virus 3 Not Detected (Not Detect); Parainfluenza Virus 4 Not Detected (Not Detect); Respiratory Syncytial Virus Not Detected (Not Detect); SARS-CoV-2 Not Detected (Not Detect)
[2021-01-18] MEDS: Baclofen 10 MG TABLET PO SCH ×2 (10:58→21:45)
[2021-01-18] MEDS: ARIPiprazole 2 MG TABLET PO SCH (10:58)
[2021-01-18] MEDS: Famotidine 20 MG TABLET PO SCH (10:58)
[2021-01-18] MEDS: BuPROPion SR (12 HR) 150 MG TABLET PO SCH (10:59)
[2021-01-18] MEDS: Cholecalciferol (D-3) 1,000 UNIT (25MCG) TABLET PO SCH (10:59)
[2021-01-18] MEDS ORDERED: ceFAZolin 1,000 MG, Sodium Chloride IRRigation 1,000 ML IR ONE ×2 (11:00→18:46)
[2021-01-18] MEDS ORDERED: Ondansetron 4 MG/2 ML VIAL ONE (11:33)
[2021-01-18] MEDS ORDERED: *HR* Propofol 200 MG/20 ML VIAL IVP ONE (11:33)
[2021-01-18] MEDS ORDERED: ROPIVACAINE/PF/NS 0.25% 1 EACH SYRINGE INTRAART ONE (11:39)
[2021-01-18] MEDS ORDERED: Vancomycin 1,000 MG VIAL ONE (11:52)
[2021-01-18] MEDS ORDERED: *HR* Rocuronium Bromide 50 MG/5 ML VIAL ONE ×2 (12:07→14:34)
[2021-01-18] MEDS ORDERED: Lidocaine -MPF 2% 2 ML VIAL ONE (12:08)
[2021-01-18] MEDS ORDERED: Lidocaine HCL 4 ML Topical Solution (Laryng-O-Jet Kit Sterile Pak) TP ONE (12:09)
[2021-01-18] MEDS ORDERED: Ketamine *HR* 500 MG/10 ML MDV ONE (12:11)
[2021-01-18] MEDS ORDERED: *HR* Midazolam HCl 2 MG/2 ML VIAL ONE (13:20)
[2021-01-18] MEDS ORDERED: *HR* Phenylephrine 10 MG/ML VIAL ONE (13:36)
[2021-01-18] MEDS ORDERED: Albumin Human 5% 25.0 GM/500 ML IV.SOLN ONE (13:41)
[2021-01-18] MEDS ORDERED: *HR* Vasopressin 20 UNIT/ML VIAL ONE (13:41)
[2021-01-18] MEDS ORDERED: *HR* Heparin 5,000 UNIT/ML VIAL ONE (16:30)
[2021-01-18] MEDS ORDERED: *HR* FentaNYL (PF) 100 MCG/2 ML VIAL ONE (17:57)
[2021-01-18] MEDS ORDERED: Naloxone 0.4 MG/ML INJ IVP PRN (18:46)
[2021-01-18] MEDS ORDERED: D5% in Water 1,000 ML IVC PRN (18:46)
[2021-01-18] MEDS ORDERED: Perflutren Lipid Microsphere 1.3 ML in 0.9 % Sodium Chloride 8.7 ML IVP PRN (18:46)
[2021-01-18] MEDS ORDERED: Dextrose Gel 15 GM/37.5 ML TUBE PO PRN ×2 (18:46)
[2021-01-18] MEDS ORDERED: *HR* Dextrose 50 % in Water (Vial) 50 ML VIAL IVP PRN (18:46)
[2021-01-18] MEDS ORDERED: 0.9 % Sodium Chloride 1,000 ML PRIME SCH (18:46)
[2021-01-18] MEDS ORDERED: Albumin 25% 25gram/100mL 25 GM/100 ML IV.SOLN IVPB PRN (18:46)
[2021-01-18] MEDS ORDERED: *HR* Heparin 10,000 UNIT/10 ML VIAL IV PRN (18:46)
[2021-01-18] MEDS ORDERED: 0.9 % Sodium Chloride 250 ML IVC PRN (18:46)
[2021-01-18] MEDS: Mirtazapine 15 MG TABLET PO SCH (21:44)
[2021-01-18] MEDS: traZODone 50 MG TABLET PO SCH (21:45)
[2021-01-18] MEDS: Latanoprost 2.5 ML BOTTLE BOTH EYES SCH (21:45)
[2021-01-19] MEDS: Insulin LISPRO 300 UNITS/3 ML VIAL SUBQ SCH ×4 (01:31→17:46)
[2021-01-19] MEDS: *HR* Heparin 5,000 UNIT/ML VIAL SQ SCH ×2 (06:06→17:44)
[2021-01-19] MEDS ORDERED: 0.9 % Sodium Chloride 250 ML IVC PRN (07:53)
[2021-01-19] MEDS ORDERED: *HR* Heparin 10,000 UNIT/10 ML VIAL IV PRN (07:53)
[2021-01-19] MEDS: Cholecalciferol (D-3) 1,000 UNIT (25MCG) TABLET PO SCH (08:25)
[2021-01-19] MEDS: Famotidine 20 MG TABLET PO SCH (08:25)
[2021-01-19] MEDS: ARIPiprazole 2 MG TABLET PO SCH (08:26)
[2021-01-19] MEDS: Baclofen 10 MG TABLET PO SCH ×2 (08:26→20:47)
[2021-01-19] MEDS: BuPROPion SR (12 HR) 150 MG TABLET PO SCH (08:27)
[2021-01-19 08:30] LABS: Hematocrit 19.8 % (37.5-50.1); Mean Corpuscular HGB Conc 30.3 g/dL (31.6-35.5); Mean Corpuscular Hemoglobin 31.1 pg (28.0-33.3); Mean Corpuscular Volume 102.6 fL (83.0-100.0); Mean Platelet Volume 9.8 fL (9.4-12.4); Platelet Count 258 K/mcL (140-400); Red Blood Count 1.93 M/mcL (4.19-5.50); Red Cell Distribution Width 14.6 % (11.5-14.5)
[2021-01-19 08:55] LABS: Calcium 8.2 mg/dL (8.6-10.3); Potassium 4.8 mEq/L (3.5-5.1)
[2021-01-19 14:56] LABS: Hematocrit 21.7 % (37.5-50.1); Hemoglobin 6.4 g/dL (12.9-16.9)
[2021-01-19] MEDS ORDERED: 0.9 % Sodium Chloride 250 ML ONE (14:57)
[2021-01-19 18:49] LABS: Hematocrit 26.8 % (37.5-50.1); Hemoglobin 8.4 g/dL (12.9-16.9)
[2021-01-19] MEDS: Mirtazapine 15 MG TABLET PO SCH (20:47)
[2021-01-19] MEDS: traZODone 50 MG TABLET PO SCH (20:48)
[2021-01-19] MEDS: Latanoprost 2.5 ML BOTTLE BOTH EYES SCH (20:50)
[2021-01-20 04:16] LABS: Hematocrit 23.3 % (37.5-50.1); Hemoglobin 7.1 g/dL (12.9-16.9); Mean Corpuscular HGB Conc 30.5 g/dL (31.6-35.5); Mean Corpuscular Hemoglobin 30.7 pg (28.0-33.3); Mean Corpuscular Volume 100.9 fL (83.0-100.0); Mean Platelet Volume 9.7 fL (9.4-12.4); Platelet Count 258 K/mcL (140-400); Red Blood Count 2.31 M/mcL (4.19-5.50); Red Cell Distribution Width 15.6 % (11.5-14.5); White Blood Count 8.1 K/mcL (4.3-11.1)
[2021-01-20 04:27] LABS: Calcium 8.4 mg/dL (8.6-10.3); Potassium 4.2 mEq/L (3.5-5.1)
[2021-01-20] MEDS: Insulin LISPRO 300 UNITS/3 ML VIAL SUBQ SCH ×4 (05:36→17:30)
[2021-01-20] MEDS: *HR* Heparin 5,000 UNIT/ML VIAL SQ SCH ×2 (05:52→18:44)
[2021-01-20] MEDS ORDERED: *HR* Heparin 10,000 UNIT/10 ML VIAL IV PRN (07:48)
[2021-01-20] MEDS ORDERED: 0.9 % Sodium Chloride 250 ML IVC PRN (07:48)
[2021-01-20] MEDS ORDERED: 0.9 % Sodium Chloride 1,000 ML PRIME SCH (08:00)
[2021-01-20] MEDS: BuPROPion SR (12 HR) 150 MG TABLET PO SCH (13:06)
[2021-01-20] MEDS: Cholecalciferol (D-3) 1,000 UNIT (25MCG) TABLET PO SCH (13:06)
[2021-01-20] MEDS: Baclofen 10 MG TABLET PO SCH ×2 (13:06→21:10)
[2021-01-20] MEDS: ARIPiprazole 2 MG TABLET PO SCH (13:06)
[2021-01-20] MEDS: Famotidine 20 MG TABLET PO SCH (13:07)
[2021-01-20 14:09] LABS: Hematocrit 26.8 % (37.5-50.1); Hemoglobin 8.2 g/dL (12.9-16.9)
[2021-01-20] MEDS ORDERED: Vancomycin 500 MG in 0.9 % Sodium Chloride Mini Bag 100 ML IVPB ONE (15:00)
[2021-01-20] MEDS: traZODone 50 MG TABLET PO SCH (21:10)
[2021-01-20] MEDS: Mirtazapine 15 MG TABLET PO SCH (21:11)
[2021-01-20] MEDS: Latanoprost 2.5 ML BOTTLE BOTH EYES SCH (21:19)
[2021-01-20] MEDS ORDERED: Acetaminophen 325 MG TABLET PO PRN (21:20)
[2021-01-21] MEDS: Insulin LISPRO 300 UNITS/3 ML VIAL SUBQ SCH ×4 (00:15→17:15)
[2021-01-21 03:14] LABS: Hematocrit 23.2 % (37.5-50.1); Hemoglobin 6.9 g/dL (12.9-16.9); Mean Corpuscular HGB Conc 29.7 g/dL (31.6-35.5); Mean Corpuscular Hemoglobin 30.5 pg (28.0-33.3); Mean Corpuscular Volume 102.7 fL (83.0-100.0); Mean Platelet Volume 9.4 fL (9.4-12.4); Platelet Count 267 K/mcL (140-400); Red Blood Count 2.26 M/mcL (4.19-5.50); Red Cell Distribution Width 14.8 % (11.5-14.5); White Blood Count 6.2 K/mcL (4.3-11.1)
[2021-01-21 03:25] LABS: Calcium 8.7 mg/dL (8.6-10.3)
[2021-01-21 06:27] LABS: Acinetobacter baumannii by PCR Not Detected (Not Detect); Candida albicans by PCR Not Detected (Not Detect); Candida glabrata by PCR Not Detected (Not Detect); Candida krusei by PCR Not Detected (Not Detect); Candida parapsilosis by PCR Not Detected (Not Detect); Candida tropicalis by PCR Not Detected (Not Detect); Enterobacter cloacae Cmplx PCR Not Detected (Not Detect); Enterobacteriaceae by PCR Not Detected (Not Detect); Enterococcus by PCR Not Detected (Not Detect); Escherichia coli by PCR Not Detected (Not Detect); Klebsiella oxytoca by PCR Not Detected (Not Detect); Klebsiella pneumoniae by PCR Not Detected (Not Detect); Proteus by PCR Not Detected (Not Detect); Pseudomonas aeruginosa by PCR Not Detected (Not Detect); Serratia marcescens by PCR Not Detected (Not Detect); Staphylococcus aureus by PCR Not Detected (Not Detect); Staphylococcus by PCR Not Detected (Not Detect); Streptococcus agalactiae(B)PCR Not Detected (Not Detect); Streptococcus by PCR Not Detected (Not Detect); Streptococcus pneumoniae PCR Not Detected (Not Detect); Streptococcus pyogenes (A) PCR Not Detected (Not Detect); mecA Methicillin-Resist Gene Not Detected (Not Detect); vanA/B Vancomycin-Resist Genes Not Detected (Not Detect)
[2021-01-21] MEDS: *HR* Heparin 5,000 UNIT/ML VIAL SQ SCH ×2 (06:54→17:11)
[2021-01-21] MEDS: Cholecalciferol (D-3) 1,000 UNIT (25MCG) TABLET PO SCH (08:41)
[2021-01-21] MEDS: Baclofen 10 MG TABLET PO SCH ×2 (08:41→20:35)
[2021-01-21] MEDS: ARIPiprazole 2 MG TABLET PO SCH (08:42)
[2021-01-21] MEDS: BuPROPion SR (12 HR) 150 MG TABLET PO SCH (08:42)
[2021-01-21] MEDS ORDERED: 0.9 % Sodium Chloride 250 ML ONE (12:09)
[2021-01-21] MEDS ORDERED: Cefepime HCl 1,000 MG in Water for inj. (sterile) 10 ML IVP ONE (17:00)
[2021-01-21] MEDS: Mirtazapine 15 MG TABLET PO SCH (20:34)
[2021-01-21] MEDS: Latanoprost 2.5 ML BOTTLE BOTH EYES SCH (20:35)
[2021-01-21] MEDS: traZODone 50 MG TABLET PO SCH (20:35)
[2021-01-22 02:35] LABS: Hematocrit 25.7 % (37.5-50.1); Mean Corpuscular HGB Conc 31.1 g/dL (31.6-35.5); Mean Corpuscular Hemoglobin 31.3 pg (28.0-33.3); Mean Corpuscular Volume 100.4 fL (83.0-100.0); Mean Platelet Volume 9.3 fL (9.4-12.4); Platelet Count 269 K/mcL (140-400); Red Blood Count 2.56 M/mcL (4.19-5.50); Red Cell Distribution Width 14.5 % (11.5-14.5); White Blood Count 6.3 K/mcL (4.3-11.1)
[2021-01-22 02:57] LABS: Calcium 8.6 mg/dL (8.6-10.3); Potassium 4.3 mEq/L (3.5-5.1)
[2021-01-22] MEDS: Insulin LISPRO 300 UNITS/3 ML VIAL SUBQ SCH ×5 (04:13→18:45)
[2021-01-22] MEDS: *HR* Heparin 5,000 UNIT/ML VIAL SQ SCH ×2 (06:22→18:47)
[2021-01-22] MEDS: Carbamide Peroxide 150 DROP/15 ML BOTTLE BOTH EARS SCH (08:26)
[2021-01-22] MEDS: Baclofen 10 MG TABLET PO SCH ×2 (11:02→19:59)
[2021-01-22] MEDS: ARIPiprazole 2 MG TABLET PO SCH (11:02)
[2021-01-22] MEDS: BuPROPion SR (12 HR) 150 MG TABLET PO SCH (11:02)
[2021-01-22] MEDS: Cholecalciferol (D-3) 1,000 UNIT (25MCG) TABLET PO SCH (11:02)
[2021-01-22] MEDS ORDERED: 0.9 % Sodium Chloride 500 ML IVC ONE (11:11)
[2021-01-22] MEDS: *HR* Midazolam HCl 5 MG/5 ML VIAL IVP PRN ×2 (11:40→11:45)
[2021-01-22] MEDS: *HR* FentaNYL (PF) 100 MCG/2 ML VIAL IVP PRN ×2 (11:40→11:45)
[2021-01-22] MEDS ORDERED: Cefepime HCl 500 MG in Water for inj. (sterile) 10 ML IVP SCH (16:00)
[2021-01-22] MEDS: Mirtazapine 15 MG TABLET PO SCH (19:59)
[2021-01-22] MEDS: traZODone 50 MG TABLET PO SCH (19:59)
[2021-01-22] MEDS: Latanoprost 2.5 ML BOTTLE BOTH EYES SCH (19:59)
[2021-01-23 03:38] LABS: Basophils # 0.1 K/mcL (0.0-0.2); Basophils % 0.5 %; Eosinophils # 0.2 K/mcL (0.0-0.6); Eosinophils % 1.5 %; Hematocrit 27.8 % (37.5-50.1); Hemoglobin 8.5 g/dL (12.9-16.9); Immature Granulocytes % 0.5 % (0-4); Lymphocytes # 1.1 K/mcL (0.6-4.6); Lymphocytes % 11.4 %; Mean Corpuscular HGB Conc 30.6 g/dL (31.6-35.5); Mean Corpuscular Volume 101.5 fL (83.0-100.0); Mean Platelet Volume 9.5 fL (9.4-12.4); Monocytes # 0.7 K/mcL (0.0-1.3); Monocytes % 6.9 %; Platelet Count 350 K/mcL (140-400); Red Blood Count 2.74 M/mcL (4.19-5.50); Red Cell Distribution Width 14.4 % (11.5-14.5); Segmented Neutrophils % 79.2 %
[2021-01-23 03:46] LABS: Neutrophils # 7.8 K/mcL (1.6-8.9); White Blood Count 9.8 K/mcL (4.3-11.1)
[2021-01-23 04:03] LABS: Calcium 8.8 mg/dL (8.6-10.3); Potassium 4.8 mEq/L (3.5-5.1)
[2021-01-23] MEDS: *HR* Heparin 5,000 UNIT/ML VIAL SQ SCH ×2 (05:18→16:36)
[2021-01-23] MEDS: Insulin LISPRO 300 UNITS/3 ML VIAL SUBQ SCH ×3 (06:12→16:39)
[2021-01-23] MEDS: Cholecalciferol (D-3) 1,000 UNIT (25MCG) TABLET PO SCH (09:36)
[2021-01-23] MEDS: Baclofen 10 MG TABLET PO SCH ×2 (09:37→20:04)
[2021-01-23] MEDS: ARIPiprazole 2 MG TABLET PO SCH (09:37)
[2021-01-23] MEDS: BuPROPion SR (12 HR) 150 MG TABLET PO SCH (09:37)
[2021-01-23] MEDS: Famotidine 20 MG TABLET PO SCH (16:37)
[2021-01-23] MEDS: Cefepime HCl 2,000 MG in Water for inj. (sterile) 20 ML IVP SCH (16:37)
[2021-01-23] MEDS: traZODone 50 MG TABLET PO SCH (20:04)
[2021-01-23] MEDS: Mirtazapine 15 MG TABLET PO SCH (20:04)
[2021-01-23] MEDS: Latanoprost 2.5 ML BOTTLE BOTH EYES SCH (20:05)
[2021-01-24 01:00] LABS: Hematocrit 25.7 % (37.5-50.1); Mean Corpuscular HGB Conc 31.1 g/dL (31.6-35.5); Mean Corpuscular Hemoglobin 31.9 pg (28.0-33.3); Mean Corpuscular Volume 102.4 fL (83.0-100.0); Mean Platelet Volume 10.1 fL (9.4-12.4); Platelet Count 272 K/mcL (140-400); Red Blood Count 2.51 M/mcL (4.19-5.50); Red Cell Distribution Width 14.2 % (11.5-14.5); White Blood Count 6.3 K/mcL (4.3-11.1)
[2021-01-24 01:20] LABS: Calcium 8.7 mg/dL (8.6-10.3)
[2021-01-24] MEDS: Insulin LISPRO 300 UNITS/3 ML VIAL SUBQ SCH ×4 (02:15→16:59)
[2021-01-24] MEDS: *HR* Heparin 5,000 UNIT/ML VIAL SQ SCH ×2 (04:30→17:05)
[2021-01-24] MEDS ORDERED: 0.9 % Sodium Chloride 250 ML IVC PRN (08:04)
[2021-01-24] MEDS ORDERED: *HR* Heparin 10,000 UNIT/10 ML VIAL IV PRN (08:04)
[2021-01-24] MEDS ORDERED: 0.9 % Sodium Chloride 1,000 ML PRIME SCH (08:15)
[2021-01-24] MEDS ORDERED: 0.9 % Sodium Chloride 500 ML ONE (08:31)
[2021-01-24] MEDS ORDERED: Heparin 1,000 UNITS/500 mL 500 ML ONE (08:33)
[2021-01-24] MEDS ORDERED: Lidocaine/EPI 1:100k 1% 50 ML VIAL ONE (08:33)
[2021-01-24] MEDS ORDERED: *HR* Heparin 5,000 UNIT/ML VIAL ONE ×2 (08:55→09:00)
[2021-01-24] MEDS: BuPROPion SR (12 HR) 150 MG TABLET PO SCH (10:11)
[2021-01-24] MEDS: Cholecalciferol (D-3) 1,000 UNIT (25MCG) TABLET PO SCH (10:11)
[2021-01-24] MEDS: ARIPiprazole 2 MG TABLET PO SCH (10:11)
[2021-01-24] MEDS: Baclofen 10 MG TABLET PO SCH ×2 (10:12→20:04)
[2021-01-24] MEDS: Vancomycin Oral Soln 125 MG/2.5 ML UDC PO SCH ×4 (11:00→20:04)
[2021-01-24] MEDS ORDERED: Vancomycin 500 MG in 0.9 % Sodium Chloride Mini Bag 100 ML IVPB ONE (18:00)
[2021-01-24] MEDS: Latanoprost 2.5 ML BOTTLE BOTH EYES SCH (20:04)
[2021-01-24] MEDS: Mirtazapine 15 MG TABLET PO SCH (20:04)
[2021-01-24] MEDS: traZODone 50 MG TABLET PO SCH (20:04)
[2021-01-25] MEDS: Insulin LISPRO 300 UNITS/3 ML VIAL SUBQ SCH ×4 (05:10→18:07)
[2021-01-25] MEDS: *HR* Heparin 5,000 UNIT/ML VIAL SQ SCH ×2 (05:11→16:19)
[2021-01-25 05:42] LABS: Hemoglobin 8.8 g/dL (12.9-16.9); Mean Corpuscular HGB Conc 30.3 g/dL (31.6-35.5); Mean Corpuscular Volume 102.1 fL (83.0-100.0); Mean Platelet Volume 9.3 fL (9.4-12.4); Platelet Count 310 K/mcL (140-400); Red Blood Count 2.84 M/mcL (4.19-5.50); Red Cell Distribution Width 14.2 % (11.5-14.5); White Blood Count 6.7 K/mcL (4.3-11.1)
[2021-01-25 06:04] LABS: Calcium 9.4 mg/dL (8.6-10.3); Potassium 3.9 mEq/L (3.5-5.1)
[2021-01-25] MEDS: Vancomycin Oral Soln 125 MG/2.5 ML UDC PO SCH ×4 (07:49→21:42)
[2021-01-25] MEDS: BuPROPion SR (12 HR) 150 MG TABLET PO SCH (07:50)
[2021-01-25] MEDS: ARIPiprazole 2 MG TABLET PO SCH (07:50)
[2021-01-25] MEDS: Baclofen 10 MG TABLET PO SCH ×2 (07:51→21:41)
[2021-01-25] MEDS: Cholecalciferol (D-3) 1,000 UNIT (25MCG) TABLET PO SCH (07:57)
[2021-01-25] MEDS ORDERED: *HR* Heparin 10,000 UNIT/10 ML VIAL IV PRN (07:57)
[2021-01-25] MEDS ORDERED: 0.9 % Sodium Chloride 250 ML IVC PRN (07:57)
[2021-01-25] MEDS ORDERED: 0.9 % Sodium Chloride 1,000 ML PRIME SCH (08:00)
[2021-01-25] MEDS: Famotidine 20 MG TABLET PO SCH (15:13)
[2021-01-25] MEDS ORDERED: Vancomycin 500 MG in 0.9 % Sodium Chloride Mini Bag 100 ML IVPB ONE (16:00)
[2021-01-25] MEDS: Cefepime HCl 2,000 MG in Water for inj. (sterile) 20 ML IVP SCH (16:44)
[2021-01-25] MEDS: traZODone 50 MG TABLET PO SCH (21:41)
[2021-01-25] MEDS: Lactobacillus 1 EACH CAP.SPRINK PO SCH (21:41)
[2021-01-25] MEDS: Mirtazapine 15 MG TABLET PO SCH (21:41)
[2021-01-25] MEDS: Latanoprost 2.5 ML BOTTLE BOTH EYES SCH (21:42)
[2021-01-26] MEDS: Insulin LISPRO 300 UNITS/3 ML VIAL SUBQ SCH ×4 (02:31→17:00)
[2021-01-26 06:09] LABS: Mean Corpuscular Hemoglobin 31.9 pg (28.0-33.3); Mean Corpuscular Volume 102.8 fL (83.0-100.0); Mean Platelet Volume 9.2 fL (9.4-12.4); Platelet Count 317 K/mcL (140-400); Red Blood Count 2.82 M/mcL (4.19-5.50); Red Cell Distribution Width 14.3 % (11.5-14.5); White Blood Count 6.4 K/mcL (4.3-11.1)
[2021-01-26] MEDS: *HR* Heparin 5,000 UNIT/ML VIAL SQ SCH ×2 (06:22→17:09)
[2021-01-26 06:25] LABS: Calcium 9.3 mg/dL (8.6-10.3); Potassium 4.1 mEq/L (3.5-5.1)
[2021-01-26] MEDS: Cholecalciferol (D-3) 1,000 UNIT (25MCG) TABLET PO SCH (08:05)
[2021-01-26] MEDS: Lactobacillus 1 EACH CAP.SPRINK PO SCH ×2 (08:06→21:10)
[2021-01-26] MEDS: BuPROPion SR (12 HR) 150 MG TABLET PO SCH (08:06)
[2021-01-26] MEDS: ARIPiprazole 2 MG TABLET PO SCH (08:06)
[2021-01-26] MEDS: Baclofen 10 MG TABLET PO SCH ×2 (08:06→21:09)
[2021-01-26] MEDS: Vancomycin Oral Soln 125 MG/2.5 ML UDC PO SCH ×4 (08:07→21:09)
[2021-01-26] MEDS ORDERED: *HR* Metoprolol 5 MG/5 ML VIAL IVP ONE ×2 (18:43→18:45)
[2021-01-26] MEDS: Latanoprost 2.5 ML BOTTLE BOTH EYES SCH (21:00)
[2021-01-26] MEDS: traZODone 50 MG TABLET PO SCH (21:09)
[2021-01-26] MEDS: Mirtazapine 15 MG TABLET PO SCH (21:09)
[2021-01-27 02:29] LABS: Basophils % 0.5 %; Eosinophils # 0.2 K/mcL (0.0-0.6); Eosinophils % 3.8 %; Hematocrit 25.1 % (37.5-50.1); Immature Granulocytes % 0.5 % (0-4); Lymphocytes # 1.5 K/mcL (0.6-4.6); Lymphocytes % 23.8 %; Mean Corpuscular HGB Conc 29.5 g/dL (31.6-35.5); Mean Corpuscular Hemoglobin 30.3 pg (28.0-33.3); Mean Corpuscular Volume 102.9 fL (83.0-100.0); Mean Platelet Volume 9.3 fL (9.4-12.4); Monocytes # 0.7 K/mcL (0.0-1.3); Monocytes % 11.4 %; Neutrophils # 3.8 K/mcL (1.6-8.9); Platelet Count 280 K/mcL (140-400); Red Blood Count 2.44 M/mcL (4.19-5.50); Red Cell Distribution Width 14.1 % (11.5-14.5); White Blood Count 6.3 K/mcL (4.3-11.1)
[2021-01-27 02:30] LABS: Hemoglobin 7.4 g/dL (12.9-16.9)
[2021-01-27 02:57] LABS: Calcium 8.9 mg/dL (8.6-10.3); Potassium 4.4 mEq/L (3.5-5.1)
[2021-01-27] MEDS: Insulin LISPRO 300 UNITS/3 ML VIAL SUBQ SCH ×4 (06:19→18:10)
[2021-01-27] MEDS: *HR* Heparin 5,000 UNIT/ML VIAL SQ SCH ×2 (06:31→17:20)
[2021-01-27] MEDS ORDERED: 0.9 % Sodium Chloride 250 ML IVC PRN (07:39)
[2021-01-27] MEDS: Vancomycin Oral Soln 125 MG/2.5 ML UDC PO SCH ×4 (08:56→20:47)
[2021-01-27] MEDS: BuPROPion SR (12 HR) 150 MG TABLET PO SCH (08:57)
[2021-01-27] MEDS: Lactobacillus 1 EACH CAP.SPRINK PO SCH ×2 (08:58→20:47)
[2021-01-27] MEDS: Cholecalciferol (D-3) 1,000 UNIT (25MCG) TABLET PO SCH (08:58)
[2021-01-27] MEDS: Baclofen 10 MG TABLET PO SCH ×2 (08:58→20:47)
[2021-01-27] MEDS: ARIPiprazole 2 MG TABLET PO SCH (08:58)
[2021-01-27] MEDS ORDERED: *HR* Heparin 10,000 UNIT/10 ML VIAL IV PRN (11:32)
[2021-01-27] MEDS ORDERED: Vancomycin 500 MG in 0.9 % Sodium Chloride Mini Bag 100 ML IVPB ONE (15:00)
[2021-01-27] MEDS: Famotidine 20 MG TABLET PO SCH (15:51)
[2021-01-27] MEDS: Cefepime HCl 2,000 MG in Water for inj. (sterile) 20 ML IVP SCH (17:19)
[2021-01-27 17:20] LABS: Basophils % 0.4 %; Eosinophils # 0.2 K/mcL (0.0-0.6); Eosinophils % 3.6 %; Hematocrit 26.1 % (37.5-50.1); Hemoglobin 8.2 g/dL (12.9-16.9); Immature Granulocytes % 0.2 % (0-4); Lymphocytes # 1.3 K/mcL (0.6-4.6); Lymphocytes % 23.2 %; Mean Corpuscular HGB Conc 31.4 g/dL (31.6-35.5); Mean Corpuscular Hemoglobin 31.8 pg (28.0-33.3); Mean Corpuscular Volume 101.2 fL (83.0-100.0); Mean Platelet Volume 9.2 fL (9.4-12.4); Monocytes # 0.6 K/mcL (0.0-1.3); Monocytes % 10.4 %; Neutrophils # 3.5 K/mcL (1.6-8.9); Platelet Count 266 K/mcL (140-400); Red Blood Count 2.58 M/mcL (4.19-5.50); Red Cell Distribution Width 14.1 % (11.5-14.5); Segmented Neutrophils % 62.2 %; White Blood Count 5.6 K/mcL (4.3-11.1)
[2021-01-27] MEDS: Mirtazapine 15 MG TABLET PO SCH (20:47)
[2021-01-27] MEDS: traZODone 50 MG TABLET PO SCH (20:47)
[2021-01-27] MEDS: Latanoprost 2.5 ML BOTTLE BOTH EYES SCH (20:55)
[2021-01-28 05:15] LABS: Basophils % 0.6 %; Eosinophils # 0.2 K/mcL (0.0-0.6); Eosinophils % 3.6 %; Hematocrit 25.2 % (37.5-50.1); Hemoglobin 7.9 g/dL (12.9-16.9); Immature Granulocytes % 0.4 % (0-4); Lymphocytes # 1.4 K/mcL (0.6-4.6); Lymphocytes % 25.8 %; Mean Corpuscular HGB Conc 31.3 g/dL (31.6-35.5); Mean Corpuscular Hemoglobin 31.9 pg (28.0-33.3); Mean Corpuscular Volume 101.6 fL (83.0-100.0); Monocytes # 0.6 K/mcL (0.0-1.3); Monocytes % 11.3 %; Neutrophils # 3.1 K/mcL (1.6-8.9); Platelet Count 260 K/mcL (140-400); Red Blood Count 2.48 M/mcL (4.19-5.50); Red Cell Distribution Width 13.9 % (11.5-14.5); Segmented Neutrophils % 58.3 %; White Blood Count 5.3 K/mcL (4.3-11.1)
[2021-01-28 05:35] LABS: Calcium 8.5 mg/dL (8.6-10.3); Potassium 4.5 mEq/L (3.5-5.1)
[2021-01-28] MEDS: Insulin LISPRO 300 UNITS/3 ML VIAL SUBQ SCH ×4 (06:14→19:02)
[2021-01-28] MEDS: *HR* Heparin 5,000 UNIT/ML VIAL SQ SCH ×2 (06:20→17:45)
[2021-01-28] MEDS: Cholecalciferol (D-3) 1,000 UNIT (25MCG) TABLET PO SCH (08:03)
[2021-01-28] MEDS: Baclofen 10 MG TABLET PO SCH ×2 (08:03→20:03)
[2021-01-28] MEDS: BuPROPion SR (12 HR) 150 MG TABLET PO SCH (08:03)
[2021-01-28] MEDS: Lactobacillus 1 EACH CAP.SPRINK PO SCH ×2 (08:04→20:02)
[2021-01-28] MEDS: ARIPiprazole 2 MG TABLET PO SCH (08:04)
[2021-01-28] MEDS: Vancomycin Oral Soln 125 MG/2.5 ML UDC PO SCH ×5 (08:04→20:03)
[2021-01-28] MEDS: Mirtazapine 15 MG TABLET PO SCH (20:02)
[2021-01-28] MEDS: traZODone 50 MG TABLET PO SCH (20:03)
[2021-01-28] MEDS: Latanoprost 2.5 ML BOTTLE BOTH EYES SCH (20:06)
[2021-01-29] MEDS: Insulin LISPRO 300 UNITS/3 ML VIAL SUBQ SCH ×4 (01:41→17:52)
[2021-01-29 03:03] LABS: Basophils % 0.5 %; Eosinophils # 0.3 K/mcL (0.0-0.6); Eosinophils % 4.6 %; Hematocrit 26.7 % (37.5-50.1); Hemoglobin 7.9 g/dL (12.9-16.9); Immature Granulocytes % 0.3 % (0-4); Lymphocytes # 1.5 K/mcL (0.6-4.6); Lymphocytes % 25.8 %; Mean Corpuscular HGB Conc 29.6 g/dL (31.6-35.5); Mean Corpuscular Hemoglobin 30.6 pg (28.0-33.3); Mean Corpuscular Volume 103.5 fL (83.0-100.0); Mean Platelet Volume 8.9 fL (9.4-12.4); Monocytes # 0.7 K/mcL (0.0-1.3); Monocytes % 12.2 %; Neutrophils # 3.3 K/mcL (1.6-8.9); Platelet Count 257 K/mcL (140-400); Red Blood Count 2.58 M/mcL (4.19-5.50); Red Cell Distribution Width 14.2 % (11.5-14.5); Segmented Neutrophils % 56.6 %; White Blood Count 5.9 K/mcL (4.3-11.1)
[2021-01-29 03:27] LABS: Calcium 9.1 mg/dL (8.6-10.3); Potassium 4.6 mEq/L (3.5-5.1)
[2021-01-29] MEDS: *HR* Heparin 5,000 UNIT/ML VIAL SQ SCH ×2 (06:03→17:03)
[2021-01-29] MEDS: ARIPiprazole 2 MG TABLET PO SCH (07:57)
[2021-01-29] MEDS: Cholecalciferol (D-3) 1,000 UNIT (25MCG) TABLET PO SCH (07:58)
[2021-01-29] MEDS: Baclofen 10 MG TABLET PO SCH (07:58)
[2021-01-29] MEDS: Lactobacillus 1 EACH CAP.SPRINK PO SCH (07:58)
[2021-01-29] MEDS: Vancomycin Oral Soln 125 MG/2.5 ML UDC PO SCH ×3 (07:58→17:03)
[2021-01-29] MEDS: BuPROPion SR (12 HR) 150 MG TABLET PO SCH (07:58)
[2021-01-29] MEDS: Carbamide Peroxide 150 DROP/15 ML BOTTLE BOTH EARS SCH (08:01)
[2021-01-29 12:56] VITALS: O2SAT 95
[2021-01-29 16:04] VITALS: BP 99/62; PULSE 89; TEMP 98.6
[2021-01-29 18:31] LABS: Adenovirus Not Detected (Not Detect); Coronavirus 229E Not Detected (Not Detect)
[2021-01-29 18:32] LABS: Bordetella Pertussis Not Detected (Not Detect); Chlamydophila pneumoniae Not Detected (Not Detect); Coronavirus HKU1 Not Detected (Not Detect); Coronavirus NL63 Not Detected (Not Detect); Coronavirus OC43 Not Detected (Not Detect); Human Metapneumovirus Not Detected (Not Detect); Human Rhinovirus/Enterovirus Not Detected (Not Detect); Influenza A Subtype 2009 H1 Not Detected (Not Detect); Influenza B Not Detected (Not Detect); Mycoplasma pneumoniae Not Detected (Not Detect); Parainfluenza Virus 1 Not Detected (Not Detect); Parainfluenza Virus 2 Not Detected (Not Detect); Parainfluenza Virus 3 Not Detected (Not Detect); Parainfluenza Virus 4 Not Detected (Not Detect); Respiratory Syncytial Virus Not Detected (Not Detect); SARS-CoV-2 Not Detected (Not Detect)
== END 2021-01-29 19:04 | DRG 853 ==
LOC: EMEROOARM 10:48 → ICNU 16:20 → SUATTDRO 18:47 → ICNU 18:47 → 2NNU 01-11 18:09 → 2ANU 01-29 12:39
PROVIDERS: ADMIT Internal Medicine; ATTEND Student in an Organized Health Care Education/Training Program
PROC: IRPERMA (2021-01-24 12:00)

== ENCOUNTER 2021-06-14 07:41 | Observation (INO) ==
[2021-06-14 08:45] LABS: Bacteria,Urine Few per hpf (None-Few); Bilirubin,Urine Negative (Negative); Blood,Urine Large (Negative); Clarity,Urine Ex.Turbid (Clear); Color,Urine Light-Orange (Yellow); Glucose,Urine (UA) Normal (Normal); Ketones,Urine Negative (Negative); Leukocyte Esterase,Urine Large (Negative); Nitrite,Urine Negative (Negative); PH,Urine 6.5 pH Units (5.0-8.0); Protein,Urine >=300 mg/dL (Neg-Trace); RBC,Urine TNTC per hpf (0-3); Specific Gravity,Urine 1.021 (1.010-1.025); Urobilinogen,Urine Normal (Normal); WBC,Urine 50-100 per hpf (0-3)
[2021-06-14 08:47] LABS: Amphetamine Screen,Urine Negative ng/mL (Cutoff=1000); Barbiturate Screen,Urine Negative ng/mL (Cutoff=200); Benzodiazepines Screen,Urine Negative ng/mL (Cutoff=200); Cannabinoid Screen,Urine Negative ng/mL (Cutoff = 50); Cocaine Screen,Urine Negative ng/mL (Cutoff= 300); Opiate Screen,Urine Negative ng/mL (Cutoff=300); Phencyclidine Screen,Urine Negative ng/mL (Cutoff=25)
[2021-06-14 09:14] LABS: Basophils % 0.4 %; Eosinophils # 0.3 K/mcL (0.0-0.6); Eosinophils % 6.1 %; Hematocrit 35.1 % (37.5-50.1); Hemoglobin 11.7 g/dL (12.9-16.9); Immature Granulocytes % 0.6 % (0-4); Lymphocytes # 0.7 K/mcL (0.6-4.6); Lymphocytes % 14.7 %; Mean Corpuscular HGB Conc 33.3 g/dL (31.6-35.5); Mean Corpuscular Hemoglobin 34.3 pg (28.0-33.3); Mean Corpuscular Volume 102.9 fL (83.0-100.0); Mean Platelet Volume 8.9 fL (9.4-12.4); Monocytes # 0.8 K/mcL (0.0-1.3); Monocytes % 16.5 %; Platelet Count 159 K/mcL (140-400); Red Blood Count 3.41 M/mcL (4.19-5.50); Segmented Neutrophils % 61.7 %; White Blood Count 4.9 K/mcL (4.3-11.1)
[2021-06-14 09:17] LABS: Alanine Aminotransferase 12 Units/L (7-52); Albumin 3.6 g/dL (3.5-5.7); Albumin/Globulin Ratio 1.2 (1.1-2.2); Alkaline Phosphatase 96 Units/L (34-104); Aspartate Amino Transferase 13 Units/L (13-39); BUN/Creatinine Ratio 11 (6-26); Bilirubin,Direct 0.1 mg/dL (0.0-0.2); Bilirubin,Indirect 0.2 mg/dL (0.0-1.0); Bilirubin,Total 0.3 mg/dL (0.3-1.0); Blood Urea Nitrogen 74 mg/dL (6-20); Calcium 8.9 mg/dL (8.6-10.3); Carbon Dioxide 27 mEq/L (23-29); Chloride 97 mEq/L (98-107); Ethanol < 10 mg/dL (Less than 10); Globulin 2.9 g/dL (2.4-3.5); Glucose 95 mg/dL (70-105); Osmolality,Calculated 302 (280-300); Potassium 3.9 mEq/L (3.5-5.1); Sodium 135 mEq/L (136-145); Total Protein 6.5 g/dL (6.4-8.9); Troponin I < 0.03 ng/mL (< 0.04); eGFR For African Americans 11 (> 60); eGFR For Non-African Americans 9 (> 60)
[2021-06-14] MEDS ORDERED: cefTRIAXone 1,000 MG in 0.9 % Sodium Chloride Mini Bag 100 ML IVPB ONE (10:22)
[2021-06-14] MEDS ORDERED: Aspirin 325 MG TABLET PO ONE (10:29)
[2021-06-14] MEDS ORDERED: Melatonin 3 MG TABLET PO PRN (10:39)
[2021-06-14] MEDS ORDERED: Naloxone 0.4 MG/ML INJ IVP PRN (10:39)
[2021-06-14] MEDS ORDERED: Ondansetron 4 MG/2 ML VIAL IVP PRN (10:39)
[2021-06-14] MEDS ORDERED: Gadolinium Contrast Agent (WT Based) IV PRN (10:43)
[2021-06-14] MEDS ORDERED: Naloxone 0.4 MG/ML INJ IVP ONE (11:14)
[2021-06-14] MEDS ORDERED: 0.9 % Sodium Chloride 500 ML IVC ONE (11:16)
[2021-06-14] MEDS ORDERED: 0.9 % Sodium Chloride 500 ML ONE (11:16)
[2021-06-14] MEDS ORDERED: Aspirin 81 MG TAB.CHEW PO ONE (12:00)
[2021-06-14 12:24] LABS: Influenza A PCR Negative (Negative); Influenza B PCR Negative (Negative); Resp. Syncytial Virus PCR Negative (Negative)
[2021-06-14 12:26] LABS: SARS-CoV-2 by PCR (In House) Positive (Negative)
[2021-06-14] MEDS: *HR* Heparin 5,000 UNIT/ML VIAL SQ SCH ×2 (17:34→21:27)
[2021-06-15 04:20] VITALS: TEMP 98.4
[2021-06-15 06:29] LABS: Basophils % 0.3 %; Eosinophils # 0.2 K/mcL (0.0-0.6); Hematocrit 32.7 % (37.5-50.1); Hemoglobin 10.8 g/dL (12.9-16.9); Immature Granulocytes % 0.5 % (0-4); Lymphocytes # 0.7 K/mcL (0.6-4.6); Lymphocytes % 11.7 %; Mean Corpuscular Hemoglobin 34.5 pg (28.0-33.3); Mean Corpuscular Volume 104.5 fL (83.0-100.0); Mean Platelet Volume 9.1 fL (9.4-12.4); Monocytes # 0.9 K/mcL (0.0-1.3); Monocytes % 14.5 %; Neutrophils # 4.2 K/mcL (1.6-8.9); Platelet Count 149 K/mcL (140-400); Red Blood Count 3.13 M/mcL (4.19-5.50); Red Cell Distribution Width 14.2 % (11.5-14.5); White Blood Count 6.1 K/mcL (4.3-11.1)
[2021-06-15 06:42] LABS: Potassium 4.5 mEq/L (3.5-5.1)
[2021-06-15] MEDS: *HR* Heparin 5,000 UNIT/ML VIAL SQ SCH (06:53)
[2021-06-15 07:47] VITALS: BP 113/71; PULSE 96; O2SAT 99
[2021-06-15] MEDS ORDERED: *HR* Heparin 10,000 UNIT/10 ML VIAL IV PRN (08:22)
[2021-06-15] MEDS ORDERED: 0.9 % Sodium Chloride 250 ML IVC PRN (08:22)
[2021-06-15] MEDS ORDERED: 0.9 % Sodium Chloride 1,000 ML PRIME SCH (08:30)
[2021-06-15] MEDS ORDERED: cefTRIAXone 2,000 MG in 0.9 % Sodium Chloride Mini Bag 100 ML IVPB SCH (11:00)
== END 2021-06-15 13:56 | disposition home health service (06) ==
LOC: EMEROOARM 07:41 → 2ANU 07:41
PROVIDERS: ADMIT Hospitalist; ATTEND Hospitalist

== ENCOUNTER 2022-02-05 12:37 | Inpatient (IN) ==
[2022-02-05] MEDS ORDERED: 0.9 % Sodium Chloride 250 ML IVC ONE (12:54)
[2022-02-05 13:47] LABS: Basophils % 0.2 %; Eosinophils % 0.1 %; Hemoglobin 15.9 g/dL (12.9-16.9); Immature Granulocytes % 0.2 % (0-4); Lymphocytes # 0.4 K/mcL (0.6-4.6); Lymphocytes % 4.8 %; Mean Corpuscular HGB Conc 32.4 g/dL (31.6-35.5); Mean Corpuscular Volume 104.9 fL (83.0-100.0); Mean Platelet Volume 9.1 fL (9.4-12.4); Monocytes # 0.9 K/mcL (0.0-1.3); Monocytes % 10.3 %; Neutrophils # 7.7 K/mcL (1.6-8.9); Platelet Count 208 K/mcL (140-400); Red Blood Count 4.67 M/mcL (4.19-5.50); Red Cell Distribution Width 11.8 % (11.5-14.5); Segmented Neutrophils % 84.4 %; White Blood Count 9.2 K/mcL (4.3-11.1)
[2022-02-05 13:58] LABS: Prothrombin Time 11.2 Seconds (9.4-12.1)
[2022-02-05 14:07] LABS: Alanine Aminotransferase 8 Units/L (7-52); Albumin 4.5 g/dL (3.5-5.7); Albumin/Globulin Ratio 1.3 (1.1-2.2); Alkaline Phosphatase 112 Units/L (34-104); Aspartate Amino Transferase 8 Units/L (13-39); BUN/Creatinine Ratio 11 (6-26); Bilirubin,Direct 0.1 mg/dL (0.0-0.2); Bilirubin,Indirect 0.3 mg/dL (0.0-1.0); Bilirubin,Total 0.4 mg/dL (0.3-1.0); Blood Urea Nitrogen 69 mg/dL (6-20); Carbon Dioxide 28 mEq/L (23-29); Chloride 92 mEq/L (98-107); Creatine Kinase 18 Units/L (30-223); Globulin 3.5 g/dL (2.4-3.5); Glucose 119 mg/dL (70-105); Osmolality,Calculated 305 (280-300); Potassium 4.4 mEq/L (3.5-5.1); Sodium 137 mEq/L (136-145); Troponin I < 0.03 ng/mL (< 0.04); eGFR For African Americans 11 (> 60); eGFR For Non-African Americans 9 (> 60)
[2022-02-05 14:19] LABS: Influenza A PCR Negative (Negative); Influenza B PCR Negative (Negative); Resp. Syncytial Virus PCR Negative (Negative)
[2022-02-05 14:20] LABS: SARS-CoV-2 by PCR (In House) Negative (Negative)
[2022-02-05] MEDS ORDERED: Naloxone 0.4 MG/ML INJ IVP PRN ×2 (15:27→19:45)
[2022-02-05] MEDS ORDERED: *HR* HYDROmorphone (PF) 1 MG/ML SYRINGE IVP PRN ×3 (15:27→19:45)
[2022-02-05] MEDS ORDERED: Ondansetron 4 MG/2 ML VIAL IVP PRN ×3 (15:27→19:45)
[2022-02-05] MEDS ORDERED: 0.9 % Sodium Chloride 1,000 ML IVC SCH (15:30)
[2022-02-05] MEDS ORDERED: Bismuth Subsalicylate 525 MG/30 ML UDC PO PRN ×2 (15:41→19:45)
[2022-02-05] MEDS ORDERED: *HR* FentaNYL (PF) 100 MCG/2 ML VIAL ONE (15:45)
[2022-02-05] MEDS ORDERED: *HR* Rocuronium Bromide 50 MG/5 ML VIAL ONE ×2 (15:47→16:27)
[2022-02-05] MEDS ORDERED: Piperacillin/Tazobactam 3.375 GM in 0.9 % Sodium Chloride Mini Bag 100 ML IVPB SCH (16:00)
[2022-02-05] MEDS ORDERED: *HR* HYDROmorphone PF 0.5 MG/0.5 ML SYRINGE IVP PRN (16:25)
[2022-02-05] MEDS ORDERED: CefOXitin 2,000 MG VIAL ONE (17:18)
[2022-02-05] MEDS ORDERED: Sugammadex Sodium 200 MG/2 ML VIAL IV ONE (17:40)
[2022-02-05] MEDS ORDERED: Silver Nitrate Applicator 1 STICK..EA. TP ONE (18:41)
[2022-02-05] MEDS: traZODone 50 MG TABLET PO SCH (20:20)
[2022-02-05] MEDS: Baclofen 10 MG TABLET PO SCH (20:20)
[2022-02-05] MEDS: 0.9 % Sodium Chloride 1,000 ML IVC SCH (20:29)
[2022-02-05] MEDS: Piperacillin/Tazobactam 3.375 GM in 0.9 % Sodium Chloride Mini Bag 100 ML IVPB SCH (20:29)
[2022-02-05] MEDS ORDERED: Latanoprost 2.5 ML BOTTLE BOTH EYES SCH (21:00)
[2022-02-05] MEDS ORDERED: NON-FORMULARY MEDICATION 1 EACH EACH (Nut.Tx.Impaired Renal Fxn,Soy [Nepro Carb Steady] 23 PO SCH (21:00)
[2022-02-05] MEDS ORDERED: traZODone 50 MG TABLET PO SCH (21:00)
[2022-02-05] MEDS ORDERED: Baclofen 10 MG TABLET PO SCH (21:00)
[2022-02-05] MEDS: *HR* HYDROmorphone (PF) 1 MG/ML SYRINGE IVP PRN (22:29)
[2022-02-05] MEDS: Latanoprost 2.5 ML BOTTLE BOTH EYES SCH (22:30)
[2022-02-06] MEDS: *HR* HYDROmorphone (PF) 1 MG/ML SYRINGE IVP PRN ×2 (04:33→15:57)
[2022-02-06] MEDS: 0.9 % Sodium Chloride 1,000 ML IVC SCH (04:33)
[2022-02-06 05:38] LABS: Basophils % 0.2 %; Eosinophils % 0.2 %; Hematocrit 37.9 % (37.5-50.1); Immature Granulocytes % 0.2 % (0-4); Lymphocytes # 0.3 K/mcL (0.6-4.6); Lymphocytes % 4.5 %; Mean Corpuscular HGB Conc 31.9 g/dL (31.6-35.5); Mean Corpuscular Hemoglobin 34.6 pg (28.0-33.3); Mean Corpuscular Volume 108.3 fL (83.0-100.0); Mean Platelet Volume 9.3 fL (9.4-12.4); Monocytes # 0.7 K/mcL (0.0-1.3); Platelet Count 145 K/mcL (140-400); Segmented Neutrophils % 83.9 %
[2022-02-06 05:49] LABS: Hemoglobin 12.1 g/dL (12.9-16.9)
[2022-02-06 05:52] LABS: Calcium 7.5 mg/dL (8.6-10.3); Magnesium 2.2 mg/dL (1.6-2.6); Phosphorous 5.1 mg/dL (2.7-4.5); Potassium 5.8 mEq/L (3.5-5.1)
[2022-02-06] MEDS: *HR* Heparin 5,000 UNIT/ML VIAL SQ SCH ×3 (05:57→20:33)
[2022-02-06] MEDS ORDERED: *HR* Heparin 5,000 UNIT/ML VIAL SQ SCH (06:00)
[2022-02-06 06:36] LABS: Hepatitis B Surface Antibody 101.06 mIU/mL
[2022-02-06 06:47] LABS: Hepatitis B Surface Antigen Nonreactive (Nonreactive)
[2022-02-06] MEDS: ARIPiprazole 2 MG TABLET PO SCH (08:10)
[2022-02-06] MEDS: Baclofen 10 MG TABLET PO SCH ×2 (08:11→19:34)
[2022-02-06] MEDS: Mirtazapine 15 MG TABLET PO SCH (08:11)
[2022-02-06] MEDS ORDERED: 0.9 % Sodium Chloride 250 ML IVC PRN (08:11)
[2022-02-06] MEDS: NIFEdipine XL (24 HR) 30 MG TAB.ER.24 PO SCH (08:11)
[2022-02-06] MEDS: BuPROPion SR (12 HR) 150 MG TABLET PO SCH (08:11)
[2022-02-06] MEDS ORDERED: 0.9 % Sodium Chloride 2,000 ML PRIME SCH (08:15)
[2022-02-06] MEDS ORDERED: Acetaminophen 325 MG TABLET PO PRN (08:40)
[2022-02-06] MEDS ORDERED: BuPROPion SR (12 HR) 150 MG TABLET PO SCH (09:00)
[2022-02-06] MEDS ORDERED: FAMOTIDINE 10 MG PO SCH (09:00)
[2022-02-06] MEDS ORDERED: ARIPiprazole 2 MG TABLET PO SCH (09:00)
[2022-02-06] MEDS ORDERED: Mirtazapine 15 MG TABLET PO SCH (09:00)
[2022-02-06] MEDS ORDERED: NIFEdipine XL (24 HR) 30 MG TAB.ER.24 PO SCH (09:00)
[2022-02-06] MEDS: Piperacillin/Tazobactam 3.375 GM in 0.9 % Sodium Chloride Mini Bag 100 ML IVPB SCH ×2 (10:28→20:28)
[2022-02-06] MEDS ORDERED: 0.9 % Sodium Chloride 250 ML IVC ONE (11:14)
[2022-02-06] MEDS ORDERED: Lidocaine Jelly 6ml 1 APPL/6 ML JEL.PF.APP MM ONE (14:19)
[2022-02-06] MEDS ORDERED: Lidocaine Viscous Oral Soln 15 ML SOLUTION MM ONE (14:23)
[2022-02-06] MEDS ORDERED: Acetaminophen IV 1,000 MG/100 ML BAG IVPB PRN (14:28)
[2022-02-06] MEDS: traZODone 50 MG TABLET PO SCH (19:34)
[2022-02-06] MEDS: Latanoprost 2.5 ML BOTTLE BOTH EYES SCH (19:35)
[2022-02-07] MEDS ORDERED: Ketorolac 30 MG/ML VIAL IVP SCH
[2022-02-07 03:18] LABS: Basophils % 0.2 %; Eosinophils % 0.4 %; Hematocrit 37.7 % (37.5-50.1); Hemoglobin 12.1 g/dL (12.9-16.9); Immature Granulocytes % 0.6 % (0-4); Lymphocytes # 0.5 K/mcL (0.6-4.6); Lymphocytes % 9.2 %; Mean Corpuscular HGB Conc 32.1 g/dL (31.6-35.5); Mean Corpuscular Hemoglobin 34.2 pg (28.0-33.3); Mean Corpuscular Volume 106.5 fL (83.0-100.0); Mean Platelet Volume 9.5 fL (9.4-12.4); Monocytes # 0.8 K/mcL (0.0-1.3); Monocytes % 15.5 %; Platelet Count 155 K/mcL (140-400); Red Blood Count 3.54 M/mcL (4.19-5.50); Red Cell Distribution Width 12.1 % (11.5-14.5); Segmented Neutrophils % 74.1 %; White Blood Count 5.4 K/mcL (4.3-11.1)
[2022-02-07 03:53] LABS: Potassium 4.2 mEq/L (3.5-5.1)
[2022-02-07 03:54] LABS: Calcium 8.5 mg/dL (8.6-10.3)
[2022-02-07] MEDS: *HR* Heparin 5,000 UNIT/ML VIAL SQ SCH ×3 (05:25→23:22)
[2022-02-07] MEDS: Piperacillin/Tazobactam 3.375 GM in 0.9 % Sodium Chloride Mini Bag 100 ML IVPB SCH ×2 (09:45→19:42)
[2022-02-07] MEDS: ARIPiprazole 2 MG TABLET PO SCH (10:00)
[2022-02-07] MEDS: Baclofen 10 MG TABLET PO SCH ×2 (10:00→19:20)
[2022-02-07] MEDS: Mirtazapine 15 MG TABLET PO SCH (10:01)
[2022-02-07] MEDS: BuPROPion SR (12 HR) 150 MG TABLET PO SCH (10:01)
[2022-02-07] MEDS: NIFEdipine XL (24 HR) 30 MG TAB.ER.24 PO SCH (10:01)
[2022-02-07] MEDS: *HR* HYDROmorphone (PF) 1 MG/ML SYRINGE IVP PRN ×2 (10:09→16:49)
[2022-02-07] MEDS ORDERED: 0.9 % Sodium Chloride 250 ML IVC PRN (10:30)
[2022-02-07] MEDS ORDERED: Acetaminophen IV 1,000 MG/100 ML BAG IVPB SCH (12:14)
[2022-02-07] MEDS ORDERED: Dextrose Gel 15 GM/37.5 ML TUBE PO PRN ×2 (13:52)
[2022-02-07] MEDS ORDERED: *HR* Dextrose 50 % in Water (Syg) 50 ML SYRINGE IVP PRN (13:52)
[2022-02-07] MEDS: Ethyl Chloride Spray Bottle (104 SPRAY/BOTTLE) TP PRN (15:51)
[2022-02-07] MEDS: Acetaminophen IV 1,000 MG/100 ML BAG IVPB SCH ×2 (17:43→20:58)
[2022-02-07] MEDS: Latanoprost 2.5 ML BOTTLE BOTH EYES SCH (19:21)
[2022-02-07] MEDS: traZODone 50 MG TABLET PO SCH (19:21)
[2022-02-08 02:42] LABS: Eosinophils # 0.1 K/mcL (0.0-0.6); Hematocrit 36.5 % (37.5-50.1); Hemoglobin 11.5 g/dL (12.9-16.9); Mean Corpuscular HGB Conc 31.5 g/dL (31.6-35.5); Mean Corpuscular Hemoglobin 34.4 pg (28.0-33.3); Mean Corpuscular Volume 109.3 fL (83.0-100.0); Mean Platelet Volume 9.5 fL (9.4-12.4); Platelet Count 152 K/mcL (140-400); Red Blood Count 3.34 M/mcL (4.19-5.50); Red Cell Distribution Width 12.4 % (11.5-14.5); White Blood Count 4.5 K/mcL (4.3-11.1)
[2022-02-08 03:04] LABS: Calcium 8.9 mg/dL (8.6-10.3)
[2022-02-08 03:40] LABS: Lymphocytes # 0.9 K/mcL (0.6-4.6); Monocytes # 0.7 K/mcL (0.0-1.3); Neutrophils # 2.8 K/mcL (1.6-8.9)
[2022-02-08 03:42] LABS: Macrocytosis Present (Not Present); Platelet Estimate Normal (Normal)
[2022-02-08] MEDS: Acetaminophen IV 1,000 MG/100 ML BAG IVPB SCH ×4 (05:02→21:01)
[2022-02-08] MEDS: *HR* Heparin 5,000 UNIT/ML VIAL SQ SCH ×3 (05:03→21:03)
[2022-02-08] MEDS: D5% in Water 1,000 ML IVC PRN (06:12)
[2022-02-08] MEDS: ARIPiprazole 2 MG TABLET PO SCH (07:46)
[2022-02-08] MEDS: Baclofen 10 MG TABLET PO SCH (07:46)
[2022-02-08] MEDS: Mirtazapine 15 MG TABLET PO SCH (07:47)
[2022-02-08] MEDS: BuPROPion SR (12 HR) 150 MG TABLET PO SCH (07:47)
[2022-02-08] MEDS: NIFEdipine XL (24 HR) 30 MG TAB.ER.24 PO SCH (07:47)
[2022-02-08] MEDS: Piperacillin/Tazobactam 3.375 GM in 0.9 % Sodium Chloride Mini Bag 100 ML IVPB SCH ×2 (08:51→21:02)
[2022-02-08 13:33] LABS: Magnesium 2.3 mg/dL (1.6-2.6); Phosphorous 4.5 mg/dL (2.7-4.5)
[2022-02-08] MEDS ORDERED: D10% in Water 500 ML IVC PRN (13:58)
[2022-02-08] MEDS: Latanoprost 2.5 ML BOTTLE BOTH EYES SCH (21:07)
[2022-02-09 02:10] LABS: Basophils % 0.2 %; Eosinophils # 0.2 K/mcL (0.0-0.6); Eosinophils % 4.3 %; Hematocrit 34.4 % (37.5-50.1); Immature Granulocytes % 0.4 % (0-4); Lymphocytes # 0.6 K/mcL (0.6-4.6); Lymphocytes % 10.7 %; Mean Corpuscular Hemoglobin 34.6 pg (28.0-33.3); Mean Corpuscular Volume 108.2 fL (83.0-100.0); Mean Platelet Volume 9.3 fL (9.4-12.4); Monocytes # 0.8 K/mcL (0.0-1.3); Monocytes % 14.7 %; Neutrophils # 3.7 K/mcL (1.6-8.9); Platelet Count 158 K/mcL (140-400); Red Blood Count 3.18 M/mcL (4.19-5.50); Segmented Neutrophils % 69.7 %; White Blood Count 5.3 K/mcL (4.3-11.1)
[2022-02-09 02:35] LABS: Albumin 3.3 g/dL (3.5-5.7); Albumin/Globulin Ratio 1.1 (1.1-2.2); Bilirubin,Total 0.4 mg/dL (0.3-1.0); Calcium 8.6 mg/dL (8.6-10.3); Globulin 2.9 g/dL (2.4-3.5); Magnesium 2.3 mg/dL (1.6-2.6); Potassium 3.8 mEq/L (3.5-5.1); Total Protein 6.2 g/dL (6.4-8.9)
[2022-02-09] MEDS: Acetaminophen IV 1,000 MG/100 ML BAG IVPB SCH ×4 (05:35→21:15)
[2022-02-09] MEDS: *HR* Heparin 5,000 UNIT/ML VIAL SQ SCH ×3 (05:36→21:15)
[2022-02-09] MEDS ORDERED: 0.9 % Sodium Chloride 250 ML IVC PRN (08:32)
[2022-02-09] MEDS: Piperacillin/Tazobactam 3.375 GM in 0.9 % Sodium Chloride Mini Bag 100 ML IVPB SCH ×2 (14:31→14:37)
[2022-02-09] MEDS: D5% in Water 1,000 ML IVC PRN (15:50)
[2022-02-09] MEDS ORDERED: Clinimix E 5%-15% SOLUTION 2,000 ML with MVI, adult with vitamin K 10 ML IVC SCH (17:00)
[2022-02-09] MEDS ORDERED: Clinimix E 5%-15% SOLUTION 2,000 ML, Amino Acids 10% 0 ML with MVI, adult with vitami... IVC SCH (17:00)
[2022-02-09] MEDS: Latanoprost 2.5 ML BOTTLE BOTH EYES SCH (21:14)
[2022-02-10] MEDS: Piperacillin/Tazobactam 3.375 GM in 0.9 % Sodium Chloride Mini Bag 100 ML IVPB SCH ×2 (02:15→13:36)
[2022-02-10] MEDS: D5% in Water 1,000 ML IVC PRN ×3 (02:16→23:54)
[2022-02-10 02:59] LABS: Basophils % 0.3 %; Eosinophils # 0.3 K/mcL (0.0-0.6); Eosinophils % 3.4 %; Hematocrit 38.6 % (37.5-50.1); Hemoglobin 12.5 g/dL (12.9-16.9); Immature Granulocytes % 0.5 % (0-4); Lymphocytes # 0.8 K/mcL (0.6-4.6); Lymphocytes % 10.1 %; Mean Corpuscular HGB Conc 32.4 g/dL (31.6-35.5); Mean Corpuscular Hemoglobin 34.3 pg (28.0-33.3); Mean Platelet Volume 9.6 fL (9.4-12.4); Monocytes % 12.5 %; Neutrophils # 5.6 K/mcL (1.6-8.9); Platelet Count 189 K/mcL (140-400); Red Blood Count 3.64 M/mcL (4.19-5.50); Red Cell Distribution Width 11.8 % (11.5-14.5); Segmented Neutrophils % 73.2 %; White Blood Count 7.6 K/mcL (4.3-11.1)
[2022-02-10 03:22] LABS: Albumin 3.5 g/dL (3.5-5.7); Albumin/Globulin Ratio 1.2 (1.1-2.2); Bilirubin,Total 0.4 mg/dL (0.3-1.0); Calcium 8.6 mg/dL (8.6-10.3); Magnesium 2.1 mg/dL (1.6-2.6); Phosphorous 3.9 mg/dL (2.7-4.5); Potassium 3.6 mEq/L (3.5-5.1); Total Protein 6.5 g/dL (6.4-8.9)
[2022-02-10] MEDS: Acetaminophen IV 1,000 MG/100 ML BAG IVPB SCH ×4 (04:18→21:08)
[2022-02-10] MEDS: *HR* Heparin 5,000 UNIT/ML VIAL SQ SCH ×3 (05:05→21:08)
[2022-02-10] MEDS ORDERED: Clinimix E 5%-15% SOLUTION 2,000 ML, Amino Acids 10% 0 ML with MVI, adult with vitami... IVC SCH (17:00)
[2022-02-10] MEDS ORDERED: D10% in Water 500 ML IVC PRN (17:00)
[2022-02-10] MEDS: Latanoprost 2.5 ML BOTTLE BOTH EYES SCH (21:08)
[2022-02-11] MEDS: Piperacillin/Tazobactam 3.375 GM in 0.9 % Sodium Chloride Mini Bag 100 ML IVPB SCH ×2 (03:51→15:20)
[2022-02-11] MEDS: Acetaminophen IV 1,000 MG/100 ML BAG IVPB SCH ×4 (03:52→21:40)
[2022-02-11 05:52] LABS: Hematocrit 37.7 % (37.5-50.1); Hemoglobin 12.5 g/dL (12.9-16.9); Mean Corpuscular HGB Conc 33.2 g/dL (31.6-35.5); Mean Corpuscular Hemoglobin 34.1 pg (28.0-33.3); Mean Corpuscular Volume 102.7 fL (83.0-100.0); Mean Platelet Volume 9.4 fL (9.4-12.4); Platelet Count 216 K/mcL (140-400); Red Blood Count 3.67 M/mcL (4.19-5.50); Red Cell Distribution Width 11.4 % (11.5-14.5)
[2022-02-11 05:59] LABS: White Blood Count 11.6 K/mcL (4.3-11.1)
[2022-02-11 06:15] LABS: Albumin 3.3 g/dL (3.5-5.7); Albumin/Globulin Ratio 1.2 (1.1-2.2); Bilirubin,Total 0.4 mg/dL (0.3-1.0); Calcium 8.3 mg/dL (8.6-10.3); Globulin 2.7 g/dL (2.4-3.5); Phosphorous 6.2 mg/dL (2.7-4.5); Potassium 3.1 mEq/L (3.5-5.1)
[2022-02-11] MEDS: *HR* Heparin 5,000 UNIT/ML VIAL SQ SCH ×3 (06:26→20:23)
[2022-02-11] MEDS: Potassium Chloride Elixir 20 MEQ/15 ML UDC PO ONE ×2 (08:47→09:01)
[2022-02-11] MEDS: Nystatin SUSP 5 ML UD.LIQ PO SCH ×2 (16:01→20:23)
[2022-02-11] MEDS: Baclofen 10 MG TABLET PO SCH (20:23)
[2022-02-11] MEDS: traZODone 50 MG TABLET PO SCH (20:23)
[2022-02-11] MEDS: Latanoprost 2.5 ML BOTTLE BOTH EYES SCH (20:24)
[2022-02-12] MEDS: Piperacillin/Tazobactam 3.375 GM in 0.9 % Sodium Chloride Mini Bag 100 ML IVPB SCH ×2 (02:51→15:07)
[2022-02-12 03:30] LABS: Basophils % 0.3 %; Eosinophils # 0.4 K/mcL (0.0-0.6); Eosinophils % 3.5 %; Hematocrit 35.2 % (37.5-50.1); Hemoglobin 11.9 g/dL (12.9-16.9); Immature Granulocytes % 0.7 % (0-4); Lymphocytes % 8.4 %; Mean Corpuscular HGB Conc 33.8 g/dL (31.6-35.5); Mean Corpuscular Hemoglobin 34.5 pg (28.0-33.3); Mean Platelet Volume 9.5 fL (9.4-12.4); Monocytes # 0.9 K/mcL (0.0-1.3); Monocytes % 7.4 %; Neutrophils # 9.1 K/mcL (1.6-8.9); Platelet Count 218 K/mcL (140-400); Red Blood Count 3.45 M/mcL (4.19-5.50); Red Cell Distribution Width 11.4 % (11.5-14.5); Segmented Neutrophils % 79.7 %; White Blood Count 11.4 K/mcL (4.3-11.1)
[2022-02-12 03:43] LABS: Albumin 2.7 g/dL (3.5-5.7); Albumin/Globulin Ratio 1.2 (1.1-2.2); Bilirubin,Total 0.3 mg/dL (0.3-1.0); Calcium 6.7 mg/dL (8.6-10.3); Globulin 2.3 g/dL (2.4-3.5); Magnesium 1.6 mg/dL (1.6-2.6); Phosphorous 5.8 mg/dL (2.7-4.5); Potassium 2.9 mEq/L (3.5-5.1)
[2022-02-12] MEDS: Acetaminophen IV 1,000 MG/100 ML BAG IVPB SCH ×2 (05:33→10:15)
[2022-02-12] MEDS: *HR* Heparin 5,000 UNIT/ML VIAL SQ SCH ×3 (05:34→20:38)
[2022-02-12] MEDS ORDERED: 0.9 % Sodium Chloride 250 ML IVC PRN (08:21)
[2022-02-12] MEDS: NIFEdipine XL (24 HR) 30 MG TAB.ER.24 PO SCH (08:33)
[2022-02-12] MEDS: Baclofen 10 MG TABLET PO SCH ×2 (08:59→20:38)
[2022-02-12] MEDS: BuPROPion SR (12 HR) 150 MG TABLET PO SCH (08:59)
[2022-02-12] MEDS: ARIPiprazole 2 MG TABLET PO SCH (08:59)
[2022-02-12] MEDS: Nystatin SUSP 5 ML UD.LIQ PO SCH ×4 (08:59→20:38)
[2022-02-12] MEDS ORDERED: Acetaminophen 325 MG TABLET PO PRN (10:03)
[2022-02-12] MEDS: Ethyl Chloride Spray Bottle (104 SPRAY/BOTTLE) TP PRN (13:54)
[2022-02-12] MEDS: traZODone 50 MG TABLET PO SCH (20:38)
[2022-02-12] MEDS: Latanoprost 2.5 ML BOTTLE BOTH EYES SCH (20:39)
[2022-02-13 01:56] LABS: Basophils % 0.3 %; Eosinophils # 0.3 K/mcL (0.0-0.6); Eosinophils % 2.3 %; Hematocrit 34.2 % (37.5-50.1); Hemoglobin 11.5 g/dL (12.9-16.9); Immature Granulocytes % 0.8 % (0-4); Lymphocytes # 1.1 K/mcL (0.6-4.6); Lymphocytes % 9.6 %; Mean Corpuscular HGB Conc 33.6 g/dL (31.6-35.5); Mean Corpuscular Hemoglobin 34.8 pg (28.0-33.3); Mean Corpuscular Volume 103.6 fL (83.0-100.0); Mean Platelet Volume 9.1 fL (9.4-12.4); Monocytes # 0.9 K/mcL (0.0-1.3); Monocytes % 8.3 %; Neutrophils # 8.7 K/mcL (1.6-8.9); Platelet Count 228 K/mcL (140-400); Red Cell Distribution Width 11.9 % (11.5-14.5); Segmented Neutrophils % 78.7 %; White Blood Count 11.1 K/mcL (4.3-11.1)
[2022-02-13 02:12] LABS: Potassium 3.3 mEq/L (3.5-5.1)
[2022-02-13] MEDS: Piperacillin/Tazobactam 3.375 GM in 0.9 % Sodium Chloride Mini Bag 100 ML IVPB SCH (03:10)
[2022-02-13] MEDS: *HR* Heparin 5,000 UNIT/ML VIAL SQ SCH ×3 (05:48→20:13)
[2022-02-13] MEDS: ARIPiprazole 2 MG TABLET PO SCH (08:28)
[2022-02-13] MEDS: Nystatin SUSP 5 ML UD.LIQ PO SCH ×4 (08:29→20:13)
[2022-02-13] MEDS: NIFEdipine XL (24 HR) 30 MG TAB.ER.24 PO SCH (08:29)
[2022-02-13] MEDS: BuPROPion SR (12 HR) 150 MG TABLET PO SCH (08:29)
[2022-02-13] MEDS: Baclofen 10 MG TABLET PO SCH ×2 (08:29→20:13)
[2022-02-13] MEDS: *HR* HYDROmorphone (PF) 1 MG/ML SYRINGE IVP PRN ×2 (08:44→15:16)
[2022-02-13] MEDS: Latanoprost 2.5 ML BOTTLE BOTH EYES SCH (20:13)
[2022-02-13] MEDS: traZODone 50 MG TABLET PO SCH (20:14)
[2022-02-14] MEDS: *HR* Heparin 5,000 UNIT/ML VIAL SQ SCH ×2 (06:46→15:13)
[2022-02-14 07:45] VITALS: PULSE 101; O2SAT 100
[2022-02-14] MEDS ORDERED: Ethyl Chloride Spray Bottle (104 SPRAY/BOTTLE) TP PRN (08:18)
[2022-02-14] MEDS ORDERED: 0.9 % Sodium Chloride 250 ML IVC PRN (08:18)
[2022-02-14] MEDS: ARIPiprazole 2 MG TABLET PO SCH (08:28)
[2022-02-14] MEDS: Nystatin SUSP 5 ML UD.LIQ PO SCH ×2 (08:28→13:54)
[2022-02-14] MEDS: Baclofen 10 MG TABLET PO SCH (08:29)
[2022-02-14] MEDS: BuPROPion SR (12 HR) 150 MG TABLET PO SCH (08:29)
[2022-02-14] MEDS: NIFEdipine XL (24 HR) 30 MG TAB.ER.24 PO SCH (08:30)
[2022-02-14 08:47] LABS: Calcium 8.5 mg/dL (8.6-10.3); Potassium 3.7 mEq/L (3.5-5.1)
[2022-02-14] MEDS: *HR* HYDROmorphone (PF) 1 MG/ML SYRINGE IVP PRN (11:18)
[2022-02-14 14:09] VITALS: BP 120/80; TEMP 98.3
== END 2022-02-14 17:43 | DRG 329 ==
LOC: EMEROOARM 12:37 → 2ANU 12:37 → SUATTDRO 17:50
PROVIDERS: ADMIT Internal Medicine; ATTEND Internal Medicine

== ENCOUNTER 2022-02-20 14:09 | Inpatient (IN) ==
[2022-02-20] MEDS ORDERED: cefTRIAXone 1,000 MG in 0.9 % Sodium Chloride 10 ML IVP ONE (14:16)
[2022-02-20 15:11] LABS: Albumin 3.3 g/dL (3.5-5.7); Albumin/Globulin Ratio 1.1 (1.1-2.2); Bilirubin,Direct 0.1 mg/dL (0.0-0.2); Bilirubin,Indirect 0.2 mg/dL (0.0-1.0); Bilirubin,Total 0.3 mg/dL (0.3-1.0); Calcium 9.1 mg/dL (8.6-10.3); Globulin 3.1 g/dL (2.4-3.5); Potassium 4.3 mEq/L (3.5-5.1); Total Protein 6.4 g/dL (6.4-8.9)
[2022-02-20 15:12] LABS: INR 0.9; Prothrombin Time 10.2 Seconds (9.4-12.1)
[2022-02-20 15:15] LABS: Activated Partial Thrombo Time 28.4 Seconds (26.0-36.0)
[2022-02-20 15:18] LABS: Basophils % 0.5 %; Eosinophils # 0.1 K/mcL (0.0-0.6); Eosinophils % 1.4 %; Hematocrit 32.3 % (37.5-50.1); Hemoglobin 10.4 g/dL (12.9-16.9); Immature Granulocytes % 0.4 % (0-4); Lymphocytes % 12.5 %; Mean Corpuscular HGB Conc 32.2 g/dL (31.6-35.5); Mean Corpuscular Hemoglobin 34.8 pg (28.0-33.3); Mean Platelet Volume 8.9 fL (9.4-12.4); Monocytes # 0.8 K/mcL (0.0-1.3); Monocytes % 10.4 %; Platelet Count 277 K/mcL (140-400); Red Blood Count 2.99 M/mcL (4.19-5.50); Red Cell Distribution Width 12.3 % (11.5-14.5); Segmented Neutrophils % 74.8 %; White Blood Count 8.1 K/mcL (4.3-11.1)
[2022-02-20 16:34] LABS: Bilirubin,Urine Negative (Negative); Blood,Urine Large (Negative); Clarity,Urine Ex.Turbid (Clear); Glucose,Urine (UA) Normal (Normal); Ketones,Urine Negative (Negative); Leukocyte Esterase,Urine Large (Negative); Nitrite,Urine Negative (Negative); Protein,Urine >=300 mg/dL (Neg-Trace); Specific Gravity,Urine 1.016 (1.010-1.025); Urobilinogen,Urine Normal (Normal)
[2022-02-20 16:35] LABS: Color,Urine Red (Yellow)
[2022-02-20] MEDS ORDERED: Melatonin 3 MG TABLET PO PRN (19:15)
[2022-02-20] MEDS ORDERED: *HR* HYDROcodone/Acet 5/325 mg TABLET PO PRN (19:15)
[2022-02-20] MEDS ORDERED: Naloxone 0.4 MG/ML INJ IVP PRN (19:15)
[2022-02-20] MEDS ORDERED: Acetaminophen 325 MG TABLET PO PRN (19:15)
[2022-02-20] MEDS ORDERED: *HR* OxyCODONE Immed Rel 5 MG TABLET PO PRN (19:15)
[2022-02-20] MEDS ORDERED: Ondansetron ODT 4 MG TAB.RAPDIS SL PRN (19:15)
[2022-02-20] MEDS: 0.9 % Sodium Chloride 1,000 ML IVC SCH (20:13)
[2022-02-20] MEDS ORDERED: Dextrose Gel 15 GM/37.5 ML TUBE PO PRN ×2 (20:18)
[2022-02-20] MEDS ORDERED: D5% in Water 1,000 ML IVC PRN (20:18)
[2022-02-20] MEDS ORDERED: Insulin LISPRO 300 UNITS/3 ML VIAL SUBQ SCH (21:00)
[2022-02-21 04:33] LABS: Calcium 8.8 mg/dL (8.6-10.3); Chol/HDL Ratio 3.6 (0-4.9); Magnesium 2.5 mg/dL (1.6-2.6); Phosphorous 2.6 mg/dL (2.7-4.5); Potassium 4.9 mEq/L (3.5-5.1)
[2022-02-21] MEDS ORDERED: 0.9 % Sodium Chloride 250 ML IVC PRN (07:38)
[2022-02-21] MEDS ORDERED: Acetaminophen 325 MG TABLET PO PRN (07:45)
[2022-02-21] MEDS ORDERED: 0.9 % Sodium Chloride 2,000 ML PRIME SCH (07:45)
[2022-02-21] MEDS: 0.9 % Sodium Chloride 1,000 ML IVC SCH (08:50)
[2022-02-21] MEDS: Insulin LISPRO 300 UNITS/3 ML VIAL SUBQ SCH ×2 (08:52→12:10)
[2022-02-21] MEDS ORDERED: cefTRIAXone 1,000 MG in Water for inj. (sterile) 10 ML IVP SCH (09:00)
[2022-02-21] MEDS ORDERED: Ethyl Chloride Spray Bottle (104 SPRAY/BOTTLE) TP PRN (09:54)
[2022-02-21 10:13] LABS: Hematocrit 28.8 % (37.5-50.1); Mean Corpuscular HGB Conc 31.3 g/dL (31.6-35.5); Mean Corpuscular Hemoglobin 33.8 pg (28.0-33.3); Mean Corpuscular Volume 108.3 fL (83.0-100.0); Mean Platelet Volume 8.8 fL (9.4-12.4); Platelet Count 254 K/mcL (140-400); Red Blood Count 2.66 M/mcL (4.19-5.50); Red Cell Distribution Width 12.2 % (11.5-14.5)
[2022-02-21 10:16] LABS: White Blood Count 2.9 K/mcL (4.3-11.1)
[2022-02-21] MEDS: *HR* Dextrose 50 % in Water (Syg) 50 ML SYRINGE IVP PRN (12:10)
[2022-02-21] MEDS ORDERED: Darbepoetin 100 MCG/0.5 ML SYRINGE SQ SCH (14:00)
[2022-02-21] MEDS: BuPROPion SR (12 HR) 150 MG TABLET PO SCH (15:36)
[2022-02-21] MEDS: ARIPiprazole 2 MG TABLET PO SCH (15:36)
[2022-02-21] MEDS: Famotidine 20 MG TABLET PO SCH (16:14)
[2022-02-21] MEDS: Mirtazapine 15 MG TABLET PO SCH (22:10)
[2022-02-21] MEDS: Latanoprost 2.5 ML BOTTLE BOTH EYES SCH (22:10)
[2022-02-21] MEDS: Baclofen 10 MG TABLET PO SCH (22:10)
[2022-02-22] MEDS: *HR* Dextrose 50 % in Water (Syg) 50 ML SYRINGE IVP PRN (03:18)
[2022-02-22] MEDS ORDERED: D5% in Water 1,000 ML IVC PRN (03:33)
[2022-02-22 04:02] LABS: Basophils % 0.5 %; Eosinophils # 0.1 K/mcL (0.0-0.6); Eosinophils % 2.1 %; Hematocrit 28.5 % (37.5-50.1); Hemoglobin 8.9 g/dL (12.9-16.9); Immature Granulocytes % 0.3 % (0-4); Lymphocytes # 1.3 K/mcL (0.6-4.6); Lymphocytes % 22.6 %; Mean Corpuscular HGB Conc 31.2 g/dL (31.6-35.5); Mean Corpuscular Hemoglobin 33.7 pg (28.0-33.3); Mean Platelet Volume 8.9 fL (9.4-12.4); Monocytes % 16.8 %; Neutrophils # 3.4 K/mcL (1.6-8.9); Platelet Count 242 K/mcL (140-400); Red Blood Count 2.64 M/mcL (4.19-5.50); Red Cell Distribution Width 12.2 % (11.5-14.5); Segmented Neutrophils % 57.7 %
[2022-02-22 04:17] LABS: Calcium 7.8 mg/dL (8.6-10.3); Potassium 3.8 mEq/L (3.5-5.1)
[2022-02-22 04:19] LABS: White Blood Count 5.8 K/mcL (4.3-11.1)
[2022-02-22 05:50] LABS: Estimated Average Glucose 88 mg/dl; Hemoglobin A1C 4.7 %
[2022-02-22] MEDS ORDERED: Famotidine 20 MG TABLET PO SCH ×2 (09:00→16:00)
[2022-02-22] MEDS ORDERED: NIFEdipine XL (24 HR) 30 MG TAB.ER.24 PO SCH (09:00)
[2022-02-22] MEDS ORDERED: Mirtazapine 15 MG TABLET PO SCH (09:00)
[2022-02-22] MEDS: BuPROPion SR (12 HR) 150 MG TABLET PO SCH (09:40)
[2022-02-22] MEDS: Baclofen 10 MG TABLET PO SCH ×2 (09:40→20:45)
[2022-02-22] MEDS: ARIPiprazole 2 MG TABLET PO SCH (09:41)
[2022-02-22] MEDS: Cholecalciferol (D-3) 1,000 UNIT (25MCG) TABLET PO SCH (09:41)
[2022-02-22] MEDS: Latanoprost 2.5 ML BOTTLE BOTH EYES SCH (20:45)
[2022-02-22] MEDS: Mirtazapine 15 MG TABLET PO SCH (20:45)
[2022-02-23 04:13] LABS: Basophils % 0.2 %; Eosinophils # 0.1 K/mcL (0.0-0.6); Eosinophils % 2.2 %; Hematocrit 26.9 % (37.5-50.1); Hemoglobin 8.5 g/dL (12.9-16.9); Immature Granulocytes % 0.4 % (0-4); Lymphocytes % 19.4 %; Mean Corpuscular HGB Conc 31.6 g/dL (31.6-35.5); Mean Corpuscular Hemoglobin 33.7 pg (28.0-33.3); Mean Corpuscular Volume 106.7 fL (83.0-100.0); Mean Platelet Volume 8.8 fL (9.4-12.4); Monocytes # 0.7 K/mcL (0.0-1.3); Monocytes % 13.9 %; Neutrophils # 3.1 K/mcL (1.6-8.9); Platelet Count 213 K/mcL (140-400); Red Blood Count 2.52 M/mcL (4.19-5.50); Red Cell Distribution Width 11.9 % (11.5-14.5); Segmented Neutrophils % 63.9 %; White Blood Count 4.9 K/mcL (4.3-11.1)
[2022-02-23 04:22] LABS: Calcium 7.9 mg/dL (8.6-10.3); Potassium 4.2 mEq/L (3.5-5.1)
[2022-02-23] MEDS: ARIPiprazole 2 MG TABLET PO SCH (07:49)
[2022-02-23] MEDS: Baclofen 10 MG TABLET PO SCH ×2 (07:50→22:09)
[2022-02-23] MEDS: Cholecalciferol (D-3) 1,000 UNIT (25MCG) TABLET PO SCH (07:50)
[2022-02-23] MEDS: BuPROPion SR (12 HR) 150 MG TABLET PO SCH (07:50)
[2022-02-23] MEDS ORDERED: *HR* Heparin 10,000 UNIT/10 ML VIAL IV PRN (08:11)
[2022-02-23] MEDS ORDERED: 0.9 % Sodium Chloride 250 ML IVC PRN (08:11)
[2022-02-23] MEDS ORDERED: Ethyl Chloride Spray Bottle (104 SPRAY/BOTTLE) TP PRN (08:11)
[2022-02-23 15:28] VITALS: PULSE 92; O2SAT 97
[2022-02-23] MEDS: Famotidine 20 MG TABLET PO SCH (16:49)
[2022-02-23 21:06] VITALS: BP 177/73; TEMP 98.1
[2022-02-23] MEDS: Latanoprost 2.5 ML BOTTLE BOTH EYES SCH (22:09)
[2022-02-23] MEDS: Mirtazapine 15 MG TABLET PO SCH (22:09)
[2022-02-25] MEDS ORDERED: Carbamide Peroxide 150 DROP/15 ML BOTTLE BOTH EARS SCH (12:41)
== END 2022-02-23 22:38 | disposition home health service (06) | DRG 637 ==
LOC: EMEROOARM 14:09 → 2NENU 14:09 → SUATTDRO 19:19 → 2NENU 20:06
PROVIDERS: ADMIT Internal Medicine; ATTEND Internal Medicine